=== PATIENT | female | born 1955 | race Caucasian/White ===

== ENCOUNTER → 2016-11-16 | Outpatient (CLI) | payer OTHER ==
[~2016-11-16] MED LIST: AMLO-110 PO; AMT10; CLOP1TAB15 PO; FLUT27.53 INTNAS; LEVO100T7 PO; LEVO88TA22 PO; LISI-461 PO; LISI40TA PO; LVQ750 PO; MISCCAP80 PO; OMEP40CA PO; OPTIRAY 320 IV PRN; OXYC-57 PO; OXYC1TAB3 PO; PANT40TA PO; PRVHFAIN INH; SIMV10TA2 PO; SIMV40TA2 PO
--- NOTE | 2016-11-16 13:06 | DIAGNOSTIC IMAGING REPORT ---
CHEST COMBO ANGIOGRAPHY CLINICAL HISTORY: Atherosclerosis. Subclavian artery stenosis. COMPARISON STUDY: Chest radiograph May 06, 2016. TECHNIQUE: Unenhanced and arterial phase imaging of the chest was performed. Injection of 93 cc Optiray 320 IV was uneventful. Sagittal and coronal reconstructions were viewed as well as maximal intensity projections on an independent 3-D workstation. FINDINGS: The heart is mildly enlarged. There is moderate coronary artery calcification and moderate atherosclerotic plaque of the thoracic aorta, greatest within the distal descending thoracic aorta. There is no evidence for thoracic aortic dissection. The caliber of the thoracic aorta is normal. There is occlusion of the proximal left subclavian artery that begins 9 mm distal to the vessel origin. There is reconstitution of the left subclavian artery at the takeoff of the left vertebral artery. There is moderate to severe stenosis at the origin of the left vertebral artery. The brachiocephalic trunk and left common carotid artery are patent. The proximal right subclavian artery is tortuous but no significance and no cysts are identified. Evaluation is difficult due to streak artifact from adjacent contrast within the veins. Central airways are patent. Mild emphysema is noted. There is no pneumothorax or pleural effusion. Note is made of a 7 mm subpleural nodule within the right lower lobe shown on image [id number] of [id number]. There is mild esophageal dilatation. Mild biliary ductal dilatation is likely related to cholecystectomy. There are a few suspected hepatic cysts. IMPRESSION: 1. Occlusion of the proximal left subclavian artery. Occlusion begins 9 mm distal to the vessel origin. Reconstitution of the left subclavian artery immediately distal to the takeoff of the left vertebral artery. This could be correlated with clinical evidence for subclavian steal syndrome. Moderate to severe stenosis at the origin of the left vertebral artery. 2. Tortuous proximal right subclavian artery which is suboptimally assessed on this exam but is patent without high-grade stenosis. 3. Mild cardiomegaly. 4. 7 mm subpleural right lower lobe nodule. A follow-up chest CT in 6 months to ensure stability is recommended. Electronically signed by: Cheng Paula M.D. 11/16/2016 1:05 PM Dictated Date/Time: 11/16/2016 12:42 PM
== END | disposition home or self-care (01) ==
LOC: C.CTS 11:45
PROVIDERS: ATTEND Physician Assistant
DX: I70.219 Atherosclerosis of native arteries of extremities with intermittent claudication, unspecified extremity (principal); I51.7 Cardiomegaly

== ENCOUNTER 2016-12-30 05:48 | Inpatient (IN) | payer OTHER ==
[2016-12-15 14:02] VITALS: BMI 35.0
--- NOTE | 2016-12-15 14:44 | PAT Medication Instructions ---
Service Date Dec 15, 2016. Current Home Medication List Albuterol (Ventolin Hfa), 2 PUFFS INH DIRECTED Amitriptyline HCl (Amitriptyline HCl), 25 MG HS Amlodipine (Norvasc), 5 MG PO QAM Clopidogrel (Plavix), 75 MG PO QAM Fluticasone Furoate (Flonase Sensimist), 2 SPRAYS INTNAS PRN Levothyroxine Sodium (Levothyroxine Sodium), 1 TAB PO QAM Lisinopril (Zestril), 40 MG PO QAM Oxycodone Ir (Roxicodone Ir), 5 MG PO BID PRN for Pain Pantoprazole (Protonix), 40 MG PO QAM Probiotic Product (Probiotic), 1 CAP PO QAM Simvastatin (Zocor), 40 MG PO QPM Medication Instructions For Your Scheduled Surgery - Check with surgeon/family physician for instructions: Clopidogrel (Plavix), 75 MG PO QAM - Hold the following medications the morning of surgery: Probiotic Product (Probiotic), 1 CAP PO QAM Lisinopril (Zestril), 40 MG PO QAM - Take the following medications the morning of surgery with a sip of water: Pantoprazole (Protonix), 40 MG PO QAM Oxycodone Ir (Roxicodone Ir), 5 MG PO BID PRN for Pain (okay to take up to 4 hours prior to surgery if needed) Levothyroxine Sodium (Levothyroxine Sodium), 1 TAB PO QAM Fluticasone Furoate (Flonase Sensimist), 2 SPRAYS INTNAS PRN (if needed) Amlodipine (Norvasc), 5 MG PO QAM Albuterol (Ventolin Hfa), 2 PUFFS INH DIRECTED (if needed) - Take the following medications as scheduled the night before surgery: Simvastatin (Zocor), 40 MG PO QPM Oxycodone Ir (Roxicodone Ir), 5 MG PO BID PRN for Pain (if needed) Fluticasone Furoate (Flonase Sensimist), 2 SPRAYS INTNAS PRN (if needed) Amitriptyline HCl (Amitriptyline HCl), 25 MG HS Albuterol (Ventolin Hfa), 2 PUFFS INH DIRECTED (if needed) If you have any questions please call us at [phone] or [phone] or [phone]
[2016-12-15 16:36] LABS: BASO % 0.2 %; BASO ABS # 0.01 K/uL (0-0.2); COMPLETE YES; EOS % 0.8 %; HEMATOCRIT 37.2 % (37-47); IG% 0.2 %; LYMPH % 14.6 %; LYMPH ABS # 0.94 K/uL (1.2-3.4); MEAN CELL VOLUME 93.7 fL (80-100); MEAN CORPUSCULAR HEMOGLOBIN 31.2 pg (25-34); MEAN CORPUSCULAR HGB CONC 33.3 g/dl (32-36); MEAN PLATELET VOLUME 10.5 fL (7.4-10.4); MONO % 6.5 %; NEUT % 77.7 %; PLATELET COUNT 241 K/uL (130-400); RED BLOOD COUNT 3.97 M/uL (4.2-5.4); WHITE BLOOD COUNT 6.43 K/uL (4.8-10.8)
[2016-12-15 16:59] LABS: PARTIAL THROMBOPLASTIN RATIO 1.1; PROTHROMBIN TIME (PATIENT) 10.6 SECONDS (9.0-12.0)
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
[2016-12-30] VITALS (7 sets, daily range): BP systolic 93–127; BP diastolic 65–87; PULSE 83–95; TEMP 36.3–36.7; O2SAT 91–99; Ht 165.1 cm; Wt 95.6 kg
[~2016-12-30] VITALS: Ht 165.1 cm; Wt 95.6 kg
[~2016-12-30 05:48] MED LIST changes: -AMLO-110 PO; -AMT10; -CLOP1TAB15 PO; -FLUT27.53 INTNAS; -LEVO100T7 PO; -LEVO88TA22 PO; -LISI40TA PO; -LVQ750 PO; -MISCCAP80 PO; -OMEP40CA PO; -OPTIRAY 320 IV PRN; -OXYC-57 PO; -OXYC1TAB3 PO; -PANT40TA PO; -PRVHFAIN INH; -SIMV10TA2 PO; -SIMV40TA2 PO
[2016-12-30] MEDS ORDERED: LACTATED RINGER'S 1000ML 1,000 ML IV SCH (06:00)
[2016-12-30] MEDS ORDERED: CEFAZOLIN 2000 MG/60 ML D5W IV SCH (06:00)
[2016-12-30] MEDS ORDERED: LIDOCAINE HCL 2% 2 ML VIAL (20MG/ML) ONE (06:48)
[2016-12-30] MEDS ORDERED: ROCURONIUM BROMIDE 10 MG/ML 5 ML VIAL IV ONE (06:48)
[2016-12-30] MEDS ORDERED: ONDANSETRON INJ 2 MG/ML 2 ML VIAL ONE (06:48)
[2016-12-30] MEDS ORDERED: SUCCINYLCHOLINE CHLORIDE 20 MG/ML 10 ML VIAL IV ONE (06:48)
[2016-12-30] MEDS ORDERED: NEOSTIGMINE METHYLSULFATE 5 MG/5 ML SYR ONE (06:48)
[2016-12-30] MEDS ORDERED: EpHEDrine SULFATE INJ 50 MG/ML AMP ONE (06:48)
[2016-12-30] MEDS ORDERED: GLYCOPYRROLATE INJ 0.2 MG/ML VIAL ONE (06:48)
[2016-12-30] MEDS ORDERED: PHENYLEPHRINE HCL INJ 10 MG/ML VIAL ONE (06:48)
[2016-12-30] MEDS ORDERED: DEXAMETHASONE SOD INJ 4 MG/ML VIAL ONE (06:48)
[2016-12-30] MEDS ORDERED: PROPOFOL IV EMULSION 10 MG/ML 20 ML VIAL IV ONE ×2 (06:48→10:21)
[2016-12-30] MEDS ORDERED: FENTANYL CITRATE INJ 50 MCG/1 ML 2 ML VIAL ONE ×2 (06:49→09:13)
[2016-12-30] MEDS ORDERED: MIDAZOLAM HCL 1 MG/ML 2ML VIAL ONE (06:49)
[2016-12-30] MEDS: SODIUM CHLORIDE 0.9% 1000ML 1,000 ML IV SCH ×2 (07:00→12:21)
[2016-12-30] MEDS ORDERED: CEFAZOLIN SOD 1 GM VIAL ONE (07:08)
[2016-12-30] MEDS ORDERED: LIDOCAINE HCL 1% 20 ML VIAL ONE (07:08)
[2016-12-30] MEDS ORDERED: BUPIVACAINE/EPINEPHRINE 0.5% MPF 1:200,000 30 ML VIAL ONE (07:08)
[2016-12-30] MEDS ORDERED: THROMBIN FOR SOLN 20000 UNIT KIT ONE (07:08)
[2016-12-30] MEDS ORDERED: GELATIN SPONGE 12-7MM ONE (07:08)
[2016-12-30] MEDS ORDERED: HEPARIN SOD (PORCINE) 1000 UNIT/ML 10 ML VIAL ONE ×2 (07:09→09:32)
[2016-12-30] MEDS ORDERED: HYDROmorphone INJ 2 MG/ML SYR/VIAL IV PRN (07:15)
[2016-12-30] MEDS ORDERED: ONDANSETRON INJ 2 MG/ML 2 ML VIAL IV PRN ×2 (07:15→10:30)
[2016-12-30] MEDS ORDERED: LABETALOL HCL IV 5 MG/ML 20ML IV PRN (07:15)
[2016-12-30] MEDS ORDERED: ATROPINE SULFATE 0.1 MG/ML 5ML SYR IV PRN (07:15)
--- NOTE | 2016-12-30 07:36 | History & Physical Bridge Note ---
H&P Re-Evaluation Bridge Note: I have examined the patient, reviewed the History & Physical and in the interval since the performance of the History & Physical I have noted the following changes of clinical significance: No changes noted
[2016-12-30] MEDS ORDERED: GELATIN SPONGE SZ 100 ONE (07:39)
[2016-12-30] MEDS ORDERED: PROTAMINE SULFATE 10 MG/ML 5 ML VIAL IV ONE (10:09)
[2016-12-30] MEDS ORDERED: D5W AND 1/2NSS 1,000 ML IV ONE (10:26)
--- NOTE | 2016-12-30 10:26 | [facility] Post Operative Brief Note ---
Immediate Operative Summary Operative Date Dec 30, 2016. Pre-Operative Diagnosis Left subclavian artery occlusion Post-Operative Diagnosis Left subclavian artery occlusion Procedure(s) Performed Left Carotid to Subclavian Bypass Surgeon Dr. Bon Mcdonnell [employer] Superintendent Surgeon(s) Cathleen Caldwell PA-C Estimated Blood Loss 150ml Findings good flow to left hand Specimens No specimen as per surgeon Anesthesia Gen Complication(s) None Disposition Recovery Room / PACU
[2016-12-30] MEDS ORDERED: MoRPHine SULFATE 4 MG/ML 1 ML CARP\\VIAL IV PRN (10:30)
[2016-12-30] MEDS ORDERED: ALBUTEROL HFA 8 GM INHALER INH PRN (10:30)
[2016-12-30] MEDS ORDERED: ACETAMINOPHEN 325 MG TAB PO PRN (10:30)
[2016-12-30] MEDS ORDERED: HYDROmorphone INJ 1 MG/ML SYR ONE (11:10)
--- NOTE | 2016-12-30 11:10 | OPERATIVE REPORT ---
DATE OF OPERATION: 12/30/2016 PREOPERATIVE DIAGNOSIS: Left subclavian artery occlusion. POSTOPERATIVE DIAGNOSIS: Same. PROCEDURE: Left carotid subclavian prosthetic bypass. SURGEON: Dr. Mcdonnell. SISAL PICKER: Cathleen Murray PA-C. ANESTHETIC: General endotracheal. PROCEDURE INDICATIONS: The patient is a 61-year-old female with left subclavian artery occlusion with significant symptoms of her left arm. It has gotten progressively worse. Endovascular attempt was performed which was not successful. Carotid subclavian was then recommended. She understood the risks, options and benefits and agreed to go ahead with this procedure. OPERATION AND FINDINGS: The patient was taken to the operating room and placed in supine position. After general anesthesia was accomplished, the left side of the neck was prepped and draped in a sterile manner. A transverse incision was made supraclavicularly. This was carried down through the platysmal layer. The clavicular head of the sternocleidomastoid was divided. This was carried down to where the scalenus anticus was seen and this was also divided. Dissection of the subclavian vein was fairly inferior and sat beneath the clavicle. It was finally located and isolated for a short distance. The patient was heparinized. After adequate heparinization was accomplished, subclavian was clamped proximally and distally. Longitudinal arteriotomy was then made. The 6 mm S [place]an graft was then brought to the operative field and was trimmed and beveled in appropriate fashion. An arteriotomy was performed on the subclavian artery and appeared to be normal lining. An end-to-side anastomosis was then performed using a 6-0 Prolene suture in the usual vascular fashion. Prior to completing the closure, backbleeding and forward bleeding was allowed to occur and the final few sutures were placed and securely tied. Clamps were then placed on the graft just beyond the anastomosis. The carotid artery was then clamped proximally and distally. Longitudinal arteriotomy was then performed on the carotid. The S [place]an graft was trimmed to the appropriate length and bevelled. An end-to-side anastomosis was accomplished. This was done with a CV6 S [place]an suture in the usual vascular fashion. Prior to completing the closure, backbleeding and forward bleeding was allowed to occur and the final few sutures were placed and securely tied. Clamps were removed. Excellent flow was seen down the arm. The final clamp was removed from carotid artery distally from the anastomosis. Good Doppler signals were heard on the subclavian and carotid. At that point in time, there was a small amount of chyle leakage noted. This was identified and tied, clamped and clipped. No further leakage was seen. Adequate hemostasis was noted. The wound was then closed in the usual fashion using running 3-0 Vicryl suture for the platysmal layer, and a running 4-0 subcuticular Vicryl sutures for the skin edges. Dermabond was used for a dressing. The patient left the OR in good condition and tolerated the procedure well. I attest to the content of the Intraoperative Record and any orders documented therein. Any exceptions are noted tanya Murray Pac assisted due to lack of resident availability and was necessary for prepping, draping, retraction, wound closure defects, subQ and skin closure and was necessary for the case. HAYLEE
[2016-12-30 11:28] LABS: BASO % 0.2 %; BASO ABS # 0.01 K/uL (0-0.2); EOS % 0.8 %; HEMATOCRIT 35.3 % (37-47); IG% 0.3 %; LYMPH ABS # 1.13 K/uL (1.2-3.4); MEAN CELL VOLUME 93.1 fL (80-100); MEAN CORPUSCULAR HEMOGLOBIN 31.4 pg (25-34); MEAN PLATELET VOLUME 9.6 fL (7.4-10.4); MONO % 5.7 %; PLATELET COUNT 174 K/uL (130-400); RED BLOOD COUNT 3.79 M/uL (4.2-5.4); WHITE BLOOD COUNT 6.66 K/uL (4.8-10.8)
--- NOTE | 2016-12-30 11:42 | Anesthesiology Progress Note ---
Anesthesia Post Op Note Date & Time Dec 30, 2016 at 11:42 Vital Signs Pain Intensity: 4 Vital Signs Past 12 Hours Date Time Temp Pulse Resp B/P (MAP) Pulse Ox O2 Delivery O2 Flow Rate FiO2 12/30/16 11:35 36.1 89 18 105/71 95 Nasal Cannula 2 12/30/16 11:25 92 19 105/65 95 Nasal Cannula 2 12/30/16 11:15 94 20 96/68 (83) 95 Nasal Cannula 2 12/30/16 11:05 97 21 110/67 98 Oxymask 10 12/30/16 10:55 99 19 114/68 100 Oxymask 10 12/30/16 10:46 36.7 107 16 121/73 100 Oxymask 10 12/30/16 06:15 36.7 83 20 127/87 94 Room Air Notes Mental Status: alert / awake / arousable, participated in evaluation Pt Amnestic to Procedure: Yes Nausea / Vomiting: adequately controlled Pain: adequately controlled Airway Patency, RR, SpO2: stable & adequate BP & HR: stable & adequate Hydration State: stable & adequate Anesthetic Complications: no major complications apparent
[2016-12-30 12:20] LABS: COMPLETE YES; MEAN CORPUSCULAR HGB CONC 33.7 g/dl (32-36)
[2016-12-30] MEDS: CEFAZOLIN IV 2,000 MG in DEXTROSE 5% 50ML 50 ML IV SCH ×2 (13:01→22:18)
--- NOTE | 2016-12-30 13:46 | Progress Note ---
Progress Note Date of Service Dec 30, 2016. Progress Note I assisted Dr Mcdonnell with María Barnes's Left Carotid to Subclavian Bypass on 12/30/16, d/t lack of resident availability.
[2016-12-30 14:28] LABS: CREATININE 0.89 mg/dl (0.60-1.20)
[2016-12-30] MEDS ORDERED: INFLUENZA ADMINISTRATION CHARGE ONE (14:30)
[2016-12-30] MEDS ORDERED: INFLUENZA VIRUS QUAD VACCINE 0.5 ML SYR IM. ONE (14:30)
[2016-12-30] MEDS: SIMVASTATIN 40 MG TAB PO SCH (20:53)
[2016-12-30] MEDS: AMITRIPTYLINE HCL 25 MG TAB PO SCH (20:53)
[2016-12-30] MEDS: ENOXAPARIN 30 MG/0.3 ML SYR SQ SCH ×2 (20:54→21:05)
[2016-12-30] MEDS: OXYCODONE HCL IR 5 MG TAB (IMMEDIATE RELEASE) PO PRN (21:05)
[2016-12-31] VITALS (12 sets, daily range): BP systolic 78–132; BP diastolic 56–86; PULSE 97–113; TEMP 36.7–37.1; O2SAT 89–94
[2016-12-31] MEDS: LEVOTHYROXINE 100 MCG TAB PO SCH (05:36)
[2016-12-31 06:52] LABS: BUN/CREATININE RATIO 11.7 (10-20); CALCIUM 8.5 mg/dl (8.5-10.1); CREATININE 0.69 mg/dl (0.60-1.20); POTASSIUM 4.2 mmol/L (3.5-5.1)
--- NOTE | 2016-12-31 07:55 | Progress Note ---
Progress Note Date of Service: Dec 31, 2016. Subjective Complaining of neck pain Objective Vital Signs Vital Signs Past 12 Hours Date Time Temp Pulse Resp B/P (MAP) Pulse Ox O2 Delivery O2 Flow Rate FiO2 12/31/16 04:00 Room Air 12/31/16 03:45 37.0 97 18 124/79 (94) 90 Room Air 12/31/16 00:32 37.1 98 19 132/81 (98) 91 Room Air 12/30/16 23:59 Room Air 12/30/16 20:03 36.7 93 24 120/84 (96) 92 Room Air 12/30/16 20:00 95 Room Air 3.0 Exam Awake and alert VSS Afebrile Inciaion dry and clean with moderate swelling Left hand warm with good dopplers No neuro deficits of left arm. Laboratory and Microbiology Results Past 24 Hours Test 12/30/16 11:14 12/30/16 13:33 12/31/16 05:40 Range/Units White Blood Count 6.66 4.8-10.8 K/uL Red Blood Count 3.79 4.2-5.4 M/uL Hemoglobin 11.9 12.0-16.0 g/dL Hematocrit 35.3 37-47 % Mean Corpuscular Volume 93.1 80-100 fL Mean Corpuscular Hemoglobin 31.4 25-34 pg Mean Corpuscular Hemoglobin Concent 33.7 32-36 g/dl Platelet Count 174 130-400 K/uL Mean Platelet Volume 9.6 7.4-10.4 fL Neutrophils (%) (Auto) 76.0 % Lymphocytes (%) (Auto) 17.0 % Monocytes (%) (Auto) 5.7 % Eosinophils (%) (Auto) 0.8 % Basophils (%) (Auto) 0.2 % Neutrophils # (Auto) 5.07 1.4-6.5 K/uL Lymphocytes # (Auto) 1.13 1.2-3.4 K/uL Monocytes # (Auto) 0.38 0.11-0.59 K/uL Eosinophils # (Auto) 0.05 0-0.5 K/uL Basophils # (Auto) 0.01 0-0.2 K/uL RDW Standard Deviation 46.8 36.4-46.3 fL RDW Coefficient of Variation 13.7 11.5-14.5 % Immature Granulocyte % (Auto) 0.3 % Immature Granulocyte # (Auto) 0.02 0.00-0.02 K/uL Creatinine 0.89 0.69 0.60-1.20 mg/dl Est Creatinine Clear Calc Drug Dose 77.8 100.4 ml/min Estimated GFR () 82.2 110.4 Estimated GFR (Non- 70.9 95.3 Sodium Level 137 136-145 mmol/L Potassium Level 4.2 3.5-5.1 mmol/L Chloride Level 105 98-107 mmol/L Carbon Dioxide Level 26 21-32 mmol/L Anion Gap 6.0 3-11 mmol/L Blood Urea Nitrogen 8 7-18 mg/dl BUN/Creatinine Ratio 11.7 10-20 Random Glucose 120 70-99 mg/dl Calcium Level 8.5 8.5-10.1 mg/dl Imp: Post left carotid subclavian bypass Plan: Will transfer to floor Probable d/c tomorrow. Will stay today for pain control
[2016-12-31] MEDS: FLUTICASONE PROPIONATE NA SPR 16 GM BTL SCH (08:02)
[2016-12-31] MEDS: LACTOBACILLUS ACIDOPHILUS (FLORANEX) TAB PO SCH (08:03)
[2016-12-31] MEDS: AMLODIPINE BESYLATE 5 MG TAB PO SCH (08:05)
[2016-12-31] MEDS: CLOPIDOGREL BISULFATE 75 MG TAB PO SCH (08:05)
[2016-12-31] MEDS: PANTOprazole SOD 40 MG TAB PO SCH (08:06)
[2016-12-31] MEDS: LISINOPRIL 40 MG TAB PO SCH (08:07)
[2016-12-31] MEDS: ENOXAPARIN 30 MG/0.3 ML SYR SQ SCH ×2 (08:08→21:23)
[2016-12-31] MEDS: OXYCODONE HCL IR 5 MG TAB (IMMEDIATE RELEASE) PO PRN (08:09)
[2016-12-31] MEDS ORDERED: NURSING VERBAL MED ORDER ONE (10:30)
--- NOTE | 2016-12-31 10:33 | Anesthesiology Progress Note ---
Anesthesia Post Op Note Date & Time Dec 31, 2016 at 10:32 Vital Signs Pain Intensity: 7.0 Vital Signs Past 12 Hours Date Time Temp Pulse Resp B/P (MAP) Pulse Ox O2 Delivery O2 Flow Rate FiO2 12/31/16 10:23 36.7 109 22 123/86 (98) 92 Room Air 12/31/16 08:41 Room Air 12/31/16 08:16 36.9 111 28 104/82 (89) 90 12/31/16 04:00 Room Air 12/31/16 03:45 37.0 97 18 124/79 (94) 90 Room Air 12/31/16 00:32 37.1 98 19 132/81 (98) 91 Room Air 12/30/16 23:59 Room Air Notes Mental Status: alert / awake / arousable Pt Amnestic to Procedure: Yes Nausea / Vomiting: adequately controlled Pain: adequately controlled Airway Patency, RR, SpO2: stable & adequate BP & HR: stable & adequate Hydration State: stable & adequate
[2016-12-31] MEDS: OXYCODONE/ACETAMINOPHEN 5-325 TAB PO PRN ×2 (12:28→17:40)
[2016-12-31] MEDS: SIMVASTATIN 40 MG TAB PO SCH (21:23)
[2016-12-31] MEDS: AMITRIPTYLINE HCL 25 MG TAB PO SCH (21:23)
[2017-01-01] VITALS (12 sets, daily range): BP systolic 38–124; BP diastolic 49–83; PULSE 110–120; TEMP 36.7–37.1; O2SAT 91–94
[2017-01-01] MEDS: OXYCODONE/ACETAMINOPHEN 5-325 TAB PO PRN ×3 (00:08→23:25)
[2017-01-01] MEDS: LEVOTHYROXINE 100 MCG TAB PO SCH (05:32)
[2017-01-01] MEDS ORDERED: SODIUM CHLORIDE 0.9% 500ML 500 ML IV ONE ×2 (08:30→10:30)
[2017-01-01] MEDS ORDERED: NURSING VERBAL MED ORDER ONE ×2 (08:30→10:15)
[2017-01-01 08:43] LABS: HEMATOCRIT 40.8 % (37-47)
--- NOTE | 2017-01-01 08:56 | Progress Note ---
Progress Note Date of Service: Jan 01, 2017. Subjective 61 yo f POD #2 after L carotid-subclavian art BPG, seen in f/u today. Pt admits some edema and discomfort in L neck surgical area, but states is improving compared to yesterday. Not requiring much pain medication per RN. Taking PO well, ambulating. Hypotensive and tachycardic overnight per records, however, pt denies any complaints. Objective Vital Signs Vital Signs Past 12 Hours Date Time Temp Pulse Resp B/P (MAP) Pulse Ox O2 Delivery O2 Flow Rate FiO2 01/01/17 08:15 85/60 (68) 01/01/17 08:15 88/55 (66) 01/01/17 07:56 36.7 112 20 69/49 (56) 91 Room Air 01/01/17 01:00 94 Room Air 01/01/17 00:39 108/71 (83) 12/31/16 23:58 94 Nasal Cannula 2.0 12/31/16 23:50 Room Air 12/31/16 23:49 89/60 (70) 12/31/16 23:42 36.8 100 16 78/56 (63) 89 Room Air Exam CONST: A&O x3, NAD, chronically ill appearing female NECK: surgical incision C/D/I, + local edema and tenderness, hematoma noted. NEURO: No focal deficits. CHEST: RRR lungs decreased but ctab ABD: soft, nontender, + bs x 4 quad EXT: SHAFFER. +1radial RUE, nonpalpable radial LUE. +2 brachial RUE, +1 brachial LUE. brisk cap refill BUE Laboratory and Microbiology Results Past 24 Hours Test 01/01/17 08:29 Range/Units Hemoglobin 13.7 12.0-16.0 g/dL Hematocrit 40.8 37-47 % ASSESSMENT and PLAN: s/p L carotid-subclavian art bpg L subclavian art occlusion with claudication Post op hypotension-asymptomatic Pt states feeling ok. will check bilateral BP to eval for gradient. hgb/ hct ordered and EKG. further orders pending results. continue to monitor.
[2017-01-01] MEDS: LISINOPRIL 40 MG TAB PO SCH (09:00)
[2017-01-01] MEDS: AMLODIPINE BESYLATE 5 MG TAB PO SCH (09:00)
[2017-01-01] MEDS: FLUTICASONE PROPIONATE NA SPR 16 GM BTL SCH (09:21)
[2017-01-01] MEDS: LACTOBACILLUS ACIDOPHILUS (FLORANEX) TAB PO SCH (09:22)
[2017-01-01] MEDS: PANTOprazole SOD 40 MG TAB PO SCH (09:23)
[2017-01-01] MEDS: CLOPIDOGREL BISULFATE 75 MG TAB PO SCH (09:23)
[2017-01-01] MEDS: ENOXAPARIN 30 MG/0.3 ML SYR SQ SCH ×3 (09:24→21:47)
--- NOTE | 2017-01-01 12:21 | DIAGNOSTIC IMAGING REPORT ---
ULTRASOUND OF THE CAROTID ARTERIES CLINICAL HISTORY: Proximal left subclavian artery occlusion. Status post carotid subclavian bypass graft. COMPARISON STUDY: CT angiogram of the chest dated 11/16/2016. TECHNIQUE: Real-time, grayscale, and color Doppler sonography of the left common carotid artery is performed to assess a subclavian artery bypass graft. FINDINGS: There are at least 3 heterogeneously hypoechoic collections identified in the left lower neck at the site of interest. The largest measures up to 5.4 cm. This likely represent small hematomas. The left common carotid artery is patent with normal direction of flow and arterial waveforms. Velocities within the left common carotid artery measure up to 119 cm/s. The distal left subclavian/axillary artery is patent with normal arterial waveforms and velocities measuring up to 53 cm/s. A structure that may likely represents the common carotid artery to subclavian artery graft is present in the left lower neck. This demonstrates flow with velocities measuring up to 85 cm/s. This is difficult to fully visualize. IMPRESSION: 1. A structure that likely represents the common carotid artery to subclavian artery graft is present in the lower neck and demonstrates flow. This is difficult to fully assess. 2. The left common carotid and the distal left subclavian artery are patent. 3. There are several hypoechoic complex fluid collection the left lower neck, likely representing small hematomas. Clinical follow-up to resolution is recommended. Electronically signed by: Gutierrez Gonzalez M.D. 01/01/2017 12:20 PM Dictated Date/Time: 01/01/2017 12:14 PM
[2017-01-01] MEDS: SIMVASTATIN 40 MG TAB PO SCH (21:43)
[2017-01-01] MEDS: AMITRIPTYLINE HCL 25 MG TAB PO SCH (21:43)
[2017-01-02] MEDS: LEVOTHYROXINE 100 MCG TAB PO SCH (06:11)
[2017-01-02 06:56] VITALS: BP 88/60; PULSE 100; TEMP 36.6; O2SAT 93
[2017-01-02] MEDS: LISINOPRIL 40 MG TAB PO SCH (08:12)
[2017-01-02] MEDS: AMLODIPINE BESYLATE 5 MG TAB PO SCH (08:12)
[2017-01-02] MEDS: FLUTICASONE PROPIONATE NA SPR 16 GM BTL SCH (09:00)
[2017-01-02] MEDS: CLOPIDOGREL BISULFATE 75 MG TAB PO SCH (09:15)
[2017-01-02] MEDS: LACTOBACILLUS ACIDOPHILUS (FLORANEX) TAB PO SCH (09:15)
[2017-01-02] MEDS: ENOXAPARIN 30 MG/0.3 ML SYR SQ SCH (09:15)
[2017-01-02] MEDS: PANTOprazole SOD 40 MG TAB PO SCH (09:15)
[2017-01-02 09:19] VITALS: BP 88/60; PULSE 100; TEMP 36.6; O2SAT 93
--- NOTE | 2017-01-02 09:26 | Progress Note ---
Progress Note Date of Service: Jan 02, 2017. Subjective No complaints. Able to move neck. No lightheadedness or dizziness. Left hand feeling better since surgery. Objective Vital Signs Vital Signs Past 12 Hours Date Time Temp Pulse Resp B/P (MAP) Pulse Ox O2 Delivery O2 Flow Rate FiO2 01/02/17 09:19 36.6 100 20 93 Room Air 01/02/17 06:56 36.6 100 20 88/60 (69) 93 Room Air 01/01/17 23:30 Room Air 01/01/17 23:16 37.0 110 18 107/69 (82) 93 Room Air Exam Afebrile VSS but BP still on low side without any symptoms Incision dry and clean Moderate edema, unchanged Hand warm, good doppler No neuro deficits. Bypass patent on duplex Imp: Post carotid subclavian bypass Plan: Will d/c today. Will decrease anti hypertensives. She will monitor her BP at home and call with any changes or symptoms.
[2017-01-02] MEDS ORDERED: OXYC-57 PO (09:29)
--- NOTE | 2017-01-02 09:31 | Discharge Instructions ---
Discharge Instructions Date of Service Jan 02, 2017. Admission Reason for Admission: Left Subclavian Artery Occlusion Discharge Discharge Diagnosis / Problem: Left subclavian artery occlusion Discharge Goals Goal(s): Therapeutic intervention Activity Recommendations Activity Limitations: per Instructions/Follow-up section Shower/Bathe: no limitations . Instructions / Follow-Up Instructions / Follow-Up Call [phone] to schedule a follow up appointment if one not already scheduled. Hold blood pressure medications if BP less than 100 ACTIVITY RECOMMENDATIONS: See Above SPECIAL CARE INSTRUCTIONS: Call your doctor if: * Temperature above 101 degrees * Pain not relieved by pain medicine ordered * There is increased drainage or redness from any incision * You have any unanswered questions or concerns. Current Hospital Diet Patient's current hospital diet: AHA Diet (Heart Healthy), Low Fat Diet Discharge Diet Recommended Diet: AHA Diet (Heart Healthy), Low Fat Diet Procedures Procedures Performed: Left Carotid to Subclavian Bypass Pending Studies Studies pending at discharge: no Medical Emergencies . Who to Call and When: Medical Emergencies: If at any time you feel your situation is an emergency, please call 911 immediately. . Non-Emergent Contact Non-Emergency issues call your: Surgeon . "Provider Documentation" section prepared by Bon Mcdonnell. . VTE Core Measure Inpt VTE Proph given/why not?: Enoxaparin (Lovenox)SQ, SCD's [place] Drug Monitoring Program Search Results: no issues identified
[2017-01-04] MEDS ORDERED: OXYC1TAB3 PO (07:58)
[2017-01-04] MEDS ORDERED: AMT10 (07:58)
[2017-01-04] MEDS ORDERED: CLOP1TAB15 PO (08:43)
[2017-01-04] MEDS ORDERED: AMLO-110 PO (08:43)
[2017-01-04] MEDS ORDERED: MISCCAP80 PO (09:55)
[2017-01-04] MEDS ORDERED: PANT40TA PO (11:20)
[2017-01-04] MEDS ORDERED: PRVHFAIN INH (11:22)
[2017-01-04] MEDS ORDERED: FLUT27.53 INTNAS (11:26)
[2017-01-04] MEDS ORDERED: SIMV40TA2 PO (11:26)
[2017-01-06] MEDS ORDERED: LVQ750 PO (13:16)
== END 2017-01-02 11:30 | disposition home or self-care (01) | DRG 254 ==
LOC: C.ACU 05:48 → C.2E 06:30 → ENRESERV 11:49 → C.MSW 12-31 10:54 → UNDODISIN 01-01 14:01
PROVIDERS: ADMIT Surgery Vascular Surgery; ATTEND Surgery Vascular Surgery
PROC: 03140JK Bypass Left Subclavian Artery to Left Extracranial Artery with Synthetic Substitute, Open Approach (ICD-10-PCS; principal; 2016-12-30 07:45)
DX: I70.8 Atherosclerosis of other arteries (principal); I73.9 Peripheral vascular disease, unspecified; K21.9 Gastro-esophageal reflux disease without esophagitis; I10 Essential (primary) hypertension; E03.9 Hypothyroidism, unspecified; G47.33 Obstructive sleep apnea (adult) (pediatric); G35 Multiple sclerosis; I95.81 Postprocedural hypotension; Z79.02 Long term (current) use of antithrombotics/antiplatelets; Z79.899 Other long term (current) drug therapy

== ENCOUNTER 2017-01-04 12:46 | Observation (INO) | payer OTHER ==
[~2017-01-04] VITALS: Ht 165.1 cm; Wt 93.5 kg
[~2017-01-04 12:46] MED LIST changes: +AMLO-110 PO; +AMT10; +CLOP1TAB15 PO; +FLUT27.53 INTNAS; +MISCCAP80 PO; +OXYC-57 PO; +OXYC1TAB3 PO; +PANT40TA PO; +PRVHFAIN INH; +SIMV40TA2 PO
--- NOTE | 2017-01-04 13:24 | EMERGENCY ROOM VISIT NOTE ---
History First contact with patient: 13:05 Chief Complaint: SHORTNESS OF BREATH Stated Complaint: SOB, ELEVATED PULSE RATE Nursing Triage Summary: pt states short of breath on exertion and feels heart rate elevated. Per pt, she had an arterial bypass going from my neck to my arm. Done by Dr. Mcdonnell, here. Pt denies feeling short of breath prior to the procedure. History of Present Illness The patient is a 61 year old female who presents to the Emergency Room with complaints of shortness of breath and rapid heart rate for the past few days. Patient states that she had a left subclavian artery bypass surgery done on 12/[address] Mcdonnell and was discharged 2 days ago. She states she has been having some shortness of breath and elevated heart rate since discharge, but the shortness of breath has been getting progressively worse. She states her shortness of breath is worse with exertion and better at rest. She denies any associated chest pain, dizziness, nausea or vomiting with the shortness of breath, but does state that she gets sweaty when she is very short of breath. She has been sleeping in a recliner since her surgery, and states her shortness of breath is worse when she lays flat. She denies any fevers or chills, redness , drainage from her incision, and states that this has been doing well. She does state that she has been having a little bit of a dry cough. She denies any pain or swelling in her legs and no history of DVT. Review of Systems A complete 10 point review of systems was reviewed with the patient with pertinent positives and negatives as per history of present illness. All else were negative. Past Medical/Surgical History Medical Problems: (1) Left subclavian artery occlusion (2) Osteomyelitis of right foot Social History Smoking Status: Current Every Day Smoker Alcohol Use: occasionally Drug Use: none Marital Status: single Occupation Status: unemployed Current/Historical Medications Scheduled Albuterol (Ventolin Hfa), 2 PUFFS INH DIRECTED Amitriptyline HCl (Amitriptyline HCl), 25 MG HS Amlodipine (Norvasc), 5 MG PO QAM Clopidogrel (Plavix), 75 MG PO QAM Fluticasone Furoate (Flonase Sensimist), 2 SPRAYS INTNAS PRN Levothyroxine Sodium (Levothyroxine Sodium), 1 TAB PO QAM Lisinopril (Zestril), 40 MG PO DAILY Pantoprazole (Protonix), 40 MG PO QAM Probiotic Product (Probiotic), 1 CAP PO QAM Simvastatin (Zocor), 40 MG PO QPM Scheduled PRN Oxycodone Ir (Roxicodone Ir), 5 MG PO TID PRN for Pain Oxycodone/Acetaminophen 5MG/325MG (Percocet 5MG/325MG), 1 TABLET PO Q4H PRN for Pain Physical Exam Vital Signs Date Time Temp Pulse Resp B/P (MAP) Pulse Ox O2 Delivery O2 Flow Rate FiO2 01/04/17 18:25 103 22 142/82 94 Room Air 01/04/17 17:02 94 Room Air 01/04/17 17:01 84 Room Air 01/04/17 17:01 84 01/04/17 16:36 102 22 148/97 97 Room Air 01/04/17 13:19 101 01/04/17 13:17 97 Room Air 01/04/17 13:07 97 Room Air 01/04/17 13:04 97 Room Air 01/04/17 12:59 36.9 107 20 128/77 97 Room Air Physical Exam CONSTITUTIONAL: No acute distress. Well appearing and well nourished. Alert and oriented X 4 with normal affect. HEENT: Normocephalic, atraumatic. Pupils equal, round and reactive to light, EOMI. TMs normal. Pharynx normal. NECK: Supple, full active range of motion without discomfort. RESPIRATORY: Diminished with fine crackles in the left base. Lungs are otherwise clear to auscultation bilaterally with no wheezing, crackles, rhonchi or stridor. Equal expansion bilaterally. CARDIOVASCULAR: Tachycardic. Regular rhythm with no murmurs, rubs or gallops. Normal peripheral perfusion. No edema. GASTROINTESTINAL: Soft, nontender, nondistended. Bowel sounds present in all quadrants. MUSCULOSKELETAL: Full range of motion of all joints without discomfort. INTEGUMENTARY: No rash or other significant dermatologic conditions noted. NEUROLOGIC: Cranial nerves II-XII grossly intact. No focal neurologic deficits noted. Medical Decision & Procedures ER Provider Diagnostic Interpretation: CHEST CTA for PULMONARY ARTERIES CT DOSE: 661.71 mGy.cm HISTORY: Shortness of breath. TECHNIQUE: Multiaxial CT images of the chest were performed following the intravenous administration of contrast to evaluate the pulmonary arteries. Maximal intensity projection images were also obtained. A dose lowering technique was utilized adhering to the principles of ALARA. COMPARISON STUDY: Chest CTA 11/16/2016. FINDINGS: The visualized liver, spleen, and adrenal glands are unremarkable. Small hiatus hernia. Mild thickening of the esophagus, unchanged. Interval development of a small left pleural effusion with dense consolidation involving the base of the left lower lobe. Stable 7 mm nodule within the right lower lobe on image 94. Linear densities at the right lung base favor subsegmental atelectasis. Emphysema. No pneumothorax. The central airways are patent. No suspicious lytic or blastic osseous lesions. No mediastinal or hilar lymphadenopathy. There is again noted focal occlusion of the proximal left subclavian artery. There is reconstitution of the left subclavian artery at the level of the left vertebral artery. There appears to be a bypass graft extending from the mid left common carotid artery to the left subclavian artery. However, this appears to be occluded. There is soft tissue edema and surgical clips within the left neck as well as a small amount of gas consistent with the recent postoperative change. There is thickening of the left sternocleidomastoid muscle which could represent a small postoperative hematoma. Normal caliber thoracic aorta with no evidence for dissection. Nondiagnostic evaluation of the left lower lobe segmental pulmonary arteries due to motion artifact. However, the remaining pulmonary arteries show no filling defects to suggest embolus. IMPRESSION: 1. No definite evidence for pulmonary embolus with limitations as described above. 2. Interval development of a small left pleural effusion. Consolidation within the base of the left lower lobe may be due to compressive atelectasis from the effusion or a pneumonia. 3. Postoperative changes within the left neck with a left common carotid to left subclavian artery bypass graft. There is no contrast within the graft. Therefore, the graft is occluded. There is reconstitution of flow of the left subclavian artery due to the left vertebral artery consistent with a subclavian steal syndrome. 4. Soft tissue edema and surgical clips within the left neck suggestive of postoperative change. There are also be a small intramuscular hematoma within the left sternocleidomastoid muscle. 5. No change in the 7 mm subpleural nodule within the right lower lobe. 6. Mild diffuse thickening of the esophagus, unchanged. Laboratory Results 01/04/17 13:45 Red Blood Count 3.69, Mean Corpuscular Volume 93.0, Mean Corpuscular Hemoglobin 30.9, Mean Corpuscular Hemoglobin Concent 33.2, Mean Platelet Volume 9.8, Neutrophils (%) (Auto) 74.5, Lymphocytes (%) (Auto) 16.7, Monocytes (%) (Auto) 6.7, Eosinophils (%) (Auto) 1.7, Basophils (%) (Auto) 0.2, Neutrophils # (Auto) 4.33, Lymphocytes # (Auto) 0.97, Monocytes # (Auto) 0.39, Eosinophils # (Auto) 0.10, Basophils # (Auto) 0.01 01/04/17 13:45 Test 01/04/17 12:25 01/04/17 13:45 Urine Color YELLOW Urine Appearance CLEAR (CLEAR) Urine pH 6.5 (4.5-7.5) Urine Specific Weiner 1.012 (1.000-1.030) Urine Protein NEG (NEG) Urine Glucose (UA) NEG (NEG) Urine Ketones NEG (NEG) Urine Occult Blood NEG (NEG) Urine Nitrite NEG (NEG) Urine Bilirubin NEG (NEG) Urine Urobilinogen NEG (NEG) Urine Leukocyte Esterase NEG (NEG) White Blood Count 5.81 K/uL (4.8-10.8) Red Blood Count 3.69 M/uL (4.2-5.4) Hemoglobin 11.4 g/dL (12.0-16.0) Hematocrit 34.3 % (37-47) Mean Corpuscular Volume 93.0 fL (80-100) Mean Corpuscular Hemoglobin 30.9 pg (25-34) Mean Corpuscular Hemoglobin Concent 33.2 g/dl (32-36) Platelet Count 244 K/uL (130-400) Mean Platelet Volume 9.8 fL (7.4-10.4) Neutrophils (%) (Auto) 74.5 % Lymphocytes (%) (Auto) 16.7 % Monocytes (%) (Auto) 6.7 % Eosinophils (%) (Auto) 1.7 % Basophils (%) (Auto) 0.2 % Neutrophils # (Auto) 4.33 K/uL (1.4-6.5) Lymphocytes # (Auto) 0.97 K/uL (1.2-3.4) Monocytes # (Auto) 0.39 K/uL (0.11-0.59) Eosinophils # (Auto) 0.10 K/uL (0-0.5) Basophils # (Auto) 0.01 K/uL (0-0.2) RDW Standard Deviation 47.6 fL (36.4-46.3) RDW Coefficient of Variation 14.1 % (11.5-14.5) Immature Granulocyte % (Auto) 0.2 % Immature Granulocyte # (Auto) 0.01 K/uL (0.00-0.02) Prothrombin Time 10.2 SECONDS (9.0-12.0) Prothromb Time International Ratio 1.0 (0.9-1.1) Activated Partial Thromboplast Time 27.3 SECONDS (21.0-31.0) Partial Thromboplastin Ratio 1.1 Anion Gap 8.0 mmol/L (3-11) Est Creatinine Clear Calc Drug Dose 105.8 ml/min Estimated GFR () 112.1 Estimated GFR (Non- 96.7 BUN/Creatinine Ratio 12.0 (10-20) Calcium Level 9.1 mg/dl (8.5-10.1) Total Bilirubin 0.1 mg/dl (0.2-1) Aspartate Amino Transf (AST/SGOT) 22 U/L (15-37) Alanine Aminotransferase (ALT/SGPT) 34 U/L (12-78) Alkaline Phosphatase 110 U/L (45-117) Troponin I < 0.015 ng/ml (0-0.045) Total Protein 6.9 gm/dl (6.4-8.2) Albumin 2.7 gm/dl (3.4-5.0) Globulin 4.1 gm/dl (2.5-4.0) Albumin/Globulin Ratio 0.7 (0.9-2) Thyroid Stimulating Hormone (TSH) 3.520 uIu/ml (0.300-4.500) Medications Administered Medications (Trade) Dose Ordered Sig/Speedy Route Start Time Stop Time Status Last Admin Dose Admin Sodium Chloride 500 ml @ 999 mls/hr Q31M STAT IV 01/04/17 16:50 01/04/17 17:36 DC 01/04/17 17:42 999 MLS/HR Albuterol (Ventolin Hfa Inhaler) 2 puffs NOW STAT INH 01/04/17 17:06 01/04/17 17:08 DC 01/04/17 17:12 2 PUFFS Vancomycin HCl 2000 mg/Sodium Chloride 540 ml @ 200 mls/hr ONE STAT IV 01/04/17 17:08 01/04/17 19:49 01/04/17 18:23 200 MLS/HR Piperacillin Sod/ Tazobactam Sod (Zosyn Iv) 4.5 gm NOW STAT IV 01/04/17 17:08 01/04/17 17:15 DC 01/04/17 17:41 4.5 GM ECG Indication: SOB/dyspnea Rate (beats per minute): 99 Rhythm: normal sinus Findings: no acute ischemic change, no ectopy Change: no significant change (01/01/2017) Medical Decision CC: Patient presenting with complaint of shortness of breath and rapid heart rate Interpretation of Labs: No leukocytosis, mild anemia (at baseline), no significant electrolyte abnormalities, normal renal function, negative troponin. UA negative. Differential Diagnosis: Includes, but not limited to PE, pneumonia, acute GA, postop complication, dysrhythmia, CHF, COPD, pulmonary edema, pleural effusion, pneumothorax, among others. Medication Reconciliation: I attest that I have personally reviewed the patient' s current medication list. Vital signs review: I reviewed the patient's initial vital signs and interpret them as follows: T: Afebrile; BP: Normotensive; HR: Tachycardic; RR: Within normal limits; Pulse Ox: Within normal limits on room air. Summary: Patient was evaluated at bedside, history of physical exam performed. Patient is alert and in no acute distress, resting calmly in the stretcher. She is not visibly short of breath, not tachypneic or using accessory muscles. She states her shortness of breath is primarily with exertion. On lung exam, the left lower lobe is diminished with some fine crackles, lungs are otherwise clear. There is moderate swelling and tenderness of the incision site over the left neck, which patient states has been improving and the swelling has been going down since surgery. No bruit or thrill. EKG reviewed at bedside, sinus rhythm with no acute ischemic changes, and appears relatively unchanged from previous EKG. Orders were placed at bedside for labs, UA, chest x-ray, CT chest to evaluate for PE. Patient discussed with Dr. Phillips, who agrees with my assessment and plan. Labs reviewed as above, no acute abnormalities. Chest x-ray consistent with a developing left lower lobe pneumonia. CT imaging negative for PE, again consistent with left lower lobe pneumonia. Also noted that there is no flow within the graft, concerning for occlusion. I did speak, phone with Dr. Mcdonnell and notified him of the concern for occluded graft. He states there is nothing he will do for this at this time. Patient should keep her follow-up appointments as scheduled. Patient reassessed multiple times throughout ED stay, she reports she is feeling somewhat better, but still feels very short of breath with minimal exertion. Tachycardia persistent in spite of IV fluid bolus. She did have hypoxia of 84% and significant shortness of breath with very minimal ambulation, therefore will admit. Given her recent hospitalization, will treat for HAP with Vancomycin and Zosyn. I spoke with Dr. Masterson, Hospitalist, who agrees to admit the patient. Patient updated on all results and plan for admission, she is agreeable to this plan. Patient stable at time of admission. Impression Primary Impression: LLL pneumonia Additional Impressions: Short of breath on exertion Hypoxia Departure Information Dispostion Admitted as an inpatient Condition FAIR Referrals Jeniffer Mathew PA-C (PCP) Patient Instructions My [facility] Problem Qualifiers Primary Impression: LLL pneumonia Pneumonia type: due to unspecified organism Qualified Codes: J18.1 - Lobar pneumonia, unspecified organism
[2017-01-04] MEDS ORDERED: OPTIRAY 320 IV PRN (13:30)
[2017-01-04 13:54] LABS: URINE APPEARANCE CLEAR (CLEAR); URINE BILIRUBIN NEG (NEG); URINE COLOR YELLOW; URINE NITRITE NEG (NEG); URINE PH 6.5 (4.5-7.5); URINE SPECIFIC GRAVITY 1.012 (1.000-1.030); UROBILINOGEN NEG (NEG)
[2017-01-04] MEDS ORDERED: LISI40TA PO (13:56)
[2017-01-04 13:58] LABS: MANUAL MICROSCOPIC REQUIRED? NO; REVIEW REQ? NO
[2017-01-04] MEDS ORDERED: LEVO100T7 PO (14:00)
[2017-01-04 14:12] LABS: BASO % 0.2 %; BASO ABS # 0.01 K/uL (0-0.2); COMPLETE YES; EOS % 1.7 %; HEMATOCRIT 34.3 % (37-47); IG% 0.2 %; LYMPH % 16.7 %; LYMPH ABS # 0.97 K/uL (1.2-3.4); MEAN CORPUSCULAR HEMOGLOBIN 30.9 pg (25-34); MEAN CORPUSCULAR HGB CONC 33.2 g/dl (32-36); MEAN PLATELET VOLUME 9.8 fL (7.4-10.4); MONO % 6.7 %; NEUT % 74.5 %; PLATELET COUNT 244 K/uL (130-400); RED BLOOD COUNT 3.69 M/uL (4.2-5.4); WHITE BLOOD COUNT 5.81 K/uL (4.8-10.8)
[2017-01-04 14:23] LABS: ALT/SGPT 34 U/L (12-78); BLOOD UREA NITROGEN 8 mg/dl (7-18); CALCIUM 9.1 mg/dl (8.5-10.1); CARBON DIOXIDE 27 mmol/L (21-32); CHLORIDE 105 mmol/L (98-107); CREATININE 0.66 mg/dl (0.60-1.20); GLUCOSE 111 mg/dl (70-99); POTASSIUM 3.4 mmol/L (3.5-5.1); SODIUM 140 mmol/L (136-145)
[2017-01-04 14:24] LABS: PARTIAL THROMBOPLASTIN RATIO 1.1; PROTHROMBIN TIME (PATIENT) 10.2 SECONDS (9.0-12.0)
[2017-01-04 14:34] LABS: ALB/GLOB RATIO 0.7 (0.9-2); ALKALINE PHOSPHATASE 110 U/L (45-117); AST/SGOT 22 U/L (15-37)
--- NOTE | 2017-01-04 16:02 | DIAGNOSTIC IMAGING REPORT ---
CHEST 2 VIEWS ROUTINE HISTORY: EVALUATE RESPIRATORY DISTRESS.DYSPNEA COMPARISON: Chest 05/06/2016. FINDINGS: Mild cardiomegaly. Mild right-sided interstitial thickening consistent with developing asymmetric pulmonary edema. Small to moderate left pleural effusion. No pneumothorax. Surgical clips and soft tissue gas within the left neck consistent with recent postoperative change. IMPRESSION: 1. Mild right-sided developing asymmetric pulmonary edema. 2. Small to moderate left pleural effusion. Electronically signed by: Jorge Luis Presley M.D. 01/04/2017 4:00 PM Dictated Date/Time: 01/04/2017 3:58 PM
--- NOTE | 2017-01-04 16:15 | DIAGNOSTIC IMAGING REPORT ---
CHEST CTA for PULMONARY ARTERIES CT DOSE: 661.71 mGy.cm HISTORY: Shortness of breath. TECHNIQUE: Multiaxial CT images of the chest were performed following the intravenous administration of contrast to evaluate the pulmonary arteries. Maximal intensity projection images were also obtained. A dose lowering technique was utilized adhering to the principles of ALARA. COMPARISON STUDY: Chest CTA 11/16/2016. FINDINGS: The visualized liver, spleen, and adrenal glands are unremarkable. Small hiatus hernia. Mild thickening of the esophagus, unchanged. Interval development of a small left pleural effusion with dense consolidation involving the base of the left lower lobe. Stable 7 mm nodule within the right lower lobe on image 94. Linear densities at the right lung base favor subsegmental atelectasis. Emphysema. No pneumothorax. The central airways are patent. No suspicious lytic or blastic osseous lesions. No mediastinal or hilar lymphadenopathy. There is again noted focal occlusion of the proximal left subclavian artery. There is reconstitution of the left subclavian artery at the level of the left vertebral artery. There appears to be a bypass graft extending from the mid left common carotid artery to the left subclavian artery. However, this appears to be occluded. There is soft tissue edema and surgical clips within the left neck as well as a small amount of gas consistent with the recent postoperative change. There is thickening of the left sternocleidomastoid muscle which could represent a small postoperative hematoma. Normal caliber thoracic aorta with no evidence for dissection. Nondiagnostic evaluation of the left lower lobe segmental pulmonary arteries due to motion artifact. However, the remaining pulmonary arteries show no filling defects to suggest embolus. IMPRESSION: 1. No definite evidence for pulmonary embolus with limitations as described above. 2. Interval development of a small left pleural effusion. Consolidation within the base of the left lower lobe may be due to compressive atelectasis from the effusion or a pneumonia. 3. Postoperative changes within the left neck with a left common carotid to left subclavian artery bypass graft. There is no contrast within the graft. Therefore, the graft is occluded. There is reconstitution of flow of the left subclavian artery due to the left vertebral artery consistent with a subclavian steal syndrome. 4. Soft tissue edema and surgical clips within the left neck suggestive of postoperative change. There are also be a small intramuscular hematoma within the left sternocleidomastoid muscle. 5. No change in the 7 mm subpleural nodule within the right lower lobe. 6. Mild diffuse thickening of the esophagus, unchanged. Electronically signed by: Jorge Luis Presley M.D. 01/04/2017 4:14 PM Dictated Date/Time: 01/04/2017 4:03 PM
[2017-01-04] MEDS ORDERED: SODIUM CHLORIDE 0.9% 500ML 500 ML IV STA (16:50)
[2017-01-04] MEDS ORDERED: ALBUTEROL HFA 8 GM INHALER INH ONE (17:00)
[2017-01-04] MEDS ORDERED: ALBUTEROL HFA 8 GM INHALER INH STA (17:06)
[2017-01-04] MEDS ORDERED: PIPERACILLIN/TAZOBACTAM 4.5 GM/100ML D5W IV STA (17:08)
[2017-01-04] MEDS ORDERED: VANCOMYCIN INJ 2,000 MG in SODIUM CHLORIDE 0.9% 500ML 500 ML IV STA (17:08)
[2017-01-04] MEDS ORDERED: OXYCODONE/ACETAMINOPHEN 5-325 TAB PO PRN (19:00)
[2017-01-04] MEDS ORDERED: ACETAMINOPHEN 325 MG TAB PO PRN (19:00)
[2017-01-04] MEDS ORDERED: ALBUTEROL HFA 8 GM INHALER INH PRN (19:00)
[2017-01-04] MEDS ORDERED: ALUMINUM/MAGNESIUM/SIMETH (MAALOX MAX) 30 ML UDC PO PRN (19:00)
[2017-01-04] MEDS ORDERED: MAGNESIUM HYDROXIDE SUSP 30 ML UDC PO PRN (19:00)
[2017-01-04] MEDS ORDERED: POLYETHYLENE (MIRALAX) 17 GM PACK PO PRN (19:00)
[2017-01-04] MEDS ORDERED: ONDANSETRON INJ 2 MG/ML 2 ML VIAL IV PRN (19:00)
[2017-01-04] MEDS ORDERED: OXYCODONE HCL IR 5 MG TAB (IMMEDIATE RELEASE) PO PRN (19:00)
[2017-01-04] MEDS ORDERED: FLUTICASONE PROPIONATE NA SPR 16 GM BTL NAE PRN (19:00)
[2017-01-04] MEDS ORDERED: NITROGLYCERIN 0.4 MG SL PER TAB CHARGE SL PRN (19:00)
[2017-01-04] MEDS ORDERED: MoRPHine SULFATE 2 MG/ML CARP IV PRN (19:00)
--- NOTE | 2017-01-04 19:14 | History and Physical ---
History & Physical Date & Time of Service: Jan 04, 2017 at 18:58 Chief Complaint: Sob, Elevated Pulse Rate Primary Care Physician: Jeniffer Mathew PA-C History of Present Illness Source: patient, clinic records, hospital records Patient is a pleasant 61 y/o female, with PMHx of HTN, tobacco abuse, hypothyroidism, PAD, HLD, and GERD, who presented to the ED because of progressive SOB and palpitations. Patient was most recently admitted to [facility] 12/29- 01/[address] Mcdonnell for L carotid to subclavian artery bypass. Since discharge , patient has noted non-productive cough, dyspnea on exertion, and palpations. She states she has not followed up w/ Dr. Mcdonnell postop yet, but called the office today to schedule an appointment. She was then instructed to come to the ED. Patient denies any fever, chills, sweats, lightheadedness, dizziness, vision changes, CP, edema, wheezing, abdominal pain, nausea, vomiting, diarrhea , urinary symptoms, melena, numbness/tingling, weakness, muscle/joint pain, anxiety/depression, active bleeding, or new skin discoloration/changes. Past Medical/Surgical History Past Medical History: HTN tobacco abuse hypothyroidism PAD HLD GERD Surgical history: L carotid to subclavian artery bypass x2 cholecystectomy partial thyroid removal umbilical hernia repair Family History HTN hypothyroidism migraines RA Ulcerative colitis Social History Smoking Status: Current Every Day Smoker Smokeless Tobacco Use: No Alcohol Use: none Drug Use: none Marital Status: single Housing status: lives with significant other Occupational Status: unemployed Immunizations History of Influenza Vaccine: No History of Tetanus Vaccine?: Unknown History of Pneumococcal: No History of Hepatitis B Vaccine: No Multi-Drug Resistant Organisms History of MDRO: Yes Type of MDRO: MRSA Allergies Coded Allergies: Clarithromycin (Verified Allergy, Unknown, hot flashes face got red, ) Sulfamethoxazole w/Trimethoprim (Verified Adverse Reaction, Mild, FLUSHED , 01/04/17) Home Medications Scheduled Albuterol (Ventolin Hfa), 2 PUFFS INH DIRECTED Amitriptyline HCl (Amitriptyline HCl), 25 MG HS Amlodipine (Norvasc), 5 MG PO QAM Clopidogrel (Plavix), 75 MG PO QAM Fluticasone Furoate (Flonase Sensimist), 2 SPRAYS INTNAS PRN Levothyroxine Sodium (Levothyroxine Sodium), 1 TAB PO QAM Lisinopril (Zestril), 40 MG PO DAILY Pantoprazole (Protonix), 40 MG PO QAM Probiotic Product (Probiotic), 1 CAP PO QAM Simvastatin (Zocor), 40 MG PO QPM Scheduled PRN Oxycodone Ir (Roxicodone Ir), 5 MG PO TID PRN for Pain Oxycodone/Acetaminophen 5MG/325MG (Percocet 5MG/325MG), 1 TABLET PO Q4H PRN for Pain Physical Exam Vital Signs Date Time Temp Pulse Resp B/P (MAP) Pulse Ox O2 Delivery O2 Flow Rate FiO2 01/04/17 18:25 103 22 142/82 94 Room Air 01/04/17 17:02 94 Room Air 01/04/17 17:01 84 Room Air 01/04/17 17:01 84 01/04/17 16:36 102 22 148/97 97 Room Air 01/04/17 13:19 101 01/04/17 13:17 97 Room Air 01/04/17 13:07 97 Room Air 01/04/17 13:04 97 Room Air 01/04/17 12:59 36.9 107 20 128/77 97 Room Air General Appearance: no apparent distress, + obese Head: normocephalic, atraumatic Eyes: normal inspection, PERRL ENT: hearing grossly normal Neck: supple Respiratory/Chest: lungs clear, no respiratory distress, no accessory muscle use, + decreased breath sounds (bilateral lung bases ) Cardiovascular: regular rate, rhythm Abdomen/GI: normal bowel sounds, non tender, soft Back: normal inspection Extremities/Musculoskelatal: no calf tenderness, no pedal edema Neurologic/Psych: alert, normal mood/affect, oriented x 3 Skin: normal color, warm/dry, no rash, + pertinent finding (noted L lateral neck incision- C/D/I) Diagnostics Laboratory Results Results Past 24 Hours Test 01/04/17 12:25 01/04/17 13:45 Range/Units Urine Color YELLOW Urine Appearance CLEAR CLEAR Urine pH 6.5 4.5-7.5 Urine Specific [place] 1.012 1.000-1.030 Urine Protein NEG NEG Urine Glucose (UA) NEG NEG Urine Ketones NEG NEG Urine Occult Blood NEG NEG Urine Nitrite NEG NEG Urine Bilirubin NEG NEG Urine Urobilinogen NEG NEG Urine Leukocyte Esterase NEG NEG White Blood Count 5.81 4.8-10.8 K/uL Red Blood Count 3.69 4.2-5.4 M/uL Hemoglobin 11.4 12.0-16.0 g/dL Hematocrit 34.3 37-47 % Mean Corpuscular Volume 93.0 80-100 fL Mean Corpuscular Hemoglobin 30.9 25-34 pg Mean Corpuscular Hemoglobin Concent 33.2 32-36 g/dl Platelet Count 244 130-400 K/uL Mean Platelet Volume 9.8 7.4-10.4 fL Neutrophils (%) (Auto) 74.5 % Lymphocytes (%) (Auto) 16.7 % Monocytes (%) (Auto) 6.7 % Eosinophils (%) (Auto) 1.7 % Basophils (%) (Auto) 0.2 % Neutrophils # (Auto) 4.33 1.4-6.5 K/uL Lymphocytes # (Auto) 0.97 1.2-3.4 K/uL Monocytes # (Auto) 0.39 0.11-0.59 K/uL Eosinophils # (Auto) 0.10 0-0.5 K/uL Basophils # (Auto) 0.01 0-0.2 K/uL RDW Standard Deviation 47.6 36.4-46.3 fL RDW Coefficient of Variation 14.1 11.5-14.5 % Immature Granulocyte % (Auto) 0.2 % Immature Granulocyte # (Auto) 0.01 0.00-0.02 K/uL Prothrombin Time 10.2 9.0-12.0 SECONDS Prothromb Time International Ratio 1.0 0.9-1.1 Activated Partial Thromboplast Time 27.3 21.0-31.0 SECONDS Partial Thromboplastin Ratio 1.1 Sodium Level 140 136-145 mmol/L Potassium Level 3.4 3.5-5.1 mmol/L Chloride Level 105 98-107 mmol/L Carbon Dioxide Level 27 21-32 mmol/L Anion Gap 8.0 3-11 mmol/L Blood Urea Nitrogen 8 7-18 mg/dl Creatinine 0.66 0.60-1.20 mg/dl Est Creatinine Clear Calc Drug Dose 105.8 ml/min Estimated GFR () 112.1 Estimated GFR (Non- 96.7 BUN/Creatinine Ratio 12.0 10-20 Random Glucose 111 70-99 mg/dl Calcium Level 9.1 8.5-10.1 mg/dl Total Bilirubin 0.1 0.2-1 mg/dl Aspartate Amino Transf (AST/SGOT) 22 15-37 U/L Alanine Aminotransferase (ALT/SGPT) 34 12-78 U/L Alkaline Phosphatase 110 45-117 U/L Troponin I < 0.015 0-0.045 ng/ml Total Protein 6.9 6.4-8.2 gm/dl Albumin 2.7 3.4-5.0 gm/dl Globulin 4.1 2.5-4.0 gm/dl Albumin/Globulin Ratio 0.7 0.9-2 Thyroid Stimulating Hormone (TSH) 3.520 0.300-4.500 uIu/ml Diagnostic Radiology CHEST CTA for PULMONARY ARTERIES CT DOSE: 661.71 mGy.cm HISTORY: Shortness of breath. TECHNIQUE: Multiaxial CT images of the chest were performed following the intravenous administration of contrast to evaluate the pulmonary arteries. Maximal intensity projection images were also obtained. A dose lowering technique was utilized adhering to the principles of ALARA. COMPARISON STUDY: Chest CTA 11/16/2016. FINDINGS: The visualized liver, spleen, and adrenal glands are unremarkable. Small hiatus hernia. Mild thickening of the esophagus, unchanged. Interval development of a small left pleural effusion with dense consolidation involving the base of the left lower lobe. Stable 7 mm nodule within the right lower lobe on image 94. Linear densities at the right lung base favor subsegmental atelectasis. Emphysema. No pneumothorax. The central airways are patent. No suspicious lytic or blastic osseous lesions. No mediastinal or hilar lymphadenopathy. There is again noted focal occlusion of the proximal left subclavian artery. There is reconstitution of the left subclavian artery at the level of the left vertebral artery. There appears to be a bypass graft extending from the mid left common carotid artery to the left subclavian artery. However, this appears to be occluded. There is soft tissue edema and surgical clips within the left neck as well as a small amount of gas consistent with the recent postoperative change. There is thickening of the left sternocleidomastoid muscle which could represent a small postoperative hematoma. Normal caliber thoracic aorta with no evidence for dissection. Nondiagnostic evaluation of the left lower lobe segmental pulmonary arteries due to motion artifact. However, the remaining pulmonary arteries show no filling defects to suggest embolus. IMPRESSION: 1. No definite evidence for pulmonary embolus with limitations as described above. 2. Interval development of a small left pleural effusion. Consolidation within the base of the left lower lobe may be due to compressive atelectasis from the effusion or a pneumonia. 3. Postoperative changes within the left neck with a left common carotid to left subclavian artery bypass graft. There is no contrast within the graft. Therefore, the graft is occluded. There is reconstitution of flow of the left subclavian artery due to the left vertebral artery consistent with a subclavian steal syndrome. 4. Soft tissue edema and surgical clips within the left neck suggestive of postoperative change. There are also be a small intramuscular hematoma within the left sternocleidomastoid muscle. 5. No change in the 7 mm subpleural nodule within the right lower lobe. 6. Mild diffuse thickening of the esophagus, unchanged. Electronically signed by: Jorge Luis Presley M.D. 01/04/2017 4:14 PM Dictated Date/Time: 01/04/2017 4:03 PM The status of this report is Signed. Draft = Not yet reviewed or approved by Radiologist. Signed = Reviewed and approved by Radiologist. CHEST 2 VIEWS ROUTINE HISTORY: EVALUATE RESPIRATORY DISTRESS.DYSPNEA COMPARISON: Chest 05/06/2016. FINDINGS: Mild cardiomegaly. Mild right-sided interstitial thickening consistent with developing asymmetric pulmonary edema. Small to moderate left pleural effusion. No pneumothorax. Surgical clips and soft tissue gas within the left neck consistent with recent postoperative change. IMPRESSION: 1. Mild right-sided developing asymmetric pulmonary edema. 2. Small to moderate left pleural effusion. Electronically signed by: Jorge Luis Presley M.D. 01/04/2017 4:00 PM Dictated Date/Time: 01/04/2017 3:58 PM The status of this report is Signed. Draft = Not yet reviewed or approved by Radiologist. Signed = Reviewed and approved by Radiologist. EKG JIMMY DION ID:[id number] 04-JAN-2017 13:05:31 [facility] Normal sinus rhythm Nonspecific T wave abnormality low-voltage EKG Abnormal ECG When compared with ECG of 01-JAN-2017 08:36, Nonspecific T wave abnormality, improved in Lateral leads Confirmed by Jimenez Alegre ([id number]) on 01/04/2017 6:33:27 PM 25mm/s 10mm/mV 150Hz 8.0 SP2 12SL 241 AUNG: 13 Referred by: Confirmed By: Jimenez Alegre Vent. rate 99 BPM VA interval 136 ms QRS duration 80 ms QT/QTc 356/456 ms P-R-T axes 64 40 1955 (61 yr) Female 96in Room:A03 Loc:15 Third Hand:OJ Arellano ind: Impression Assessment and Plan Patient is a pleasant 61 y/o female, with PMHx of HTN, tobacco abuse, hypothyroidism, PAD, HLD, and GERD, who presented to the ED because of progressive SOB and palpitations. BETANCUR and palpitation w/ hypoxia on RA, ?left pleural effusion vs consolidation: - Admit to tele observation for cardiac monitoring - Cardiac enzymes negative x1 - O2 protocol, wean as tolerated - IV Zosyn + Vanco - Continue Probiotic - Check MRSA swab - TSH WNL - DuoNebs QID and PRN - Follow PRP and CBC Hypokalemia: Replace w/ 40 mEq KCL supplement and follow PRP s/p L carotid to subclavian artery bypass by Dr. Mcdonnell: Noted occlusion of graft on CTA- consulted vascular surgery Tobacco abuse: - Smoking cessation counselling - Denies need for nicotine patch PAD, HLD: Continue Plavix 75 mg daily and Zocor 40 mg HS HTN: Continue Norvasc 5 mg daily, Lisinopril; 40 mg daily Hypothyroidism: Continue Synthroid 100 mcg daily h/o migraines: Continue Amitriptyline 25 mg HS GI prophylaxis: Protonix daily DVT prophylaxis: Lovenox SQ daily Code Status: LEVEL I, FULL Dispo: From home, lives w/ boyfriend- no discharge needs anticipated Attending Addendum: I have physically seen and examined this patient, have directed the physician assistants medical activities, and agree with the H&P as noted above with the following exceptions as noted. The patient is awake, alert and oriented 3, well-developed and well-nourished , normocephalic and atraumatic, lying in bed and in no acute distress. HEENT--PERRL, EOMI, mucous membranes and oropharynx dry. Neck--supple, no JVD or bruits, thyroid normal, trachea midline, no adenopathy. Heart--normal S1 and S2, no extra beats, no murmurs, rubs or gallops. Lungs--decreased breath sounds throughout, crackles at left base, no respiratory distress, no accessory muscle use. Abdomen--normal bowel sounds and soft, nontender and nondistended, no hernias or masses, no organomegaly. Extremities--no cyanosis, clubbing or edema. There are good distal pulses b/l. Dermatologic--left lateral neck incision no abnormality. Neurologic--cranial nerves II through XII grossly intact, motor and sensory examination normal. Rheumatologic--normal range of motion, nontender, muscles and joints. Psychiatric--normal affect. Assessment and Plan: Left lower lobe pneumonia and pleural effusion/hypoxia-- Vancomycin IV, Zosyn IV. Duonebs every 4 hours while awake and every 2 hours when necessary. Probiotic Nasal cannula oxygen with titration parameters. Hypertension/hypokalemia/PAD-- Continue amlodipine 5 mg by mouth daily, lisinopril 40 mg by mouth daily, Plavix 75 mg by mouth daily and replace potassium both orally and IV. Status post left carotid to subclavian artery bypass with occlusion noted on the CTA Consult Dr. Mcdonnell Hyperlipidemia--continue simvastatin 40 mg at bedtime. Hypothyroidism-- Continue Synthroid 100 g by mouth daily. Level of Care Telemetry Advanced Directives Existing Advance Directive: No Existing Living Will: No Existing Power of Die Cast Patternmaker: No Resuscitation Status FULL RESUSCITATION VTE Prophylaxis VTE Risk Assessment Done? Y/N: Yes Risk Level: Moderate Given or contraindicated: Enoxaparin (Lovenox)SQ, T.E.D. Stockings, SCD's Social Service Consult None Apply
[2017-01-04] MEDS ORDERED: VANCOMYCIN CONSULT ACTIVE PRN (19:15)
[2017-01-04] MEDS ORDERED: PIPERACILL/TAZOBAC CONSULT ACTIVE PRN (19:15)
[2017-01-04 20:08] VITALS: Ht 165.1 cm; Wt 93.5 kg
--- NOTE | 2017-01-04 20:37 | Pharmacy Progress Note ---
Pharmacy Abx Dose Short Note Date of Service Jan 04, 2017. Assessment & Plan Assessment 61 year old female receiving VANC/Zosyn-iv for treatment of PULMONARY SOURCE infection. MRSA swab pending on admission. Plan Vancomycin * P'kinetics: Vd~0.7L/kg, Ke~0.31876jt-1, T1/2~7.5 hours. * Loading DOse: VANC 2 grams (21mg/kg) IV x 1 in ED * Maintenance DOse: VANC 1500mg (~15mg/kg) IV every 10 hours * Goal trough level: 15 to 20 mcg/mL * VANC Trough level ordered @ [facility] prior to: 01/06/17 0000 dose. Zosyn: 4.5 grams IV x 1 in ED, then 3.375g IV CI every 8 hours for est Crcl> 20Ml/MIN. Pharmacy will continue to follow and will adjust dose/frequency as necessary. Thank you.
[2017-01-04] MEDS ORDERED: POTASSIUM CHLORIDE 10 MEQ TABCR PO STA (20:52)
[2017-01-04 21:00] VITALS: BP 108/75; PULSE 100; TEMP 37.1; O2SAT 93
[2017-01-04] MEDS ORDERED: PNEUMOCOCCAL POLYSACCHARIDES 25 MCG/0.5 ML VIAL/SYR IM. ONE (21:00)
[2017-01-04] MEDS ORDERED: IV FLUIDS COMPLETED PRN (21:00)
[2017-01-04] MEDS ORDERED: PNEUMOCOCCAL ADMINISTRATION CHARGE ONE (21:00)
[2017-01-04 21:31] VITALS: PULSE 97; O2SAT 96
[2017-01-04] MEDS: LEVALBUTEROL 1.25MG/3ML NEB INH SCH (21:31)
[2017-01-04] MEDS: ENOXAPARIN 40 MG/0.4 ML SYR SC SCH (22:12)
[2017-01-04] MEDS: SIMVASTATIN 40 MG TAB PO SCH (22:12)
[2017-01-04] MEDS: AMITRIPTYLINE HCL 25 MG TAB PO SCH (22:12)
[2017-01-04 23:49] VITALS: BP 145/80; PULSE 101; TEMP 37.4; O2SAT 91
[2017-01-05] VITALS (8 sets, daily range): BP systolic 110–161; BP diastolic 74–94; PULSE 88–99; TEMP 36.7–37.2; O2SAT 91–96
[2017-01-05] MEDS: PIPERACILL/TAZOBAC IV 3.375 GM in DEXTROSE 5% 100ML 100 ML IV SCH ×3 (00:19→17:45)
[2017-01-05] MEDS: LEVALBUTEROL 1.25MG/3ML NEB INH SCH ×4 (02:35→20:24)
[2017-01-05] MEDS: VANCOMYCIN INJ 1,500 MG in SODIUM CHLORIDE 0.9% 500ML 500 ML IV SCH ×2 (04:08→13:53)
[2017-01-05 05:46] LABS: HEMATOCRIT 34.2 % (37-47); MEAN CELL VOLUME 92.2 fL (80-100); MEAN CORPUSCULAR HGB CONC 33.6 g/dl (32-36); MEAN PLATELET VOLUME 9.6 fL (7.4-10.4); PLATELET COUNT 233 K/uL (130-400); RED BLOOD COUNT 3.71 M/uL (4.2-5.4); WHITE BLOOD COUNT 4.61 K/uL (4.8-10.8)
[2017-01-05] MEDS: LEVOTHYROXINE 100 MCG TAB PO SCH (06:21)
[2017-01-05 06:31] LABS: BUN/CREATININE RATIO 9.9 (10-20); CALCIUM 8.8 mg/dl (8.5-10.1); CREATININE 0.58 mg/dl (0.60-1.20); POTASSIUM 4.1 mmol/L (3.5-5.1)
[2017-01-05] MEDS: LACTOBACILLUS ACIDOPHILUS (FLORANEX) TAB PO SCH (07:42)
[2017-01-05] MEDS: LISINOPRIL 40 MG TAB PO SCH (07:42)
[2017-01-05] MEDS: AMLODIPINE BESYLATE 5 MG TAB PO SCH (07:43)
[2017-01-05] MEDS: CLOPIDOGREL BISULFATE 75 MG TAB PO SCH (07:43)
[2017-01-05] MEDS: PANTOprazole SOD 40 MG TAB PO SCH (07:43)
--- NOTE | 2017-01-05 10:33 | Progress Note ---
Subjective Date of Service: Jan 05, 2017. Subjective Pt evaluation today including: conversation w/ patient, conversation w/ family , physical exam, chart review, lab review, review of studies, review of inpatient medication list Feeling okay, no complaining, mild cough with white sputum, no wheezing, no fever and chill, no dizziness or local weakness, Problem List Medical Problems: (1) Hypoxia Status: Acute (2) LLL pneumonia Status: Acute (3) Short of breath on exertion Status: Acute Review of Systems Constitutional: No fever, No chills, No sweats, No weight loss, No weakness, No fatigue, No problem reported Eyes: No worsening of vision, No eye pain, No redness, No discharge, No diplopia ENT: No hearing loss, No unusual epistaxis, No nasal symptoms, No sore throat, No tinnitus, No dental problems, No trouble swallowing Respiratory: + see HPI, + cough, + sputum, No wheezing, No shortness of breath , No dyspnea on exertion, No dyspnea at rest, No hemoptysis Cardiac: No chest pain, No orthopnea, No PND, No edema, No claudication, No palpitations Abdomen: No pain, No nausea, No vomiting, No diarrhea, No constipation Musculoskeletal: No joint pain, No muscle pain, No swelling, No calf pain Female : No dysuria, No urinary frequency, No hematuria, No incontinence, No abnormal vaginal bleeding, No vaginal discharge Neurologic: No memory loss, No paralysis, No weakness, No numbness/tingling, No vertigo, No balance problems Psychiatric: No depression symptoms, No anhedonism, No anxiety, No insomnia, No substance abuse Heme: No abnormal bleeding/bruising, No clotting problems, No swollen lymph nodes, No night sweats Endo: No fatigue, No excessive thirst, No excessive urination Skin: No rash, No itch, No new/changing skin lesions, No color change, No bleeding Objective Vital Signs Date Time Temp Pulse Resp B/P (MAP) Pulse Ox O2 Delivery O2 Flow Rate FiO2 01/05/17 07:35 37.0 95 22 161/94 (116) 91 Room Air 01/05/17 07:35 94 16 92 Room Air 01/05/17 04:00 Room Air 01/05/17 03:45 37.2 89 22 149/89 (109) 92 Room Air 01/05/17 00:00 Room Air 01/04/17 23:49 37.4 101 20 145/80 (101) 91 Room Air 01/04/17 21:31 97 14 96 Room Air 01/04/17 21:00 37.1 100 22 108/75 (86) 93 Room Air 01/04/17 20:53 163/86 01/04/17 20:45 96 21 92 01/04/17 20:30 104 21 93 01/04/17 20:15 105 26 92 01/04/17 20:08 Room Air 01/04/17 20:00 99 19 84 01/04/17 19:45 102 94 01/04/17 19:30 102 94 01/04/17 19:15 104 93 01/04/17 19:02 179/78 01/04/17 19:00 102 27 94 01/04/17 18:25 103 22 142/82 94 Room Air 01/04/17 17:02 94 Room Air 01/04/17 17:01 84 Room Air 01/04/17 17:01 84 01/04/17 16:36 102 22 148/97 97 Room Air 01/04/17 13:19 101 01/04/17 13:17 97 Room Air 01/04/17 13:07 97 Room Air 01/04/17 13:04 97 Room Air 01/04/17 12:59 36.9 107 20 128/77 97 Room Air Physical Exam General Appearance: WD/WN, no apparent distress, + obese Eyes: normal inspection, PERRL, EOMI, sclerae normal ENT: normal ENT inspection, hearing grossly normal, pharynx normal Neck: supple, no adenopathy, thyroid normal, no JVD, trachea midline, + pertinent finding (left neck S/P procedure, local incision and healing well, no tender or drainage) Respiratory/Chest: chest non-tender, normal breath sounds, no respiratory distress, no accessory muscle use, + decreased breath sounds Cardiovascular: regular rate, rhythm, no edema, no gallop, no JVD, no murmur Abdomen: normal bowel sounds, non tender, soft, no organomegaly, no pulsatile mass Extremities: normal range of motion, non-tender, normal inspection, no pedal edema, no calf tenderness, normal capillary refill, pelvis stable Neurologic/Psychiatric: sourcing associate II-XII nml as tested, no motor/sensory deficits, alert, normal mood/affect, oriented x 3 Skin: normal color, warm/dry, no rash Lymphatic: no adenopathy Laboratory Results Last 24 Hours Test 01/04/17 12:25 01/04/17 13:45 01/05/17 05:31 Urine Color YELLOW Urine Appearance CLEAR Urine pH 6.5 Urine Specific [place] 1.012 Urine Protein NEG Urine Glucose (UA) NEG Urine Ketones NEG Urine Occult Blood NEG Urine Nitrite NEG Urine Bilirubin NEG Urine Urobilinogen NEG Urine Leukocyte Esterase NEG White Blood Count 5.81 K/uL 4.61 K/uL Red Blood Count 3.69 M/uL 3.71 M/uL Hemoglobin 11.4 g/dL 11.5 g/dL Hematocrit 34.3 % 34.2 % Mean Corpuscular Volume 93.0 fL 92.2 fL Mean Corpuscular Hemoglobin 30.9 pg 31.0 pg Mean Corpuscular Hemoglobin Concent 33.2 g/dl 33.6 g/dl Platelet Count 244 K/uL 233 K/uL Mean Platelet Volume 9.8 fL 9.6 fL Neutrophils (%) (Auto) 74.5 % Lymphocytes (%) (Auto) 16.7 % Monocytes (%) (Auto) 6.7 % Eosinophils (%) (Auto) 1.7 % Basophils (%) (Auto) 0.2 % Neutrophils # (Auto) 4.33 K/uL Lymphocytes # (Auto) 0.97 K/uL Monocytes # (Auto) 0.39 K/uL Eosinophils # (Auto) 0.10 K/uL Basophils # (Auto) 0.01 K/uL RDW Standard Deviation 47.6 fL 48.2 fL RDW Coefficient of Variation 14.1 % 14.3 % Immature Granulocyte % (Auto) 0.2 % Immature Granulocyte # (Auto) 0.01 K/uL Prothrombin Time 10.2 SECONDS Prothromb Time International Ratio 1.0 Activated Partial Thromboplast Time 27.3 SECONDS Partial Thromboplastin Ratio 1.1 Sodium Level 140 mmol/L 139 mmol/L Potassium Level 3.4 mmol/L 4.1 mmol/L Chloride Level 105 mmol/L 107 mmol/L Carbon Dioxide Level 27 mmol/L 25 mmol/L Anion Gap 8.0 mmol/L 7.0 mmol/L Blood Urea Nitrogen 8 mg/dl 6 mg/dl Creatinine 0.66 mg/dl 0.58 mg/dl Est Creatinine Clear Calc Drug Dose 105.8 ml/min 118.7 ml/min Estimated GFR () 112.1 116.9 Estimated GFR (Non- 96.7 100.9 BUN/Creatinine Ratio 12.0 9.9 Random Glucose 111 mg/dl 91 mg/dl Calcium Level 9.1 mg/dl 8.8 mg/dl Total Bilirubin 0.1 mg/dl Aspartate Amino Transf (AST/SGOT) 22 U/L Alanine Aminotransferase (ALT/SGPT) 34 U/L Alkaline Phosphatase 110 U/L Troponin I < 0.015 ng/ml Total Protein 6.9 gm/dl Albumin 2.7 gm/dl Globulin 4.1 gm/dl Albumin/Globulin Ratio 0.7 Thyroid Stimulating Hormone (TSH) 3.520 uIu/ml Assessment and Plan 61 y/o female admitted because of pneumonia, associated with progressive SOB and palpitations. Possible pneumonia, in left, associated with BETANCUR and palpitation w/ hypoxia on RA Continue tele observation for cardiac monitoring, continue O2 protocol, wean as tolerated Continue V Zosyn + Vanco because possible hospital-acquired pneumonia with recent hospital stay Continue Probiotic Check MRSA swab Hypokalemia upon admission: Replaced s/p L carotid to subclavian artery bypass by Dr. Mcdonnell: Occluded left common carotid to left subclavian artery bypass graft. and subclavian steal syndrome. Follow-up vascular surgeon input 7 mm subpleural nodule within the right lower lobe, no changes, I advised patient to follow-up with PCP Tobacco abuse: Smoking cessation counselling, Denies need for nicotine patch PMHx of HTN, hypothyroidism, PAD, HLD, and GERD: Stable continue current medication GI prophylaxis: Protonix daily DVT prophylaxis: Lovenox SQ daily Code Status: LEVEL I, FULL Dispo: From home, lives w/ boyfriend- no discharge needs anticipated Continued [facility] stay due to: multiple IV medications needed Discharge planning: home
--- NOTE | 2017-01-05 13:29 | Medical Consult ---
Consultation Note Date of Service Jan 05, 2017. Consultation Note 71 yo p with multiple medical problems, s/p L carotid-subclavian BPG by Dr Mcdonnell 1 week ago, seen today after readmission. Pt states nonproductive cough and BETANCUR prompted her arrival to ED yesterday. Admits fatigue, malaise. States pain in L neck incision significantly improving. CTA chest demonstrates occlusion of BPG. Pt denies any new sx in L arm, but states has not been using it much since her procedure last week. CONST: A&O x3, NAD, mildly ill appearing female NECK: incision + mild tenderness, edema decreasing, no firm hematoma EXT: LUE +1 brachial, nonpalpable radial. Finger brisk cap refill, SHAFFER. ASSESSMENT and PLAN: s/p LUE carotid-subclavian BPG, occluded L subclavian art occlusion Pt's BPG occluded, unable to intervene. Arm/hand remains viable. Discussed with pt will see in office in 2 weeks to reevaluate and pt to call office if needed prior. Please call if needed.
[2017-01-05] MEDS: SIMVASTATIN 40 MG TAB PO SCH (20:16)
[2017-01-05] MEDS: AMITRIPTYLINE HCL 25 MG TAB PO SCH (20:16)
[2017-01-05] MEDS: ENOXAPARIN 40 MG/0.4 ML SYR SC SCH (20:17)
[2017-01-05] MEDS ORDERED: VANCOMYCIN TROUGH ONE (23:30)
[2017-01-06] VITALS (7 sets, daily range): BP systolic 101–105; BP diastolic 72–73; PULSE 85–94; TEMP 36.6–37.3; O2SAT 92–95
[2017-01-06] MEDS: PIPERACILL/TAZOBAC IV 3.375 GM in DEXTROSE 5% 100ML 100 ML IV SCH (00:10)
[2017-01-06] MEDS: VANCOMYCIN INJ 1,500 MG in SODIUM CHLORIDE 0.9% 500ML 500 ML IV SCH (00:11)
[2017-01-06] MEDS: LEVALBUTEROL 1.25MG/3ML NEB INH SCH ×3 (02:01→14:15)
[2017-01-06] MEDS: LEVOTHYROXINE 100 MCG TAB PO SCH (06:13)
[2017-01-06 07:29] LABS: HEMATOCRIT 35.2 % (37-47); MEAN CELL VOLUME 92.6 fL (80-100); MEAN CORPUSCULAR HEMOGLOBIN 30.8 pg (25-34); MEAN CORPUSCULAR HGB CONC 33.2 g/dl (32-36); MEAN PLATELET VOLUME 9.5 fL (7.4-10.4); PLATELET COUNT 238 K/uL (130-400); WHITE BLOOD COUNT 5.03 K/uL (4.8-10.8)
[2017-01-06] MEDS ORDERED: AMOXICILLIN/CLAVULANATE TAB 875 MG TAB PO SCH (07:30)
[2017-01-06] MEDS: LISINOPRIL 40 MG TAB PO SCH (08:03)
[2017-01-06] MEDS: AMLODIPINE BESYLATE 5 MG TAB PO SCH (08:04)
[2017-01-06] MEDS: PANTOprazole SOD 40 MG TAB PO SCH (08:04)
[2017-01-06] MEDS: LACTOBACILLUS ACIDOPHILUS (FLORANEX) TAB PO SCH (08:04)
[2017-01-06 08:08] LABS: CREATININE 0.61 mg/dl (0.60-1.20)
[2017-01-06 08:09] LABS: CALCIUM 9.1 mg/dl (8.5-10.1); POTASSIUM 3.6 mmol/L (3.5-5.1)
[2017-01-06] MEDS: CLOPIDOGREL BISULFATE 75 MG TAB PO SCH (08:45)
[2017-01-06] MEDS ORDERED: LVQ750 PO (13:16)
--- NOTE | 2017-01-06 13:19 | Discharge Instructions ---
Discharge Instructions Date of Service Jan 06, 2017. Admission Reason for Admission: Hypoxia Discharge Discharge Diagnosis / Problem: Possible pneumonia Discharge Goals Goal(s): Decrease discomfort, Improve function, Increase independence, Improve disease control, Improve nutritional status, Learn about illness, Diagnostic testing, Therapeutic intervention, Prevent Disease Progression, Specific goals Activity Recommendations Activity Limitations: resume your previous activity . Instructions / Follow-Up Instructions / Follow-Up you have Possible pneumonia, in left, you need to continue inhaler, adn continue oral antibiotics you have s/p L carotid to subclavian artery bypass by Dr. Mcdonnell: the graft is occluded , and you have subclavian steal syndrome. Follow-up vascular surgeon as instructed You have 7 mm subpleural nodule within the right lower lobe, no changes, I advised you to follow-up with PCP Recommend to quit smoking Cautious when you change positions and fall precaution - you need to follow up with your primary care physician in 1 week, - take medication as instructed, never overdose or any misuse, or take with alcohol, because misuse of medicine may cause organ damage or , call your primary care physician if have questions of medicaitons. - call your primary care physician OR go to local emergency room if has any fever/chill, chest pain, shortness of breathing, nausea/vomiting/abdominal pain , facial droop/slurry speech/local weakness, or if has any questions. - fall precaution - diet as instructed - you need to follow up with your subspecialist as instructed - you should understand that it is important to follow up the above instruction , and "not following the above instruction" may cause delayed or missed care of your medical conditions which may cause permanent organ damage and even . Current Hospital Diet Patient's current hospital diet: Regular Diet Discharge Diet Recommended Diet: Regular Diet Pending Studies Studies pending at discharge: no Medical Emergencies . Who to Call and When: Medical Emergencies: If at any time you feel your situation is an emergency, please call 911 immediately. . Non-Emergent Contact Non-Emergency issues call your: Primary Care Provider, Surgeon Call Non-Emergent contact if: you have a fever . . "Provider Documentation" section prepared by Sujit Fuller. . VTE Core Measure Inpt VTE Proph given/why not?: Enoxaparin (Lovenox)SQ, T.EZoila. Stockings, SCD's
[2017-01-06] MEDS ORDERED: LEVOFLOXACIN 750 MG TAB PO SCH (13:30)
--- NOTE | 2017-01-06 15:52 | Discharge Summary ---
Discharge Summary Date of Service Jan 06, 2017. Discharge Summary Admission Date: Jan 04, 2017 at 18:58 Discharge Date: Jan 06, 2017 Discharge Disposition: Home Principal Diagnosis: Possible pneumonia, in left, Problems/Secondary Diagnoses: s/p L carotid to subclavian artery bypass by Dr. Mcdonnell: the graft is occluded , and you have subclavian steal syndrome. 7 mm subpleural nodule within the right lower lobe, Tobacco abuse disorder Immunizations: Have You Had Influenza Vaccine: No History of Tetanus Vaccine?: Unknown History of Pneumococcal: No History of Hepatitis B Vaccine: No Procedures: No Consultations: Vascular surgeon Medication Reconciliation New Medications: Levofloxacin (Levofloxacin) 750 Mg Tab 750 MG PO DAILY@11 for 5 Days, TAB Continued Medications: Albuterol (Ventolin Hfa) 60 Puffs/5400 Mcg Aers 2 PUFFS INH DIRECTED Amitriptyline HCl (Amitriptyline HCl) 10 Mg Tab 25 MG HS Amlodipine (Norvasc) 5 Mg Tab 5 MG PO QAM, TAB Clopidogrel (Plavix) 75 Mg Tab 75 MG PO QAM, TAB Fluticasone Furoate (Flonase Sensimist) 27.5 Mcg/Ney Kenisha 2 SPRAYS INTNAS PRN Levothyroxine Sodium (Levothyroxine Sodium) 100 Mcg Tab 1 TAB PO QAM for 90 Days, #90 TAB 3 Refills Lisinopril (Zestril) 40 Mg Tab 40 MG PO DAILY, TAB Oxycodone Ir (Roxicodone Ir) 5 Mg Tab 5 MG PO TID PRN for Pain, TAB Oxycodone/Acetaminophen 5MG/325MG (Percocet 5MG/325MG) Tab 1 TABLET PO Q4H PRN for Pain, #30 TAB Pantoprazole (Protonix) 40 Mg Tab 40 MG PO QAM, #30 TAB Probiotic Product (Probiotic) 1 Cap Cap 1 CAP PO QAM Simvastatin (Zocor) 40 Mg Tab 40 MG PO QPM, TAB Discharge Exam Still has some cough, but generally better, denied difficulty breathing, deny fever and chill Review of Systems: Constitutional: No fever, No chills, No sweats, No weight loss, No weakness , No fatigue, No problem reported Eyes: No worsening of vision, No eye pain, No redness, No discharge, No diplopia, No problem reported ENT: No hearing loss, No unusual epistaxis, No nasal symptoms, No sore throat, No tinnitus, No dental problems, No trouble swallowing, No problem reported Respiratory: + cough, + sputum, No wheezing, No shortness of breath, No dyspnea on exertion, No dyspnea at rest, No hemoptysis, No problem reported Cardiovascular: No chest pain, No orthopnea, No PND, No edema, No claudication, No palpitations, No problem reported Abdomen: No pain, No nausea, No vomiting, No diarrhea, No constipation, No GI bleeding, No problem reported Musculoskeletal: No joint pain, No muscle pain, No swelling, No calf pain, No problem reported Genitourinary - Female: No dysuria, No urinary frequency, No urinary urgency , No urinary incontinence, No urinary retention, No hematuria, No dysmenorrhea, No menorrhagia, No metrorrhagia, No rash, No vaginal bleeding, No vaginal discharge, No vaginal itching, No vulvodynia, No , No problem reported Neurologic: No memory loss, No paralysis, No weakness, No numbness/tingling , No vertigo, No balance problems, No problem reported Psychiatric: No depression symptoms, No anhedonism, No anxiety, No insomnia , No substance abuse, No problem reported Endocrine: No fatigue, No excessive thirst, No excessive urination, No problem reported Hematologic / Lymphatic: No abnormal bleeding/bruising, No clotting problems , No swollen lymph nodes, No night sweats, No problem reported Integumentary: No rash, No itch, No new/changing skin lesions, No color change, No bleeding, No problem reported Physical Exam: General Appearance: WD/WN, no apparent distress Eyes: normal inspection, PERRL ENT: normal ENT inspection, hearing grossly normal, pharynx normal Respiratory/Chest: chest non-tender, normal breath sounds, no respiratory distress, no accessory muscle use, + decreased breath sounds Cardiovascular: regular rate, rhythm, no edema, no gallop, no JVD, no murmur , normal peripheral pulses Abdomen / GI: normal bowel sounds, non tender, soft, no organomegaly, no pulsatile mass Extremities: normal inspection, no calf tenderness, normal capillary refill , no pedal edema, normal range of motion Neurologic/Psychiatric: entry level drafter II-XII nml as tested, no motor/sensory deficits , alert, normal mood/affect, normal reflexes, oriented x 3 Skin: normal color, no rash Hospital Course 61 y/o female admitted because of pneumonia, associated with progressive SOB and palpitations. Possible pneumonia, in left, associated with BETANCUR and palpitation w/ hypoxia on RA Has been on tele observation for cardiac monitoring, has taper off oxygen Was on i V Zosyn + Vanco , patient to Levaquin because blood culture negative, and patient's general condition looks good Hypokalemia upon admission: Replaced s/p L carotid to subclavian artery bypass by Dr. Mcdonnell: Occluded left common carotid to left subclavian artery bypass graft. and subclavian steal syndrome. Vascular surgeon recommend outpatient follow-up 7 mm subpleural nodule within the right lower lobe, no changes, I advised patient to follow-up with PCP Tobacco abuse: Smoking cessation counselling, Denies need for nicotine patch PMHx of HTN, hypothyroidism, PAD, HLD, and GERD: Stable continue current medication GI prophylaxis: Protonix daily DVT prophylaxis: Lovenox SQ daily Code Status: LEVEL I, FULL Instructions / Follow-Up you have Possible pneumonia, in left, you need to continue inhaler, adn continue oral antibiotics you have s/p L carotid to subclavian artery bypass by Dr. Mcdonnell: the graft is occluded , and you have subclavian steal syndrome. Follow-up vascular surgeon as instructed You have 7 mm subpleural nodule within the right lower lobe, no changes, I advised you to follow-up with PCP Recommend to quit smoking Cautious when you change positions and fall precaution - you need to follow up with your primary care physician in 1 week, - take medication as instructed, never overdose or any misuse, or take with alcohol, because misuse of medicine may cause organ damage or , call your primary care physician if have questions of medicaitons. - call your primary care physician OR go to local emergency room if has any fever/chill, chest pain, shortness of breathing, nausea/vomiting/abdominal pain , facial droop/slurry speech/local weakness, or if has any questions. - fall precaution - diet as instructed - you need to follow up with your subspecialist as instructed - you should understand that it is important to follow up the above instruction , and "not following the above instruction" may cause delayed or missed care of your medical conditions which may cause permanent organ damage and even . Total Time Spent: Less than 30 minutes This includes examination of the patient, discharge planning, medication reconciliation, and communication with other providers. Discharge Instructions Please refer to the electronic Patient Visit Report (Discharge Instructions) for additional information. Additional Copies To Bon Mcdonnell M.D.; Jeniffer Mathew PA-C
== END 2017-01-06 15:49 | disposition home or self-care (01) ==
LOC: C.EDB 12:47 → C.2T 18:58 → ENRESERV 19:55
PROVIDERS: ADMIT Hospitalist; ATTEND Hospitalist
DX: J18.9 Pneumonia, unspecified organism (principal); T82.898A Other specified complication of vascular prosthetic devices, implants and grafts, initial encounter; G45.8 Other transient cerebral ischemic attacks and related syndromes; R91.1 Solitary pulmonary nodule; I10 Essential (primary) hypertension; E78.5 Hyperlipidemia, unspecified; E89.0 Postprocedural hypothyroidism; K21.9 Gastro-esophageal reflux disease without esophagitis; I73.9 Peripheral vascular disease, unspecified; F17.200 Nicotine dependence, unspecified, uncomplicated; Z79.899 Other long term (current) drug therapy; X58.XXXA Exposure to other specified factors, initial encounter

== ENCOUNTER → 2017-01-19 | Outpatient (CLI) | payer OTHER ==
[~2017-01-19] MED LIST changes: +GADAVIST IV PRN; +LEVO100T7 PO; -LISI-461 PO; +LISI40TA PO
--- NOTE | 2017-01-19 13:18 | DIAGNOSTIC IMAGING REPORT ---
R LOWER EXTREMITY JOINT COM CLINICAL HISTORY: 61 years-old Female with R ACHILLES NON HEALING WOUND. COMPARISON: Right calcaneus radiographs 05/08/2016. TECHNIQUE: Multiplanar, multi sequence MRI of the right ankle was performed without contrast. FINDINGS: LATERAL LIGAMENT COMPLEX: There is intermediate T2 signal noted involving a mildly thickened anterior talofibular ligament suggesting chronic sprain. Calcaneal fibular and posterior talofibular ligaments are intact. SYNDESMOTIC LIGAMENTS: The anterior-inferior tibiofibular ligament, interosseous membrane and posterior-inferior tibiofibular ligaments are intact. DELTOID LIGAMENT COMPLEX: The superficial and deep components of the deltoid ligament are intact. ANTERIOR TENDONS: The tibialis anterior, extensor hallucis longus and extensor digitorum longus tendons are normal in position, morphology and signal. LATERAL TENDONS: The peroneus longus and brevis tendons are intact. There is mild tendinosis of the peroneus longus tendon. MEDIAL TENDONS: The posterior tibialis, flexor digitorum longus and flexor hallucis longus tendons are intact. PLANTAR FASCIA: Small calcaneal enthesophyte is seen at the plantar fascial insertion site. There is mild thickening of the medial cord plantar fascia with intermediate signal compatible with chronic plantar fasciitis. There is no evidence of acute plantar fasciitis or tear. No evidence of plantar fascial nodules. ACHILLES TENDON: The Achilles tendon is markedly thickened demonstrating intermediate T2 signal compatible with severe chronic tendinosis. Dystrophic calcifications are present within the mid and distal tendon fibers measuring up to 1.0 x 0.9 x 3.3 cm in AP, transverse and craniocaudal dimensions. Linear area of increased T2/or signal is noted involving the posterior fibers with fluid-filled cleft measuring 0.5 x 0.9 x 2.3 cm in AP, transverse and craniocaudal dimensions. No significant associated edema to suggest acute injury. Trace fluid is noted within the pre-Achilles fat. These findings suggest chronic tear. SINUS TARSI: There is normal fat signal within the sinus tarsi. The interosseous and cervical ligaments are normal. The navicular-calcaneal (spring) ligament is without acute abnormality. TARSAL TUNNEL: There are no obstructing lesions within the tarsal tunnel. BONE MARROW: There is mild edema-like marrow signal noted involving the posterior calcaneus adjacent to the Achilles insertion site as seen on image 9 of series 4, likely reactive. No erosive changes are seen to suggest osteomyelitis. SOFT TISSUES: Small subtalar joint effusion. Skin marker adjacent to the distal Achilles tendon is noted with skin thickening and focal skin ulceration, measuring approximately 0.6 x 1.6 x 2.9 cm in AP, transverse and craniocaudal dimensions. There is mild superficial soft tissue enhancement within this distribution. No peripherally enhancing collection is seen to suggest abscess. IMPRESSION: 1. Skin and soft tissue ulceration distal to the Achilles tendon as above with mild associated enhancement. No enhancing soft tissue collection, soft tissue mass or evidence of acute osteomyelitis. 2. Severe Achilles tendinosis with dystrophic calcifications and chronic high-grade partial tearing of the distal Achilles insertional fibers as above. Mild associated paratenonitis. Mild bone marrow edema of the posterior calcaneus adjacent to the Achilles insertion site is likely reactive. 3. Evidence of chronic plantar fasciitis. 4. Small subtalar joint effusion. The above report was generated using voice recognition software. It may contain grammatical, syntax or spelling errors. Electronically signed by: Jayson Aguilar M.D. 01/19/2017 1:16 PM Dictated Date/Time: 01/19/2017 1:03 PM
== END | disposition home or self-care (01) ==
LOC: C.MRI 10:30
PROVIDERS: ATTEND Emergency Medicine
DX: S86.091D Other specified injury of right Achilles tendon, subsequent encounter (principal); L97.819 Non-pressure chronic ulcer of other part of right lower leg with unspecified severity; M76.61 Achilles tendinitis, right leg; M72.2 Plantar fascial fibromatosis; M25.474 Effusion, right foot; X58.XXXD Exposure to other specified factors, subsequent encounter

== ENCOUNTER → 2017-02-23 | Outpatient (CLI) | payer OTHER ==
[~2017-02-23] MED LIST changes: +CHN/1 PO; -GADAVIST IV PRN
--- NOTE | 2017-02-24 11:59 | PULMONARY FUNCTION TEST ---
Spirometry is consistent with a moderate restrictive pattern. Repeat study done following bronchodilator showed no significant change in function. There was very mild improvement in forced vital capacity and FEV1
== END | disposition home or self-care (01) ==
LOC: C.RC 11:59
PROVIDERS: ATTEND Physician Assistant
DX: R06.09 Other forms of dyspnea (principal); R05 Cough; R53.83 Other fatigue; Z72.0 Tobacco use

== ENCOUNTER → 2017-06-16 | Outpatient (CLI) | payer OTHER ==
[~2017-06-16] MED LIST changes: -OXYC-57 PO
--- NOTE | 2017-06-16 11:28 | DIAGNOSTIC IMAGING REPORT ---
CHEST 2 VIEWS ROUTINE CLINICAL HISTORY: R06.02 Shortness of [id number] COMPARISON STUDY: 01/04/2017 FINDINGS: The cardiac and mediastinal contours remain stable. Surgical clips are visualized the base of the left neck. There is blunting of the left lateral costophrenic angle suggestive of a small effusion. Left basilar airspace opacities are likely atelectatic. Slight indistinctness of the lateral margin the right hemidiaphragm remains unchanged and is likely chronic. There is no failure. There is no lobar consolidation.[ IMPRESSION: Small left pleural effusion. Left basilar opacities, likely atelectatic. Overall there is been improvement in the appearance of the left lung base when compared with the preceding study Electronically signed by: Primitivo Watts M.D. 06/16/2017 11:26 AM Dictated Date/Time: 06/16/2017 11:25 AM
== END | disposition home or self-care (01) ==
LOC: C.RAD1850 11:11
PROVIDERS: ATTEND Physician Assistant
DX: R06.02 Shortness of breath (principal)

== ENCOUNTER 2022-11-29 16:08 | Inpatient (IN) ==
[2022-11-29] MEDS ORDERED: ALBUT/IPRATROP 3MG/0.5MG NEB 3 ML VIAL NEB STA (17:09)
[2022-11-29] MEDS ORDERED: SODIUM CHLORIDE 0.9% 1,000 ML IV ONE ×2 (17:09→18:26)
[2022-11-29] MEDS ORDERED: CEFEPIME 2,000 MG/20 ML VIAL IV STA (17:09)
--- NOTE | 2022-11-29 17:11 | Emergency Department Note ---
Impression & Plan Sepsis, SOB (shortness of breath), Leukocytosis, Tachycardia, Fever, Acute hyponatremia, CONRAD (acute kidney injury), Acute UTI ED Provider Note NAME: DION MARQUEZ AGE: 67 SEX: F : 1955 ARRIVES VIA: Walk-In INFORMANT: [Patient] ED PROVIDER(S): [Gutierrez Oscar MD] CHIEF COMPLAINT: Shortness of breath, fever HISTORY OF PRESENT ILLNESS: The patient is a 67-year-old female presents to the ER with 4 days of symptoms. She had a cough that has at times been productive. She feels short of breath. She has had a fever, a headache, some dizziness to stand. No vomiting or diar mirtha, no urinary complaints. No sick contacts. The patient does have a history of COPD. She is using her rescue inhaler. PMHx/PSHx: See Below SOCIAL HISTORY: See Below. PHYSICAL EXAM: GENERAL: Patient is in no acute distress. HEENT: No acute trauma, normocephalic atraumatic, mucous membranes moist, no nasal congestion. NECK: No stridor, no adenopathy, no meningismus, trachea is midline. LUNGS: Occasional wheezes heard, breath sounds are diminished bilaterally. She does have crackles at both lung bases, more so on the left. Moist cough noted. HEART: Mildly tachycardic, regular rhythm, no murmurs. ABDOMEN: Soft, nontender, bowel sounds positive, no peritonitis. EXTREMITIES: No cyanosis or edema, full range of motion of all the joints without pain or difficulty, no signs for acute trauma. NEUROLOGIC: Oriented x 3, no acute motor or sensory deficits, no focal weakness. SKIN: No rash, no jaundice, no diaphoresis. DIFFERENTIAL DIAGNOSIS: Bacteremia or sepsis, bronchitis or pneumonia, exacerbation of COPD, COVID-19, viral illness, among others. EMERGENCY DEPARTMENT COURSE/PROCEDURES: Prior/Outside records reviewed: Previous pulmonology note. ECG per my interpretation: Indication was shortness of breath. The ECG shows a sinus tachycardia with a rate of 113. There is some nonspecific ST change. There is no ST elevation, no PVCs, the QTc is 455. Continuous Cardiac Monitoring per my interpretation: An order was placed for continuous cardiac monitoring. The monitor shows a rate of 116 with sinus tachycardia. Critical Care Note: I have personally spent 48 minutes of critical care time in the direct management of this patient. This includes bedside care, interpretation of diagnostic studies, and testing, discussion with consultants, patient, and family members, and other required patient management activities. This 48 minutes is in excess of all separately billable procedures. MEDICAL DECISION MAKING: There is a mild leukocytosis, this would be consistent with infection. There is a normal hemoglobin and platelet count. No concerning coagulopathy. VBG did not show significant CO2 retention. No acidosis. Sodium was low at 129. Creatinine was mildly high at 1.64 consistent with some acute kidney injury. Lactic acid level was not elevated making severe sepsis less likely. No concerning liver enzyme elevation. Procalcitonin level was quite elevated consistent with a bacterial infection. ECG showed sinus tachycardia, no ischemia. Cardiac enzyme testing x1 was not consistent with acute cardiac injury. Urinalysis showed potential infection. COVID, influenza and RSV test were negative. Chest film per my review did not show mediastinal widening, pneumonia or pneumothorax. The patient received IV saline, 2 L. This was enough fluid to satisfy the 30 cc/kg ideal body weight sepsis criteria. She received IV cefepime as empiric antibiotic coverage. She was given a DuoNeb. The patient is in need of a hospital stay. She will meet criteria for sepsis. She is tachycardic with a leukocytosis, her blood pressure was low initially but this has responded to IV hydration. At minimal, the patient has a bronchitis. She may have an early pneumonia not seen on plain chest x-ray. She has no urinary complaints but the urinalysis does suggest a UTI. Antibiotics are indicated. Hospitalization was warranted. I did speak with the patient and case management, the on-call hospitalist was consulted. DISPOSITION: Patient's presentation and findings warrant a hospital stay. 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, damage to diagrahm 2017 Multiple sclerosis Osteomyelitis of right foot Sleep apnea SOB (shortness of breath) on exertion Surgical History History of x2 History of orbit decompression 1980s History of thyroidectomy History of umbilical hernia repair Hx of arthroscopy of left knee Social History Smoking Status: Current every day smoker Tobacco Type: Cigarettes Cigarettes Per Day: 10; 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); Do You Dip or Chew Tobacco: No; Hx Alcohol Use: No Hx Substance Use: No Preferred Language: Japanese Communication Ability: Effective Nursery Worker Required: No Beliefs That Will Affect Care: None Current Living Situation: Significant Other Current Living Situation Comment: LIVES WITH BOYFRIENCresencio MILLER Feels Safe at Home: Yes Safety Concerns: Feels Safe At This Time Assistive Devices: Cane and Glasses Allergies Allergies Allergy/AdvReac Type Severity Reaction Status Date / Time clarithromycin Allergy Unknown hot Verified 11/18/22 13:16 flashes face got red Bactrim AdvReac Mild FLUSHED Verified 01/04/17 13:54 sulfamethoxazole AdvReac Mild FLUSHED Verified 11/18/22 13:16 trimethoprim AdvReac Mild FLUSHED Verified 11/18/22 13:16 Home Meds Home Medications Medication Instructions Recorded Confirmed clopidogrel 75 mg tablet 75 mg PO QAM 02/16/18 11/29/22 pantoprazole 40 mg tablet,delayed 40 mg PO QAM 02/16/18 11/29/22 release simvastatin 40 mg tablet 40 mg PO HS 02/16/18 11/29/22 montelukast 10 mg tablet 10 mg PO QPM 01/30/19 11/29/22 (Singulair) hydrochlorothiazide 25 mg tablet 25 mg PO QAM 11/20/19 11/29/22 valsartan 40 mg tablet 160 mg PO QAM 11/20/19 11/29/22 amitriptyline 25 mg tablet 100 mg PO PM 05/27/22 11/29/22 fluticasone propionate 50 2 spray intranasal DAILY 10/05/22 11/29/22 mcg/actuation nasal spray,suspension furosemide 40 mg tablet 40 mg PO QAM 10/05/22 11/29/22 levothyroxine 137 mcg tablet 137 mcg PO QAM 10/05/22 11/29/22 Previous Rx's Medication Instructions Recorded umeclidinium 62.5 mcg-vilanterol 1 inh inhalation DAILY #60 ea 04/29/22 25 mcg/actuation powdr for inhalation (Anoro Ellipta) CPAP Supplies #1 ea 05/29/22 albuterol sulfate 90 mcg/actuation 2 inh inhalation Q4H PRN dyspnea 05/29/22 aerosol inhaler (Ventolin HFA) or wheeze #18 grams Portable Oxygen #1 ea 06/09/22 bupropion HCl (smoking deter) 150 150 mg PO BID #60 tabs 07/22/22 mg tablet,12 hr sustained-release(smoking deterrent) Results & Data (ED) Vital Signs Vital Signs - 24 hr 11/29/22 16:26 11/29/22 17:37 11/29/22 17:37 Temperature 36.6 C Temperature Source Temporal Artery Scan Pulse Rate 116 H Pulse Rate [Right Finger] 112 H Pulse Rhythm [Right Finger] Regular Pulse Strength [Right Finger] Normal Respiratory Rate 20 20 Respiratory Effort / Characteristics Non-Labored Respiratory Depth Normal Respiratory Pattern Regular Blood Pressure 97/62 L Blood Pressure [Right Arm] 84/62 L Blood Pressure Mean 73 Blood Pressure Mean [Right Arm] 69 Blood Pressure Position [Right Arm] Sitting Pulse Oximetry 90 93 Oxygen Delivery Method Room Air Room Air Nasal Cannula Oxygen Flow Rate 2 Sepsis Recent Fever Within 48 Hours Yes Sepsis New/Unexplained Change in Mental Status No Sepsis Action Taken by Nursing No Action Required 11/29/22 18:05 11/29/22 19:18 Temperature Temperature Source Pulse Rate 109 H Pulse Rate [Right Finger] 100 H Pulse Rhythm [Right Finger] Regular Pulse Strength [Right Finger] Normal Respiratory Rate 20 Respiratory Effort / Characteristics Non-Labored Spontaneous Respiratory Depth Normal Respiratory Pattern Blood Pressure Blood Pressure [Right Arm] 135/76 Blood Pressure Mean Blood Pressure Mean [Right Arm] 95 Blood Pressure Position [Right Arm] Lying Pulse Oximetry 100 Oxygen Delivery Method Nasal Cannula Oxygen Flow Rate 2 Sepsis Recent Fever Within 48 Hours Sepsis New/Unexplained Change in Mental Status Sepsis Action Taken by [facility] Medications Current Medication List: was personally reviewed by me Laboratory Data Attestation: I reviewed the patient's lab results. 11/29/22 17:20 11/29/22 17:20 Lab Results 11/29/22 11/29/22 11/29/22 Range/Units 17:20 17:20 17:20 WBC 13.87 H (4.8-10.8) K/ul RBC 4.34 (4.20-5.40) M/uL Hgb 12.6 (12.0-16.0) g/dl Hct 37.8 (37.0-47.0) % MCV 87.1 (80.0-100.0) fL MCH 29.0 (25.0-34.0) pg MCHC 33.3 (32.0-36.0) g/dL RDW Std Deviation 50.6 H (36.4-46.3) fL RDW Coeff of Elizabeth 15.9 H (11.5-14.5) % Plt Count 206 (130-400) K/uL MPV 10.5 (9.4-12.4) fL Immature Gran % (Auto) 0.6 % Neut % (Auto) 86.9 % Lymph % (Auto) 4.4 % [place] % (Auto) 7.7 % Eos % (Auto) 0.1 % Baso % (Auto) 0.3 % Neut # (Auto) 12.06 H (1.40-6.50) K/uL Lymph # (Auto) 0.61 L (1.20-3.40) K/uL [place] # (Auto) 1.07 H (0.11-0.59) K/uL Eos # (Auto) 0.01 (0.00-0.50) K/uL Baso # (Auto) 0.04 (0.00-0.20) K/uL Immature Gran # (Auto) 0.08 (0.01-0.20) K/uL Platelet Estimate Normal (Normal) Polychromasia 1+ Echinocytes 1+ PT 11.4 (9.0-12.0) Seconds INR 1.0 (0.9-1.1) APTT 33.3 H (21.0-31.0) Seconds PTT Ratio 1.2 VBG pH (7.36-7.41) VBG pCO2 (38-50) mmHg VBG pO2 mmHg VBG HCO3 mmol/L VBG O2 Saturation % VBG Base Excess mEq/L Sodium (136-145) mmol/L Potassium (3.5-5.1) mmol/L Chloride (98-107) mmol/L Carbon Dioxide (21-32) mmol/L Anion Gap (3-11) BUN (6-23) mg/dl Creatinine (0.6-1.2) mg/dl Est Cr Clr Drug Dosing Est GFR ( Amer) ml/min Est GFR (Non-Af Amer) ml/min BUN/Creatinine Ratio (10-20) Glucose (70-99(Fasting)) mg/dl Lactate 1.3 (0.4-2.0) mmol/L Calcium (8.6-10.3) mg/dl Magnesium (1.7-2.4) mg/dl Total Bilirubin (0.2-1.0) mg/dl AST (13-39) U/L ALT (7-52) U/L Alkaline Phosphatase (34-104) U/L Troponin I High Sens (0-14) pg/ml Total Protein (6.0-8.3) gm/dl Albumin (3.4-5.0) gm/dl Globulin (2.5-4.0) gm/dl Albumin/Globulin Ratio (0.9-2) Procalcitonin (0-0.5) ng/ml SARS-CoV-2 (PCR) (Negative) Influenza Type A (PCR) (Neg) Influenza Type B (PCR) (Neg) RSV (RT-PCR) (Neg) 11/29/22 11/29/22 11/29/22 Range/Units 17:20 17:20 17:30 WBC (4.8-10.8) K/ul RBC (4.20-5.40) M/uL Hgb (12.0-16.0) g/dl Hct (37.0-47.0) % MCV (80.0-100.0) fL MCH (25.0-34.0) pg MCHC (32.0-36.0) g/dL RDW Std Deviation (36.4-46.3) fL RDW Coeff of Elizabeth (11.5-14.5) % Plt Count (130-400) K/uL MPV (9.4-12.4) fL Immature Gran % (Auto) % Neut % (Auto) % Lymph % (Auto) % [place] % (Auto) % Eos % (Auto) % Baso % (Auto) % Neut # (Auto) (1.40-6.50) K/uL Lymph # (Auto) (1.20-3.40) K/uL [place] # (Auto) (0.11-0.59) K/uL Eos # (Auto) (0.00-0.50) K/uL Baso # (Auto) (0.00-0.20) K/uL Immature Gran # (Auto) (0.01-0.20) K/uL Platelet Estimate (Normal) Polychromasia Echinocytes PT (9.0-12.0) Seconds INR (0.9-1.1) APTT (21.0-31.0) Seconds PTT Ratio VBG pH (7.36-7.41) VBG pCO2 (38-50) mmHg VBG pO2 mmHg VBG HCO3 mmol/L VBG O2 Saturation % VBG Base Excess mEq/L Sodium 129 L (136-145) mmol/L Potassium 3.7 (3.5-5.1) mmol/L Chloride 97 L (98-107) mmol/L Carbon Dioxide 22 (21-32) mmol/L Anion Gap 10 (3-11) BUN 22 (6-23) mg/dl Creatinine 1.64 H (0.6-1.2) mg/dl Est Cr Clr Drug Dosing Not Reportable Est GFR ( Amer) 37.6 ml/min Est GFR (Non-Af Amer) 32.5 ml/min BUN/Creatinine Ratio 13.4 (10-20) Glucose 118 H (70-99(Fasting)) mg/dl Lactate (0.4-2.0) mmol/L Calcium 8.6 (8.6-10.3) mg/dl Magnesium 1.7 (1.7-2.4) mg/dl Total Bilirubin 0.6 (0.2-1.0) mg/dl AST 15 (13-39) U/L ALT 13 (7-52) U/L Alkaline Phosphatase 97 (34-104) U/L Troponin I High Sens 11.2 (0-14) pg/ml Total Protein 6.6 (6.0-8.3) gm/dl Albumin 3.6 (3.4-5.0) gm/dl Globulin 3.0 (2.5-4.0) gm/dl Albumin/Globulin Ratio 1.2 (0.9-2) Procalcitonin 42.72 H (0-0.5) ng/ml SARS-CoV-2 (PCR) NEGATIVE (Negative) Influenza Type A (PCR) Negative (Neg) Influenza Type B (PCR) Negative (Neg) RSV (RT-PCR) Negative (Neg) 11/29/22 Range/Units 17:48 WBC (4.8-10.8) K/ul RBC (4.20-5.40) M/uL Hgb (12.0-16.0) g/dl Hct (37.0-47.0) % MCV (80.0-100.0) fL MCH (25.0-34.0) pg MCHC (32.0-36.0) g/dL RDW Std Deviation (36.4-46.3) fL RDW Coeff of Elizabeth (11.5-14.5) % Plt Count (130-400) K/uL MPV (9.4-12.4) fL Immature Gran % (Auto) % Neut % (Auto) % Lymph % (Auto) % [place] % (Auto) % Eos % (Auto) % Baso % (Auto) % Neut # (Auto) (1.40-6.50) K/uL Lymph # (Auto) (1.20-3.40) K/uL [place] # (Auto) (0.11-0.59) K/uL Eos # (Auto) (0.00-0.50) K/uL Baso # (Auto) (0.00-0.20) K/uL Immature Gran # (Auto) (0.01-0.20) K/uL Platelet Estimate (Normal) Polychromasia Echinocytes PT (9.0-12.0) Seconds INR (0.9-1.1) APTT (21.0-31.0) Seconds PTT Ratio VBG pH 7.43 H (7.36-7.41) VBG pCO2 37 L (38-50) mmHg VBG pO2 45 mmHg VBG HCO3 25 mmol/L VBG O2 Saturation 72.8 % VBG Base Excess 0.5 mEq/L Sodium (136-145) mmol/L Potassium (3.5-5.1) mmol/L Chloride (98-107) mmol/L Carbon Dioxide (21-32) mmol/L Anion Gap (3-11) BUN (6-23) mg/dl Creatinine (0.6-1.2) mg/dl Est Cr Clr Drug Dosing Est GFR ( Amer) ml/min Est GFR (Non-Af Amer) ml/min BUN/Creatinine Ratio (10-20) Glucose (70-99(Fasting)) mg/dl Lactate (0.4-2.0) mmol/L Calcium (8.6-10.3) mg/dl Magnesium (1.7-2.4) mg/dl Total Bilirubin (0.2-1.0) mg/dl AST (13-39) U/L ALT (7-52) U/L Alkaline Phosphatase (34-104) U/L Troponin I High Sens (0-14) pg/ml Total Protein (6.0-8.3) gm/dl Albumin (3.4-5.0) gm/dl Globulin (2.5-4.0) gm/dl Albumin/Globulin Ratio (0.9-2) Procalcitonin (0-0.5) ng/ml SARS-CoV-2 (PCR) (Negative) Influenza Type A (PCR) (Neg) Influenza Type B (PCR) (Neg) RSV (RT-PCR) (Neg) Administered Medications Amitriptyline HCl (Amitriptyline Hcl 100 Mg Tab) 100 mg PO PM DAYNA Stop: 12/29/22 21:51 Last Admin: 11/29/22 22:42 Dose: 100 mg Documented By: DLP Bupropion HCl (Bupropion Sr 150 Mg Tabcr) 150 mg PO BID DAYNA Stop: 12/29/22 21:51 Last Admin: 11/29/22 22:43 Dose: 150 mg Documented By: DLP Enoxaparin Sodium (Enoxaparin Inj 40 Mg/0.4 Ml Syr) 40 mg SQ Q12 DAYNA Stop: 12/29/22 21:51 Last Admin: 11/29/22 22:43 Dose: 40 mg Documented By: DLP Montelukast Sodium (Montelukast Sodium 10 Mg Tablet) 10 mg PO QPM DAYNA Stop: 12/29/22 21:51 Last Admin: 11/29/22 22:42 Dose: 10 mg Documented By: DLP Simvastatin (Simvastatin 40 Mg Tab) 40 mg PO HS DAYNA Stop: 12/29/22 21:51 Last Admin: 11/29/22 22:42 Dose: 40 mg Documented By: DLP Discontinued Medications Albuterol (Albut/Ipratrop 3mg/0.5mg Neb 3 Ml Vial) 3 ml NEB NOW STA; Protocol Stop: 11/29/22 17:10 Last Admin: 11/29/22 17:46 Dose: 3 ml Documented By: DEVEN Sodium Chloride (Nss 1000ml) 1,000 mls @ 999 mls/hr IV .Q1H1M ONE Stop: 11/29/22 18:09 Last Infusion: 11/29/22 20:20 Dose: 0 mls/hr Documented By: Admin: 11/29/22 17:48 Dose: 999 mls/hr Documented By: DEVEN Cefepime HCl (Maxipime) 2,000 mg in 20 mls @ 5 mls/min IV NOW STA; Protocol Stop: 11/29/22 17:12 Last Admin: 11/29/22 17:46 Dose: 5 mls/min Documented By: DEVEN Sodium Chloride (Nss 1000ml) 1,000 mls @ 999 mls/hr IV .Q1H1M ONE Stop: 11/29/22 19:26 Last Infusion: 11/29/22 20:41 Dose: 0 mls/hr Documented By: Admin: 11/29/22 18:43 Dose: 999 mls/hr Documented By: DEVEN Imaging Data Radiologist's Impression: Chest X-Ray 11/29/22 16:29 XR chest 1V portable HISTORY: Sepsis COMPARISON: Chest 10/05/2022. FINDINGS: The cardiac silhouette remains borderline enlarged. Emphysema and chronic interstitial thickening persists. There are stable blunting of the right lateral costophrenic sulcus a stable linear scarlike density at the left lung base. No pneumothorax. No pleural effusions. No new focal lung consolidations to suggest a pneumonia. No evidence for pulmonary edema. There are surgical clips at the left neck. IMPRESSION: No significant change compared to the prior study. No acute process. Stable chronic changes as described above. ACT 112: Negative or not required by law. Electronically signed by: Jorge Luis Presley M.D. 11/29/2022 5:29 PM Discharge Plan Visit Data Chief Complaint: Shortness of Breath/Dyspnea Stated Complaint: FEVER, DIFFICULTY BREATHING ED Provider: Gutierrez Oscar Discharge Problem: Sepsis, SOB (shortness of breath), Leukocytosis, Tachycardia, Fever, Acute hyponatremia, CONRAD (acute kidney injury), Acute UTI Patient Disposition: Admitted As Inpatient Condition: Fair Discharge Instructions Interventions: ED Discharge Assessment Last Done: 11/29/22 21:00
--- NOTE | 2022-11-29 17:30 | XRay Report ---
XR chest 1V portable HISTORY: Sepsis COMPARISON: Chest 10/05/2022. FINDINGS: The cardiac silhouette remains borderline enlarged. Emphysema and chronic interstitial thic kening persists. There are stable blunting of the right lateral costophrenic sulcus a stable linear s carlike density at the left lung base. No pneumothorax. No pleural effusions. No new focal lung conso lidations to suggest a pneumonia. No evidence for pulmonary edema. There are surgical clips at the le ft neck. IMPRESSION: No significant change compared to the prior study. No acute process. Stable chronic changes as descri bed above. ACT 112: Negative or not required by law. Electronically signed by: Jorge Luis Presley M.D. 11/29/2022 5:29 PM
[2022-11-29 18:00] LABS: Base Excess VBG 0.5 mEq/L; HCO3 VBG 25 mmol/L; Oxygen Saturation VBG 72.8 %; PCO2 VBG 37 mmHg (38-50); PO2 VBG 45 mmHg; pH VBG 7.43 (7.36-7.41)
[2022-11-29 18:02] LABS: Albumin Level 3.6 gm/dl (3.4-5.0); Anion Gap 10 (3-11); Bilirubin,Total 0.6 mg/dl (0.2-1.0); Calcium 8.6 mg/dl (8.6-10.3); Carbon Dioxide 22 mmol/L (21-32); Chloride 97 mmol/L (98-107); Magnesium 1.7 mg/dl (1.7-2.4); Potassium 3.7 mmol/L (3.5-5.1); Sodium 129 mmol/L (136-145)
[2022-11-29 18:08] LABS: Alanine Aminotransferase 13 U/L (7-52); Albumin Globulin Ratio 1.2 (0.9-2); Alkaline Phosphatase 97 U/L (34-104); Aspartate Aminotransferase 15 U/L (13-39); BUN Creatinine Ratio 13.4 (10-20); Blood Urea Nitrogen 22 mg/dl (6-23); Est GFR (African American) 37.6 ml/min; Est GFR (Non-African American) 32.5 ml/min; Glucose 118 mg/dl (70-99(Fasting)); Total Protein 6.6 gm/dl (6.0-8.3)
[2022-11-29 18:12] LABS: Troponin I High Sensitivity 11.2 pg/ml (0-14)
[2022-11-29 18:18] LABS: Basophils # (auto) 0.04 K/uL (0.00-0.20); Basophils % (auto) 0.3 %; Echinocytes 1+; Eosinophils # (auto) 0.01 K/uL (0.00-0.50); Eosinophils % (auto) 0.1 %; Hematocrit (blood only) 37.8 % (37.0-47.0); Hemoglobin 12.6 g/dl (12.0-16.0); Immature Granulocytes # (auto) 0.08 K/uL (0.01-0.20); Immature Granulocytes % (auto) 0.6 %; Lymphocytes # (auto) 0.61 K/uL (1.20-3.40); Lymphocytes % (auto) 4.4 %; Mean Corpuscular Hgb Conc 33.3 g/dL (32.0-36.0); Mean Corpuscular Volume 87.1 fL (80.0-100.0); Mean Platelet Volume 10.5 fL (9.4-12.4); Monocytes # (auto) 1.07 K/uL (0.11-0.59); Monocytes % (auto) 7.7 %; Neutrophils # (auto) 12.06 K/uL (1.40-6.50); Neutrophils % (auto) 86.9 %; Partial Thromboplastin Ratio 1.2; Partial Thromboplastin Time 33.3 Seconds (21.0-31.0); Platelet Count 206 K/uL (130-400); Platelet Estimate Normal (Normal); Polychromasia 1+; Prothrombin Time 11.4 Seconds (9.0-12.0); RDW Coefficient of Variation 15.9 % (11.5-14.5); RDW Standard Deviation 50.6 fL (36.4-46.3); Red Blood Count 4.34 M/uL (4.20-5.40); White Blood Count 13.87 K/ul (4.8-10.8)
[2022-11-29 18:28] LABS: Influenza A virus by PCR Negative (Neg); Influenza B virus by PCR Negative (Neg); RSV by PCR Negative (Neg); SARS CoV2 RNA(COVID-19) Ceph NEGATIVE (Negative)
--- NOTE | 2022-11-29 20:01 | History & Physical Report ---
Date of Service November 29, 2022 History of Present Illness Chief Complaint: The patient presents to the emergency department with complaint of 4 days of shortness of breath, intermittently productive cough, dyspnea on exertion, fever, headache and occasional dizziness when she stands up Primary Care Provider: Jeniffer Mathew PA-C The patient is a 67-year-old female with a past medical history including COPD, restrictive lung disease, nicotine dependence, ALTHEA, multiple pulmonary nodules, left subclavian artery occlusion, right foot osteomyelitis, anxiety with depression, GERD and hypertension. She presents to the emergency department symptoms as noted above. Significant laboratories: WBC 13.87, hemoglobin 12.6, hematocrit 37.8, creatinine 1.64, sodium 129, glucose 118, Pro-Efrain 42.72 Patient is COVID-19, flu, RSV negative Patient received from the ED the followin L normal saline, DuoNeb and cefepime 2 g IV COPD exacerbation with bronchitis- Ceftriaxone 2 g IV daily Azithromycin 500 mg IV daily Anoro Ellipta 1 puff daily Montelukast 10 mg daily Guaifenesin extended release 12 mg p.o. twice daily Duonebs every 4 hours while awake and every 2 hours when necessary. Acute kidney injury on CKD- Creatinine 1.64 on admission, with base 1.22 Hold HCTZ and valsartan Received a total of 2 L normal saline from the ED NSS at 80 mils per hour x1 additional liter GERD- Continue pantoprazole 40 mg daily Allergies Allergy/AdvReac Type Severity Reaction Status Date / Time clarithromycin Allergy Unknown hot Verified 11/18/22 13:16 flashes face got red Bactrim AdvReac Mild FLUSHED Verified 01/04/17 13:54 sulfamethoxazole AdvReac Mild FLUSHED Verified 11/18/22 13:16 trimethoprim AdvReac Mild FLUSHED Verified 11/18/22 13:16 Home Medications Medication Instructions Recorded Confirmed Type clopidogrel 75 mg tablet 75 mg PO QAM 02/16/18 11/29/22 History pantoprazole 40 mg tablet,delayed 40 mg PO QAM 02/16/18 11/29/22 History release simvastatin 40 mg tablet 40 mg PO HS 02/16/18 11/29/22 History montelukast 10 mg tablet 10 mg PO QPM 01/30/19 11/29/22 History (Singulair) hydrochlorothiazide 25 mg tablet 25 mg PO QAM 11/20/19 11/29/22 History valsartan 40 mg tablet 160 mg PO QAM 11/20/19 11/29/22 History umeclidinium 62.5 mcg-vilanterol 1 inh inhalation DAILY #60 ea 04/29/22 11/29/22 Rx 25 mcg/actuation powdr for inhalation (Anoro Ellipta) amitriptyline 25 mg tablet 100 mg PO PM 05/27/22 11/29/22 History CPAP Supplies #1 ea 05/29/22 11/18/22 Rx albuterol sulfate 90 mcg/actuation 2 inh inhalation Q4H PRN dyspnea 05/29/22 11/29/22 Rx aerosol inhaler (Ventolin HFA) or wheeze #18 grams Portable Oxygen #1 ea 06/09/22 11/18/22 Rx bupropion HCl (smoking deter) 150 150 mg PO BID #60 tabs 07/22/22 11/29/22 Rx mg tablet,12 hr sustained-release(smoking deterrent) fluticasone propionate 50 2 spray intranasal DAILY 10/05/22 11/29/22 History mcg/actuation nasal spray,suspension furosemide 40 mg tablet 40 mg PO QAM 10/05/22 11/29/22 History levothyroxine 137 mcg tablet 137 mcg PO QAM 10/05/22 11/29/22 History 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, damage to diagrahm 2017 Multiple sclerosis Osteomyelitis of right foot Sleep apnea SOB (shortness of breath) on exertion Surgical History History of x2 History of orbit decompression 1980s History of thyroidectomy History of umbilical hernia repair Hx of arthroscopy of left knee Social History Smoking Status: Current every day smoker Tobacco Type: Cigarettes Cigarettes Per Day: 10; 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); Do You Dip or Chew Tobacco: No; Hx Alcohol Use: No Hx Substance Use: No Preferred Language: Lao Communication Ability: Effective Electromechanical Engineer Required: No Beliefs That Will Affect Care: None Current Living Situation: Significant Other Current Living Situation Comment: LIVES WITH BOYFRIENCresencio MILLER Feels Safe at Home: Yes Safety Concerns: Feels Safe At This Time Assistive Devices: Cane and Glasses Results & Data Results & Data Vital Signs (Past 12 Hours) Vital Signs Temp Pulse Pulse Resp BP BP Pulse Ox 11/29/22 19:18 100 H 20 135/76 100 11/29/22 18:05 109 H 11/29/22 17:37 112 H 20 84/62 L 93 11/29/22 17:37 11/29/22 16:26 36.6 C 116 H 20 97/62 L 90 O2 Del Method O2 Flow Rate 11/29/22 19:18 Nasal Cannula 2 11/29/22 18:05 11/29/22 17:37 Nasal Cannula 2 11/29/22 17:37 Room Air 11/29/22 16:26 Room Air Code Status & VTE Plan VTE Prophylaxis Plan VTE Prophylaxis will be ordered: Yes PG Care Time/CCT Total # of Minutes Spent Total Time Spent with Patient: Total time spent is greater than 50% in coordination of care (as documented) at patient's floor/unit and/or counseling patient: Coding Level of Care Code 21000 INT INP/OBS CARE 3/75MIN Diagnoses
[2022-11-29 21:40] LABS: Appearance Urine Cloudy (Clear); Bacteria Urine Automated Negative (Negative); Bilirubin Urine Negative (Negative); Blood Urine 1+ (Negative); Color Urine Yellow; Epithelial Cell Urine Auto 20-30 /lpf (0-5); Glucose Urine UA Negative (Negative); Ketones Urine Negative (Negative); Leukocyte Esterase Urine 3+ (Negative); Nitrite Urine Positive (Negative); Protein Urine 2+ (Negative); RBC Urine Automated 0-4 /hpf (0-4); Specific Gravity Urine 1.009 (1.000-1.030); Urobilinogen Urine Negative (Negative); WBC Urine Automated >30 /hpf (0-5); pH Urine 6.5 (4.5-7.5)
[2022-11-29] MEDS ORDERED: ONDANSETRON INJ 2 MG/ML 2 ML VIAL IV PRN (21:52)
[2022-11-29] MEDS ORDERED: ACETAMINOPHEN 325 MG TAB PO PRN (21:52)
[2022-11-29] MEDS ORDERED: SODIUM CHLORIDE 0.9% 1,000 ML IV SCH (21:52)
[2022-11-29] MEDS: AMITRIPTYLINE HCL 100 MG TAB PO SCH (22:42)
[2022-11-29] MEDS: SIMVASTATIN 40 MG TAB PO SCH (22:42)
[2022-11-29] MEDS: MONTELUKAST SODIUM 10 MG TABLET PO SCH (22:42)
[2022-11-29] MEDS: buPROPion SR 150 MG TABCR PO SCH (22:43)
[2022-11-29] MEDS: ENOXAPARIN INJ 40 MG/0.4 ML SYR SQ SCH (22:43)
[2022-11-29] MEDS: AZITHROMYCIN 500 MG in DEXTROSE 5% 250 ML IV SCH (23:06)
[2022-11-30] MEDS: LEVOTHYROXINE SODIUM 137 MCG TABLET PO SCH (06:28)
[2022-11-30 06:43] LABS: Basophils # (auto) 0.03 K/uL (0.00-0.20); Basophils % (auto) 0.3 %; Hematocrit (blood only) 34.7 % (37.0-47.0); Hemoglobin 11.1 g/dl (12.0-16.0); Immature Granulocytes # (auto) 0.08 K/uL (0.01-0.20); Immature Granulocytes % (auto) 0.7 %; Lymphocytes # (auto) 0.67 K/uL (1.20-3.40); Lymphocytes % (auto) 6.1 %; Mean Corpuscular Hemoglobin 28.6 pg (25.0-34.0); Mean Corpuscular Volume 89.4 fL (80.0-100.0); Mean Platelet Volume 10.8 fL (9.4-12.4); Monocytes # (auto) 0.89 K/uL (0.11-0.59); Monocytes % (auto) 8.1 %; Neutrophils # (auto) 9.32 K/uL (1.40-6.50); Neutrophils % (auto) 84.8 %; Platelet Count 171 K/uL (130-400); RDW Coefficient of Variation 16.2 % (11.5-14.5); RDW Standard Deviation 53.1 fL (36.4-46.3); Red Blood Count 3.88 M/uL (4.20-5.40); White Blood Count 10.99 K/ul (4.8-10.8)
[2022-11-30 06:51] LABS: A calco-baum cmplx NotReported Not Detected (NotDetected); Bact fragilis Not Reported Not Detected (NotDetected); C auris Not Reported Not Detected (NotDetected); Calbicans Not Reported Not Detected (NotDetected); Candida glabrata Not Reported Not Detected (NotDetected); Candida krusei Not Reported Not Detected (NotDetected); Cneoformans/gatti Not Reported Not Detected (NotDetected); Cparapsilosis Not Reported Not Detected (NotDetected); Ctropicalis Not Reported Not Detected (NotDetected); E cloacae compx Not Reported Not Detected (NotDetected); Efaecalis Not Reported Not Detected (NotDetected); Efaecium Not Reported Not Detected (NotDetected); Enterobacterales DETECTED (NotDetected); Enterobacterales Not Reported DETECTED (NotDetected); Escherichia coli Not Reported DETECTED (NotDetected); H influenzae Not Reported Not Detected (NotDetected); IMP Resistant Gene Not Detected (NotDetected); K aerogenes Not Reported Not Detected (NotDetected); KPC Resistant Gene Not Detected (NotDetected); Koxytoca Not Reported Not Detected (NotDetected); Kpneumoniae grp Not Reported Not Detected (NotDetected); Lmonocyt Not Reported Not Detected (NotDetected); N meningitidis Not Reported Not Detected (NotDetected); NDM Resistant Gene Not Detected (NotDetected); OXA 48 Like Resistant Gene Not Detected (NotDetected); P aeruginosa Not Reported Not Detected (NotDetected); Proteus spp Not Reported Not Detected (NotDetected); Salmonella spp Not Reported Not Detected (NotDetected); Smarcescens Not Reported Not Detected (NotDetected); Staph lugdunensis Not Reported Not Detected (NotDetected); Staph spp. Not Reported Not Detected (NotDetected); Staphaureus Not Reported Not Detected (NotDetected); Staphepi Not Reported Not Detected (NotDetected); Stenmaltophilia Not Reported Not Detected (NotDetected); Strep agal(GrpB) Not Reported Not Detected (NotDetected); Strep pneum Not Reported Not Detected (NotDetected); Strep pyog (GrpA) Not Reported Not Detected (NotDetected); Strep spp Not Reported Not Detected (NotDetected); VIM Resistant Gene Not Detected (NotDetected); mcr-1 Colistin Resistant Gene Not Detected (NotDetected)
[2022-11-30 06:52] LABS: Albumin Level 3.2 gm/dl (3.4-5.0); BUN Creatinine Ratio 11.5 (10-20); Creatinine Clr Calc Pharmacy 40.1 ml/min; Est GFR (Non-African American) 30.2 ml/min; Magnesium 1.7 mg/dl (1.7-2.4); Phosphorus 2.3 mg/dl (2.5-4.9); Potassium 3.5 mmol/L (3.5-5.1)
[2022-11-30 06:57] LABS: CTX-M Resistant Gene DETECTED (NotDetected)
[2022-11-30] MEDS ORDERED: cefTRIAXone SODIUM 2,000 MG in DEXTROSE 5% 50 ML IV SCH (07:00)
[2022-11-30] MEDS: ALBUT/IPRATROP 3MG/0.5MG NEB 3 ML VIAL NEB SCH ×4 (07:14→19:22)
--- NOTE | 2022-11-30 08:03 | Hospitalist Progress Note ---
Date of Service November 30, 2022 Assessment & Plan Admission and Anticipated Discharge Date Admission Date: November 29, 2022 Results & Data Results & Data Vital Signs (Past 12 Hours) Vital Signs Temp Pulse Pulse Resp BP Pulse Ox O2 Del Method 11/30/22 07:52 107 H 11/30/22 07:16 103 H 18 90 Nasal Cannula 11/30/22 03:25 98.6 F 106 H 20 97/61 L 96 Nasal Cannula 11/29/22 22:00 Nasal Cannula 11/29/22 23:00 122 H 11/29/22 21:52 120 H 11/29/22 22:02 102.9 F H 125 H 26 H 127/62 92 Nasal Cannula 11/29/22 21:00 117 H 18 99/75 L 94 Nasal Cannula O2 Flow Rate 11/30/22 07:52 11/30/22 07:16 3 11/30/22 03:25 4 11/29/22 22:00 4 11/29/22 23:00 11/29/22 21:52 11/29/22 22:02 4 11/29/22 21:00 2 PG Care Time/CCT Total # of Minutes Spent Total Time Spent with Patient: Total time spent is greater than 50% in coordination of care (as documented) at patient's floor/unit and/or counseling patient: Coding Diagnoses
[2022-11-30] MEDS: UMECLIDINIUM/VILANTEROL 62.5/25MCG 7 PUFFS/INHALER INH SCH (08:05)
[2022-11-30] MEDS: FUROSEMIDE 40 MG TAB PO SCH (08:06)
[2022-11-30] MEDS: PANTOprazole 40 MG TAB PO SCH (08:06)
[2022-11-30] MEDS: buPROPion SR 150 MG TABCR PO SCH ×2 (08:06→20:39)
[2022-11-30] MEDS: CLOPIDOGREL BISULFATE 75 MG TAB PO SCH (08:06)
[2022-11-30] MEDS: ENOXAPARIN INJ 40 MG/0.4 ML SYR SQ SCH ×2 (08:06→20:40)
[2022-11-30] MEDS: AZITHROMYCIN 500 MG in DEXTROSE 5% 250 ML IV SCH (08:07)
[2022-11-30] MEDS ORDERED: BENZONATATE 100 MG CAPSULE PO PRN (08:11)
--- NOTE | 2022-11-30 08:13 | Hospitalist Progress Note ---
Date of Service November 30, 2022 Assessment & Plan (1) Sepsis: Plan: Patient presented with sepsis initially concern for pulmonary source however blood cultures are positive for an ESBL E. coli thus having gram-negative bacteremia confirmed on admission There is no defined pulmonary infiltrate seen on imaging studies, urinalysis has leukocyte esterase nitrates and blood, cultures pending suspect patient has an ESBL E. coli UTI present on admission with resultant blood cultures Patient was volume resuscitated she is currently on ceftriaxone and azithromycin. 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: Plan: Patient has a history of COPD she remains on umeclidinium and vilanterol, Singulair, bupropion is a smoking deterrent and albuterol as needed If patient's pulmonary status remains difficult may consider oral steroid at that time Plan Lovenox for DVT prevention Admission and Anticipated Discharge Date Admission Date: November 29, 2022 Subjective Patient is fairly short of breath upon my evaluation however she states this is her baseline. She states that she feels she has both a pulmonary issue and a urinary issue. She has urinary frequency throughout the day. Physical Exam Physical Exam: Patient is tachypneic at rest there is poor air movement but no focal wheezes or air loss She is morbidly obese with a BMI of 40 abdominal exam is difficult at this time Extremities are with trace to 1+ edema and begetting changes of chronic venous stasis Results & Data Results & Data Vital Signs (Past 12 Hours) Vital Signs Temp Pulse Pulse Resp BP Pulse Ox O2 Del Method 11/30/22 07:52 107 H 11/30/22 07:16 103 H 18 90 Nasal Cannula 11/30/22 03:25 98.6 F 106 H 20 97/61 L 96 Nasal Cannula 11/29/22 22:00 Nasal Cannula 11/29/22 23:00 122 H 11/29/22 21:52 120 H 11/29/22 22:02 102.9 F H 125 H 26 H 127/62 92 Nasal Cannula 11/29/22 21:00 117 H 18 99/75 L 94 Nasal Cannula O2 Flow Rate 11/30/22 07:52 11/30/22 07:16 3 11/30/22 03:25 4 11/29/22 22:00 4 11/29/22 23:00 11/29/22 21:52 11/29/22 22:02 4 11/29/22 21:00 2 Laboratory Results Reviewed CBC reviewed chemistry PG Care Time/CCT Total # of Minutes Spent Total Time Spent with Patient: Total time spent is greater than 50% in coordination of care (as documented) at patient's floor/unit and/or counseling patient: Coding Level of Care Code 23666 SUB INP/OBS CARE 2/35MIN Diagnoses Sepsis A41.9 Sepsis acute organ dysfunction status: without acute organ dysfunction Sepsis type: sepsis due to unspecified organism CONRAD (acute kidney injury) N17.9 Mixed restrictive and obstructive lung disease J43.9 (1) Sepsis Sepsis acute organ dysfunction status: without acute organ dysfunction Sepsis type: sepsis due to unspecified organism Qualified Code(s): A41.9 - Sepsis, unspecified organism
[2022-11-30] MEDS ORDERED: BENZONATATE 100 MG CAPSULE PO SCH (09:00)
[2022-11-30] MEDS ORDERED: VALSARTAN 80 MG TAB PO SCH (09:00)
[2022-11-30] MEDS ORDERED: guaiFENesin 600 MG TABCR PO SCH (09:00)
[2022-11-30] MEDS: ERTAPENEM SODIUM 1,000 MG in SYRINGE 0 ML IV SCH (16:41)
[2022-11-30] MEDS: AMITRIPTYLINE HCL 100 MG TAB PO SCH (20:38)
[2022-11-30] MEDS: MONTELUKAST SODIUM 10 MG TABLET PO SCH (20:39)
[2022-11-30] MEDS: SIMVASTATIN 40 MG TAB PO SCH (20:39)
--- NOTE | 2022-11-30 23:25 | Electrocardiogram Report ---
Test Reason : Blood Pressure : / mmHG Vent. Rate : 113 BPM Atrial Rate : 113 BPM P-R Int : 128 ms QRS Dur : 076 ms QT Int : 332 ms P-R-T Axes : 059 093 060 degrees QTc Int : 455 ms Sinus tachycardia Rightward axis Nonspecific ST abnormality Abnormal ECG When compared with ECG of 05-OCT-2022 12:42, No significant change was found Confirmed by Chai Coon ([id number]) on 11/30/2022 11:25:14 PM Referred By: REFERRED SELF Confirmed By:Chai Coon
[2022-12-01 06:14] LABS: Albumin Level 3.1 gm/dl (3.4-5.0); BUN Creatinine Ratio 13.3 (10-20); Basophils # (auto) 0.02 K/uL (0.00-0.20); Basophils % (auto) 0.3 %; Calcium 8.3 mg/dl (8.6-10.3); Creatinine Clr Calc Pharmacy 40.7 ml/min; Eosinophils # (auto) 0.02 K/uL (0.00-0.50); Eosinophils % (auto) 0.3 %; Est GFR (African American) 35.3 ml/min; Est GFR (Non-African American) 30.5 ml/min; Hematocrit (blood only) 31.1 % (37.0-47.0); Hemoglobin 10.2 g/dl (12.0-16.0); Immature Granulocytes # (auto) 0.04 K/uL (0.01-0.20); Immature Granulocytes % (auto) 0.6 %; Lymphocytes % (auto) 9.9 %; Magnesium 1.9 mg/dl (1.7-2.4); Mean Corpuscular Hemoglobin 28.9 pg (25.0-34.0); Mean Corpuscular Hgb Conc 32.8 g/dL (32.0-36.0); Mean Corpuscular Volume 88.1 fL (80.0-100.0); Mean Platelet Volume 10.9 fL (9.4-12.4); Monocytes # (auto) 0.82 K/uL (0.11-0.59); Monocytes % (auto) 11.6 %; Neutrophils # (auto) 5.48 K/uL (1.40-6.50); Neutrophils % (auto) 77.3 %; Platelet Count 155 K/uL (130-400); Potassium 3.4 mmol/L (3.5-5.1); RDW Standard Deviation 51.9 fL (36.4-46.3); Red Blood Count 3.53 M/uL (4.20-5.40); White Blood Count 7.08 K/ul (4.8-10.8)
[2022-12-01] MEDS: LEVOTHYROXINE SODIUM 137 MCG TABLET PO SCH (07:52)
[2022-12-01] MEDS: ALBUT/IPRATROP 3MG/0.5MG NEB 3 ML VIAL NEB SCH ×4 (07:56→19:38)
[2022-12-01] MEDS: UMECLIDINIUM/VILANTEROL 62.5/25MCG 7 PUFFS/INHALER INH SCH (08:19)
[2022-12-01] MEDS: ENOXAPARIN INJ 40 MG/0.4 ML SYR SQ SCH ×2 (08:19→20:11)
[2022-12-01] MEDS: buPROPion SR 150 MG TABCR PO SCH ×2 (08:20→20:09)
[2022-12-01] MEDS: PANTOprazole 40 MG TAB PO SCH (08:20)
[2022-12-01] MEDS: VALSARTAN 80 MG TAB PO SCH (08:20)
[2022-12-01] MEDS: CLOPIDOGREL BISULFATE 75 MG TAB PO SCH (08:20)
[2022-12-01] MEDS: FUROSEMIDE 40 MG TAB PO SCH (08:20)
[2022-12-01] MEDS: POTASSIUM CHLORIDE CRTAB 20 MEQ TABCR PO SCH ×2 (08:23→20:13)
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
[2022-12-01] MEDS: ERTAPENEM SODIUM 1,000 MG in SYRINGE 0 ML IV SCH (15:49)
--- NOTE | 2022-12-01 16:26 | CT Scan Report ---
CT abd pelvis oral con only CLINICAL HISTORY: e coli bacteremia without source TECHNIQUE: Helical axial images of the abdomen and pelvis were obtained. Automated dose lowering tech niques and/or adjustment according to patient size were utilized for this exam. This exam was perfor med without intravenous contrast. CT DOSE: 1334.54 mGy.cm COMPARISON: Comparison is made to CT abdomen pelvis 11/27/2016 FINDINGS: Lower chest: Bibasilar atelectasis versus scarring is seen. Liver: Hepatic steatosis is noted. Gallbladder and biliary tree: Patient is status post cholecystectomy. No intra- or extrahepatic bilia ry ductal dilation. Pancreas: Unremarkable, no focal lesions. Spleen: Splenule is incidentally noted. Adrenals: Unremarkable. Kidneys and ureters: Fat stranding is seen most prominent about the right kidney. No obstructive ston es are seen. No hydronephrosis. Bladder: Unremarkable. Reproductive organs: Unremarkable. Bowel: Diverticulosis is seen without diverticulitis. The appendix is normal. A small hiatal hernia i s seen. Lymph nodes Retroperitoneal: Subcentimeter lymph nodes are noted. Pelvic: Unremarkable. Mesenteric: Unremarkable. Peritoneum: Normal. Vessels: Atherosclerotic calcifications are seen. Abdominal wall: A fat-containing umbilical hernia is seen. Bones: Degenerative changes in the visualized spine. IMPRESSION: 1. Fat stranding is seen about the right kidney, new from prior exam. This is nonspecific however co rrelation with urinalysis is recommended to exclude infectious process. 2. Hepatic steatosis. 3. Diverticulosis without diverticulitis. ACT 112: Negative or not required by law. Electronically signed by: Mario Tse M.D. 12/01/2022 4:25 PM
[2022-12-01] MEDS: AMITRIPTYLINE HCL 100 MG TAB PO SCH (20:10)
[2022-12-01] MEDS: MONTELUKAST SODIUM 10 MG TABLET PO SCH (20:10)
[2022-12-01] MEDS: SIMVASTATIN 40 MG TAB PO SCH (20:10)
[2022-12-02] MEDS: LEVOTHYROXINE SODIUM 137 MCG TABLET PO SCH (05:37)
[2022-12-02 06:46] LABS: Basophils # (auto) 0.02 K/uL (0.00-0.20); Basophils % (auto) 0.4 %; Eosinophils # (auto) 0.12 K/uL (0.00-0.50); Eosinophils % (auto) 2.2 %; Hematocrit (blood only) 31.6 % (37.0-47.0); Hemoglobin 10.2 g/dl (12.0-16.0); Immature Granulocytes # (auto) 0.03 K/uL (0.01-0.20); Immature Granulocytes % (auto) 0.5 %; Lymphocytes # (auto) 0.57 K/uL (1.20-3.40); Lymphocytes % (auto) 10.2 %; Mean Corpuscular Hemoglobin 28.8 pg (25.0-34.0); Mean Corpuscular Hgb Conc 32.3 g/dL (32.0-36.0); Mean Corpuscular Volume 89.3 fL (80.0-100.0); Mean Platelet Volume 10.7 fL (9.4-12.4); Monocytes # (auto) 0.59 K/uL (0.11-0.59); Monocytes % (auto) 10.6 %; Neutrophils # (auto) 4.24 K/uL (1.40-6.50); Neutrophils % (auto) 76.1 %; Platelet Count 173 K/uL (130-400); RDW Coefficient of Variation 16.3 % (11.5-14.5); RDW Standard Deviation 54.1 fL (36.4-46.3); Red Blood Count 3.54 M/uL (4.20-5.40); White Blood Count 5.57 K/ul (4.8-10.8)
[2022-12-02] MEDS: ALBUT/IPRATROP 3MG/0.5MG NEB 3 ML VIAL NEB SCH ×3 (07:11→14:22)
[2022-12-02 07:20] LABS: Albumin Level 3.1 gm/dl (3.4-5.0); BUN Creatinine Ratio 15.4 (10-20); Calcium 8.6 mg/dl (8.6-10.3); Creatinine Clr Calc Pharmacy 47.7 ml/min; Est GFR (African American) 42.3 ml/min; Est GFR (Non-African American) 36.5 ml/min; Magnesium 2.1 mg/dl (1.7-2.4); Potassium 3.9 mmol/L (3.5-5.1)
[2022-12-02] MEDS: UMECLIDINIUM/VILANTEROL 62.5/25MCG 7 PUFFS/INHALER INH SCH (09:52)
[2022-12-02] MEDS: buPROPion SR 150 MG TABCR PO SCH (09:52)
[2022-12-02] MEDS: VALSARTAN 80 MG TAB PO SCH (09:52)
[2022-12-02] MEDS: CLOPIDOGREL BISULFATE 75 MG TAB PO SCH (09:53)
[2022-12-02] MEDS: ENOXAPARIN INJ 40 MG/0.4 ML SYR SQ SCH (09:54)
[2022-12-02] MEDS: FUROSEMIDE 40 MG TAB PO SCH (09:54)
[2022-12-02] MEDS: PANTOprazole 40 MG TAB PO SCH (09:55)
[2022-12-02] MEDS: POTASSIUM CHLORIDE CRTAB 20 MEQ TABCR PO SCH (10:05)
[2022-12-02] MEDS: ERTAPENEM SODIUM 1,000 MG in SYRINGE 0 ML IV SCH (15:51)
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
--- NOTE | 2022-12-02 16:14 | Discharge Summary ---
Date of Service December 02, 2022 Admission HPI Per Admitting Provider The patient is a 67-year-old female with a past medical history including COPD, restrictive lung disease, nicotine dependence, ALTHEA, multiple pulmonary nodules, left subclavian artery occlusion, right foot osteomyelitis, anxiety with depression, GERD and hypertension. She presents to the emergency department symptoms as noted above. Significant laboratories: WBC 13.87, hemoglobin 12.6, hematocrit 37.8, creatini ne 1.64, sodium 129, glucose 118, Pro-Efrain 42.72 Patient is COVID-19, flu, RSV negative Patient received from the ED the followin L normal saline, DuoNeb and cefepime 2 g IV COPD exacerbation with bronchitis- Ceftriaxone 2 g IV daily Azithromycin 500 mg IV daily Anoro Ellipta 1 puff daily Montelukast 10 mg daily Guaifenesin extended release 12 mg p.o. twice daily Duonebs every 4 hours while awake and every 2 hours when necessary. Acute kidney injury on CKD- Creatinine 1.64 on admission, with base 1.22 Hold HCTZ and valsartan Received a total of 2 L normal saline from the ED NSS at 80 mils per hour x1 additional liter GERD- Continue pantoprazole 40 mg daily Principal Diagnosis Gram-negative bacteremia from pyelonephritis present on admission E. coli ESBL Discharge Exam Patient is slightly short of breath she is at her baseline she is on less oxygen than usual. Her cardiac exam is regular her abdomen NABS and soft Discharge Data Allergies Allergy/AdvReac Type Severity Reaction Status Date / Time clarithromycin Allergy Unknown hot Verified 11/18/22 13:16 flashes face got red Bactrim AdvReac Mild FLUSHED Verified 01/04/17 13:54 sulfamethoxazole AdvReac Mild FLUSHED Verified 11/18/22 13:16 trimethoprim AdvReac Mild FLUSHED Verified 11/18/22 13:16 Consultations 11/29/22 19:07 ED Decision to Admit Stat Ordered Studies 12/01/22 09:16 CT Abd and Pelvis [CT abd pelvis oral con only] Routine Hospital Course (1) Sepsis: Patient presented with sepsis initially concern for pulmonary source however blood cultures are positive for an ESBL E. coli thus having gram-negative bacteremia confirmed on admission CT scan suggest pyelonephritis with perinephric stranding seen on the right ESBL E. coli UTI present on admission with resultant blood cultures, because of the blood culture positivity and low colony growth's in the urine we will do CT abdomen pelvis to evaluate for intra-abdominal origin of her gram-negative bacteremia. If extending is common on the right side therefore we believe this is pyelonephritis will complete 2 weeks course Patient was volume resuscitated she is currently on ceftriaxone and azithromycin. Given her sensitivity of her ESBL will go home on Augmentin therapy as she is allergic to sulfa (2) CONRAD (acute kidney injury): Patient has a history of acute kidney injury on chronic kidney disease stage III typically taking an ARB valsartan plus a diuretic Patient was volume resuscitated she remains on medications CONRAD has resolved (3) Mixed restrictive and obstructive lung disease: Patient has a history of COPD she remains on umeclidinium and vilanterol, Singulair, bupropion is a smoking deterrent and albuterol as needed If patient's pulmonary status remains difficult may consider oral steroid at that time Total Time Total Time Spent Total Time Spent (In Minutes): It required greater than 30 minutes to prepare this patient for discharge Discharge Plan Discharge Items Patient Disposition: Home - Self-Care Reason For Visit: SEPSIS, COPD, BRONCHITIS Discharge Diagnosis: Sepsis secondary to pyelonephritis ESBL E. coli identified Condition on Discharge: Fair Activity: Per Instructions section Activity Comment: Rest and recover Non-emergency contact: Primary Care Provider Call non-emergency contact if: your symptoms worsen Follow-up/Referrals: Jeniffer Mathew PA-C [Primary Care Provider] - Diet: Regular Addtl Attending Provider Instructions: please drink plenty of liquids, see your primary care doctor for follow up Pending Studies at Discharge: No Stand-Alone Forms: [facility], Smoking Cessation Medications and DC Order Prescriptions: New amoxicillin-pot clavulanate 875-125 mg tablet 1 tab PO BID Qty: 22 0RF Continued bupropion HCl (smoking deter) 150 mg tablet extended release 12 hr 150 mg PO BID Qty: 60 5RF Anoro Ellipta 62.5-25 mcg/actuation blister with device 1 inh inhalation DAILY Qty: 60 11RF montelukast [Singulair] 10 mg tablet 10 mg PO QPM (DME) Portable Oxygen Misc See Rx Instructions .MEDSUPPLY Qty: 1 0RF Rx Instructions: Oxygen 2 liters continuous via nasal cannula on exertion with portable concentrator. MICHAEL 99 valsartan 40 mg tablet 160 mg PO QAM hydrochlorothiazide 25 mg tablet 25 mg PO QAM (DME) CPAP Supplies Misc See Rx Instructions .MEDSUPPLY Qty: 1 0RF Rx Instructions: Refitting of the mask. Try nasal pillows. G47.33 albuterol sulfate [Ventolin HFA] 90 mcg/actuation HFA aerosol inhaler 2 inh INH Q4H PRN (Reason: dyspnea or wheeze ) Qty: 18 4RF clopidogrel 75 mg Tablet 75 mg PO QAM simvastatin 40 mg Tablet 40 mg PO HS pantoprazole 40 mg Tablet,Delayed Release (Dr/Ec) 40 mg PO QAM amitriptyline 25 mg tablet 100 mg PO PM Rx Instructions: takes for headaches furosemide 40 mg tablet 40 mg PO QAM levothyroxine 137 mcg tablet 137 mcg PO QAM fluticasone propionate 50 mcg/actuation spray,suspension 2 spray INTRANASAL DAILY Discharge Orders: Discharge Order (Routine); Ordered 12/02/22 Ordered By: Harvey Jacobson Admission Data Admit Date/Time: 11/29/22 19:49 Attending Provider: Harvey Jacobson Admit Provider: Cricket Hartley Primary Care Provider: Jeniffer Mathew Other Providers: Cricket Hartley Coding Level of Care Code 97561 INP/OBS DISCH >30 MIN Diagnoses Sepsis A41.9 Sepsis acute organ dysfunction status: without acute organ dysfunction Sepsis type: sepsis due to unspecified organism CONRAD (acute kidney injury) N17.9 Mixed restrictive and obstructive lung disease J43.9
== END 2022-12-02 17:53 | disposition home or self-care (01) | DRG 872 ==
LOC: ED 16:08 → 4W 19:49 → SUATTDRO 19:49 → 4W 21:00

== ENCOUNTER 2024-05-25 18:35 | Observation (INO) ==
[2024-05-25 19:22] LABS: Base Excess VBG 2.2 mEq/L; HCO3 VBG 28 mmol/L; Oxygen Saturation VBG < 60.0 %; PCO2 VBG 49 mmHg (38-50); PO2 VBG 36 mmHg; pH VBG 7.37 (7.36-7.41)
[2024-05-25 19:38] LABS: Hematocrit (blood only) 21.8 % (37.0-47.0); Hemoglobin 5.9 g/dl (12.0-16.0); Mean Corpuscular Hgb Conc 27.1 g/dL (32.0-36.0); Mean Corpuscular Volume 73.9 fL (80.0-100.0); Mean Platelet Volume 10.3 fL (9.4-12.4); Nucleated RBC % (auto) 1.3 %; Platelet Count 340 K/uL (130-400); RDW Coefficient of Variation 19.9 % (11.5-14.5); RDW Standard Deviation 52.6 fL (36.4-46.3); Red Blood Count 2.95 M/uL (4.20-5.40); White Blood Count 7.98 K/ul (4.8-10.8)
[2024-05-25] MEDS ORDERED: SODIUM CHLORIDE 0.9% 50 ML IV PRN (19:40)
[2024-05-25] MEDS ORDERED: SODIUM CHLORIDE 0.9% 100 ML IV PRN (19:40)
[2024-05-25 19:41] LABS: INR 1.1 (0.9-1.1); Partial Thromboplastin Time 26 Seconds (21-31); Prothrombin Time 11.5 Seconds (9.0-12.0)
[2024-05-25 19:43] LABS: Albumin Globulin Ratio 0.9 (0.9-2); Albumin Level 3.5 gm/dl (3.4-5.0); BUN Creatinine Ratio 11.2 (10-20); Bilirubin,Total 0.4 mg/dl (0.2-1.0); Calcium 8.7 mg/dl (8.6-10.3); Creatinine Clr Calc Pharmacy 63.3 ml/min; Globulin 3.7 gm/dl (2.5-4.0); Potassium 3.8 mmol/L (3.5-5.1); Total Protein 7.2 gm/dl (6.0-8.3)
[2024-05-25 19:49] LABS: Anisocytosis Present; Basophils # (auto) 0.03 K/uL (0.00-0.20); Basophils % (auto) 0.4 %; Eosinophils # (auto) 0.03 K/uL (0.00-0.50); Eosinophils % (auto) 0.4 %; Hypochromasia Present; Immature Granulocytes # (auto) 0.08 K/uL (0.01-0.20); Lymphocytes # (auto) 0.72 K/uL (1.20-3.40); Microcytosis Present; Monocytes # (auto) 0.66 K/uL (0.11-0.59); Monocytes % (auto) 8.3 %; Neutrophils # (auto) 6.46 K/uL (1.40-6.50); Neutrophils % (auto) 80.9 %; Ovalocytes 1+; Tear Drop Cells 1+
[2024-05-25 19:53] LABS: Troponin I High Sensitivity 121.7 pg/ml (0-14)
[2024-05-25 19:55] LABS: Adenovirus PCR Not Detected (NotDetected); Bordetella parapertussis PCR Not Detected (NotDetected); Bordetella pertussis PCR Not Detected (NotDetected); Chlamydia pneumoniae PCR Not Detected (NotDetected); Coronavirus 229E PCR Not Detected (NotDetected); Coronavirus CoV-2 (COVID19)PCR Not Detected (NotDetected); Coronavirus HKU1 PCR Not Detected (NotDetected); Coronavirus NL63 PCR Not Detected (NotDetected); Coronavirus OC43PCR Not Detected (NotDetected); Human Metapneumovirus PCR Not Detected (NotDetected); Influenza A PCR Not Detected (NotDetected); Influenza B PCR Not Detected (NotDetected); Mycoplasma pneumoniae PCR Not Detected (NotDetected); Parainfluenza Virus 1 PCR Not Detected (NotDetected); Parainfluenza Virus 2 PCR Not Detected (NotDetected); Parainfluenza Virus 3 PCR Not Detected (NotDetected); Parainfluenza Virus 4 PCR Not Detected (NotDetected); Respiratory Syncytial VirusPCR Not Detected (NotDetected); Rhinovirus/Enterovirus PCR Not Detected (NotDetected)
--- NOTE | 2024-05-25 20:41 | XRay Report ---
EXAM: XR chest 1V portable CLINICAL HISTORY: Chest pain, nonspecific. TECHNIQUE: An X-ray image of the chest is obtained in AP projection. COMPARISON: 11/29/2022 x ray. FINDINGS: Pulmonary Parenchyma: hyperinflation of both lungs. accentuated bronchovascular marking and pulmonary reticulations with ill defined areas of parenchymal veiling in both lungs. no consolidation or masses. veiling of both costophrenic angles. borderline cardiothoracic ration. prominent hilar shadows. Bony Thorax: Bony thorax appears intact without fractures or deformities. Soft Tissues: Soft tissues overlying the chest wall are unremarkable. Multiple clips in the left side of the neck. IMPRESSION: Accentuated bronchovascular marking and pulmonary reticulations with ill-defined areas of parenchymal veiling in both lungs, predominantly in the right mid and lower zones, more conspicuous on current scan likely inflammatory/infective sequlae. Clinical correlation is advised. Electronically signed by Heaven Duron 05-25-2024 8:41 PM
--- NOTE | 2024-05-25 22:16 | History & Physical Report ---
Date of Service May 25, 2024 Assessment & Plan (1) Symptomatic anemia: (2) COPD with emphysema: (3) Obstructive sleep apnea of adult: (4) Hypertension: (5) Hyperlipidemia: (6) Left subclavian artery occlusion: (7) Pulmonary nodules: (8) T2DM (type 2 diabetes mellitus): (9) Hypothyroid: (10) GERD (gastroesophageal reflux disease): Plan 68 yo female PMHx HFrEF (last echo EF 70%), COPD on 2L NC at baseline (reported does not wear), ALTHEA (not wearing CPAP), multiple pulmonary nodules, HTN, HLD, T2DM (not currently on medications, last A1c 6.5), subclavian steal syndrome (on Plavix), hypothyroidism admitted for progressive weakness and shortness of breath found to have Hb 5.9. #Symptomatic Anemia Microcytic s/p 2 U PRBCs Denies any bleeding Will check CT chest and AP for signs of occult bleeding Needs repeat iron studies - will need to be completed in the future due to transfusion Most recent in June 2023 revealed: iron saturation of 11, ferritin 17.3, Iron 42, TIBC 385 Continue to trend Hb and transfuse as indicated to maintain Hb >7 #COPD Does not appear to be in acute exacerbation RVP negative for everything Continue home 2L NC goal O2 sat 88-92% Continue usual home medications #HFrEF Last echo 07/2023 EF 70% Continue home Lasix 40mg daily #Subclavian Steal Syndrome Plavix held in setting of acute anemia #HTN Continue valsartan #HLD Continue Crestor #T2DM Not currently on medication. Most recent A1c 6.5 #RLS Continue ropinarole #GERD Continue Protonix #ALTHEA reportedly unable to tolerate CPAP HS O2 #Mental health Continue amitriptyline and bupropion FENGI: Heart healthy/T2DM Code status: full DVT prophylaxis: SCDs, defer chemical in setting of acute anemia Isolation: none Disposition: med/tele History of Present Illness Primary Care Provider: Jeniffer Mathew PA-C 68 yo female PMHx HFrEF (last echo EF 70%), COPD on 2L NC at baseline (reported does not wear), ALTHEA (not wearing CPAP), multiple pulmonary nodules, HTN, HLD, T2DM (not currently on medications, last A1c 6.5), subclavian steal syndrome (on Plavix) admitted for progressive weakness and shortness of breath found to have Hb 5.9. She states that over the last few months and more acutely over the last two weeks she has been progressively short of breath. She is a current 1/2 - 1 PPD smoker and is not compliant with her CPAP therefore felt this was a respiratory issue. When she arrived at the emergency department she was found to have a Hb of 5.9. She denies any history of bleeding: hemoptysis, hematemesis, melana, hematochezia, vaginal/uterine bleeding. Her last Hb in the outpatient setting was 11.7 in June of 2023. Prior to that she had a hemoglobin of 12.6 in 01/18. She did have iron studies done as an outpatient (June 2023) that revealed iron saturation of 11, ferritin 17.3, Iron 42, TIBC 385. There was some concern from her outpatient tonguer about her use of multiple NSAID agents while on Plavix in regards to her iron saturation. At the time of admission pt reports continued SOB on NC but no other complaints. ED course: Given 2 U PRBCs Labs reveal: Hb 5.9, normal coags, troponin elevation, mild BNP elevation, negative respiratory biofire Allergies Allergy/AdvReac Type Severity Reaction Status Date / Time clarithromycin Allergy Intermediate hot Verified 12/22/23 10:50 flashes face got red sulfamethoxazole AdvReac Mild FLUSHED Verified 12/22/23 10:50 trimethoprim AdvReac Mild FLUSHED Verified 12/22/23 10:50 Home Medications Medication Instructions Recorded Confirmed Type clopidogrel 75 mg tablet 75 mg PO QAM 02/16/18 05/25/24 History pantoprazole 40 mg tablet,delayed 40 mg PO QAM 02/16/18 05/25/24 History release montelukast 10 mg tablet 10 mg PO QPM 01/30/19 05/25/24 History (Emiir) CPAP Supplies #1 ea 05/29/22 05/25/24 Rx Portable Oxygen #1 ea 06/09/22 05/25/24 Rx fluticasone propionate 50 2 spray intranasal DAILY 10/05/22 05/25/24 History mcg/actuation nasal spray,suspension furosemide 40 mg tablet 40 mg PO QAM 10/05/22 05/25/24 History rosuvastatin 40 mg tablet 40 mg PO 09/27/23 05/25/24 History albuterol sulfate 90 mcg/actuation 2 inh inhalation Q4H PRN dyspnea 10/04/23 05/25/24 Rx aerosol inhaler (Ventolin HFA) or wheeze #18 grams amitriptyline 100 mg tablet 100 mg PO HS 11/15/23 05/25/24 History bupropion HCl (smoking deter) 150 150 mg PO BID headaches 11/15/23 05/25/24 History mg tablet,12 hr sustained-release(smoking deterrent) fluticasone fur. 100 mcg-umeclid 1 inh inhalation QAM 11/15/23 05/25/24 History 62.5 mcg-vilant 25 mcg inhalat.powder (Trelegy Ellipta) levothyroxine 150 mcg tablet 150 mcg PO QAM 11/15/23 05/25/24 History semaglutide 0.25 mg or 0.5 mg (2 0.25 mg subcut WK 11/15/23 05/25/24 History mg/3 mL) subcutaneous pen injector (Ozempic) valsartan 160 mg tablet 160 mg PO QAM 11/15/23 05/25/24 History ropinirole 0.5 mg tablet 0.5 mg PO DAILY 05/25/24 05/25/24 History Past Med/Surg History Problem List (Updated 05/26/24 @ 14:32 by Liz Singleton MD) Community acquired pneumonia Diastolic CHF Elevated troponin Anemia (Acute) Hypoxia (Acute) Hypothyroid T2DM (type 2 diabetes mellitus) Symptomatic anemia Acute UTI (Acute) CONRAD (acute kidney injury) (Acute) Acute hyponatremia (Acute) Fever (Acute) Tachycardia (Acute) Leukocytosis (Acute) SOB (shortness of breath) (Acute) Sepsis (Acute) Lower extremity edema Restrictive lung disease Encounter for pre-operative examination COPD with emphysema Multiple pulmonary nodules Lung nodule seen on imaging study (Chronic) 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 no hospitalization Restless leg syndrome Hyperlipidemia Hx of osteomyelitis right foot heel initial injury in 1983 & again in ~ Pulmonary nodules monitoring and follows with Dr Carmona Left subclavian artery occlusion (2017) had surgery for this at [facility] with Dr. 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 vs copd flare up/bronchitis - hospitalized at [facility] 2017: s/p subclavian artery surgery and hospitalized at [facility] at the time. SOB (shortness of breath) on exertion Surgical History History of right cataract extraction History of esophagogastroduodenoscopy (EGD) History of colonoscopy S/P debridement 1983 + ~ -> right foot heel Hx of arthroscopy of left knee History of x2 History of umbilical hernia repair History of thyroidectomy History of orbit decompression - bilateral Family History Other No family history of adverse response to anesthesia Social History Smoking Status: Former smoker Tobacco Type: Cigarettes Cigarettes Per Day: 10 (advised on policy); Second Hand Exposure: No; Do You Dip or Chew Tobacco: No; Hx Alcohol Use: No Hx Substance Use: No Preferred Language: Turkish Communication Ability: Effective Rabbit Dresser Required: No Beliefs That Will Affect Care: None Current Living Situation: Significant Other Current Living Situation Comment: LIVES WITH BOYFRIENCresencio MILLER Other Information That Helps Us Care for You: No Feels Safe at Home: Yes Safety Concerns: Feels Safe At This Time Assistive Devices: Cane Review of Systems Review of Systems: reviewed, per HPI Physical Exam Physical Exam: Constitutional: ill-appearing, no acute distress HEENT: NCAT, no conjunctival injection CV: regular rhythm, no murmur appreciated, extremities well-perfused, mild LE edema Resp: Decreased aeration, CTABL, no wheezes/rales/rhonchi appreciated GI: nondistended MSK: no gross deformities appreciated Skin: warm, dry, no rash appreciated Neuro: alert, oriented, no focal neurologic deficit appreciated Results & Data Results & Data Vital Signs (Past 12 Hours) Vital Signs Temp Pulse Pulse Resp BP BP Pulse Ox 05/25/24 21:55 90 23 134/70 99 05/25/24 21:40 36.8 C 87 25 H 139/68 95 05/25/24 21:24 37.1 C 86 24 133/94 97 05/25/24 21:00 82 22 114/70 99 05/25/24 20:17 92 H 30 H 83 L 05/25/24 19:41 82 05/25/24 19:38 82 23 99 05/25/24 19:21 96 05/25/24 19:21 96 05/25/24 19:21 93 H 16 141/82 H 96 05/25/24 18:53 85 L 05/25/24 18:48 36.6 C 85 20 126/75 85 L O2 Del Method O2 Flow Rate 05/25/24 21:55 2 05/25/24 21:40 2 05/25/24 21:24 2 05/25/24 21:00 Room Air 05/25/24 20:17 05/25/24 19:41 05/25/24 19:38 05/25/24 19:21 Room Air 05/25/24 19:21 Room Air 2 05/25/24 19:21 Nasal Cannula 2 05/25/24 18:53 Room Air 0 05/25/24 18:48 Room Air Supervising Physician Co-Signing Physician Notes Attending addendum: I have physically seen this patient, have supervised the medical residents activities, and agree with the H&P unless as otherwise noted. Assessment and Plan: The patient is a 68-year-old female past medical history including HFrEF, COPD on 2 a nasal cannula at baseline, ALTHEA, multiple pulmonary nodules, hypertension, hyperlipidemia, diabetes mellitus type 2 on no medications, subclavian steal syndrome on Plavix, and hypothyroidism. She presents to the emergency department with progressive weakness and shortness of breath over the past few days to weeks, has had a hemoglobin of 5.9 on admission, with negative Hemoccults. Symptomatic anemia- Hypochromic microcytic Hemoglobin 5.9, with previous from 2022 was 10.2 Received 2 units PRBCs from the ED Admission Hemoccult studies negative, will continue to check Pantoprazole IV as noted Consult gastroenterology COPD- Nasal cannula oxygen, titration goal 88-92% Continue home medications HFrEF/hypertension Echocardiogram from 08/19 with EF 70% Continue home dose of Lasix, may need additional dosing between units Hold losartan Diabetes mellitus- Not on any current medications Glucose 90 on admission Will check in a.m. if elevated Most recent A1c was 6.5 Remaining orders and notations as noted Resident Activity Tracking Resident Involvement: Resident Care Provided Care Provided: Adult Hospital Medicine
[2024-05-25] MEDS: OPTIRAY 320 100ml IV ONE (22:17)
--- NOTE | 2024-05-26 00:03 | CT Scan Report ---
Exam(s): CT CHEST W/WO Contrast IV Amt: 94ml opti 320 EXAM: CT Chest Without and With Intravenous Contrast CLINICAL HISTORY: Reason for exam: lung nodue, SOB, symptomatic anemia. TECHNIQUE: Axial computed tomography images of the chest without and with intravenous contrast. CTDI is 84.13 mGy and DLP is 3216.46 mGy-cm. Automated exposure control was utilized for the study. A dose lowering technique was utilized adhering to the principles of ALARA. CONTRAST: Patient received 94ml opti 320 of IV contrast COMPARISON: 05/19/23. FINDINGS: Lungs: Centrilobular emphysema. Bronchial wall thickening with tree in bud and peribronchial opacities in the right upper and right lower lobes. Mild bibasilar, right middle lobe, and lingular scarring/atelectasis. Previously noted subpleural right lower lobe nodule is presently obscured by airspace disease. Pleural space: Trace right pleural fluid. No pneumothorax. Heart: Coronary artery atherosclerosis. No cardiomegaly or pericardial effusion. Mediastinum: Stable mild esophageal wall thickening. Bones/joints: Unremarkable. No acute fracture. No dislocation. Soft tissues: Unremarkable. Vasculature: No aortic aneurysm. Lymph nodes: Unremarkable. No adenopathy. IMPRESSION: 1. Bronchial wall thickening with tree in bud and peribronchial opacities in the right upper and right lower lobes, suggesting pneumonia. 2. Previously noted subpleural right lower lobe nodule is presently obscured by airspace disease. This study is inadequate for lung cancer screening given the presence of acute parenchymal lung abnormalities. If continued annual screening is being performed, recommend repeat low-dose chest CT after resolution of acute process. Electronically signed by: Parviz Flanagan M.D. 05/26/24 00:02 AM
--- NOTE | 2024-05-26 00:05 | CT Scan Report ---
Exam(s): CT ABDOMEN + PELVIS With Contrast IV Amt: 94 ML OPTIRAY 320 EXAM: CT Abdomen and Pelvis With Intravenous Contrast CLINICAL HISTORY: Reason for exam: Symtomatic anemia. TECHNIQUE: Axial computed tomography images of the abdomen and pelvis with intravenous contrast. CTDI is 84.13 mGy and DLP is 3216.46 mGy-cm. Automated exposure control was utilized for the study. A dose lowering technique was utilized adhering to the principles of ALARA. CONTRAST: Patient received 94 ML OPTIRAY 320 of IV contrast COMPARISON: 12/01/22 FINDINGS: Lung bases: Reported separately. ABDOMEN: Liver: Benign left hepatic lobe cyst. No mass. Gallbladder and bile ducts: Cholecystectomy. No ductal dilation. Pancreas: Unremarkable. No mass. No ductal dilation. Spleen: Unremarkable. No splenomegaly. Adrenals: Unremarkable. No mass. Kidneys and ureters: Subcentimeter cortical hypodensities in left kidney, too small to characterize; no follow-up indicated due to small size. No solid mass. No hydronephrosis. Stomach and bowel: Distal colonic diverticula. No bowel obstruction. No mucosal thickening. PELVIS: Appendix: Normal appendix. Bladder: Unremarkable. No mass. Reproductive: Unremarkable as visualized. ABDOMEN and PELVIS: Intraperitoneal space: Unremarkable. No free fluid or free air. Bones/joints: Disc and facet degeneration in the lower lumbar spine. No acute fracture. No dislocation. Soft tissues: Unremarkable. Vasculature: Atherosclerosis. No abdominal aortic aneurysm. Lymph nodes: Unremarkable. No enlarged lymph nodes. IMPRESSION: No acute findings in the abdomen or pelvis. Electronically signed by: Parviz Flanagan M.D. 05/26/24 00:04 AM
--- NOTE | 2024-05-26 01:22 | Emergency Department Note ---
History of Present Illness General Chief Complaint: Shortness of Breath/Dyspnea Stated Complaint: SOB, COUGHING Time Seen by Provider: 05/25/24 19:12 History of Present Illness Provider Complaint: shortness of breath Onset (ago): week(s) (3) Consistency/Duration: + progressively worsening Relieved By: + upright position Exacerbated By: + lying flat, + exertion and + coughing Known history of: COPD and congestive heart failure Associated symptoms: + cough, + sputum production, + orthopnea, + chest congestion and + other (No hematuria, no vaginal bleeding, no melena, no hematochezia); no chest pain, no fever or no abdominal pain Related Data Home oxygen amount: none Home Medications Medication Instructions Recorded Confirmed Type clopidogrel 75 mg tablet 75 mg PO QA 02/16/18 05/25/24 History pantoprazole 40 mg tablet,delayed 40 mg PO QA 02/16/18 05/25/24 History release montelukast 10 mg tablet 10 mg PO QPM 01/30/19 05/25/24 History (Francoisulair) CPAP Supplies #1 ea 05/29/22 05/25/24 Rx Portable Oxygen #1 ea 06/09/22 05/25/24 Rx fluticasone propionate 50 2 spray intranasal DAILY 10/05/22 05/25/24 History mcg/actuation nasal spray,suspension furosemide 40 mg tablet 40 mg PO QAM 10/05/22 05/25/24 History rosuvastatin 40 mg tablet 40 mg PO HS 09/27/23 05/25/24 History albuterol sulfate 90 mcg/actuation 2 inh inhalation Q4H PRN dyspnea 10/04/23 05/25/24 Rx aerosol inhaler (Ventolin HFA) or wheeze #18 grams amitriptyline 100 mg tablet 100 mg PO HS 11/15/23 05/25/24 History bupropion HCl (smoking deter) 150 150 mg PO BID headaches 11/15/23 05/25/24 History mg tablet,12 hr sustained-release(smoking deterrent) fluticasone fur. 100 mcg-umeclid 1 inh inhalation QAM 11/15/23 05/25/24 History 62.5 mcg-vilant 25 mcg inhalat.powder (Trelegy Ellipta) levothyroxine 150 mcg tablet 150 mcg PO QAM 11/15/23 05/25/24 History semaglutide 0.25 mg or 0.5 mg (2 0.25 mg subcut WK 11/15/23 05/25/24 History mg/3 mL) subcutaneous pen injector (Ozempic) valsartan 160 mg tablet 160 mg PO QAM 11/15/23 05/25/24 History ropinirole 0.5 mg tablet 0.5 mg PO DAILY 05/25/24 05/25/24 History Allergies Allergy/AdvReac Type Severity Reaction Status Date / Time clarithromycin Allergy Intermediate hot Verified 12/22/23 10:50 flashes face got red sulfamethoxazole AdvReac Mild FLUSHED Verified 12/22/23 10:50 trimethoprim AdvReac Mild FLUSHED Verified 12/22/23 10:50 Past Med/Surg History Problem List (Updated 05/26/24 @ 01:21 by Rony Alicia MD) Anemia (Acute) Hypoxia (Acute) Hypothyroid T2DM (type 2 diabetes mellitus) Symptomatic anemia Acute UTI (Acute) CONRAD (acute kidney injury) (Acute) Acute hyponatremia (Acute) Fever (Acute) Tachycardia (Acute) Leukocytosis (Acute) SOB (shortness of breath) (Acute) Sepsis (Acute) Lower extremity edema Restrictive lung disease Encounter for pre-operative examination COPD with emphysema Multiple pulmonary nodules Lung nodule seen on imaging study (Chronic) 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 no hospitalization Restless leg syndrome Hyperlipidemia Hx of osteomyelitis right foot heel initial injury in 1983 & again in ~ Pulmonary nodules monitoring and follows with Dr Carmona Left subclavian artery occlusion (2017) had surgery for this at [facility] with Dr. 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 vs copd flare up/bronchitis - hospitalized at [facility] 2017: s/p subclavian artery surgery and hospitalized at [facility] at the time. SOB (shortness of breath) on exertion Surgical History History of right cataract extraction History of esophagogastroduodenoscopy (EGD) History of colonoscopy S/P debridement 1984 + ~2014/2015 -> right foot heel Hx of arthroscopy of left knee History of x2 History of umbilical hernia repair History of thyroidectomy History of orbit decompression 1980s - bilateral Family History Other No family history of adverse response to anesthesia Social History Smoking Status: Current some day smoker Tobacco Type: Cigarettes Cigarettes Per Day: 10 (advised on policy); Second Hand Exposure: Yes ([employer]); Do You Dip or Chew Tobacco: No; Hx Alcohol Use: No Hx Substance Use: No Preferred Language: Maltese Communication Ability: Effective Silk Folder Required: No Beliefs That Will Affect Care: None Current Living Situation: Significant Other Current Living Situation Comment: LIVES WITH BOYFRIEND ANGELA Feels Safe at Home: Yes Assistive Devices: Cane and Glasses Physical Exam 2 Vital Signs: Vital Signs - 24 hr 05/25/24 18:48 05/25/24 18:53 05/25/24 18:53 Temperature 36.6 C Temperature Source Temporal Artery Sc an Pulse Rate 85 Pulse Rate [Apical ] Pulse Rate from Sp O2 Sensor Respiratory Rate 20 Respiratory Effort / Characteristics Non-Labored Sponta neous Respiratory Depth Normal Normal Respiratory Patter n Regular Regular Blood Pressure 126/75 Blood Pressure [Ri ght Arm] Blood Pressure Eloina n 92 Blood Pressure Eloina n [Right Arm] Blood Pressure Pos ition [Right Arm] Pulse Oximetry 85 L 85 L Oxygen Delivery Me thod Room Air Room Air Oxygen Flow Rate 0 Sepsis Recent Feve r Within 48 Hours No Sepsis New/Unexpla ined Change in Men kleber Status N/A Sepsis Action Take n by Nursing No Action Required Oxygen Flow Rate - Titration 3 Pulse Oximetry Pos t Tiitration 92 05/25/24 19:21 05/25/24 19:21 05/25/24 19:21 Temperature Temperature Source Pulse Rate Pulse Rate [Apical ] 93 H Pulse Rate from Sp O2 Sensor Respiratory Rate 16 Respiratory Effort / Characteristics Non-Labored Sponta neous Respiratory Depth Normal Respiratory Patter n Blood Pressure Blood Pressure [Ri ght Arm] 141/82 H Blood Pressure Eloina n Blood Pressure Eloina n [Right Arm] 101 Blood Pressure Pos ition [Right Arm] Pulse Oximetry 96 96 96 Oxygen Delivery Me thod Nasal Cannula Room Air Room Air Oxygen Flow Rate 2 2 Sepsis Recent Feve r Within 48 Hours Sepsis New/Unexpla ined Change in Men kleber Status Sepsis Action Take n by Nursing Oxygen Flow Rate - Titration Pulse Oximetry Pos t Tiitration 05/25/24 19:38 05/25/24 19:41 05/25/24 20:17 Temperature Temperature Source Pulse Rate 82 82 92 H Pulse Rate [Apical ] Pulse Rate from Sp O2 Sensor 83 93 H Respiratory Rate 23 30 H Respiratory Effort / Characteristics Respiratory Depth Respiratory Patter n Blood Pressure Blood Pressure [Ri ght Arm] Blood Pressure Eloina n Blood Pressure Eloina n [Right Arm] Blood Pressure Pos ition [Right Arm] Pulse Oximetry 99 83 L Oxygen Delivery Me thod Oxygen Flow Rate Sepsis Recent Feve r Within 48 Hours Sepsis New/Unexpla ined Change in Men kleber Status Sepsis Action Take n by Nursing Oxygen Flow Rate - Titration Pulse Oximetry Pos t Tiitration 05/25/24 21:00 05/25/24 21:24 05/25/24 21:40 Temperature 37.1 C 36.8 C Temperature Source Oral Oral Pulse Rate 86 87 Pulse Rate [Apical ] 82 Pulse Rate from Sp O2 Sensor Respiratory Rate 22 24 25 H Respiratory Effort / Characteristics Respiratory Depth Respiratory Patter n Blood Pressure 133/94 139/68 Blood Pressure [Ri ght Arm] 114/70 Blood Pressure Eloina n 107 91 Blood Pressure Eloina n [Right Arm] 84 Blood Pressure Pos ition [Right Arm] Pulse Oximetry 99 97 95 Oxygen Delivery Me thod Room Air Oxygen Flow Rate 2 2 Sepsis Recent Feve r Within 48 Hours Sepsis New/Unexpla ined Change in Men kleber Status Sepsis Action Take n by Nursing Oxygen Flow Rate - Titration Pulse Oximetry Pos t Tiitration 05/25/24 21:55 05/25/24 22:25 05/25/24 23:00 Temperature 36.8 C Temperature Source Oral Pulse Rate 90 91 H Pulse Rate [Apical ] 90 Pulse Rate from Sp O2 Sensor Respiratory Rate 23 24 17 Respiratory Effort / Characteristics Non-Labored Sponta neous Respiratory Depth Normal Respiratory Patter n Regular Blood Pressure 134/70 123/65 Blood Pressure [Ri ght Arm] 132/78 Blood Pressure Eloina n 91 84 Blood Pressure Eloina n [Right Arm] 96 Blood Pressure Pos ition [Right Arm] Lying Pulse Oximetry 99 96 95 Oxygen Delivery Me thod Room Air Oxygen Flow Rate 2 2 Sepsis Recent Feve r Within 48 Hours Sepsis New/Unexpla ined Change in Men kleber Status Sepsis Action Take n by Nursing Oxygen Flow Rate - Titration Pulse Oximetry Pos t Tiitration 05/26/24 00:08 Temperature Temperature Source Pulse Rate 83 Pulse Rate [Apical ] Pulse Rate from Sp O2 Sensor Respiratory Rate Respiratory Effort / Characteristics Respiratory Depth Respiratory Patter n Blood Pressure Blood Pressure [Ri ght Arm] Blood Pressure Eloina n Blood Pressure Eloina n [Right Arm] Blood Pressure Pos ition [Right Arm] Pulse Oximetry Oxygen Delivery Me thod Oxygen Flow Rate Sepsis Recent Feve r Within 48 Hours Sepsis New/Unexpla ined Change in Men kleber Status Sepsis Action Take n by Nursing Oxygen Flow Rate - Titration Pulse Oximetry Pos t Tiitration Physical Exam: Physical Exam GENERAL: oriented to person, place, and time. appears well-developed and well- nourished. HENT: Exam performed. - Head: Normocephalic and atraumatic. EYES: Conjunctivae and EOM are normal. Right eye exhibits no discharge. Left eye exhibits no discharge. No scleral icterus. NECK: Normal range of motion. Neck supple. No JVD present. CV: Normal rate, regular rhythm, normal heart sounds and intact distal pulses. There is no peripheral edema. Palpable radial pulses bue. PULM/CHEST: Scant expiratory wheezes bilaterally. ABD: The abdomen is soft and obese. There is no tenderness. Rectal: Performed with female nursing stars coordinator Valentina at bedside. Hemoccult negative. NEURO: Motor and sensation grossly intact. SKIN: Pale. PSYCH: normal mood and affect. Behavior is normal. Judgment and thought content normal. Course Course 1911: The patient was evaluated in room C8. A complete history and physical exam was performed Cardiac monitoring: An order was placed for continuous cardiac monitoring. The monitor shows a rate of 90 with sinus rhythm interpreted by me Patient found to be hypoxic on room air. Supplemental oxygen was applied via nasal cannula which improved the patient's oxygen saturation. 2010: Vital signs stable on supplemental oxygen via nasal cannula. Labs show hemoglobin of 5.9. High-sensitivity troponin 121.7. Patient not reporting chest pain. Thought to be demand ischemia. BNP 132. Imaging does not show severe fluid overload. Patient will be admitted to the hospitalist team. Should be transfused 1 unit packed red blood cells. Administered Medications Discontinued Medications Ioversol (Optiray 320 100ml) 94 ml IV ONCE ONE Stop: 05/25/24 22:18 Last Admin: 05/25/24 22:17 Dose: 94 ml Documented By: NENITA Medical Decision Making Laboratory Data Attestation: I reviewed the patient's lab results. 05/25/24 19:02 05/25/24 19:02 Lab Results 05/25/24 05/25/24 05/25/24 Range/Units 18:59 19:02 20:05 WBC 7.98 (4.8-10.8) K/ul RBC 2.95 L (4.20-5.40) M/uL Hgb 5.9 L* (12.0-16.0) g/dl Hct 21.8 L (37.0-47.0) % MCV 73.9 L (80.0-100.0) fL MCH 20.0 L (25.0-34.0) pg MCHC 27.1 L (32.0-36.0) g/dL RDW Std Deviation 52.6 H (36.4-46.3) fL RDW Coeff of Elizabeth 19.9 H (11.5-14.5) % Plt Count 340 (130-400) K/uL MPV 10.3 (9.4-12.4) fL Immature Gran % (Auto) 1.0 % Neut % (Auto) 80.9 % Lymph % (Auto) 9.0 % [place] % (Auto) 8.3 % Eos % (Auto) 0.4 % Baso % (Auto) 0.4 % Neut # (Auto) 6.46 (1.40-6.50) K/uL Lymph # (Auto) 0.72 L (1.20-3.40) K/uL [place] # (Auto) 0.66 H (0.11-0.59) K/uL Eos # (Auto) 0.03 (0.00-0.50) K/uL Baso # (Auto) 0.03 (0.00-0.20) K/uL Immature Gran # (Auto) 0.08 (0.01-0.20) K/uL Absolute Nucleated RBC 0.10 (0.00-0.12) K/uL Nucleated RBC % (auto) 1.3 % Hypochromasia Present Anisocytosis Present Microcytosis Present Tear Drop Cells 1+ Ovalocytes 1+ PT 11.5 (9.0-12.0) Seconds INR 1.1 (0.9-1.1) APTT 26 (21-31) Seconds PTT Ratio 1.0 VBG pH 7.37 (7.36-7.41) VBG pCO2 49 (38-50) mmHg VBG pO2 36 mmHg VBG HCO3 28 mmol/L VBG O2 Saturation < 60.0 % VBG Base Excess 2.2 mEq/L Sodium 139 (136-145) mmol/L Potassium 3.8 (3.5-5.1) mmol/L Chloride 104 (98-107) mmol/L Carbon Dioxide 29 (21-32) mmol/L Anion Gap 6 (3-11) BUN 12 (6-23) mg/dl Creatinine 1.07 (0.6-1.2) mg/dl Est Cr Clr Drug Dosing 63.3 ml/min eGFR 57.29 BUN/Creatinine Ratio 11.2 (10-20) Glucose 90 (70-99(Fasting)) mg/dl Calcium 8.7 (8.6-10.3) mg/dl Total Bilirubin 0.4 (0.2-1.0) mg/dl AST 21 (13-39) U/L ALT 18 (7-52) U/L Alkaline Phosphatase 134 H (34-104) U/L Troponin I High Sens 121.7 H* (0-14) pg/ml B-Natriuretic Peptide 132 H (0-100) pg/ml Total Protein 7.2 (6.0-8.3) gm/dl Albumin 3.5 (3.4-5.0) gm/dl Globulin 3.7 (2.5-4.0) gm/dl Albumin/Globulin Ratio 0.9 (0.9-2) Adenovirus (PCR) Not Detected (NotDetected) B. pertussis DNA (PCR) Not Detected (NotDetected) B.parapertussis DNA PCR Not Detected (NotDetected) C. pneumoniae DNA (PCR) Not Detected (NotDetected) Coronavirus OC43 (PCR) Not Detected (NotDetected) Coronavirus HKU1 (PCR) Not Detected (NotDetected) Coronavirus 229E (PCR) Not Detected (NotDetected) SARS-CoV-2 (PCR) Not Detected (NotDetected) Coronavirus NL63 (PCR) Not Detected (NotDetected) Human Metapneumovir PCR Not Detected (NotDetected) Influenza Type A (PCR) Not Detected (NotDetected) Influenza Type B (PCR) Not Detected (NotDetected) M. pneumoniae (PCR) Not Detected (NotDetected) Parainfluenza 1 (PCR) Not Detected (NotDetected) Parainfluenza 2 (PCR) Not Detected (NotDetected) Parainfluenza 3 (PCR) Not Detected (NotDetected) Parainfluenza 4 (PCR) Not Detected (NotDetected) RSV (PCR) Not Detected (NotDetected) Entero/Rhino (PCR) Not Detected (NotDetected) Blood Type A Positive Blood Type Recheck Antibody Screen Crossmatch 05/25/24 05/25/24 05/25/24 Range/Units 20:05 20:05 21:11 WBC (4.8-10.8) K/ul RBC (4.20-5.40) M/uL Hgb (12.0-16.0) g/dl Hct (37.0-47.0) % MCV (80.0-100.0) fL MCH (25.0-34.0) pg MCHC (32.0-36.0) g/dL RDW Std Deviation (36.4-46.3) fL RDW Coeff of Elizabeth (11.5-14.5) % Plt Count (130-400) K/uL MPV (9.4-12.4) fL Immature Gran % (Auto) % Neut % (Auto) % Lymph % (Auto) % [place] % (Auto) % Eos % (Auto) % Baso % (Auto) % Neut # (Auto) (1.40-6.50) K/uL Lymph # (Auto) (1.20-3.40) K/uL [place] # (Auto) (0.11-0.59) K/uL Eos # (Auto) (0.00-0.50) K/uL Baso # (Auto) (0.00-0.20) K/uL Immature Gran # (Auto) (0.01-0.20) K/uL Absolute Nucleated RBC (0.00-0.12) K/uL Nucleated RBC % (auto) % Hypochromasia Anisocytosis Microcytosis Tear Drop Cells Ovalocytes PT (9.0-12.0) Seconds INR (0.9-1.1) APTT (21-31) Seconds PTT Ratio VBG pH (7.36-7.41) VBG pCO2 (38-50) mmHg VBG pO2 mmHg VBG HCO3 mmol/L VBG O2 Saturation % VBG Base Excess mEq/L Sodium (136-145) mmol/L Potassium (3.5-5.1) mmol/L Chloride (98-107) mmol/L Carbon Dioxide (21-32) mmol/L Anion Gap (3-11) BUN (6-23) mg/dl Creatinine (0.6-1.2) mg/dl Est Cr Clr Drug Dosing ml/min eGFR BUN/Creatinine Ratio (10-20) Glucose (70-99(Fasting)) mg/dl Calcium (8.6-10.3) mg/dl Total Bilirubin (0.2-1.0) mg/dl AST (13-39) U/L ALT (7-52) U/L Alkaline Phosphatase (34-104) U/L Troponin I High Sens 203.3 H* D (0-14) pg/ml B-Natriuretic Peptide (0-100) pg/ml Total Protein (6.0-8.3) gm/dl Albumin (3.4-5.0) gm/dl Globulin (2.5-4.0) gm/dl Albumin/Globulin Ratio (0.9-2) Adenovirus (PCR) (NotDetected) B. pertussis DNA (PCR) (NotDetected) B.parapertussis DNA PCR (NotDetected) C. pneumoniae DNA (PCR) (NotDetected) Coronavirus OC43 (PCR) (NotDetected) Coronavirus HKU1 (PCR) (NotDetected) Coronavirus 229E (PCR) (NotDetected) SARS-CoV-2 (PCR) (NotDetected) Coronavirus NL63 (PCR) (NotDetected) Human Metapneumovir PCR (NotDetected) Influenza Type A (PCR) (NotDetected) Influenza Type B (PCR) (NotDetected) M. pneumoniae (PCR) (NotDetected) Parainfluenza 1 (PCR) (NotDetected) Parainfluenza 2 (PCR) (NotDetected) Parainfluenza 3 (PCR) (NotDetected) Parainfluenza 4 (PCR) (NotDetected) RSV (PCR) (NotDetected) Entero/Rhino (PCR) (NotDetected) Blood Type Cancelled Blood Type Recheck A Positive Antibody Screen NEGATIVE Cancelled Crossmatch See Detail Imaging Data Radiologist's Impression: EXAM: XR chest 1V portable CLINICAL HISTORY: Chest pain, nonspecific. TECHNIQUE: An X-ray image of the chest is obtained in AP projection. COMPARISON: 11/29/2022 x ray. FINDINGS: Pulmonary Parenchyma: hyperinflation of both lungs. accentuated bronchovascular marking and pulmonary reticulations with ill defined areas of parenchymal veiling in both lungs. no consolidation or masses. veiling of both costophrenic angles. borderline cardiothoracic ration. prominent hilar shadows. Bony Thorax: Bony thorax appears intact without fractures or deformities. Soft Tissues: Soft tissues overlying the chest wall are unremarkable. Multiple clips in the left side of the neck. IMPRESSION: Accentuated bronchovascular marking and pulmonary reticulations with ill-defined areas of parenchymal veiling in both lungs, predominantly in the right mid and lower zones, more conspicuous on current scan likely inflammatory/infective sequlae. Clinical correlation is advised. Electronically signed by Heaven Duron 05-25-2024 8:41 PM Dictated: 05/25/241930 Transcribed: ECG Data Attestation: I personally reviewed and interpreted this ECG as follows: Interpretation: Sinus rhythm with a rate of 87. MD 130 QRS [address] elevation or ST depression. There is baseline wander and artifact. [facility] Narrative 191: The patient was evaluated in room C8. A complete history and physical exam was performed Cardiac monitoring: An order was placed for continuous cardiac monitoring. The monitor shows a rate of 90 with sinus rhythm interpreted by me Patient found to be hypoxic on room air. Supplemental oxygen was applied via nasal cannula which improved the patient's oxygen saturation. 2010: Vital signs stable on supplemental oxygen via nasal cannula. Labs show hemoglobin of 5.9. High-sensitivity troponin 121.7. Patient not reporting chest pain. Thought to be demand ischemia. BNP 132. Imaging does not show severe fluid overload. Patient will be admitted to the hospitalist team. Should be transfused 1 unit packed red blood cells. Impression & Plan Hypoxia, Anemia Critical Care Time Critical Care Time: Yes Total Critical Care Time: 66 I have personally spent greater than 66 minutes of critical care time in the direct management of this patient. This includes bedside care, interpretation of diagnostic studies, and testing, discussion with consultants, patient, and family members, and other required patient management activities. This 66 minutes is in excess of all separately billable procedures. Discharge Plan Visit Data Chief Complaint: Shortness of Breath/Dyspnea Stated Complaint: SOB, COUGHING ED Provider: Rony Alicia Discharge Problem: Hypoxia, Anemia Patient Disposition: Admitted As Inpatient Forms Stand Alone Forms: My [facility] Prescriptions Prescriptions: No Action montelukast [Singulair] 10 mg tablet 10 mg PO QPM rosuvastatin 40 mg tablet 40 mg PO HS albuterol sulfate [Ventolin HFA] 90 mcg/actuation HFA aerosol inhaler 2 inh INH Q4H PRN (Reason: dyspnea or wheeze ) Qty: 18 4RF (DME) Portable Oxygen Misc See Rx Instructions .MEDSUPPLY Qty: 1 0RF Rx Instructions: Oxygen 2 liters continuous via nasal cannula on exertion with portable concentrator. MICHAEL 99 (DME) CPAP Supplies Misc See Rx Instructions .MEDSUPPLY Qty: 1 0RF Rx Instructions: Refitting of the mask. Try nasal pillows. G47.33 clopidogrel 75 mg Tablet 75 mg PO QAM pantoprazole 40 mg Tablet,Delayed Release (Dr/Ec) 40 mg PO QAM furosemide 40 mg tablet 40 mg PO QAM fluticasone propionate 50 mcg/actuation spray,suspension 2 spray INTRANASAL DAILY levothyroxine 150 mcg Tablet 150 mcg PO QAM amitriptyline 100 mg Tablet 100 mg PO HS valsartan 160 mg Tablet 160 mg PO QAM Ozempic 0.25 mg or 0.5 mg (2 mg/3 mL) Pen Injector 0.25 mg SUBCUT WK Trelegy Ellipta 100-62.5-25 mcg blister with device 1 inh inhalation QAM bupropion HCl (smoking deter) 150 mg tablet extended release 12 hr 150 mg PO BID ropinirole 0.5 mg tablet 0.5 mg PO DAILY Referrals Referrals: Jeniffer Mathew PA-C [Primary Care Provider] - Discharge Problem: Anemia Qualifiers: Anemia type: unspecified type Qualified Code(s): D64.9 - Anemia, unspecified
[2024-05-26] MEDS ORDERED: ALUMINUM/MAGNESIUM SUSP 30 ML UDC PO PRN (01:55)
[2024-05-26] MEDS ORDERED: MAGNESIUM HYDROXIDE SUSP 30 ML UDC PO PRN (01:55)
[2024-05-26] MEDS ORDERED: POLYETHYLENE (MIRALAX) 17 GM PACK PO PRN (01:55)
[2024-05-26] MEDS ORDERED: ACETAMINOPHEN 500 MG TAB PO PRN (01:55)
[2024-05-26] MEDS ORDERED: ALBUTEROL HFA 8 GM INHALER INH PRN (01:55)
[2024-05-26] MEDS ORDERED: ONDANSETRON INJ 2 MG/ML 2 ML VIAL IV PRN (01:55)
--- OUTSIDE RECORDS SUMMARY | 2024-05-26 03:08 | External Medical Summary | Continuity of Care Document ---
Author Name Unknown Organization [facility] Address [address] [place] [id number] Care Team Providers Care Screener And Blender Name Role Phone Jenifefr Mathew Primary Care Physician [phone] [id number] Date(s): 02/11/24 - 02/11/24 [facility] [address], [facility] [address] [place] [address] [phone] Encounter Diagnosis COPD with exacerbation(Discharge Diagnosis) - 02/11/24 Discomfort of left ear(Discharge Diagnosis) - 02/11/24 (atherosclerosis)(Discharge Diagnosis) - 02/11/24 Chronic diastolic heart failure with preserved ejection fraction(Discharge Diagnosis) - 02/11/24 Controlled type 2 diabetes mellitus with stage 3 chronic kidney disease (Discharge Diagnosis) - 02/11/24 RLS (restless legs syndrome)(Discharge Diagnosis) - 02/11/24 Benign hypertension with chronic kidney disease(Discharge Diagnosis) - 02/11/24 Type 2 diabetes mellitus with diabetic chronic kidney disease(Final) - Chronic diastolic (congestive) heart failure(Final) - Discharge Disposition: Home or Self Care Attending Physician: INDIA Mathew Jessica A Allergies, Adverse Reactions, Alerts Substance Criticality Severity Reaction Reaction Severity Status Bactrim 1 Active Allergy Not found in Search 2 Active 1hives, flush 2seasonal Assessment and Plan Extracted from: Title:6 month f/u Author:INDIA Mathew Jessic a A Date:02/11/24 1.COPD with exacerbation COPD with acute exacerbation is uncontrolled. Goal isresolution of symptoms. She was given Augmentin 875 mg, 1 tab p.o. twice daily x 10 days with foodand prednisone 20 mg, 2 tabs p.o. daily x 5 days with food. To continue TrelegyEllipta 100 62.5-25 mcg, 1 inhalation p.o. daily. Encouraged to continue with care of pulmonology as well. Recommend close follow-up if symptoms are not improving, worsen or change inbut at that point recommend proceeding with chest x-ray. Last FCM clinic note from June 2023 and outside pulmonology note from September 2023 was reviewed today. 2.Discomfort of left ear Patient notes discomfort in the left ear, but there is no obvious effusion or sign of infection. Discussed this may be due to some eustachian tube dysfunction and would recommend she continue fluticasone nasal spray 50 mcg,2 sprays per nostril daily. 3. (atherosclerosis) Atherosclerosis is chronic. At the time of hercardiology appointment in spring 2023she was switched from simvastatin to rosuvastatin 40 mg once daily. UpdatedCMP and lipid profile ordered. 4.Chronic diastolic heart failure with preserved ejection fraction Chronic diastolic heart failure with preserved ejection fraction is chronic and stable. Goalis euvolemiaand prevention of hospitalization. Continue furosemide 40 mg, 1.5 tabs p.o. daily and valsartan 160 mg, 1 tab p.o. daily.Cardiology note from August 2023 was reviewed today. 5.Controlled type 2 diabetes mellitus with stage 3 chronic kidney disease Type 2 diabetes with stage III CKDis chronic and well-controlled. Goal A1c is <7%. Labs reviewed from June 2023 and A1c was stable at 6.4%. Since that time she has been taking Ozempic 0.5 mg injected weekly. Updated CMP, lipid profile, A1c, TSH and urine microalbumin ordered. Follow-up again in 6 months. 6.RLS (restless legs syndrome) RLS is chronic and has been uncontrolled. Goal is resolution of symptoms. Discontinue ropinirole 0.25 mgand increase to ropinirole 0.5 mg, 1 tab p.o. nightly. Follow-up again in 6 months. 7.Benign hypertension with chronic kidney disease Benign hypertension with chronic kidney disease is well-controlled. Goal SBP <130 and DBP <80 mmHg. Continue valsartan 160 mg, 1 tab p.o. daily. Updated labs ordered today. Follow-up againin 6 months. Time spent on pre-visit plannin minutes on chart review Face to face time spent w/ patient: 20 minutes Time spent documenting pertinent clinical information into the EMR: 12 minutes Total time: 36 minutes Immunizations Given and Recorded Vaccine Date Status Refusal Reason influenza virus vaccine, inactivated 02/11/24 Give n influenza virus vaccine, inactivated 01/08/23 Give n influenza virus vaccine, inactivated 03/04/21 Give n influenza virus vaccine, inactivated 01/23/19 Give n influenza virus vaccine, inactivated 01/17/18 Give n pneumococcal 20-valent conjugate vaccine 01/08/23 Given zoster vaccine, inactivated 08/14/20 Given zoster vaccine, inactivated 05/29/19 Given tetanus/diphtheria/pertuss, acel (Tdap) 05/29/19 G iven pneumococcal 23-valent vaccine 1 01/06/17 Recorded tetanus toxoids-diphtheria, Td (Adult) 2 02/22/02 Recorded 1Result Comment: 2018-07-18: Historical information-source unspecified 2Result Comment: 2018-07-18: Historical information-source unspecified Medications Albuterol (Eqv-ProAir HFA) 90 mcg/inh inhalation aerosol Start: 07/23/23 10:12:00 AM EDT, 2 puff, inhaled, q6h, Disp# 8.5 g, Refills: 5, Pharmacy: [id number] Start Date: 07/23/23 Stop Date: 01/19/24 Status: Ordered amitriptyline 100 mg oral tablet Start: 02/16/23 8:03:00 AM EST, 1 tab, PO, qhs, Disp# 30 tab, Refills: 11, Pharmacy: [id number] Start Date: 02/16/23 Status: Ordered Augmentin 875 mg-125 mg oral tablet Start: 02/11/24 8:55:00 AM EST, amoxicillin 1 tab, PO, q12h, Disp# 20, X 10 day, before or with meals and snacks, Stop: 02/21/24 8:55:00 AM EST, Pharmacy: [id number] Start Date: 02/11/24 Stop Date: 02/21/24 Status: Ordered BuPROPion (Eqv-Wellbutrin SR) 150 mg/12 hours oral tablet, extended release Start: 12/22/23 11:31:00 AM EDT, 1 tab, PO, bid, Disp# 60 tab, Refills: 5, Pharmacy: [id number] Start Date: 12/22/23 Status: Ordered clopidogrel 75 mg oral tablet Start: 02/03/24 9:40:00 AM EST, 1 tab, PO, Daily, Disp# 30 tab, Refills: 5, Pharmacy: [id number] Start Date: 02/03/24 Status: Ordered fluticasone 50 mcg/inh nasal spray Start: 11/25/23 1:53:00 PM EDT, 2 spray, intranasal, Daily, Disp# 16 g, Refills: 5, Pharmacy: [id number] Start Date: 11/25/23 Status: Ordered furosemide 40 mg oral tablet Start: 12/03/23 12:59:00 PM EDT, 1.5 tab, PO, Daily, Disp# 45 tab, Refills: 5, Pharmacy: [id number] Start Date: 12/03/23 Status: Ordered levothyroxine 150 mcg (0.15 mg) oral tablet Start: 11/25/23 1:53:00 PM EDT, 1 tab, PO, Daily, Disp# 30 tab, Refills: 5, Pharmacy: [id number] Start Date: 11/25/23 Status: Ordered Lidoderm 5% topical patch Start: 11/12/23 1:06:00 PM EDT, 3 patch, topical, Daily, Disp# 30 patch, Pharmacy: [id number] Start Date: 11/12/23 Stop Date: 11/22/23 Status: Ordered montelukast 10 mg oral tablet Start: 02/16/23 8:03:00 AM EST, 1 tab, PO, qPM, Disp# 30 tab, Refills: 11, Pharmacy: [id number] Start Date: 02/16/23 Status: Ordered Ozempic (0.25 mg or 0.5 mg dose) 2 mg/3 mL subQ pen Start: 01/10/24 1:08:00 PM EDT, 0.5 mg, subQ, q7days, Disp# 3 mL, Refills: 5, Pharmacy: [id number], Supply Start Date: 01/10/24 Status: Ordered pantoprazole 40 mg oral delayed release tablet Start: 12/22/23 11:31:00 AM EDT, 1 tab, PO, Daily, Disp# 30 tab, Refills: 5, Pharmacy: [facility] Start Date: 12/22/23 Status: Ordered predniSONE 20 mg oral tablet Start: 02/11/24 8:55:00 AM EST, 2 tab, PO, Daily, Disp# 10 tab, X 5 day, Stop: 02/16/24 8:55:00 AM EST, Pharmacy: [id number] Start Date: 02/11/24 Stop Date: 02/16/24 Status: Ordered rOPINIRole 0.5 mg oral tablet Start: 02/11/24 8:49:00 AM EST, 1 tab, PO, qhs, Disp# 30 tab, Refills: 11, Pharmacy: [id number] Start Date: 02/11/24 Stop Date: 02/05/25 Status: Ordered rosuvastatin 40 mg oral tablet Start: 09/16/23 1:39:00 PM EDT, 1 tab, PO, Daily, Disp# 90 tab, Refills: 3, Pharmacy: [id number] Start Date: 09/16/23 Status: Ordered Trelegy Ellipta 100 mcg-62.5 mcg-25 mcg/inh inhalation powder Start: 07/23/23 10:11:00 AM EDT, 1 puff, inhaled, Daily, Disp# 28 blister, Refills: 11, Note to Pharmacy: d/c anora ellipta, Pharmacy: [id number] Start Date: 07/23/23 Stop Date: 07/17/24 Status: Ordered valsartan 160 mg oral tablet Start: 01/14/24 8:10:00 AM EDT, 1 tab, PO, Daily, Disp# 90 tab, Refills: 3, Pharmacy: [facility] Start Date: 01/14/24 Status: Ordered Xanax 0.25 mg oral tablet Start: 07/30/23 6:42:00 PM EDT, 1 tab, PO, Daily, Disp# 24 tab, Refills: 0, PRN: as needed for anxiety, Pharmacy: [id number] Start Date: 07/30/23 Status: Ordered Mental Status 02/11/24 Barriers to Learning one year None evide nt Mandatory Health Literacy Documentation Yes Health Literacy Communication Barriers N ever Primary Language Djiboutian Problem List Condition Confirmation Course Effective Dates Status H ealth Status Informant (atherosclerosis) Confirmed Active Benign hypertension with chronic kidney disease Confirmed Active Chronic diastolic heart failure with preserved ejection fraction Confirmed Active Chronic headaches Confirmed Active CKD (chronic kidney disease) stage 3, GFR 30-59 ml/min Confirmed Active Chronic obstructive pulmonary disease (COPD) 1 Confirmed 02/23/17 Active Pain syndrome, chronic Confirmed Active Subclavian artery disease Confirmed Active Electrocution Confirmed Active GERD Confirmed 03/30/12 Active Hypothyroidism Confirmed 03/30/12 Active Mixed restrictive and obstructive lung disease Confirmed Active ALTHEA on CPAP Confirmed Active Bilateral thumb pain Confirmed Active Knee pain, bilateral Confirmed Active Peripheral vascular disease Confirmed Active Pes anserinus bursitis of both knees Confirmed Active Bilateral primary osteoarthritis of knee Confirmed Active RLS (restless legs syndrome) Confirmed Active Tobacco abuse Confirmed Active Controlled type 2 diabetes mellitus with stage 3 chronic kidney disease Confirmed Active Weight disorder Confirmed Active 1Spirometry consistent w/ moderate restrictive pattern. No significant change in function after bronchodilator Diagnosis Diagnosis Type Effective Dates Health Status Clinical Service Informant Discomfort of left ear Discharge Diagnosis 02/11/24 Non-Specified (atherosclerosis) Discharge Diagnosis 02/11/24 Non-Specified Controlled type 2 diabetes mellitus with stage 3 chronic kidney disease Discharge Diagnosis 02/11/24 Non-Specified Chronic diastolic heart failure with preserved ejection fraction Discharge Diagnosis 02/11/24 Non-Specified RLS (restless legs syndrome) Discharge Diagnosis 02/11/24 Non-Specified COPD with exacerbation Discharge Diagnosis 02/11/24 Non-Specified Benign hypertension with chronic kidney disease Discharge Diagnosis 02/11/24 Non-Specified Procedures Procedure Date Related Diagnosis Body Site Status CT of chest 1 05/18/22 Completed Fingers X-ray 2 09/09/21 Completed X-ray of left knee 3 09/09/21 Comp leted X-ray of right knee 4 09/09/21 Com pleted Mammogram 5 08/13/[address] of chest 6 05/16/21 Completed Colonoscopy 7 12/26/19 Completed Endoscopy 8 12/26/[address] of chest without contrast 9 08/07/19 Completed Mammogram 10 02/16/[address] of chest 11 01/30/19 Completed Spirometry 12 01/30/[address] of chest and abdomen with out contrast 13 09/28/17 Completed Echocardiogram 14 09/08/17 Complet ed US EXAM CHEST 15 09/08/17 Complete d Chest x-ray 16 06/16/17 Completed Pulmonary function test 17 02/23/17 Completed MRI of ankle 18 01/19/17 Completed Chest x-ray 19 01/04/[address] angiography of chest with contrast 20 01/04/17 Completed left carotid to subclavian a rtery bypass 12/30/16 Completed Left Upper limb angiogram w/ o intervention 11/27/16 Completed Chest x-ray 21 05/06/16 Completed MRI of ankle 22 05/04/16 Completed Right heel x-ray 23 01/27/16 Compl eted MRI with and without contrast 24 12/26/15 Completed 25 Completed Debridement 26 Completed eye surgery Completed gall bladder removal Comp leted partical thyroid removal Completed skin graph Completed Umbilical hernia Complete d [address] [place] [address] Impression: 1. No suspicious pulmonary nodules. No change in a few subpleural nodular densities from earlier exams. These are benign given stability. Lung RADS Category: 2. Benign appearance or behavior. Noduleswith a very likelihood of becoming a clinically active cancer due to size or lack of growth. Continue annual screening 2Milder degenerative change without evidence of acute abnormality. 31. No acute osseous pathology. 2. Osteoarthritis. 41. Severe medial and moderate patellfemoral compartment osteoarthritis of the right knee. 2. No acute fracture or joint effusion of the right knee. 5[facility] Impression: ACR BI-RADS CATEGORY 2: BENIGN 1. No evidence of malignancy [address] [place] [address] Impression: 1. Centrilobular emphysema appreciated bilaterally 2. Right lower pulmonary nodule unchanged since 2017 3. Minimal dependant atelectasis bilateral lower lobes 4. Main pulmonary artery 3 cm 5. No mediastinal lymphadenopathy [address] [place] [address] Impression: 1. Non-bleeding internal hemorrhoids 2. Diverticulosis in the sigmoid colon 3. No specimens collected 4. Repeat in 10 years 8[facility] Impression: 1. Z-line regular, 36 cm from the incisors 2. Normal esophagus 3. Normal stomach 4. Normal examined duodenum 5. No specimens collected [address] [place] [address] Impression: 1. Follow up for pulmonary nodule which demonstrates emphysema. A new 7 millimeter nodular density in the right upper lobe. Additional pulmonary pleural based nodular densities unchanged mac 2017. Noairspace consolidation or pleural effusion. Circumferential wall thickening suggested in the mid todistal esophagus. Follow up in 3 months is recommended to document resolution of right upper lobe pulmonary nodularity 10[facility] Impression: ACR BI-RADS CATEGORY 2: BENIGN 1. No evidence of malignancy 11[facility] Impression: 1. Multiple lung nodules, largest 7 mm. Repeat in 6 months 12[facility] Impression: 1. Moderate decrease in forced vital capacity and FEV1 with normal FEV1/FVC ratio. This is compatible with moderate restrictive pattern 13[facility] Impression: 1. No change in a 7 mm subpleural nodule since initial CT of 11/16/2016. A follow-up chest CT in 6 months to ensure stablity is recommended 2. Stable elevation of the left hemidiaphragm with associated airspace opacity consistent with atelectasis 3. Mildly dilated esophagus with mild wall thickeninig which is nonspecific but may reflect esophagitis 14[facility] Impression: 1. Normal ventricular size and systolic function. EF= 65-70%. No regional wall motion abnormalities. Mild concentric left ventricular hypertrophy. Type 1 diastolic dysfunction 2. No significant valvular abnormalities visualized 3. Technically difficult study, enhanced with IV Definity 4. No prior study availiable for comparison 15[facility] Impression: 1. No pleural effusions 16[facility] Impression: 1. Small left pleural effusion. Left basilar opacities, likely atelectatic. Overall there has been improvement in the appearnce of the left lung base when compared with the preceding study 17[facility] Impression: 1. Spirometry is consistent with a moderate restictive pattern. Repeat study done following bronchodilator showed no significant change in function. There was very mild improvement in forced vital capacity and FEV1. 18[facility] Impression: 1. Skin and soft tissue ulceration distal to the Achilles tendon with mild associated enhancement. No enhancing soft tissue collection, soft tissue mass, or evidence of acute osteomyelitis 2. Severe Achilles tendinosis with dystrophic calcifications and chronic high- grade partial tearingof the distal Achilles insertional fibers. Mild associated paratenonitis. Mild bone marrow edema ofthe posterior calcaneus adjacent to the Achilles insertion site in likely reactive 3. Evidence of chronic plantar fasciitis 4. Small subtalar joint effusion 19[facility] Impression: 1. Mild right-sided developing asymmetric pulmonary edema 2. Small to moderate left pleural effusion 20[facility] Impression: 1. No definite evidence for pulmonary embolus with limitations as descred 2. Interval development of a small left pleural effusion. Consolidation within the base of the leftlower lobe may be due to c ompressive atelectasis from the effusion or a pneumonia 3. Postop changes within the left neck with a left common carotid to left subclavian artery bypass graft. There is no contrast within the graft. Therefore, the graft is occluded. There is reconstituion of flow of the left subclavian artery due to the left vertebral artery consistent with a subvlavian steal syndrome 4. Doft tissue edema and surgical clips within the left neck suggestive of postoperative change. There is also a small intramuscular hematoma within the left sternocleidomastoid muscle 5. No change in the 7 mm subpleural nodule within the right lower lobe 6. Mild diffuse thickening of the esophagus, unchanged 21[facility] Impression: 1. No acute cardiopulmonary findings 22Right ankle 1. Superficial ulceration with focal soft tissue cellulitis and inflammatory granulomatous-type change posterior to the calcaneus. 2. Considerable deterioration as well as infectious change to the chilles tendon at/or slightly proximal to its insertion. There is infectious and or granulomatous-type change involving 75% of the cross-sectional tendinous volume. 3. Small focus of osteomyelitis posterior calcaneus. 4. No evidence for drainable abscess or collection. 23[facility] Impression: 1. No acute fractures 2. Soft tissue ulceration 3. No conventional radiographic evidence of acute osteomyelitis 24[facility] Impression: 1. Overall, no significant change in the scattered foci of T2 hyperintensity seen within the periventricular and subcortical white matter of the supratentorial brain. These are nonspecific and could represent a demyelinating process such as multiple sclerosis, migraines, microvascular ischemic changes, or Lyme's disease. 2. No areas of abnormal enhancement to suggest active demyelination. 25two c-sections 26Debridement of bone on right heel due to infection Results Laboratory List Name Date Comprehensive Metabolic Panel (COMP META B PANEL) 02/11/24 Hemoglobin A1C (HEMOGLOBIN, A1C) 4 Lipid Profile (LIPOPROTEINS) 02/11/24 Microalbumin, Urine, Random (MICROALBUMI N, RD UR) 02/11/24 Thyroid Stimulating Hormone (TSH) Most recent to oldest [Reference Range]: 1 eGFR CKD-EPI [>60 mL/min/1.73 m2] 36 mL/ min/1.73 m2 1 *LOW* (02/11/24 9:09 AM) Estimated Average Glucose 140 mg/dL 2 (02/11/24 9:09 AM) Non-HDL 82 mg/dL 3 (02/11/24 9:09 AM) Estimated CrCl 42.64 mL/min (02/11/24 9:57 AM) Micro Alb (u) [<2.00 mg/dL] <1.20 mg/dL (02/11/24 9:09 AM) Anion Gap [5-14 mmol/L] 9 mmol/L (02/11/24 9:09 AM) Alb [3.5-5.0 g/dL] 3.9 g/dL (02/11/24 9:09 AM) Alk Phos [38-126 unit/L] 129 unit/L *HI* (02/11/24 9:09 AM) ALT [<35 unit/L] 17 unit/L (02/11/24 9:09 AM) AST [15-46 unit/L] 18 unit/L (02/11/24 9:09 AM) BUN [7-20 mg/dL] 25 mg/dL *HI* (02/11/24 9:09 AM) Ca [8.4-10.2 mg/dL] 9.0 mg/dL (02/11/24 9:09 AM) Chol/HDL 3 (02/11/24 9:09 AM) Chol [125-200 mg/dL] 131 mg/dL (02/11/24 9:09 AM) Cl- [96-107 mmol/L] 104 mmol/L (02/11/24 9:09 AM) HCO3 [22-30 mmol/L] 26 mmol/L (02/11/24 9:09 AM) Cret [0.60-1.00 mg/dL] 1.59 mg/dL *HI* (02/11/24 9:09 AM) HbA1c [4.0-6.0 %] 6.5 % *HI* (02/11/24 9:09 AM) Glu [74-106 mg/dL] 118 mg/dL *HI* (02/11/24 9:09 AM) HDL [>35 mg/dL] 49 mg/dL (02/11/24 9:09 AM) K [3.5-5.1 mmol/L] 4.2 mmol/L (02/11/24 9:09 AM) LDL Chol, Calculated [50-130 mg/dL] 35 m g/dL *LOW* (02/11/24 9:09 AM) Micro Alb Ratio [<20 ug/mg cret] NOT MARY CULATED ug/mg cret (02/11/24 9:09 AM) Na [137-145 mmol/L] 139 mmol/L (02/11/24 9:09 AM) T Bili [0.2-1.3 mg/dL] 0.3 mg/dL (02/11/24 9:09 AM) Prot [6.3-8.2 g/dL] 7.3 g/dL (02/11/24 9:09 AM) TG [<200 mg/dL] 237 mg/dL *HI* (02/11/24 9:09 AM) TSH [0.47-4.68 uIU/mL] 2.62 uIU/mL 4 (02/11/24 9:09 AM) Creat (u) 45.48 mg/dL 5 (02/11/24 9:09 AM) 1Result Comment: Testing Performed By: Dept of Pathology [facility], [address] [place] [address], [place] [address] 2Result Comment: Testing [facility]formed [facility]: [facility], [address] [place] [address], [place] [address] 3Result Comment: Testing Performed By: Dept of Pathology [facility], [address] [place] [address], [place] [address] 4Result Comment: Testing Performed By: [facility], [address] [place] [address], [place] [address] 5Result Comment: Reference Range for Random Urine Not Established. Vital Signs Most recent to oldest [Reference Range]: 1 Patient Weight 110 kg (02/11/24 8:28 AM) Temperature [36.5-37.9 DegC] 36.6 DegC (02/11/24 8:28 AM) Heart Rate 101 bpm (02/11/24 8:28 AM) Respiratory Rate 20 br/min (02/11/24 8:28 AM) Blood Pressure 130/74mmHg (02/11/24 8:28 AM) Social History Social History Type Response Tobacco Current every day sm oker, Cigarettes, 10 per day. Started age 20 Years. Smoking Status Current every day he reynold smoker Sex Female Sex Representation Female (finding) [facility] Outpt Note * INDIA Mathew, Jeniffer Morris: PERFORM Event Display: [facility] Outpt Note Authored Date: Chief Complaint 6 mo follow -new left ear pain History of Present Illness Pat presents for a 6-month follow-up ofHTN, chronic diastolic heart failure,PVD,COPD, tobaccouse, type 2 diabetes and chronic headaches. Last clinic note was reviewed today. "I feel like I have fluid in it." Developed left ear pain and congested.Also, in the last month she has had a productive cough of purulent sputumthat is fairly consistent throughout the day. She has also had some increased wheezingand dyspnea on exertion. "It feels like it is in my right lung." She does have knownCOPD and continues to smoke 1 pack/day. Remains on TrelegyEllipta, 1 inhalation p.o. daily. No fever, chills, nausea, vomiting, diarrhea, chest pain, chest tightness, itchy eyes or watery eyes. COPD is chronic and continues to follow with [facility] pulmonology every 6 months. As mentioned above, she has had a productive cough of purulent sputum, increased wheezing and dyspnea on exertion for the last month. She did switchfrom Breo Ellipta to Trelegyin spring 2023 and feels like this has helped. "I can breathe better with it." She is still using her albuterol inhalerabout twice dailyas needed for dyspnea on exertion, which is improved from 4 times daily. She continues to get annual CT scans of the chest ordered bypulmonology and did have a CT scan earlier thisyear. Continues to smoke 1ppd. Restless leg syndrome is chronic and at the time of our last appointmentshe was started on ropinirole 0.25 mg, 1 tab p.o. daily as she was having. Eye movements in both her arms and her legs thatwere disrupting sleep. Feels like the ropinirole has helped, but still hasdifficulty initiatingand maintaining sleep once or twice a week. Noticed that last night was "a bad night." Type II DM is well controlled w/A1c of6.4% in June 2023. She was started on Ozempic and is currently on 00.5 mg injected weekly that was started in June 2023 as well. Has not had any sideeffects of the medication, but does note shedid have to hold the medication for the last few weeks as she had cataract surgery. In the past she had been on metformin, which was discontinued to worsening GFR of <45. Has lost 10 pounds in the last 6 months.Continues to smoke 1 pack/day and is not interested in quitting. No alcohol or recreational drug use. She did have a routine eye exam in August 2023.Does not check glucose at home. + chronicnumbness and tinglingof feet,toes and fingertips bilaterally that she has chronically attributed to history of MS. Gets occasional dizziness. + chronic dyspnea. No hypoglycemic episodes, polyuria, polydipsia, polyphagia, poor healing wounds, foot ulcerations, blurred vision, loss of vision, chest pain, SOB, palpitations, tachycardia, loss of balance or falls. Chronic diastolic heart failureand peripheral edema have remained stable with furosemide 40 mg, 1.5 tab p.o.daily. She is now [facility] [place] [facility] [place]. Chronic dyspnea has been worsewith increased cough and wheezing. Edema has otherwise been stable. She did have an updated echo in spring 2023 that showed grade 1 diastolic dysfunction and LVEF of 70%.Prior CTA of the chest did suggest pulmonary HTN and patient has known ALTHEA that is chronic andpt is non-compliant w/ tx. Hypertension with known stage3 CKD is stable. Does not check BP at home. Compliant w/ valsartan 160 mg, 1 tab p.o. daily. Does not check BP at home. Continues to smoke 1/2 pack/day and is notinterested in quitting. No EtOH or recreational drug use. No regular exercise.+ chronic BETANCUR. + LE edema in setting of HFrEF. No claudication, chest pain, SOB at rest, palpitations, tachycardia, dizziness, lightheadedness, weakness, near syncope, syncope, nausea, vomiting, diarrhea, constipation, headaches, blurred vision, loss of vision, confusion or epistaxis. Review of Systems ROS:All other systems negative, except HPI. Physical Exam Vitals & Measurements T:36.6C HR:101(Monitored) RR:20 BP:130/74 SpO2:95% WT:110.000kg(Dosing) WT:110kg PHQ2 Data(Data Documented on:02/11/2024 08:32) Emotional health assessment NEGATIVE General: Alert and oriented, No acute distress.Pleasant. Eye: Pupils are equal, round and reactive to light, Extraocular movements are intact, Normal conjunctiva. HENT: Normocephalic. TMs w/ cloudy air fluid levels. Neck: Supple, No lymphadenopathy, No thyromegaly. No audible carotid bruit bilaterally. Respiratory: Respirations are non-labored, Breath sounds are equal, Symmetrical chest wall expansion. + inspiratory and expiratory rales at RLL.Diminished air exchange throughout all lung mendoza. Cardiovascular: Normal rate, Regular rhythm, No murmur, No gallop, Normal peripheral perfusion. +1-2 pitting edema at BLE. + 0-1/4 left radial pulse and cap refill is less than 3 seconds in all fingers. +2/4 radial pulse at right. + diminished pedal pulses bilaterally as well at +1/4. Abdomen: Normoactive BS x 4. Soft. No tenderness, palpable masses or organomegaly. Lymphatics: No submandibular, anterior or posterior cervical adenopathy palpable. Musculoskeletal Ambulates with use of a single-point cane. Integumentary: Warm, [place], mild pallor Neurologic: Alert, Oriented, Cranial Nerves II-XII are grossly intact. Cognition and Speech: Oriented, Speech clear and coherent, Functional cognition intact. Psychiatric: Cooperative, Appropriate mood & affect, Normal judgment, Nonsuicidal. Assessment/Plan 1.COPD with exacerbation COPD with acute exacerbation is uncontrolled. Goal isresolution of symptoms. She was given Augmentin 875 mg, 1 tab p.o. twice daily x 10 days with foodand prednisone 20 mg, 2 tabs p.o. daily x 5 days with food. To continue TrelegyEllipta 26312.5-25 mcg, 1 inhalation p.o. daily. En couraged to continue with care of pulmonology as well. Recommend close follow- up if symptoms are not improving, worsen or change inbut at that point recommend proceeding with chest x-ray. Last [facility] clinic note from June 2023 and outside pulmonology note from September 2023 was reviewed today. 2.Discomfort of left ear Patient notes discomfort in the left ear, but there is no obvious effusion or sign of infection. Discussed this may be due to some eustachian tube dysfunction and would recommend she continue fluticasone nasal spray 50 mcg,2 sprays per nostril daily. 3. (atherosclerosis) Atherosclerosis is chronic. At the time of hercardiology appointment in spring 2023she was switched from simvastatin to rosuvastatin 40 mg once daily. UpdatedCMP and lipid profile ordered. 4.Chronic diastolic heart failure with preserved ejection fraction Chronic diastolic heart failure with preserved ejection fraction is chronic and stable. Goalis euvolemiaand prevention of hospitalization. Continue furosemide 40 mg, 1.5 tabs p.o. daily andvalsartan 160 mg, 1 tab p.o. daily.Cardiology note from August 2023 was reviewed today. 5.Controlled type 2 diabetes mellitus with stage 3 chronic kidney disease Type 2 diabetes with stage III CKDis chronic and well-controlled. Goal A1c is <7%. Labs reviewed from June 2023 and A1c was stable at 6.4%. Since that time she has been taking Ozempic 0.5 mg injected weekly. Updated CMP, lipid profile, A1c, TSH and urine microalbumin ordered. Follow-up again in 6 months. 6.RLS (restless legs syndrome) RLS is chronic and has been uncontrolled. Goal is resolution of symptoms. Discontinue ropinirole 0.25 mgand increase to ropinirole 0.5 mg, 1 tab p.o. nightly. Follow-up again in 6 months. 7.Benign hypertension with chronic kidney disease Benign hypertension with chronic kidney disease is well-controlled. Goal SBP <130 and DBP <80 mmHg. Continue valsartan 160 mg, 1 tab p.o. daily. Updated labs ordered today. Follow-up againin 6 months. Time spent on pre-visit plannin minutes on chart review Face to face time spent w/ patient: 20 minutes Time spent documenting pertinent clinical information into the EMR: 12 minutes Total time: 36 minutes Problem List/Past Medical History Ongoing (atherosclerosis) Benign hypertension with chronic kidney disease Bilateral primary osteoarthritis of knee Bilateral thumb pain Chronic diastolic heart failure with preserved ejection fraction Chronic headaches Chronic obstructive pulmonary disease (COPD) CKD (chronic kidney disease) stage 3, GFR 30-59 ml/min Controlled type 2 diabetes mellitus with stage 3 chronic kidney disease Electrocution GERD Hypothyroidism Knee pain, bilateral Mixed restrictive and obstructive lung disease ALTHEA on CPAP Pain syndrome, chronic Peripheral vascular disease Pes anserinus bursitis of both knees RLS (restless legs syndrome) Subclavian artery disease Tobacco abuse Weight disorder Resolved MULTIPLE SCLEROSIS Osteomyelitis Procedure/Surgical History CT of chest| Service Date: 05/18/2022X-ray of left knee| Service Date: 09/09/2021Fingers X-ray| Service Date: 09/09/2021X-ray of right knee| Service Date: 09/09/2021Mammogram| Service Date: 2CT of chest| Service Date: 05/16/2021Endoscopy| Service Date: 12/26/2019Colonoscopy| Service Date: 12/26/2019CT of chest without contrast| Service Date: 08/07/2019Mammogram| Service Date: 02/16/2019Spirometry| Service Date: 01/30/2019CT of chest| Service Date: 01/30/2019CT of chest and abdomen without contrast| Service Date: 09/28/2017Echocardiogram| Service Date: 09/08/2017US EXAM CHEST| Service Date: 09/08/2017Chest x-ray| Service Date: 06/16/2017Pulmonary function test| Service Date: 02/23/2017MRI of ankle| Service Date: 01/19/2017CTangiography of chest with contrast| Service Date: 01/04/2017Chest x-ray| Service Date: 01/04/2017left carotid to subclavian artery bypass| Service Date: 12/30/2016Left Upper limb angiogram w/o intervention| Service Date: 11/27/2016Chest x-ray| Service Date: 05/06/2016MRI of ankle| Service Date: 05/04/2016Right heel x-ray| Service Date: 01/27/2016MRI with and without contrast|Service Date: 12/26/2015DebridementUmbilical herniac-sectionpartical thyroid removaleye surgerygall bladder removalskin graph Medications albuterol(Albuterol (Eqv-ProAir HFA) 90 mcg/inh inhalation aerosol), 2 puff, inhaled, q6h, 5 refills ALPRAZolam(Xanax 0.25 mg oral tablet), 0.25 mg= 1 tab, PO, Daily, PRN amitriptyline(amitriptyline 100 mg oral tablet), 1 tab, PO, qhs amoxicillin-clavulanate(Augmentin 875 mg-125 mg oral tablet), 1 tab, PO, q12h buPROPion(BuPROPion (Eqv-Wellbutrin SR) 150 mg/12 hours oral tablet, extended release), 1 tab, PO, bid clopidogrel(clopidogrel 75 mg oral tablet), 1 tab, PO, Daily, 5 refills fluticasone nasal(fluticasone 50 mcg/inh nasal spray), 2 spray, intranasal, Daily fluticasone/umeclidinium/vilanterol(Trelegy Ellipta 100 mcg-62.5 mcg-25 mcg/inh inhalation powder),1 puff, inhaled, Daily, 11 refills furosemide(furosemide 40 mg oral tablet), 1.5 tab, PO, Daily levothyroxine(levothyroxine 150 mcg (0.15 mg) oral tablet), 1 tab, PO, Daily lidocaine topical(Lidoderm 5% topical patch), 3 patch, topical, Daily montelukast(montelukast 10 mg oral tablet), 1 tab, PO, qPM pantoprazole(pantoprazole 40 mg oral delayed release tablet), 1 tab, PO, Daily predniSONE(predniSONE 20 mg oral tablet), 40 mg= 2 tab, PO, Daily rOPINIRole(rOPINIRole 0.5 mg oral tablet), 0.5 mg= 1 tab, PO, qhs, 11 refills rosuvastatin(rosuvastatin 40 mg oral tablet), 40 mg= 1 tab, PO, Daily, 3 refills semaglutide(Ozempic (0.25 mg or 0.5 mg dose) 2 mg/3 mL subQ pen), 0.5 mg, subQ, q7days, 5 refills valsartan(valsartan 160 mg oral tablet), 1 tab, PO, Daily Allergies Allergy Not found in Search Bactrim Social History Smoking Status Current every day heavy smoker Alcohol - Denies Alcohol Use Employment/School Description:Disability Exercise - Does not exercise Home/Environment Lives with:Significant other Living situation:Home/Independent Smoker in household:Yes Nutrition/Health Type of diet:Regular Caffeine intake amount:Drinks 1 cup of tea/day and 16 oz of Pepsi Other Details:Has had a blood transfusion in the past. Has tattoos that were done professionally w/ sterile equipment. Has not been incarcerated. Negative HIV and hepatitis C screening in 2016. Sexual Sexually active:Yes Self described orientation:Straight or heterosexual Substance Abuse Use:Past Type:Marijuana Tobacco - High Risk Use:Current every day smoker Type:Cigarettes Tobacco use per day:10 Started at age:20Years Family History High Blood Pressure: Mother and Father. Hypothyroidism.: Mother and Sister. Migraine: Sister. Pancreatic cancer......: Mother. Prostate carcinoma: Father. Reflux: Mother and Sister. Rheumatoid Arthritis: Mother. Type II diabetes mellitus: Sister. Ulcerative colitis: Sister. Health Status Family Member(s) Immunizations Vaccine Date Status influenza virus vaccine, inactivated 02/11/2024 Given influenza virus vaccine, inactivated 01/08/2023 Given pneumococcal 20-valent conjugate vaccine 01/08/2023 Given influenza virus vaccine, inactivated 03/04/2021 Given zoster vaccine, inactivated 08/14/2020 Given zoster vaccine, inactivated 05/29/2019 Given tetanus/diphtheria/pertuss, acel (Tdap) 05/29/2019 Given influenza virus vaccine, inactivated 01/23/2019 Given influenza virus vaccine, inactivated 01/17/2018 Given pneumococcal 23-valent vaccine 01/06/2017 Recorded Comments : 2018-07-18: Historical information-source unspecified tetanus toxoids-diphtheria, Td (Adult) 02/22/2002 Recorded Comments : 2018-07-18: Historical information-source unspecified Recommendations Health Maintenance Pending(in the next year) OverDue Body Mass Index due02/13/23and every 366day Breast Cancer Screening due08/14/23and every 731day Due Adult COVID-19 Vaccination due02/11/24Unknown Frequency Adult Social Determinants of Health Screening due02/11/24Unknown Frequency Diabetic Eye Exam due02/11/24Unknown Frequency Falls Plan of Care due02/11/24Unknown Frequency Osteoporosis Screening due02/11/24One-time only Due In Future Diabetes Management A1c not due until07/23/24and every 366day Adult Influenza Vaccine not due until09/25/24and every 1year Satisfied(in the past 1 year) Satisfied Adult Influenza Vaccine on02/11/24.Satisfied by HUGO Santana Kim Diabetes Management A1c 07/23/23.Satisfied by Contributor_system, [employer] Electronic Signature on File Electronically Reviewed/Signed by: Jeniffer Mathew PA-C,[email or web address] Author Signature Dt/Tm:02/11/2024 09:14 AM [facility] [address] [id number] JAW Patient Care team information Care Team Personnel Name: INDIA Murray Lynn Position: Physician Wheel Tuner Exempt - Vasc Surg Member Role: Lifetime Relationship Address: [address] [place] [id number] Name: Bridger Hsieh Position: HIS Supervisor_P Member Role: HIS Lifetime Name: INDIA Mathew Jessica A Position: Physician Asst Exmpt - Family Med Member Role: Primary Care Provider Address: [address] [place] [id number] [place] Care Team Related Persons Name: MONICA CASTILLO Name: CRISTOPHER LOPEZ
--- OUTSIDE RECORDS SUMMARY | 2024-05-26 03:08 | External Medical Summary | Continuity of Care Document ---
Author Name Unknown Organization [facility] [address] [facility] Address [address] [place], [place] [id number] Care Team Providers Care Order Expediter Name Role Phone Frankshekhar Jeniffer Alexandra Primary Care Physician [phone] [facility] [id number] Date(s): 03/16/24 - 03/16/24 [facility] [address], [address] [place] [address] [phone] Encounter Diagnosis CKD (chronic kidney disease) stage 3, GFR 30-59 ml/min(Discharge Diagnosis) - 03/16/24 Benign hypertension with chronic kidney disease(Discharge Diagnosis) - 03/16/24 Chronic obstructive pulmonary disease (COPD)(Discharge Diagnosis) - 03/16/24 Tobacco abuse(Discharge Diagnosis) - 03/16/24 Discharge Disposition: Home or Self Care Attending Physician: DO Rodrigez Jason D Allergies, Adverse Reactions, Alerts Substance Criticality Severity Reaction Reaction Severity Status Bactrim 1 Active Allergy Not found in Search 2 Active 1hives, flush 2seasonal Assessment and Plan Extracted from: Title:Cardiology Office Visit Note Author:DO Rodrigez Jason D Date:03/16/24 1.Benign hypertension with chronic kidney disease 2.Chronic obstructive pulmonary disease (COPD) 3.CKD (chronic kidney disease) stage 3, GFR 30-59 ml/min 4.Tobacco abuse I reviewed all of her laboratory studies over the last 18 months. Unfortunately she is double dosing her NSAIDs using both Motrin and Aleve. Additionally she is on Plavix as an antiplatelet agent. Her iron sat was 11 over the summer. This is concerning with the above combination of medications. And she might benefit from an iron infusion to increase her oxygen carrying capacity. This ultimately might help her breathing as well. Her BNP was 59 which is reassuring that her shortness of breath is not related to heart failure. Her echocardiogram does not suggest heart failure either. Her LA pressures and pulmonary artery pressures were normal. I suggested reducing her Lasix to 40 mg from 60 mg as she looks excessively dry on her blood work and she is orthostatic. We discussed if her symptoms of orthostasis persist it may need to be reduced to 20 mg daily. I again reiterated to her my concern of Plavix and double NSAIDs along with her hemoglobin and iron saturation. At this point she has no interest in stopping smoking. Nor was she interested in CPAP or wearing her oxygen. She will see Ashley in a year. Immunizations Given and Recorded Vaccine Date Status [...] 2Result Comment: 2018-07-18: Historical information-source unspecified Medications Advil Start: 03/16/24 3:15:00 PM EST, 400 mg =, PO, bid Start Date: 03/16/24 Status: Ordered Albuterol (Eqv-ProAir HFA) 90 mcg/inh inhalation aerosol Start: 07/23/23 10:12:00 AM EDT, 2 puff, inhaled, q6h, Disp# 8.5 g, Refills: 5, Pharmacy: [id number] Start Date: 07/23/23 Stop Date: 01/19/24 Status: Ordered Aleve 220 mg oral tablet Start: 03/16/24 3:15:00 PM EST, 1 tab, PO, q12h, PRN Start Date: 03/16/24 Status: Ordered amitriptyline 100 mg oral tablet Start: 02/22/24 11:16:00 AM EST, 1 tab, PO, qhs, Disp# 30 tab, Refills: 11, Pharmacy: [id number] Start Date: 02/22/24 Status: Ordered BuPROPion (Eqv-Wellbutrin SR) 150 mg/12 hours oral tablet, extended release Start: 12/22/23 11:31:00 AM EDT, 1 tab, PO, bid, Disp# 60 tab, Refills: 5, Pharmacy: [id number] Start Date: 12/22/23 Status: Ordered clopidogrel 75 mg oral tablet Start: 02/03/24 9:40:00 AM EST, 1 tab, PO, Daily, Disp# 30 tab, Refills: 5, Pharmacy: [id number] Start Date: 02/03/24 Status: Ordered fluticasone 50 mcg/inh nasal spray Start: 11/25/23 1:53:00 PM EDT, 2 spray, intranasal, Daily, Disp# 16 g, Refills: 5, Pharmacy: [id number] Start Date: 11/25/23 Status: Ordered furosemide 40 mg oral tablet Start: 03/16/24 3:49:00 PM EST, 1 tab, PO, Daily, Disp# 90 tab, Refills: 5, Note to Pharmacy: channge in dose only, Pharmacy: [id number] Start Date: 03/16/24 Status: Ordered levothyroxine 150 mcg (0.15 mg) oral tablet Start: 11/25/23 1:53:00 PM EDT, 1 tab, PO, Daily, Disp# 30 tab, Refills: 5, Pharmacy: [id number] Start Date: 11/25/23 Status: Ordered Lidoderm 5% topical patch Start: 11/12/23 1:06:00 PM EDT, 3 patch, topical, Daily, Disp# 30 patch, Pharmacy: [id number] Start Date: 11/12/23 Stop Date: 11/22/23 Status: Ordered montelukast 10 mg oral tablet Start: 02/16/23 8:03:00 AM EST, 1 tab, PO, qPM, Disp# 30 tab, Refills: 11, Pharmacy: [id number] Start Date: 02/16/23 Status: Ordered Mucinex DM 600 mg-30 mg oral tablet, extended release Start: 03/16/24 3:16:00 PM EST, 1 tab, PO, q12h Start Date: 03/16/24 Status: Ordered Ozempic (0.25 mg or 0.5 mg dose) 2 mg/3 mL subQ pen Start: 01/10/24 1:08:00 PM EDT, 0.5 mg, subQ, q7days, Disp# 3 mL, Refills: 5, Pharmacy: [id number], Supply Start Date: 01/10/24 Status: Ordered pantoprazole 40 mg oral delayed release tablet Start: 12/22/23 11:31:00 AM EDT, 1 tab, PO, Daily, Disp# 30 tab, Refills: 5, Pharmacy: [facility] Start Date: 12/22/23 Status: Ordered Probiotic Formula Start: 03/16/24 3:16:00 PM EST Start Date: 03/16/24 Status: Ordered rOPINIRole 0.5 mg oral tablet Start: 02/11/24 8:49:00 AM EST, 1 tab, PO, qhs, Disp# 30 tab, Refills: 11, Pharmacy: [id number] Start Date: 02/11/24 Stop Date: 02/05/25 Status: Ordered rosuvastatin 40 mg oral tablet Start: 09/16/23 1:39:00 PM EDT, 1 tab, PO, Daily, Disp# 90 tab, Refills: 3, Pharmacy: [id number] Start Date: 09/16/23 Status: Ordered Trelegy Ellipta 100 mcg-62.5 mcg-25 mcg/inh inhalation powder Start: 07/23/23 10:11:00 AM EDT, 1 puff, inhaled, Daily, Disp# 28 blister, Refills: 11, Note to Pharmacy: d/c anora ellipta, Pharmacy: [id number] Start Date: 07/23/23 Stop Date: 07/17/24 Status: Ordered Tylenol 500 mg oral tablet Start: 03/16/24 3:16:00 PM EST Start Date: 03/16/24 Status: Ordered valsartan 160 mg oral tablet Start: 01/14/24 8:10:00 AM EDT, 1 tab, PO, Daily, Disp# 90 tab, Refills: 3, Pharmacy: [id number] Start Date: 01/14/24 Status: Ordered Xanax 0.25 mg oral tablet Start: 07/30/23 6:42:00 PM EDT, 1 tab, PO, Daily, Disp# 24 tab, Refills: 0, PRN: as needed for anxiety, Pharmacy: [id number] Start Date: 07/30/23 Status: Ordered Problem List Condition Confirmation Course Effective Dates [...] Effective Dates Health Status Clinical Service Informant Chronic obstructive pulmonary disease (COPD) Discharge Diagnosis 03/16/24 Tobacco abuse Discharge Diagnosis 03/16/24 CKD (chronic kidney disease) stage 3, GFR 30-59 ml/min Discharge Diagnosis 03/16/24 Benign hypertension with chronic kidney disease Discharge Diagnosis 03/16/24 Procedures Procedure Date Related Diagnosis Body Site [...] out contrast 13 09/28/17 Completed Echocardiogram 14 6/13/18 Complet ed US EXAM CHEST 15 09/08/17 [...] skin graph Completed Umbilical hernia Complete d [address] [place] [address] Impression: 1. No suspicious pulmonary nodules. No [...] or joint effusion of the right knee. [facility] Impression: ACR BI-RADS CATEGORY 2: BENIGN 1. No evidence of malignancy [address] [place] [address] Impression: 1. Centrilobular emphysema appreciated bilaterally 2. Right lower pulmonary nodule unchanged since 2017 3. Minimal dependant atelectasis bilateral lower lobes 4. Main pulmonary artery 3 cm 5. No mediastinal lymphadenopathy 7[facility] Impression: 1. Non-bleeding internal hemorrhoids 2. Diverticulosis in the sigmoid colon 3. No specimens collected 4. Repeat in 10 years 8[facility] Impression: 1. Z-line regular, 36 cm from the incisors 2. Normal esophagus 3. Normal stomach 4. Normal examined duodenum 5. No specimens collected 9[facility] Impression: 1. Follow up for pulmonary nodule which demonstrates emphysema. A new 7 millimeter nodular density in the right upper lobe. Additional pulmonary pleural based nodular densities unchanged mac 2017. Noairspace consolidation or pleural effusion. Circumferential wall thickening suggested in the mid todistal esophagus. Follow up in 3 months is recommended to document resolution of right upper lobe pulmonary nodularity 10[facility] Impression: ACR BI-RADS CATEGORY 2: BENIGN 1. No evidence of malignancy 11[facility] Impression: 1. Multiple lung nodules, largest 7 mm. Repeat in 6 months 12[facility] Impression: 1. Moderate decrease in forced vital capacity and FEV1 with normal FEV1/FVC ratio. This is compatible with moderate restrictive pattern 13[facility] Impression: 1. No change in a 7 mm subpleural nodule since initial CT of 11/16/2016. A follow-up chest CT in 6 months to ensure stablity is recommended 2. Stable elevation of the left hemidiaphragm with associated airspace opacity consistent with atelectasis 3. Mildly dilated esophagus with mild wall thickeninig which is nonspecific but may reflect esophagitis 14[facility] Impression: 1. Normal ventricular size and systolic function. EF= 65-70%. No regional wall motion abnormalities. Mild concentric left ventricular hypertrophy. Type 1 diastolic dysfunction 2. No significant valvular abnormalities visualized 3. Technically difficult study, enhanced with IV Definity 4. No prior study availiable for comparison 15[facility] Impression: 1. No pleural effusions 16[facility] Impression: 1. Small left pleural effusion. Left basilar opacities, likely atelectatic. Overall there has been improvement in the appearnce of the left lung base when compared with the preceding study 17[facility] Impression: 1. Spirometry is consistent with a moderate restictive pattern. Repeat study done following bronchodilator showed no significant change in function. There was very mild improvement in forced vital capacity and FEV1. 18[facility] Impression: 1. Skin and soft tissue ulceration [...] plantar fasciitis 4. Small subtalar joint effusion 19[facility] Impression: 1. Mild right-sided developing asymmetric pulmonary edema 2. Small to moderate left pleural effusion 20[facility] Impression: 1. No definite evidence for pulmonary [...] diffuse thickening of the esophagus, unchanged 21[facility] Impression: 1. No acute cardiopulmonary findings 22Right [...] evidence for drainable abscess or collection. 23[facility] Impression: 1. No acute fractures 2. Soft tissue ulceration 3. No conventional radiographic evidence of acute osteomyelitis 24[facility] Impression: 1. Overall, no significant change in [...] bone on right heel due to infection Vital Signs Most recent to oldest [Reference Range]: 1 Patient Weight 113 kg (03/16/24 3:25 PM) Heart Rate 96 bpm (03/16/24 3:25 PM) Blood Pressure 92/54mmHg (03/16/24 3:25 PM) BP Location # 1 Right Arm (03/16/24 3:25 PM) Social History Social History Type Response Tobacco Current every day sm maria luisa, Cigarettes, 10 per day. Started age 20 Years. Smoking Status Current every day he reynold smoker Sex Female Sex Representation Female (finding) Cardiology Outpatient Note * DO Rodrigez Jason D: PERFORM Event Display: Cardiology Outpt Note Authored Date: [id number] Primary Care Provider INDIA Mathew, Jeniffer Morris Chief Complaint 6 month f/u History of Present Illness .She has chronic shortness of breath. She notes she is short of breath just walking from 1 room to the next at home. She had to walk 60 feet from the front of the office to the back and was dyspneic. She denies any chest pain or chest pressure. She is having lightheadedness every time she gets upout of a chair. She is sleeping in a recliner all the time. She is unaware of any palpitations or fluttering. She has chronic swelling in her left leg due to previous [place]. She notes overallher swelling is significantly better. At least sleeping in a recliner she does not have significant orthopnea. She denies any palpitations or fluttering either while sleeping or during the day. She does not wear her oxygen nor does she wear her CPAP. She continues to smoke about a pack aday. Review of Systems PMHX: 1. Chronic dyspnea on exertion 2. Hypertension 3. Echocardiogram showing ejection fraction of 70% without wall motion abnormalities, normal LV diastolic function for age grade 1 diastolic dysfunction, no significant valvulopathy 4.No significant carotid disease on 2021 ultrasound, steal phenomenon demonstrated due to severe stenosis of the left subclavian 5. Moderate coronary calcifications on CT 6. O2 dependent COPD not using O2 7. ALTHEA not wearing CPAP Physical Exam Vitals & Measurements HR:96(Monitored) BP:92/54 SpO2:94% WT:113kg WT:113.000kg(Dosing) Assessment/Plan 1.Benign hypertension with chronic kidney disease 2.Chronic obstructive pulmonary disease (COPD) 3.CKD (chronic kidney disease) stage 3, GFR 30-59 ml/min 4.Tobacco abuse I reviewed all of her laboratory studies over the last 18 months. Unfortunately she is double dosing her NSAIDs using both Motrin and Aleve. Additionally she is on Plavix as an antiplatelet agent. Her iron sat was 11 over the summer. This is concerning with the above combination of medications. And she might benefit from an iron infusion to increase her oxygen carrying capacity. This ultimately might help her breathing as well. Her BNP was 59 which is reassuring that her shortness of breath is not related to heart failure. Her echocardiogram does not suggest heart failure either. Her LA pressures and pulmonary artery pressures were normal. I suggested reducing her Lasix to 40 mg from 60 mg as she looks excessively dry on her blood work and she is orthostatic. We discussed if her symptoms of orthostasis persist it may need to be reduced to 20 mg daily. I again reiterated to her my concern of Plavix and double NSAIDs along with her hemoglobin and ironsaturation. At this point she has no interest in stopping smoking. Nor was she interested in CPAP or wearing her oxygen. She will see Ashley in a year. Problem List/Past Medical History Ongoing (atherosclerosis) Benign [...] thyroid removaleye surgerygall bladder removalskin graph Medications acetaminophen(Tylenol 500 mg oral tablet) albuterol(Albuterol (Eqv-ProAir HFA) 90 mcg/inh inhalation aerosol), 2 puff, inhaled, q6h, 5 refills ALPRAZolam(Xanax 0.25 mg oral tablet), 0.25 mg= 1 tab, PO, Daily, PRN amitriptyline(amitriptyline 100 mg oral tablet), 1 tab, PO, qhs bifidobacterium-lactobacillus(Probiotic Formula) buPROPion(BuPROPion (Eqv-Wellbutrin SR) 150 mg/12 hours oral tablet, extended release), 1 tab, PO, bid clopidogrel(clopidogrel 75 mg oral tablet), 1 tab, PO, Daily, 5 refills dextromethorphan-guaifenesin(Mucinex DM 600 mg-30 mg oral tablet, extended release), 1 tab, PO, q12h fluticasone nasal(fluticasone 50 mcg/inh nasal spray), 2 spray, intranasal, Daily fluticasone/umeclidinium/vilanterol(Trelegy Ellipta 100 mcg-62.5 mcg-25 mcg/inh inhalation powder),1 puff, inhaled, Daily, 11 refills furosemide(furosemide 40 mg oral tablet), 40 mg= 1 tab, PO, Daily, 5 refills ibuprofen(Advil), 400 mg, PO, bid levothyroxine(levothyroxine 150 mcg (0.15 mg) oral tablet), 1 tab, PO, Daily lidocaine topical(Lidoderm 5% topical patch), 3 patch, topical, Daily montelukast(montelukast 10 mg oral tablet), 1 tab, PO, qPM naproxen(Aleve 220 mg oral tablet), 220 mg= 1 tab, PO, q12h pantoprazole(pantoprazole 40 mg oral delayed release tablet), 1 tab, PO, Daily rOPINIRole(rOPINIRole 0.5 mg oral [...] Ulcerative colitis: Sister. 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
[2024-05-26] MEDS: buPROPion XL 150 MG TABCR PO SCH (03:43)
[2024-05-26 04:51] LABS: Albumin Level 3.3 gm/dl (3.4-5.0); Bilirubin,Total 0.6 mg/dl (0.2-1.0); Calcium 8.5 mg/dl (8.6-10.3); Globulin 3.4 gm/dl (2.5-4.0); Potassium 4.1 mmol/L (3.5-5.1); Total Protein 6.7 gm/dl (6.0-8.3)
[2024-05-26 05:09] LABS: Basophils # (auto) 0.03 K/uL (0.00-0.20); Basophils % (auto) 0.4 %; Eosinophils # (auto) 0.09 K/uL (0.00-0.50); Eosinophils % (auto) 1.1 %; Hematocrit (blood only) 24.5 % (37.0-47.0); Hemoglobin 6.8 g/dl (12.0-16.0); Hypochromasia Present; Immature Granulocytes # (auto) 0.07 K/uL (0.01-0.20); Immature Granulocytes % (auto) 0.8 %; Lymphocytes # (auto) 0.83 K/uL (1.20-3.40); Lymphocytes % (auto) 9.8 %; Mean Corpuscular Hemoglobin 20.9 pg (25.0-34.0); Mean Corpuscular Hgb Conc 27.8 g/dL (32.0-36.0); Mean Corpuscular Volume 75.2 fL (80.0-100.0); Mean Platelet Volume 10.7 fL (9.4-12.4); Monocytes # (auto) 0.87 K/uL (0.11-0.59); Monocytes % (auto) 10.2 %; Neutrophils % (auto) 77.7 %; Nucleated RBC # (auto) 0.06 K/uL (0.00-0.12); Nucleated RBC % (auto) 0.7 %; Ovalocytes 1+; Platelet Count 319 K/uL (130-400); Polychromasia 1+; RDW Coefficient of Variation 19.2 % (11.5-14.5); RDW Standard Deviation 52.3 fL (36.4-46.3); Red Blood Count 3.26 M/uL (4.20-5.40); Tear Drop Cells 1+; White Blood Count 8.49 K/ul (4.8-10.8)
[2024-05-26] MEDS ORDERED: SODIUM CHLORIDE 0.9% 100 ML IV PRN (05:09)
[2024-05-26] MEDS ORDERED: SODIUM CHLORIDE 0.9% 50 ML IV PRN (05:09)
[2024-05-26] MEDS: LEVOTHYROXINE SODIUM 150 MCG TABLET PO SCH (06:27)
[2024-05-26] MEDS ORDERED: PNEUMOCOCCAL VACCINE (PCV20) 20-VAL CONJ-DIP CRM/PF 0.5 ML SYR IM ONE (06:47)
[2024-05-26 07:51] LABS: Troponin I High Sensitivity 365.4 pg/ml (0-14)
[2024-05-26] MEDS: FUROSEMIDE 40 MG TAB PO SCH (10:01)
[2024-05-26] MEDS: rOPINIRole HCL 0.25 MG TABLET PO SCH (10:02)
[2024-05-26] MEDS: PANTOprazole 40 MG TAB PO SCH (10:02)
[2024-05-26] MEDS: VALSARTAN 80 MG TAB PO SCH (10:02)
[2024-05-26] MEDS: FLUTICASONE PROPIONATE NA SPR 16 GM BTL SCH (10:03)
[2024-05-26] MEDS: FLUTICASONE FUROATE 100MCG 14 PUFFS/INHALER INH SCH (10:04)
[2024-05-26] MEDS: UMECLIDINIUM/VILANTEROL 62.5/25MCG 7 PUFFS/INHALER INH SCH (10:04)
[2024-05-26] MEDS: cefTRIAXone SODIUM 2,000 MG/50 ML BAG IV SCH (10:29)
[2024-05-26] MEDS: DOXYCYCLINE HYCLATE 100 MG in DEXTROSE 5% MINI-B 100 ML IV SCH (10:29)
--- NOTE | 2024-05-26 10:33 | Cardiology Consultation ---
Date of Consultation May 26, 2024 Assessment & Plan (1) Anemia: (2) Elevated troponin: (3) Diastolic CHF: Plan Pmhx: 1. Chronic dyspnea on exertion 2. Hypertension 3. Echocardiogram showing ejection fraction of 70% without wall motion abnormalities, normal LV diastolic function for age grade 1 diastolic dysfunction, no significant valvulopathy 4. No significant carotid disease on 2021 ultrasound, steal phenomenon demonstrated due to severe stenosis of the left subclavian 5. Moderate coronary calcifications on CT Ms. Barnes was receiving her second unit of blood when I saw her this morning. Her troponin was elevated but she is not having any angina and is likely primarily due to demand ischemia in the setting of severe anemia. Trend troponin to peak. I will order an echo. She has very subtle ST depressions anterolaterally on her EKG. Her Plavix has been held. In February she was cautioned to discontinue NSAIDs given her mildly reduced iron saturation and concern for GI bleeding. She was taking both Aleve and Motrin. She admits that she has continued to regularly take NSAIDs for pain. She had a mildly elevated bnp on admission but does not appear to be in overt heart failure at this time. Her fluids status will need to be monitored closely as she receives volume from the blood. She did not have pulmonary congestion on CT. Her CT shows possible pneumonia - treatment per hospitalists. History of Present Illness Attending Physician: Liz Singleton MD History of Present Illness Ms. Barnes presented to the ED for worsening shortness of breath and was found to have a critically low H&H. She denies seeing any ferdinand blood or black stools. She is feeling comfortable sitting in bed. She has not had any chest pain. No edema. No palpitations. SR with a few PVCs on the monitor. Allergies Allergy/AdvReac Type Severity Reaction Status Date / Time clarithromycin Allergy Intermediate hot Verified 12/22/23 10:50 flashes face got red sulfamethoxazole AdvReac Mild FLUSHED Verified 12/22/23 10:50 trimethoprim AdvReac Mild FLUSHED Verified 12/22/23 10:50 Home Medications Medication Instructions Recorded Confirmed Type clopidogrel 75 mg tablet 75 mg PO QAM 02/16/18 05/25/24 History pantoprazole 40 mg tablet,delayed 40 mg PO QAM 02/16/18 05/25/24 History release montelukast 10 mg tablet 10 mg PO QPM 01/30/19 05/25/24 History (Singulair) CPAP Supplies #1 ea 05/29/22 05/25/24 Rx Portable Oxygen #1 ea 06/09/22 05/25/24 Rx fluticasone propionate 50 2 spray intranasal DAILY 10/05/22 05/25/24 History mcg/actuation nasal spray,suspension furosemide 40 mg tablet 40 mg PO QAM 10/05/22 05/25/24 History rosuvastatin 40 mg tablet 40 mg PO HS 09/27/23 05/25/24 History albuterol sulfate 90 mcg/actuation 2 inh inhalation Q4H PRN dyspnea 10/04/23 05/25/24 Rx aerosol inhaler (Ventolin HFA) or wheeze #18 grams amitriptyline 100 mg tablet 100 mg PO HS 11/15/23 05/25/24 History bupropion HCl (smoking deter) 150 150 mg PO BID headaches 11/15/23 05/25/24 History mg tablet,12 hr sustained-release(smoking deterrent) fluticasone fur. 100 mcg-umeclid 1 inh inhalation QAM 11/15/23 05/25/24 History 62.5 mcg-vilant 25 mcg inhalat.powder (Trelegy Ellipta) levothyroxine 150 mcg tablet 150 mcg PO QAM 11/15/23 05/25/24 History semaglutide 0.25 mg or 0.5 mg (2 0.25 mg subcut WK 11/15/23 05/25/24 History mg/3 mL) subcutaneous pen injector (Ozempic) valsartan 160 mg tablet 160 mg PO QAM 11/15/23 05/25/24 History ropinirole 0.5 mg tablet 0.5 mg PO DAILY 05/25/24 05/25/24 History Patient History Medical History GERD (gastroesophageal reflux disease) On anticoagulant therapy pt unsure as to why she takes a blood thinner (denies heart attack, TIA, stroke or a.fib) History of COVID-19 2019: mild symptoms. no hospitalization Restless leg syndrome Hyperlipidemia Hx of osteomyelitis right foot heel initial injury in 1983 & again in ~ Pulmonary nodules monitoring and follows with Dr Carmona Left subclavian artery occlusion (2017) had surgery for this at [facility] with Dr. 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 vs copd flare up/bronchitis - hospitalized at [facility] 2017: s/p subclavian artery surgery and hospitalized at [facility] at the time. SOB (shortness of breath) on exertion Surgical History History of right cataract extraction History of esophagogastroduodenoscopy (EGD) History of colonoscopy S/P debridement 1983 + ~ -> right foot heel Hx of arthroscopy of left knee History of x2 History of umbilical hernia repair History of thyroidectomy History of orbit decompression - bilateral Family History Other No family history of adverse response to anesthesia Social History Smoking Status: Former smoker Tobacco Type: Cigarettes Cigarettes Per Day: 10 (advised on policy); Second Hand Exposure: No; Do You Dip or Chew Tobacco: No; Hx Alcohol Use: No Hx Substance Use: No Preferred Language: Israeli Communication Ability: Effective Animal Trainer Supervisor Required: No Beliefs That Will Affect Care: None Current Living Situation: Significant Other Current Living Situation Comment: LIVES WITH BOYFRIEND ANGELA Other Information That Helps Us Care for You: No Feels Safe at Home: Yes Safety Concerns: Feels Safe At This Time Assistive Devices: Cane, Glasses and Oxygen - Continuous Review of Systems Review of Systems: All systems reviewed & are unremarkable except as noted in HPI & below Physical Exam Constitutional: WD/WN, vitals as above Respiratory: normal respiratory effort, lungs clear to auscultation Cardiovascular: RRR, no murmur, no edema Skin: no rashes, warm and dry Neurologic: moves all extremities and awake Results & Data Vital Signs (Past 12 Hours) Vital Signs Temp Pulse Pulse Resp BP BP Pulse Ox 05/26/24 10:09 36.8 C 82 22 118/80 96 05/26/24 10:00 90 22 102/72 05/26/24 09:10 36.8 C 85 18 122/72 96 05/26/24 08:10 36.7 C 87 20 116/69 96 05/26/24 07:27 91 H 05/26/24 07:10 36.2 C L 84 18 127/74 97 05/26/24 06:40 90 15 114/67 97 05/26/24 06:35 05/26/24 06:35 85 22 114/67 96 05/26/24 06:25 36.9 C 90 18 136/71 97 05/26/24 06:12 36.7 C 85 17 114/77 95 05/26/24 06:03 36.7 C 81 15 114/77 94 05/26/24 01:55 81 19 94 05/26/24 01:55 05/26/24 01:00 81 17 107/68 94 05/26/24 00:08 83 05/25/24 23:00 90 17 132/78 95 Pulse Ox O2 Del Method O2 Del Method O2 Flow Rate 05/26/24 10:09 2 05/26/24 10:00 Nasal Cannula 2 05/26/24 09:10 2 05/26/24 08:10 2 05/26/24 07:27 05/26/24 07:10 05/26/24 06:40 05/26/24 06:35 Nasal Cannula 2 05/26/24 06:35 Nasal Cannula 2 05/26/24 06:25 05/26/24 06:12 3 05/26/24 06:03 2 05/26/24 01:55 Room Air 05/26/24 01:55 94 Room Air 05/26/24 01:00 Room Air 05/26/24 00:08 05/25/24 23:00 Room Air (1) Anemia Anemia type: unspecified type Qualified Code(s): D64.9 - Anemia, unspecified
[2024-05-26 10:45] LABS: Basophils # (auto) 0.03 K/uL (0.00-0.20); Basophils % (auto) 0.4 %; Eosinophils # (auto) 0.07 K/uL (0.00-0.50); Eosinophils % (auto) 0.8 %; Hematocrit (blood only) 28.1 % (37.0-47.0); Hemoglobin 8.1 g/dl (12.0-16.0); Immature Granulocytes # (auto) 0.09 K/uL (0.01-0.20); Immature Granulocytes % (auto) 1.1 %; Lymphocytes # (auto) 0.66 K/uL (1.20-3.40); Lymphocytes % (auto) 7.7 %; Mean Corpuscular Hemoglobin 22.3 pg (25.0-34.0); Mean Corpuscular Hgb Conc 28.8 g/dL (32.0-36.0); Mean Corpuscular Volume 77.4 fL (80.0-100.0); Mean Platelet Volume 10.6 fL (9.4-12.4); Monocytes # (auto) 0.83 K/uL (0.11-0.59); Monocytes % (auto) 9.7 %; Neutrophils # (auto) 6.84 K/uL (1.40-6.50); Neutrophils % (auto) 80.3 %; Nucleated RBC # (auto) 0.07 K/uL (0.00-0.12); Nucleated RBC % (auto) 0.8 %; Platelet Count 318 K/uL (130-400); RDW Coefficient of Variation 19.3 % (11.5-14.5); RDW Standard Deviation 53.6 fL (36.4-46.3); Red Blood Count 3.63 M/uL (4.20-5.40); White Blood Count 8.52 K/ul (4.8-10.8)
--- NOTE | 2024-05-26 12:39 | Gastrointestinal Consultation ---
Date of Consultation May 26, 2024 Assessment & Plan (1) Symptomatic anemia: Pleasant lady with chronic iron deficiency anemia. She does not have acute blood loss anemia. I do think the ibuprofen has something to do with this but NSAIDs can cause ulcerations anywhere in the GI tract. She does need evaluation with EGD and colonoscopy and this could be done as an outpatient since this is a chronic process. However with her health and the fact that she needs to hold her plavix will plan to do this early next week. She agrees with this plan. History of Present Illness Reason for Consultation: anemia Attending Physician: Liz Singleton MD History of Present Illness 68 year old female with COPD, ALTHEA and heart failure admitted with hemoglobin of 5.9. She has been feeling short of breath over the last two months with worsening recently. She denies hematochezia or melena. She denies abdominal pain, nausea and vomiting. She does have heartburn for which she takes pantoprazole. She does admit to 12-14 ibuprofen per day despite being on plavix. Despite all of that she denies bleeding. She had an EGD and a co lonoscopy five years ago by Dr. Lopez. Allergies Allergy/AdvReac Type Severity Reaction Status Date / Time clarithromycin Allergy Intermediate hot Verified 12/22/23 10:50 flashes face got red sulfamethoxazole AdvReac Mild FLUSHED Verified 12/22/23 10:50 trimethoprim AdvReac Mild FLUSHED Verified 12/22/23 10:50 Home Medications Medication Instructions Recorded Confirmed Type clopidogrel 75 mg tablet 75 mg PO QAM 02/16/18 05/25/24 History pantoprazole 40 mg tablet,delayed 40 mg PO QAM 02/16/18 05/25/24 History release montelukast 10 mg tablet 10 mg PO QPM 01/30/19 05/25/24 History (Gustavo) CPAP Supplies #1 ea 05/29/22 05/25/24 Rx Portable Oxygen #1 ea 06/09/22 05/25/24 Rx fluticasone propionate 50 2 spray intranasal DAILY 10/05/22 05/25/24 History mcg/actuation nasal spray,suspension furosemide 40 mg tablet 40 mg PO QAM 10/05/22 05/25/24 History rosuvastatin 40 mg tablet 40 mg PO HS 09/27/23 05/25/24 History albuterol sulfate 90 mcg/actuation 2 inh inhalation Q4H PRN dyspnea 10/04/23 05/25/24 Rx aerosol inhaler (Ventolin HFA) or wheeze #18 grams amitriptyline 100 mg tablet 100 mg PO HS 11/15/23 05/25/24 History bupropion HCl (smoking deter) 150 150 mg PO BID headaches 11/15/23 05/25/24 History mg tablet,12 hr sustained-release(smoking deterrent) fluticasone fur. 100 mcg-umeclid 1 inh inhalation QAM 11/15/23 05/25/24 History 62.5 mcg-vilant 25 mcg inhalat.powder (Trelegy Ellipta) levothyroxine 150 mcg tablet 150 mcg PO QAM 11/15/23 05/25/24 History semaglutide 0.25 mg or 0.5 mg (2 0.25 mg subcut WK 11/15/23 05/25/24 History mg/3 mL) subcutaneous pen injector (Ozempic) valsartan 160 mg tablet 160 mg PO QAM 11/15/23 05/25/24 History ropinirole 0.5 mg tablet 0.5 mg PO DAILY 05/25/24 05/25/24 History Patient History Medical History GERD (gastroesophageal reflux disease) On anticoagulant therapy pt unsure as to why she takes a blood thinner (denies heart attack, TIA, stroke or a.fib) History of COVID-19 2019: mild symptoms. no hospitalization Restless leg syndrome Hyperlipidemia Hx of osteomyelitis right foot heel initial injury in 1983 & again in ~ Pulmonary nodules monitoring and follows with Dr Carmona Left subclavian artery occlusion (2017) had surgery for this at [facility] with Dr. 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 vs copd flare up/bronchitis - hospitalized at [facility] 2017: s/p subclavian artery surgery and hospitalized at [facility] at the time. SOB (shortness of breath) on exertion Surgical History History of right cataract extraction History of esophagogastroduodenoscopy (EGD) History of colonoscopy S/P debridement 1984 + ~ -> right foot heel Hx of arthroscopy of left knee History of x2 History of umbilical hernia repair History of thyroidectomy History of orbit decompression 1980s - bilateral Family History Other No family history of adverse response to anesthesia Social History Smoking Status: Former smoker Tobacco Type: Cigarettes Cigarettes Per Day: 10 (advised on policy); Second Hand Exposure: No; Do You Dip or Chew Tobacco: No; Hx Alcohol Use: No Hx Substance Use: No Preferred Language: Indonesian Communication Ability: Effective Component Engineer Required: No Beliefs That Will Affect Care: None Current Living Situation: Significant Other Current Living Situation Comment: LIVES WITH BOYFRIEND ANGELA Other Information That Helps Us Care for You: No Feels Safe at Home: Yes Safety Concerns: Feels Safe At This Time Assistive Devices: Cane, Glasses and Oxygen - Continuous Review of Systems Review of Systems: All systems reviewed & are unremarkable except as noted in HPI & below Physical Exam Constitutional: WD/WN, vitals as above Neck: trachea midline, no thyromegaly Respiratory: normal respiratory effort, lungs clear to auscultation Cardiovascular: RRR, no murmur, no edema Gastrointestinal (Abdomen): normal bowel sounds, soft, nontender, no hepatosplenomegaly Results & Data Vital Signs (Past 12 Hours) Vital Signs Temp Pulse Pulse Resp BP BP Pulse Ox 05/26/24 11:35 36.7 C 79 18 113/70 95 05/26/24 10:09 36.8 C 82 22 118/80 96 05/26/24 10:00 90 22 102/72 05/26/24 09:10 36.8 C 85 18 122/72 96 05/26/24 08:10 36.7 C 87 20 116/69 96 05/26/24 07:27 91 H 05/26/24 07:10 36.2 C L 84 18 127/74 97 05/26/24 06:40 90 15 114/67 97 05/26/24 06:35 05/26/24 06:35 85 22 114/67 96 05/26/24 06:25 36.9 C 90 18 136/71 97 05/26/24 06:12 36.7 C 85 17 114/77 95 05/26/24 06:03 36.7 C 81 15 114/77 94 05/26/24 01:55 81 19 94 05/26/24 01:55 05/26/24 01:00 81 17 107/68 94 Pulse Ox O2 Del Method O2 Del Method O2 Flow Rate 05/26/24 11:35 Nasal Cannula 05/26/24 10:09 2 05/26/24 10:00 Nasal Cannula 2 05/26/24 09:10 2 05/26/24 08:10 2 05/26/24 07:27 05/26/24 07:10 05/26/24 06:40 05/26/24 06:35 Nasal Cannula 2 05/26/24 06:35 Nasal Cannula 2 05/26/24 06:25 05/26/24 06:12 3 05/26/24 06:03 2 05/26/24 01:55 Room Air 05/26/24 01:55 94 Room Air 05/26/24 01:00 Room Air Laboratory Results 05/26/24 05/26/24 05/26/24 Range/Units 10:21 07:37 03:47 WBC 8.52 8.49 (4.8-10.8) K/ul RBC 3.63 L 3.26 L (4.20-5.40) M/uL Hgb 8.1 L 6.8 L* (12.0-16.0) g/dl Hct 28.1 L 24.5 L (37.0-47.0) % MCV 77.4 L 75.2 L (80.0-100.0) fL MCH 22.3 L 20.9 L (25.0-34.0) pg MCHC 28.8 L 27.8 L (32.0-36.0) g/dL RDW Std Deviation 53.6 H 52.3 H (36.4-46.3) fL RDW Coeff of Elizabeth 19.3 H 19.2 H (11.5-14.5) % Plt Count 318 319 (130-400) K/uL MPV 10.6 10.7 (9.4-12.4) fL Immature Gran % (Auto) 1.1 0.8 % Neut % (Auto) 80.3 77.7 % Lymph % (Auto) 7.7 9.8 % Tyler % (Auto) 9.7 10.2 % Eos % (Auto) 0.8 1.1 % Baso % (Auto) 0.4 0.4 % Neut # (Auto) 6.84 H 6.60 H (1.40-6.50) K/uL Lymph # (Auto) 0.66 L 0.83 L (1.20-3.40) K/uL Tyler # (Auto) 0.83 H 0.87 H (0.11-0.59) K/uL Eos # (Auto) 0.07 0.09 (0.00-0.50) K/uL Baso # (Auto) 0.03 0.03 (0.00-0.20) K/uL Immature Gran # (Auto) 0.09 0.07 (0.01-0.20) K/uL Absolute Nucleated RBC 0.07 0.06 (0.00-0.12) K/uL Nucleated RBC % (auto) 0.8 0.7 % Polychromasia 1+ Hypochromasia Present Anisocytosis Microcytosis Tear Drop Cells 1+ Ovalocytes 1+ PT (9.0-12.0) Seconds INR (0.9-1.1) APTT (21-31) Seconds PTT Ratio VBG pH (7.36-7.41) VBG pCO2 (38-50) mmHg VBG pO2 mmHg VBG HCO3 mmol/L VBG O2 Saturation % VBG Base Excess mEq/L Sodium 138 (136-145) mmol/L Potassium 4.1 (3.5-5.1) mmol/L Chloride 105 (98-107) mmol/L Carbon Dioxide 31 (21-32) mmol/L Anion Gap 2 L (3-11) BUN 10 (6-23) mg/dl Creatinine 1.11 (0.6-1.2) mg/dl Est Cr Clr Drug Dosing 61.0 ml/min eGFR 54.82 BUN/Creatinine Ratio 9.0 L (10-20) Glucose 99 (70-99(Fasting)) mg/dl Calcium 8.5 L (8.6-10.3) mg/dl Total Bilirubin 0.6 (0.2-1.0) mg/dl AST 18 (13-39) U/L ALT 17 (7-52) U/L Alkaline Phosphatase 127 H (34-104) U/L Troponin I High Sens 372.4 H* Cancelled 365.4 H* D (0-14) pg/ml B-Natriuretic Peptide (0-100) pg/ml Total Protein 6.7 (6.0-8.3) gm/dl Albumin 3.3 L (3.4-5.0) gm/dl Globulin 3.4 (2.5-4.0) gm/dl Albumin/Globulin Ratio 1.0 (0.9-2) Adenovirus (PCR) (NotDetected) B. pertussis DNA (PCR) (NotDetected) B.parapertussis DNA PCR (NotDetected) C. pneumoniae DNA (PCR) (NotDetected) Coronavirus OC43 (PCR) (NotDetected) Coronavirus HKU1 (PCR) (NotDetected) Coronavirus 229E (PCR) (NotDetected) SARS-CoV-2 (PCR) (NotDetected) Coronavirus NL63 (PCR) (NotDetected) Human Metapneumovir PCR (NotDetected) Influenza Type A (PCR) (NotDetected) Influenza Type B (PCR) (NotDetected) M. pneumoniae (PCR) (NotDetected) Parainfluenza 1 (PCR) (NotDetected) Parainfluenza 2 (PCR) (NotDetected) Parainfluenza 3 (PCR) (NotDetected) Parainfluenza 4 (PCR) (NotDetected) RSV (PCR) (NotDetected) Entero/Rhino (PCR) (NotDetected) Blood Type Blood Type Recheck Antibody Screen Crossmatch 05/25/24 05/25/24 05/25/24 Range/Units 21:11 20:05 20:05 WBC (4.8-10.8) K/ul RBC (4.20-5.40) M/uL Hgb (12.0-16.0) g/dl Hct (37.0-47.0) % MCV (80.0-100.0) fL MCH (25.0-34.0) pg MCHC (32.0-36.0) g/dL RDW Std Deviation (36.4-46.3) fL RDW Coeff of Elizabeth (11.5-14.5) % Plt Count (130-400) K/uL MPV (9.4-12.4) fL Immature Gran % (Auto) % Neut % (Auto) % Lymph % (Auto) % Tyler % (Auto) % Eos % (Auto) % Baso % (Auto) % Neut # (Auto) (1.40-6.50) K/uL Lymph # (Auto) (1.20-3.40) K/uL Tyler # (Auto) (0.11-0.59) K/uL Eos # (Auto) (0.00-0.50) K/uL Baso # (Auto) (0.00-0.20) K/uL Immature Gran # (Auto) (0.01-0.20) K/uL Absolute Nucleated RBC (0.00-0.12) K/uL Nucleated RBC % (auto) % Polychromasia Hypochromasia Anisocytosis Microcytosis Tear Drop Cells Ovalocytes PT (9.0-12.0) Seconds INR (0.9-1.1) APTT (21-31) Seconds PTT Ratio VBG pH (7.36-7.41) VBG pCO2 (38-50) mmHg VBG pO2 mmHg VBG HCO3 mmol/L VBG O2 Saturation % VBG Base Excess mEq/L Sodium (136-145) mmol/L Potassium (3.5-5.1) mmol/L Chloride (98-107) mmol/L Carbon Dioxide (21-32) mmol/L Anion Gap (3-11) BUN (6-23) mg/dl Creatinine (0.6-1.2) mg/dl Est Cr Clr Drug Dosing ml/min eGFR BUN/Creatinine Ratio (10-20) Glucose (70-99(Fasting)) mg/dl Calcium (8.6-10.3) mg/dl Total Bilirubin (0.2-1.0) mg/dl AST (13-39) U/L ALT (7-52) U/L Alkaline Phosphatase (34-104) U/L Troponin I High Sens 203.3 H* D (0-14) pg/ml B-Natriuretic Peptide (0-100) pg/ml Total Protein (6.0-8.3) gm/dl Albumin (3.4-5.0) gm/dl Globulin (2.5-4.0) gm/dl Albumin/Globulin Ratio (0.9-2) Adenovirus (PCR) (NotDetected) B. pertussis DNA (PCR) (NotDetected) B.parapertussis DNA PCR (NotDetected) C. pneumoniae DNA (PCR) (NotDetected) Coronavirus OC43 (PCR) (NotDetected) Coronavirus HKU1 (PCR) (NotDetected) Coronavirus 229E (PCR) (NotDetected) SARS-CoV-2 (PCR) (NotDetected) Coronavirus NL63 (PCR) (NotDetected) Human Metapneumovir PCR (NotDetected) Influenza Type A (PCR) (NotDetected) Influenza Type B (PCR) (NotDetected) M. pneumoniae (PCR) (NotDetected) Parainfluenza 1 (PCR) (NotDetected) Parainfluenza 2 (PCR) (NotDetected) Parainfluenza 3 (PCR) (NotDetected) Parainfluenza 4 (PCR) (NotDetected) RSV (PCR) (NotDetected) Entero/Rhino (PCR) (NotDetected) Blood Type Cancelled Blood Type Recheck A Positive Antibody Screen Cancelled NEGATIVE Crossmatch See Detail 05/25/24 05/25/24 05/25/24 Range/Units 20:05 19:02 18:59 WBC 7.98 (4.8-10.8) K/ul RBC 2.95 L (4.20-5.40) M/uL Hgb 5.9 L* (12.0-16.0) g/dl Hct 21.8 L (37.0-47.0) % MCV 73.9 L (80.0-100.0) fL MCH 20.0 L (25.0-34.0) pg MCHC 27.1 L (32.0-36.0) g/dL RDW Std Deviation 52.6 H (36.4-46.3) fL RDW Coeff of Elizabeth 19.9 H (11.5-14.5) % Plt Count 340 (130-400) K/uL MPV 10.3 (9.4-12.4) fL Immature Gran % (Auto) 1.0 % Neut % (Auto) 80.9 % Lymph % (Auto) 9.0 % Tyler % (Auto) 8.3 % Eos % (Auto) 0.4 % Baso % (Auto) 0.4 % Neut # (Auto) 6.46 (1.40-6.50) K/uL Lymph # (Auto) 0.72 L (1.20-3.40) K/uL Tyler # (Auto) 0.66 H (0.11-0.59) K/uL Eos # (Auto) 0.03 (0.00-0.50) K/uL Baso # (Auto) 0.03 (0.00-0.20) K/uL Immature Gran # (Auto) 0.08 (0.01-0.20) K/uL Absolute Nucleated RBC 0.10 (0.00-0.12) K/uL Nucleated RBC % (auto) 1.3 % Polychromasia Hypochromasia Present Anisocytosis Present Microcytosis Present Tear Drop Cells 1+ Ovalocytes 1+ PT 11.5 (9.0-12.0) Seconds INR 1.1 (0.9-1.1) APTT 26 (21-31) Seconds PTT Ratio 1.0 VBG pH 7.37 (7.36-7.41) VBG pCO2 49 (38-50) mmHg VBG pO2 36 mmHg VBG HCO3 28 mmol/L VBG O2 Saturation < 60.0 % VBG Base Excess 2.2 mEq/L Sodium 139 (136-145) mmol/L Potassium 3.8 (3.5-5.1) mmol/L Chloride 104 (98-107) mmol/L Carbon Dioxide 29 (21-32) mmol/L Anion Gap 6 (3-11) BUN 12 (6-23) mg/dl Creatinine 1.07 (0.6-1.2) mg/dl Est Cr Clr Drug Dosing 63.3 ml/min eGFR 57.29 BUN/Creatinine Ratio 11.2 (10-20) Glucose 90 (70-99(Fasting)) mg/dl Calcium 8.7 (8.6-10.3) mg/dl Total Bilirubin 0.4 (0.2-1.0) mg/dl AST 21 (13-39) U/L ALT 18 (7-52) U/L Alkaline Phosphatase 134 H (34-104) U/L Troponin I High Sens 121.7 H* (0-14) pg/ml B-Natriuretic Peptide 132 H (0-100) pg/ml Total Protein 7.2 (6.0-8.3) gm/dl Albumin 3.5 (3.4-5.0) gm/dl Globulin 3.7 (2.5-4.0) gm/dl Albumin/Globulin Ratio 0.9 (0.9-2) Adenovirus (PCR) Not Detected (NotDetected) B. pertussis DNA (PCR) Not Detected (NotDetected) B.parapertussis DNA PCR Not Detected (NotDetected) C. pneumoniae DNA (PCR) Not Detected (NotDetected) Coronavirus OC43 (PCR) Not Detected (NotDetected) Coronavirus HKU1 (PCR) Not Detected (NotDetected) Coronavirus 229E (PCR) Not Detected (NotDetected) SARS-CoV-2 (PCR) Not Detected (NotDetected) Coronavirus NL63 (PCR) Not Detected (NotDetected) Human Metapneumovir PCR Not Detected (NotDetected) Influenza Type A (PCR) Not Detected (NotDetected) Influenza Type B (PCR) Not Detected (NotDetected) M. pneumoniae (PCR) Not Detected (NotDetected) Parainfluenza 1 (PCR) Not Detected (NotDetected) Parainfluenza 2 (PCR) Not Detected (NotDetected) Parainfluenza 3 (PCR) Not Detected (NotDetected) Parainfluenza 4 (PCR) Not Detected (NotDetected) RSV (PCR) Not Detected (NotDetected) Entero/Rhino (PCR) Not Detected (NotDetected) Blood Type A Positive Blood Type Recheck Antibody Screen Crossmatch Diagnostic Findings Chest X-Ray 05/25/24 18:55 EXAM: XR chest 1V portable CLINICAL HISTORY: Chest pain, nonspecific. TECHNIQUE: An X-ray image of the chest is obtained in AP projection. COMPARISON: 11/29/2022 x ray. FINDINGS: Pulmonary Parenchyma: hyperinflation of both lungs. accentuated bronchovascular marking and pulmonary reticulations with ill defined areas of parenchymal veiling in both lungs. no consolidation or masses. veiling of both costophrenic angles. borderline cardiothoracic ration. prominent hilar shadows. Bony Thorax: Bony thorax appears intact without fractures or deformities. Soft Tissues: Soft tissues overlying the chest wall are unremarkable. Multiple clips in the left side of the neck. IMPRESSION: Accentuated bronchovascular marking and pulmonary reticulations with ill-defined areas of parenchymal veiling in both lungs, predominantly in the right mid and lower zones, more conspicuous on current scan likely inflammatory/infective sequlae. Clinical correlation is advised. Electronically signed by Heaven Duron 05-25-2024 8:41 PM Abdomen/Pelvis CT 05/25/24 21:43 Exam(s): CT ABDOMEN + PELVIS With Contrast IV Amt: 94 ML OPTIRAY 320 EXAM: CT Abdomen and Pelvis With Intravenous Contrast CLINICAL HISTORY: Reason for exam: Symtomatic anemia. TECHNIQUE: Axial computed tomography images of the abdomen and pelvis with intravenous contrast. CTDI is 84.13 mGy and DLP is 3216.46 mGy-cm. Automated exposure control was utilized for the study. A dose lowering technique was utilized adhering to the principles of ALARA. CONTRAST: Patient received 94 ML OPTIRAY 320 of IV contrast COMPARISON: 12/01/22 FINDINGS: Lung bases: Reported separately. ABDOMEN: Liver: Benign left hepatic lobe cyst. No mass. Gallbladder and bile ducts: Cholecystectomy. No ductal dilation. Pancreas: Unremarkable. No mass. No ductal dilation. Spleen: Unremarkable. No splenomegaly. Adrenals: Unremarkable. No mass. Kidneys and ureters: Subcentimeter cortical hypodensities in left kidney, too small to characterize; no follow-up indicated due to small size. No solid mass. No hydronephrosis. Stomach and bowel: Distal colonic diverticula. No bowel obstruction. No mucosal thickening. PELVIS: Appendix: Normal appendix. Bladder: Unremarkable. No mass. Reproductive: Unremarkable as visualized. ABDOMEN and PELVIS: Intraperitoneal space: Unremarkable. No free fluid or free air. Bones/joints: Disc and facet degeneration in the lower lumbar spine. No acute fracture. No dislocation. Soft tissues: Unremarkable. Vasculature: Atherosclerosis. No abdominal aortic aneurysm. Lymph nodes: Unremarkable. No enlarged lymph nodes. IMPRESSION: No acute findings in the abdomen or pelvis. Electronically signed by: Parviz Flanagan M.D. 05/26/24 00:[address] 05/25/24 22:06 Exam(s): CT CHEST W/WO Contrast IV Amt: 94ml opti 320 EXAM: CT Chest Without and With Intravenous Contrast CLINICAL HISTORY: Reason for exam: lung nodue, SOB, symptomatic anemia. TECHNIQUE: Axial computed tomography images of the chest without and with intravenous contrast. CTDI is 84.13 mGy and DLP is 3216.46 mGy-cm. Automated exposure control was utilized for the study. A dose lowering technique was utilized adhering to the principles of ALARA. CONTRAST: Patient received 94ml opti 320 of IV contrast COMPARISON: 05/19/23. FINDINGS: Lungs: Centrilobular emphysema. Bronchial wall thickening with tree in bud and peribronchial opacities in the right upper and right lower lobes. Mild bibasilar, right middle lobe, and lingular scarring/atelectasis. Previously noted subpleural right lower lobe nodule is presently obscured by airspace disease. Pleural space: Trace right pleural fluid. No pneumothorax. Heart: Coronary artery atherosclerosis. No cardiomegaly or pericardial effusion. Mediastinum: Stable mild esophageal wall thickening. Bones/joints: Unremarkable. No acute fracture. No dislocation. Soft tissues: Unremarkable. Vasculature: No aortic aneurysm. Lymph nodes: Unremarkable. No adenopathy. IMPRESSION: 1. Bronchial wall thickening with tree in bud and peribronchial opacities in the right upper and right lower lobes, suggesting pneumonia. 2. Previously noted subpleural right lower lobe nodule is presently obscured by airspace disease. This study is inadequate for lung cancer screening given the presence of acute parenchymal lung abnormalities. If continued annual screening is being performed, recommend repeat low-dose chest CT after resolution of acute process. Electronically signed by: Parviz Flanagan M.D. 05/26/24 00:02 AM
--- NOTE | 2024-05-26 14:33 | Hospitalist Progress Note ---
Date of Service May 26, 2024 Assessment & Plan (1) Symptomatic anemia: (2) Community acquired pneumonia: (3) Elevated troponin: Plan This patient is a 68 yo female with a H/O HFrEF (last echo EF 70%), COPD on 2L NC at baseline (reported does not wear), current smoker, ALTHEA (not wearing CPAP), multiple pulmonary nodules, HTN, HLD, T2DM (not currently on medications, last A1c 6.5), subclavian steal syndrome (on Plavix), and hypothyroidism admitted for progressive weakness and shortness of breath with cough found to have Hgb 5.9. She was admitted and transfused 2 units PRBCs. She had a CT of the chest/abdomen/pelvis which did reveal pneumonia. #Symptomatic Anemia-Microcytic and no evidence of gross bleeding from anywhere on history. CT abdomen/pelvis negative. Last colonoscopy and EGD in 11/2019 were normal. Likely chronic occult GI blood loss. She is on Plavix chronically. She is now s/p 2 U PRBCs and hemoglobin improved to 8.1. Iron studies not checked here prior to transfusion but in June 2023 revealed: iron saturation of 11, ferritin 17.3, Iron 42, TIBC 385. Consulted GI-plan for EGD and colonoscopy next week as an outpatient after being off Plavix x 5 days -Follow CBC in the morning and transfuse if less than 7 -Avoid iron pills until after has EGD and colonoscopy next week -Continue to hold Plavix # Community-acquired pneumonia/chronic hypoxic respiratory failure on 2L NC/ALTHEA not on CPAP/COPD/current smoker-CT chest here with evidence of emphysema, bronchial wall thickening, tree-in-bud and peribronchial opacities consistent with pneumonia. She has been coughing up sputum for 2 weeks and quit smoking at home. Not wheezing. She has not been wearing her supplemental O2 at home and is 87% on room air here. Respiratory BioFire negative. Not wheezing and no acute COPD exacerbation -Start ceftriaxone and azithromycin -Continue supplemental O2 encouraged her to use this as prescribed -Albuterol as needed -Encouraged continued cessation of smoking-she declines nicotine patch at this t alexis -Check sputum culture # Elevated troponin/chronic HFrEF/HTN/HLD/subclavian steal syndrome-Last echo 07/2023 EF 70%. Troponin here elevated at 372-not yet peaked. No chest pain, no ischemic changes on ECG. Likely myocardial demand ischemia in the setting of severe anemia as well as hypoxia. -Appreciate cardiology consultation-check echocardiogram and continue to trend troponin until peaks -Continue home Lasix 40mg daily, valsartan, Crestor -Holding home Plavix for severe anemia and need for EGD/colonoscopy -Transfusional support given with PRBCs -Encouraged supplemental O2 to keep pulse ox greater than 88% #[id number] currently on medication. Most recent A1c 6.5 #RLS-no acute issues -Continue ropinirole #GERD-no heartburn, with likely occult GI bleeding -Continue Protonix # Depression/anxiety-no acute issues -Continue amitriptyline and bupropion DVT prophylaxis: SCDs, defer chemical in setting of acute anemia Disposition: Continued stay on med/tele, likely discharge to home in 1 to 2 days if stable from pneumonia standpoint and if hemoglobin remains stable. Follow-up closely with GI as an outpatient next week for EGD/colonoscopy Admission and Anticipated Discharge Date Admission Date: May 25, 2024 Subjective Patient feeling better after blood transfusion. Still coughing but not much sputum produced. She is not wearing her oxygen and reports she does not wear it at home because it is hard to push the tank around. She is supposed to be on 2 L all the time. Physical Exam Constitutional: WD/WN, vitals as above + obese Respiratory: normal respiratory effort Auscultation: lungs clear to auscultation bilaterally and + diminished lung sounds (Diminished throughout) Cardiovascular: RRR, no murmur, no edema Gastrointestinal (Abdomen): normal bowel sounds, soft, nontender, no hepatosplenomegaly Psychiatric: A+Ox3, euthymic affect Results & Data Results & Data Vital Signs (Past 12 Hours) Vital Signs Temp Pulse Pulse Resp BP BP Pulse Ox 05/26/24 14:23 36.7 C 16 110/70 05/26/24 11:35 36.7 C 79 18 113/70 95 05/26/24 10:09 36.8 C 82 22 118/80 96 05/26/24 10:00 90 22 102/72 05/26/24 09:10 36.8 C 85 18 122/72 96 05/26/24 08:10 36.7 C 87 20 116/69 96 05/26/24 07:27 91 H 05/26/24 07:10 36.2 C L 84 18 127/74 97 05/26/24 06:40 90 15 114/67 97 05/26/24 06:35 05/26/24 06:35 85 22 114/67 96 05/26/24 06:25 36.9 C 90 18 136/71 97 05/26/24 06:12 36.7 C 85 17 114/77 95 05/26/24 06:03 36.7 C 81 15 114/77 94 O2 Del Method O2 Flow Rate 05/26/24 14:23 Nasal Cannula 2 05/26/24 11:35 Nasal Cannula 05/26/24 10:09 2 05/26/24 10:00 Nasal Cannula 2 05/26/24 09:10 2 05/26/24 08:10 2 05/26/24 07:27 05/26/24 07:10 05/26/24 06:40 05/26/24 06:35 Nasal Cannula 2 05/26/24 06:35 Nasal Cannula 2 05/26/24 06:25 05/26/24 06:12 3 05/26/24 06:03 2 Laboratory Results CBC x 2, BMP, troponin reviewed PG Care Time/CCT Total # of Minutes Spent Total Time Spent with Patient: Total time spent is greater than 50% in coordination of care (as documented) at patient's floor/unit and/or counseling patient: Coding Level of Care Code 30022 SUB INP/OBS CARE 3/50MIN Diagnoses Symptomatic anemia D64.9 Community acquired pneumonia J18.9 Elevated troponin R79.89
--- NOTE | 2024-05-26 17:34 | XCELERA ---
[id number] \\[email or web address]\[id number]
[2024-05-26] MEDS: ROSUVASTATIN CALCIUM 20 MG TAB PO SCH (19:37)
[2024-05-26] MEDS: MONTELUKAST SODIUM 10 MG TABLET PO SCH (19:37)
[2024-05-26] MEDS: AMITRIPTYLINE HCL 100 MG TAB PO SCH (19:37)
--- NOTE | 2024-05-26 21:57 | Electrocardiogram Report ---
Test Reason : Blood Pressure : */* mmHG Vent. Rate : 87 BPM Atrial Rate : 87 BPM P-R Int : 130 ms QRS Dur : 74 ms QT Int : 370 ms P-R-T Axes : 71 86 92 degrees QTcB Int : 445 ms Normal sinus rhythm Low voltage QRS Nonspecific T wave abnormality When compared with ECG of 29-Nov-2022 17:06, Nonspecific T wave abnormality, worse in Inferior leads Nonspecific T wave abnormality now evident in Lateral leads Confirmed by Chai Coon ([id number]) on 05/26/2024 9:57:24 PM Referred By: REFERRED SELF Confirmed By: Chai Coon
--- NOTE | 2024-05-26 22:50 | Billing Data ---
Date of Service May 26, 2024 Coding Level of Care Code 05744 INT INP/OBS CARE
[2024-05-27 07:36] LABS: Basophils # (auto) 0.04 K/uL (0.00-0.20); Basophils % (auto) 0.5 %; Eosinophils # (auto) 0.13 K/uL (0.00-0.50); Eosinophils % (auto) 1.5 %; Hematocrit (blood only) 27.2 % (37.0-47.0); Hemoglobin 7.9 g/dl (12.0-16.0); Immature Granulocytes # (auto) 0.07 K/uL (0.01-0.20); Immature Granulocytes % (auto) 0.8 %; Lymphocytes % (auto) 9.3 %; Mean Corpuscular Hemoglobin 22.1 pg (25.0-34.0); Mean Corpuscular Volume 76.2 fL (80.0-100.0); Mean Platelet Volume 10.9 fL (9.4-12.4); Monocytes # (auto) 0.75 K/uL (0.11-0.59); Monocytes % (auto) 8.7 %; Neutrophils # (auto) 6.82 K/uL (1.40-6.50); Neutrophils % (auto) 79.2 %; Nucleated RBC # (auto) 0.07 K/uL (0.00-0.12); Nucleated RBC % (auto) 0.8 %; Platelet Count 314 K/uL (130-400); RDW Coefficient of Variation 19.8 % (11.5-14.5); RDW Standard Deviation 54.2 fL (36.4-46.3); Red Blood Count 3.57 M/uL (4.20-5.40); White Blood Count 8.61 K/ul (4.8-10.8)
[2024-05-27 07:52] LABS: BUN Creatinine Ratio 9.1 (10-20); Creatinine Clr Calc Pharmacy 40.4 ml/min; Potassium 3.6 mmol/L (3.5-5.1)
--- NOTE | 2024-05-27 07:58 | Hospitalist Progress Note ---
Date of Service May 27, 2024 Assessment & Plan (1) Symptomatic anemia: (2) Community acquired pneumonia: (3) Elevated troponin: Plan This patient is a 68 yo female with a H/O HFrEF (last echo EF 70%), COPD on 2L NC at baseline (reported does not wear), current smoker, ALTHEA (not wearing CPAP), multiple pulmonary nodules, HTN, HLD, T2DM (not currently on medications, last A1c 6.5), subclavian steal syndrome (on Plavix), and hypothyroidism admitted for progressive weakness and shortness of breath with cough found to have Hgb 5.9. She was admitted and transfused 2 units PRBCs. She had a CT of the chest/abdomen/pelvis which did reveal pneumonia. #Symptomatic Anemia-Microcytic and no evidence of gross bleeding from anywhere on history. CT abdomen/pelvis negative. Last colonoscopy and EGD in 11/2019 were normal. Likely chronic occult GI blood loss. She is on Plavix chronically. She is now s/p 2 U PRBCs and hemoglobin improved to 8.1. Iron studies not checked here prior to transfusion but in June 2023 revealed: iron saturation of 11, ferritin 17.3, Iron 42, TIBC 385. Consulted GI-plan for EGD and colonoscopy next week as an outpatient after being off Plavix x 5 days -Follow CBC in the morning and transfuse if less than 7 -Avoid iron pills until after has EGD and colonoscopy next week -Continue to hold Plavix # Community-acquired pneumonia/chronic hypoxic respiratory failure on 2L NC/ALTHEA not on CPAP/COPD/current smoker-CT chest here with evidence of emphysema, bronchial wall thickening, tree-in-bud and peribronchial opacities consistent with pneumonia. She has been coughing up sputum for 2 weeks and quit smoking at home. Not wheezing. She has not been wearing her supplemental O2 at home and is 87% on room air here. Respiratory BioFire negative. Not wheezing and no acute COPD exacerbation -Start ceftriaxone and azithromycin -Continue supplemental O2 encouraged her to use this as prescribed -Albuterol as needed -Encouraged continued cessation of smoking-she declines nicotine patch at this time -Check sputum culture # Elevated troponin/chronic HFrEF/HTN/HLD/subclavian steal syndrome-Last echo 07/2023 EF 70%. Troponin here elevated at 372-not yet peaked. No chest pain, no ischemic changes on ECG. Likely myocardial demand ischemia in the setting of severe anemia as well as hypoxia. -Appreciate cardiology consultation-check echocardiogram and continue to trend t roponin until peaks -Continue home Lasix 40mg daily, valsartan, Crestor -Holding home Plavix for severe anemia and need for EGD/colonoscopy -Transfusional support given with PRBCs -Encouraged supplemental O2 to keep pulse ox greater than 88% #E6HC-Det currently on medication. Most recent A1c 6.5 #RLS-no acute issues -Continue ropinirole #GERD-no heartburn, with likely occult GI bleeding -Continue Protonix # Depression/anxiety-no acute issues -Continue amitriptyline and bupropion DVT prophylaxis: SCDs, defer chemical in setting of acute anemia Disposition: Continued stay on med/tele, likely discharge to home in 1 to 2 days if stable from pneumonia standpoint and if hemoglobin remains stable. Follow-up closely with GI as an outpatient next week for EGD/colonoscopy Admission and Anticipated Discharge Date Admission Date: May 25, 2024 Results & Data Results & Data Vital Signs (Past 12 Hours) Vital Signs Temp Pulse Pulse Resp BP Pulse Ox O2 Del Method 05/27/24 07:39 98.4 F 88 18 90/57 L 94 Nasal Cannula 05/27/24 07:06 89 05/27/24 07:06 Nasal Cannula 05/27/24 02:17 97.9 F 84 18 92/56 L 93 Nasal Cannula 05/26/24 23:25 83 05/26/24 22:40 98.1 F 88 18 90/57 L 94 Nasal Cannula 05/26/24 21:51 Nasal Cannula O2 Flow Rate 05/27/24 07:39 2 05/27/24 07:06 05/27/24 07:06 2 05/27/24 02:17 2 05/26/24 23:25 05/26/24 22:40 2 05/26/24 21:51 2 PG Care Time/CCT Total # of Minutes Spent Total Time Spent with Patient: Total time spent is greater than 50% in coordination of care (as documented) at patient's floor/unit and/or counseling patient: Coding Diagnoses Symptomatic anemia D64.9 Community acquired pneumonia J18.9 Elevated troponin R79.89
[2024-05-27 08:05] LABS: Polychromasia 2+; Tear Drop Cells 1+
--- NOTE | 2024-05-27 09:22 | Gastroenterology Progress Note ---
Date of Service May 27, 2024 Assessment & Plan (1) Anemia: Plan: She is symptomatically better. According to hospitalist note going home in next day or so. If so she can have procedures done as outpatient. If she stays into next week we can discuss doing them while in house. Admission and Anticipated Discharge Date Admission Date: May 25, 2024 Subjective Looks and feels much better. No chest pain. Breathing better Physical Exam Physical Exam: She looks well Constitutional: WD/WN, vitals as above Results & Data Vital Signs (Past 12 Hours) Vital Signs Temp Pulse Pulse Resp BP Pulse Ox O2 Del Method 05/27/24 07:39 36.9 C 88 18 90/57 L 94 Nasal Cannula 05/27/24 07:06 89 05/27/24 07:06 Nasal Cannula 05/27/24 02:17 36.6 C 84 18 92/56 L 93 Nasal Cannula 05/26/24 23:25 83 05/26/24 22:40 36.7 C 88 18 90/57 L 94 Nasal Cannula 05/26/24 21:51 Nasal Cannula O2 Flow Rate 05/27/24 07:39 2 05/27/24 07:06 05/27/24 07:06 2 05/27/24 02:17 2 05/26/24 23:25 05/26/24 22:40 2 05/26/24 21:51 2 (1) Anemia Anemia type: unspecified type Qualified Code(s): D64.9 - Anemia, unspecified
--- NOTE | 2024-05-27 09:41 | Cardiology Progress Note ---
Date of Service May 27, 2024 Assessment & Plan (1) Elevated troponin: (2) CAD (coronary artery disease): Plan 1. Elevated troponin: Her elevated troponin is almost certainly driven by her low hemoglobin and demand ischemia associated with a low blood pressure, however it is likely in the presence of underlying coronary artery disease. I am a little concerned that it has continued to rise with improvement in her hemoglobin, this morning it was higher and so has not peaked. I do not believe it is indicative of an acute myocardial infarction and acute intervention is not a consideration at this time (in part because of the GI bleed). I would probably keep her here until the troponin decreases so that we know the extent of it. 2. Coronary disease: Her data would suggest that she has coronary disease with coronary calcification, we do not know the extent of her coronary disease but historically there has not been any indication for evaluation. Her echocardiogram does not show any wall motion abnormalities but her troponin remains elevated and is still climbing. Today's electrocardiogram suggests ischemia with T wave inversion. Her coronary disease may be more significant than we appreciate. I doubt we will want to perform any kind of invasive evaluation, certainly not urgently, but whether we should consider a stress test will depend on her hospital course. I would suggest keeping her here and tell the troponin decreases, and then consider whether we should do a stress test while hospitalized or as an outpatient. We can reassess tomorrow. Admission and Anticipated Discharge Date Admission Date: May 25, 2024 Subjective She is feeling well today, she has no symptoms of chest discomfort and currently no shortness of breath. She is supine in bed. Physical Exam Physical Exam: Constitutional: Alert, cooperative and in no distress. Laying supine in bed. HEENT: Unremarkable Neck: No jugular venous distention, carotid pulses are normal and equal bilaterally without bruits. Pulmonary: Clear to auscultation bilaterally. Cardiac: Regular rhythm with no murmur, gallop or rub. Abdomen: Soft, nontender with normal bowel sounds. Extremities: No edema. Neurologic: No focal findings. Gait was not tested. Skin: No rash, ecchymoses or petechiae. Results & Data Vital Signs (Past 12 Hours) Vital Signs Temp Pulse Pulse Resp BP Pulse Ox O2 Del Method 05/27/24 07:39 36.9 C 88 18 90/57 L 94 Nasal Cannula 05/27/24 07:06 89 05/27/24 07:06 Nasal Cannula 05/27/24 02:17 36.6 C 84 18 92/56 L 93 Nasal Cannula 05/26/24 23:25 83 05/26/24 22:40 36.7 C 88 18 90/57 L 94 Nasal Cannula 05/26/24 21:51 Nasal Cannula O2 Flow Rate 05/27/24 07:39 2 05/27/24 07:06 05/27/24 07:06 2 05/27/24 02:17 2 05/26/24 23:25 05/26/24 22:40 2 05/26/24 21:51 2 Laboratory Results Cardiac Enzymes 05/26/24 05/26/24 Range/Units 10:21 17:33 Troponin I High Sens 372.4 H* 372.0 H* (0-14) pg/ml CBC 05/26/24 05/27/24 Range/Units 10:21 06:55 WBC 8.52 8.61 (4.8-10.8) K/ul RBC 3.63 L 3.57 L (4.20-5.40) M/uL Hgb 8.1 L 7.9 L (12.0-16.0) g/dl Hct 28.1 L 27.2 L (37.0-47.0) % Plt Count 318 314 (130-400) K/uL Neut # (Auto) 6.84 H 6.82 H (1.40-6.50) K/uL Lymph # (Auto) 0.66 L 0.80 L (1.20-3.40) K/uL [place] # (Auto) 0.83 H 0.75 H (0.11-0.59) K/uL Eos # (Auto) 0.07 0.13 (0.00-0.50) K/uL Baso # (Auto) 0.03 0.04 (0.00-0.20) K/uL Comprehensive Metabolic Panel 05/27/24 Range/Units 06:55 Sodium 138 (136-145) mmol/L Potassium 3.6 (3.5-5.1) mmol/L Chloride 103 (98-107) mmol/L Carbon Dioxide 30 (21-32) mmol/L BUN 15 (6-23) mg/dl Creatinine 1.65 H D (0.6-1.2) mg/dl Glucose 117 H (70-99(Fasting)) mg/dl Calcium 8.0 L (8.6-10.3) mg/dl Intake and Output 05/26/24 05/27/24 05/27/24 22:59 06:59 14:59 Intake Total 350 / 740 240 / 740 50 / 50 Balance 350 / 740 240 / 740 50 / 50 Intake: IV 100 / 250 50 / 50 Doxycycline Hyclate 100 mg In 100 / 200 Dextrose 5% Mini-B 100 ml @ 50 mls/hr IV Q12H [facility] Rx#:[id number] cefTRIAXone SODIUM 2,000 mg In 50 / 50 50 ml @ 100 mls/hr IV Q24H [facility] Rx#:[id number] Oral 250 / 490 240 / 490 Other: Weight 105.3 kg Weight Measurement Method Standing Scale Repeat high-sensitivity troponin is 419 at 0957 today. Diagnostic Findings Telemetry: Sinus rhythm in the 80s. No significant arrhythmia. ECG: Today's electrocardiogram shows sinus rhythm at 83 bpm but she does have diffuse T wave abnormalities including T wave inversion V2 through V5. Suggestive of ischemia. PG Care Time/CCT Total # of Minutes Spent Total Time Spent with Patient: Total time spent is greater than 50% in coordination of care (as documented) at patient's floor/unit and/or counseling patient: Coding Level of Care Code 44231 SUB INP/OBS CARE 3/50MIN Diagnoses Elevated troponin R79.89 CAD (coronary artery disease) I25.10
[2024-05-27 12:33] VITALS: BP 95/60; TEMP 97.7
[2024-05-27 12:56] VITALS: PULSE 81; RESP 16; O2SAT 94
--- NOTE | 2024-05-27 15:39 | Discharge Summary ---
Discharge Summary Date of Service May 27, 2024 Principal Dx & Hospital Course #1 = Principal Diagnosis (1) Community acquired pneumonia: (2) Symptomatic anemia: (3) Elevated troponin: Plan This patient is a 68 yo female with a H/O HFrEF (last echo EF 70%), COPD on 2L NC at baseline (reported does not wear), current smoker, ALTHEA (not wearing CPAP), multiple pulmonary nodules, HTN, HLD, T2DM (not currently on medications, last A1c 6.5), subclavian steal syndrome (on Plavix), and hypothyroidism admitted for progressive weakness and shortness of breath with cough found to have Hgb 5.9. She was admitted and transfused 2 units PRBCs. She had a CT of the chest/abdomen/pelvis which did reveal pneumonia. # Community-acquired pneumonia/chronic hypoxic respiratory failure on 2L NC/ALTHEA not on CPAP/COPD/current smoker-CT chest here with evidence of emphysema, bronchial wall thickening, tree-in-bud and peribronchial opacities consistent with pneumonia. She has been coughing up sputum for 2 weeks and quit smoking at home. Patient previously was on oxygen at home but returned her oxygen. She has a baseline history of COPD -Start ceftriaxone and azithromycindischarged home on doxycycline to complete an additional 7-day course. -2 step oxygen walking test revealed the patient required supplemental oxygen 2 L nasal cannula at all times Continued home inhaled medications -Encouraged continued cessation of smoking-she declines nicotine patch at this time Patient encouraged not to discontinue oxygen until she is retested in the outpatient setting. #Symptomatic Anemia-Microcytic and no evidence of gross bleeding from anywhere on history. CT abdomen/pelvis negative. Last colonoscopy and EGD in 11/2019 were normal. Likely chronic occult GI blood loss. She is on Plavix chronically. She is now s/p 2 U PRBCs and hemoglobin improved to 8.1. Iron studies not checked here prior to transfusion but in June 2023 revealed: iron saturation of 11, ferritin 17.3, Iron 42, TIBC 385. Consulted GI-plan for EGD and colonoscopy after being off Plavix x 5 days Diagnosis of pneumonia makes anesthesia for endoscopic procedures slightly higher risk likely will need to convalesce from her pneumonia prior to endoscopy. -Continue to hold Plavix for 1 week after discharge or more prolonged if endoscopy is coordinated within 2-week timeframe # Elevated troponin/chronic HFrEF/HTN/HLD/subclavian steal syndrome-Last echo 07/2023 EF 70%. Troponin here elevated at 372-not yet peaked. No chest pain, no ischemic changes on ECG. Likely myocardial demand ischemia in the setting of severe anemia as well as hypoxia. -Appreciate cardiology consultation-echocardiogram with preserved ejection fraction, no regional wall motion abnormalities mild concentric LVH -Continue home Lasix 40mg daily, valsartan, Crestor -Holding home Plavix for severe anemia and need for EGD/colonoscopy -Transfusional support given with PRBCs -Encouraged supplemental O2 to keep pulse ox greater than 88% #[id number] currently on medication. Most recent A1c 6.5 #RLS-no acute issues -Continue ropinirole #GERD-no heartburn, with likely occult GI bleeding -Continue Protonix increased to twice daily at time of discharge # Depression/anxiety-no acute issues -Continue amitriptyline and bupropion Admission HPI Per Admitting Provider 68 yo female PMHx HFrEF (last echo EF 70%), COPD on 2L NC at baseline (reported does not wear), ALTHEA (not wearing CPAP), multiple pulmonary nodules, HTN, HLD, T2DM (not currently on medications, last A1c 6.5), subclavian steal syndrome (on Plavix) admitted for progressive weakness and shortness of breath found to have Hb 5.9. She states that over the last few months and more acutely over the last two weeks she has been progressively short of breath. She is a current 1/2 - 1PPD smoker and is not compliant with her CPAP therefore felt this was a respiratory issue. When she arrived at the emergency department she was found to have a Hb of 5.9. She denies any history of bleeding: hemoptysis, hematemesis, melana, hematochezia, vaginal/uterine bleeding. Her last Hb in the outpatient setting was 11.7 in June of 2023. Prior to that she had a hemoglobin of 12.6 in 01/18. She did have iron studies done as an outpatient (June 2023) that revealed iron saturation of 11, ferritin 17.3, Iron 42, TIBC 385. There was some concern from her outpatient manufacturing associate about her use of multiple NSAID agents while on Plavix in regards to her iron saturation. At the time of admission pt reports continued SOB on NC but no other complaints. ED course: Given 2 U PRBCs Labs reveal: Hb 5.9, normal coags, troponin elevation, mild BNP elevation, negative respiratory biofire Discharge Plan Discharge Items Patient Disposition: Home - Home Health Services Reason For Visit: SYMPTOMATIC ANEMIA Discharge Diagnosis: pneumonia severe anemia oxygen requiring copd Activity: Per Instructions section Activity Comment: rest and recover Non-emergency contact: Primary Care Provider, Specialist and Mechanical Manufacturing Technician Call non-emergency contact if: your symptoms worsen Follow-up/Referrals: Jeniffer Mathew PA-C [Primary Care Provider] - Jhoan Sweeney MD [Physician] - Diet: Carb Consistent or DM2 and Low Sodium (2gm) Ambulatory Orders: Complete Blood Count with Diff (Routine) Timeframe: 5 Days Location: Determined by Patient Ordered By: Harvey Alfredo Attending Provider Instructions: certainly rest and recover have a healthy diet and consider taking a vitiamin to help your blood counts you should be contacted by the outpt GI specialists to determine the source of your anemia, we would like to have your pneumonia improve before you have anesthesia for those tests Please wear your oxygen until you are retested and told you cannot take it off. complete your home antibiotics Addtl Cruise Staff Member Provider Instructions: hold your Plavix (clopidogrel) for one week please have a blood count recheck mid next week Pending Studies at Discharge: No Stand-Alone Forms: My [employer], Smoking Cessation Medications and DC Order Prescriptions: New doxycycline hyclate 100 mg tablet 100 mg PO BID 7 Days Qty: 14 0RF (DME) Oxygen Home Liters Per Minute See Rx Instructions .ROUTE Qty: 2 0RF Rx Instructions: As directed Continued montelukast [Singulair] 10 mg tablet 10 mg PO QPM rosuvastatin 40 mg tablet 40 mg PO HS albuterol sulfate [Ventolin HFA] 90 mcg/actuation HFA aerosol inhaler 2 inh INH Q4H PRN (Reason: dyspnea or wheeze ) Qty: 18 4RF (DME) Portable Oxygen Misc See Rx Instructions .MEDSUPPLY Qty: 1 0RF Rx Instructions: Oxygen 2 liters continuous via nasal cannula on exertion with portable concentrator. MICHAEL 99 (DME) CPAP Supplies Misc See Rx Instructions .MEDSUPPLY Qty: 1 0RF Rx Instructions: Refitting of the mask. Try nasal pillows. G47.33 furosemide 40 mg tablet 40 mg PO QAM fluticasone propionate 50 mcg/actuation spray,suspension 2 spray INTRANASAL DAILY levothyroxine 150 mcg Tablet 150 mcg PO QAM amitriptyline 100 mg Tablet 100 mg PO HS valsartan 160 mg Tablet 160 mg PO QAM Ozempic 0.25 mg or 0.5 mg (2 mg/3 mL) Pen Injector 0.25 mg SUBCUT WK Trelegy Ellipta 100-62.5-25 mcg blister with device 1 inh inhalation QAM bupropion HCl (smoking deter) 150 mg tablet extended release 12 hr 150 mg PO BID ropinirole 0.5 mg tablet 0.5 mg PO DAILY Changed pantoprazole 40 mg Tablet,Delayed Release (Dr/Ec) 40 mg PO BID Qty: 60 2RF Held clopidogrel 75 mg Tablet 75 mg PO QAM Hold Instructions: Resume on 06/03/24. Discharge Orders: Discharge Order (Routine); Ordered 05/27/24 Ordered By: Harvey Jacobson Admission Data Admit Date/Time: 05/25/24 22:14 Attending Provider: Harvey Jacobson Admit Provider: Clyde Demarco Primary Care Provider: Jeniffer Mathew Other Providers: Cricket Hartley; Johan Sweeney; Gely Haley Other Interventions: Discharge Summary Assessment (RN) Last Done: 05/27/24 12:55 Hospital Stay Data Consultations 05/25/24 20:08 ED Decision to Admit Stat 05/26/24 06:57 Consult Gastroenterology Routine 05/26/24 07:00 Consult Cardiology Routine Diagnostic Imagining Performed 05/25/24 21:43 CT abd pelvis IV con only Stat 05/25/24 22:06 CT chest diagnostic wo/w con Stat Pending Results Patient Have Any Pending Studies at Discharge: No Discharge Instructions Given to Patient (Per Discharging Provider) certainly rest and recover have a healthy diet and consider taking a vitiamin to help your blood counts you should be contacted by the outpt GI specialists to determine the source of your anemia, we would like to have your pneumonia improve before you have anesthesia for those tests Please wear your oxygen until you are retested and told you cannot take it off. complete your home antibiotics Total Time Total Time Spent Total Time Spent (In Minutes): It required greater than 30 minutes to prepare this patient for discharge. Coding Level of Care Code 31144 INP/OBS DISCH >30 MIN Diagnoses Community acquired pneumonia J18.9 Symptomatic anemia D64.9 Elevated troponin R79.89
--- NOTE | 2024-05-29 14:00 | Electrocardiogram Report ---
Test Reason : Blood Pressure : */* mmHG Vent. Rate : 83 BPM Atrial Rate : 83 BPM P-R Int : 144 ms QRS Dur : 82 ms QT Int : 380 ms P-R-T Axes : 51 39 56 degrees QTcB Int : 447 ms Normal sinus rhythm Low voltage QRS Nonspecific T wave abnormality Abnormal ECG When compared with ECG of 25-May-2024 19:00, Nonspecific T wave abnormality, worse in Anterior leads Confirmed by Cecilio Jose ([id number]) on 05/29/2024 1:59:33 PM Referred By: REFERRED SELF Confirmed By: Cecilio Jose
== END 2024-05-27 14:09 | disposition home health service (06) | DRG 811 ==
LOC: ED 18:35 → SUATTDRO 22:14 → INTOOBSV 22:14 → EDINP 22:14 → 2N 05-26 01:55

== ENCOUNTER 2024-09-08 21:38 | Observation (INO) ==
--- NOTE | 2024-09-08 22:25 | Emergency Department Note ---
History of Present Illness General Chief Complaint: Abnormal Labs/Diagnostic Testing Stated Complaint: LOW HEMOGLOBIN Time Seen by Provider: 09/08/24 21:49 History of Present Illness Provider Complaint: + abnormal lab Returns today for: + called because of abnormal lab/test Description of abnormal result: Low hemoglobin Associated symptoms: no fever, no chest pain, no shortness of breath, no rash or no abdominal pain Home Medications Medication Instructions Recorded Confirmed Type clopidogrel 75 mg tablet 75 mg PO QAM 02/16/18 06/21/24 History montelukast 10 mg tablet 10 mg PO QPM 01/30/19 06/08/24 History (Singulair) CPAP Supplies #1 ea 05/29/22 05/25/24 Rx Portable Oxygen #1 ea 06/09/22 05/25/24 Rx fluticasone propionate 50 2 spray intranasal DAILY 10/05/22 06/08/24 History mcg/actuation nasal spray,suspension furosemide 40 mg tablet 40 mg PO QAM 10/05/22 06/08/24 History rosuvastatin 40 mg tablet 40 mg PO HS 09/27/23 06/08/24 History amitriptyline 100 mg tablet 100 mg PO HS 11/15/23 06/08/24 History bupropion HCl (smoking deter) 150 150 mg PO BID headaches 11/15/23 06/08/24 History mg tablet,12 hr sustained-release(smoking deterrent) fluticasone fur. 100 mcg-umeclid 1 inh inhalation QA 11/15/23 06/08/24 History 62.5 mcg-vilant 25 mcg inhalat.powder (Trelegy Ellipta) levothyroxine 150 mcg tablet 150 mcg PO QA 11/15/23 06/08/24 History semaglutide 0.25 mg or 0.5 mg (2 0.5 mg subcut WK 11/15/23 06/08/24 History mg/3 mL) subcutaneous pen injector (Ozempic) valsartan 160 mg tablet 160 mg PO QAM 11/15/23 06/08/24 History ropinirole 0.5 mg tablet 0.5 mg PO HS 05/25/24 06/08/24 History Oxygen Home #2 L 05/27/24 Rx pantoprazole 40 mg tablet,delayed 40 mg PO BID #60 tabs 05/27/24 06/08/24 Rx release albuterol sulfate 90 mcg/actuation 2 inh inhalation Q4H PRN dyspnea 06/02/24 06/21/24 Rx aerosol inhaler (Ventolin HFA) or wheeze #18 grams Allergies Allergy/AdvReac Type Severity Reaction Status Date / Time clarithromycin Allergy Intermediate hot Verified 09/08/24 22:41 flashes face got red sulfamethoxazole AdvReac Mild FLUSHED Verified 09/08/24 22:41 trimethoprim AdvReac Mild FLUSHED Verified 09/08/24 22:41 Past Med/Surg History Problem List (Updated 09/08/24 @ 22:43 by Rony Alicia MD) Anemia (Acute) Community acquired pneumonia Elevated troponin Anemia (Acute) Symptomatic anemia Acute UTI (Acute) CONRAD (acute kidney injury) (Acute) Acute hyponatremia (Acute) Fever (Acute) Tachycardia (Acute) Leukocytosis (Acute) SOB (shortness of breath) (Acute) Sepsis (Acute) Lower extremity edema Restrictive lung disease Encounter for pre-operative examination Multiple pulmonary nodules Lung nodule seen on imaging study (Chronic) 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 Pre-diabetes Lower extremity edema Hypothyroidism CAD (coronary artery disease) Anemia History of recent hospitalization admitted 05/25/24 to [facility] for symptomatic anemia, was transfused with 2 units of PRBCs and also diagnosed pneumonia-treated abx. pt is currently doing well. GERD (gastroesophageal reflux disease) On anticoagulant therapy pt unsure as to why she takes a blood thinner (denies heart attack, TIA, stroke or a.fib) History of COVID-19 2019: mild symptoms. no hospitalization Restless leg syndrome Hyperlipidemia Hx of osteomyelitis right foot heel initial injury in 1983 & again in ~ Pulmonary nodules monitoring and follows with Dr Carmona Left subclavian artery occlusion (2016) had surgery for this at [facility] with Dr. 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 feeling better currently (06/08/24) ~11/2022?? vs copd flare up/bronchitis - hospitalized at [facility] 2017: s/p subclavian artery surgery and hospitalized at [facility] at the time. SOB (shortness of breath) on exertion Surgical History History of left cataract extraction History of right cataract extraction History of esophagogastroduodenoscopy (EGD) History of colonoscopy S/P debridement 1984 + ~ -> right foot heel Hx of arthroscopy of left knee History of x2 History of umbilical hernia repair History of thyroidectomy History of orbit decompression - bilateral Family History Other No family history of adverse response to anesthesia Social History Smoking Status: Former smoker Tobacco Type: Cigarettes Cigarettes Per Day: 10 - attempting to quit; Second Hand Exposure: No; Do You Dip or Chew Tobacco: No; Hx Alcohol Use: No Hx Substance Use: No Preferred Language: Turkish Communication Ability: Effective Cylinder Devalver Required: No Beliefs That Will Affect Care: None Current Living Situation: Significant Other Current Living Situation Comment: LIVES WITH BOYFRIEND ANGELA Feels Safe at Home: Yes Assistive Devices: Cane Physical Exam 2 Vital Signs: Vital Signs - 24 hr 09/08/24 21:41 09/08/24 22:15 Temperature 36.5 C Temperature Source Temporal Artery Sc an Pulse Rate 96 H 91 H Respiratory Rate 18 Respiratory Effort / Characteristics Non-Labored Sponta neous Respiratory Depth Normal Respiratory Patter n Regular Blood Pressure 104/58 L Blood Pressure Eloina n 73 Blood Pressure Pos ition Sitting Pulse Oximetry 92 Oxygen Delivery Me thod Nasal Cannula Oxygen Flow Rate 2 Sepsis Recent Feve r Within 48 Hours No Sepsis New/Unexpla ined Change in Men kleber Status N/A Sepsis Action Take n by Nursing No Action Required Physical Exam: Physical Exam GENERAL: oriented to person, place, and time. appears well-developed and well- nourished. HENT: Exam performed. - Head: Normocephalic and atraumatic. EYES: Conjunctivae and EOM are normal. Right eye exhibits no discharge. Left eye exhibits no discharge. No scleral icterus. NECK: Normal range of motion. Neck supple. No JVD present. CV: Normal rate, regular rhythm, normal heart sounds and intact distal pulses. There is no peripheral edema. Palpable radial pulses bue. PULM/CHEST: Effort normal and breath sounds normal. No respiratory distress. No stridor. no wheezes. no rales. ABD: The abdomen is soft and obese. There is no tenderness. Rectal: Performed with female nursing assurance sourcing manager Kate at bedside. No bright red blood per rectum. Hemoccult negative. NEURO: Motor and sensation grossly intact. SKIN: Skin is warm and dry. He is not diaphoretic. PSYCH: normal mood and affect. Behavior is normal. Judgment and thought content normal. Course Course 2148: The patient was evaluated in room B11. A complete history and physical exam was performed Cardiac monitoring: An order was placed for continuous cardiac monitoring. The monitor shows a rate of 90 with sinus rhythm interpreted by me 2241: Vital signs stable. Labs show hemoglobin 5.1. [facility] red blood cells. Medical Decision Making Laboratory Data Attestation: I reviewed the patient's lab results. 09/08/24 21:55 09/08/24 21:55 Lab Results 09/08/24 09/08/24 Range/Units 21:55 22:30 WBC 8.33 (4.8-10.8) K/ul RBC 2.65 L (4.20-5.40) M/uL Hgb 5.1 L* (12.0-16.0) g/dl Hct 19.0 L* (37.0-47.0) % MCV 71.7 L (80.0-100.0) fL MCH 19.2 L (25.0-34.0) pg MCHC 26.8 L (32.0-36.0) g/dL RDW Std Deviation 54.1 H (36.4-46.3) fL RDW Coeff of Elizabeth 21.3 H (11.5-14.5) % Plt Count 389 (130-400) K/uL MPV 10.3 (9.4-12.4) fL Immature Gran % (Auto) 0.6 % Neut % (Auto) 78.5 % Lymph % (Auto) 12.4 % [place] % (Auto) 7.7 % Eos % (Auto) 0.7 % Baso % (Auto) 0.1 % Neut # (Auto) 6.54 H (1.40-6.50) K/uL Lymph # (Auto) 1.03 L (1.20-3.40) K/uL [place] # (Auto) 0.64 H (0.11-0.59) K/uL Eos # (Auto) 0.06 (0.00-0.50) K/uL Baso # (Auto) 0.01 (0.00-0.20) K/uL Immature Gran # (Auto) 0.05 (0.01-0.20) K/uL Absolute Nucleated RBC 0.03 (0.00-0.12) K/uL Nucleated RBC % (auto) 0.4 % Polychromasia 3+ Anisocytosis Present Tear Drop Cells 1+ Sodium 138 (136-145) mmol/L Potassium 3.9 (3.5-5.1) mmol/L Chloride 104 (98-107) mmol/L Carbon Dioxide 24 (21-32) mmol/L Anion Gap 10 (3-11) BUN 21 (6-23) mg/dl Creatinine 1.57 H (0.6-1.2) mg/dl Est Cr Clr Drug Dosing 42.2 ml/min eGFR 36.16 BUN/Creatinine Ratio 13.4 (10-20) Glucose 107 H (70-99(Fasting)) mg/dl Calcium 8.9 (8.6-10.3) mg/dl Crossmatch See Detail ECG Data Attestation: I personally reviewed and interpreted this ECG as follows: Rate (beats per minute): 89 Rhythm: normal sinus Findings: no ST depression, no ST elevation or no prolonged QT Additional Comments: QRS 78 MDM Narrative 2141: The patient was evaluated in room B11. A complete history and physical exam was performed Cardiac monitoring: An order was placed for continuous cardiac monitoring. The monitor shows a rate of 90 with sinus rhythm interpreted by me 2241: Vital signs stable. Labs show hemoglobin 5.1. [facility] and [facility] red blood cells. Impression & Plan Anemia Critical Care Time Critical Care Time: Yes Total Critical Care Time: 50 I have personally spent greater than 50 minutes of critical care time in the direct management of this patient. This includes bedside care, interpretation of diagnostic studies, and testing, discussion with consultants, patient, and family members, and other required patient management activities. This 50 minutes is in excess of all separately billable procedures. Discharge Plan Visit Data Chief Complaint: Abnormal Labs/Diagnostic Testing Stated Complaint: LOW HEMOGLOBIN ED Provider: Rony Alicia Discharge Problem: Anemia Patient Disposition: Admitted As Inpatient Condition: Serious Forms Stand Alone Forms: [facility] [place] [employer] Prescriptions Prescriptions: No Action albuterol sulfate [Ventolin HFA] 90 mcg/actuation HFA aerosol inhaler 2 inh INH Q4H PRN (Reason: dyspnea or wheeze ) Qty: 18 4RF montelukast [Singulair] 10 mg tablet 10 mg PO QPM rosuvastatin 40 mg tablet 40 mg PO HS (DME) Portable Oxygen Misc See Rx Instructions .MEDSUPPLY Qty: 1 0RF Rx Instructions: Oxygen 2 liters continuous via nasal cannula on exertion with portable concentrator. MICHAEL 99 (DME) CPAP Supplies Misc See Rx Instructions .MEDSUPPLY Qty: 1 0RF Rx Instructions: Refitting of the mask. Try nasal pillows. G47.33 clopidogrel 75 mg Tablet 75 mg PO QAM Hold Instructions: Resume on 06/03/24. furosemide 40 mg tablet 40 mg PO QAM fluticasone propionate 50 mcg/actuation spray,suspension 2 spray INTRANASAL DAILY levothyroxine 150 mcg Tablet 150 mcg PO QAM amitriptyline 100 mg Tablet 100 mg PO HS valsartan 160 mg Tablet 160 mg PO QAM Ozempic 0.25 mg or 0.5 mg (2 mg/3 mL) Pen Injector 0.5 mg SUBCUT WK Trelegy Ellipta 100-62.5-25 mcg blister with device 1 inh inhalation QAM bupropion HCl (smoking deter) 150 mg tablet extended release 12 hr 150 mg PO BID ropinirole 0.5 mg tablet 0.5 mg PO HS pantoprazole 40 mg Tablet,Delayed Release (Dr/Ec) 40 mg PO BID Qty: 60 2RF (DME) Oxygen Home Liters Per Minute See Rx Instructions .ROUTE Qty: 2 0RF Rx Instructions: As directed Referrals Referrals: Jeniffer Mathew PA-C [Primary Care Provider] - Discharge Problem: Anemia Qualifiers: Anemia type: unspecified type Qualified Code(s): D64.9 - Anemia, unspecified
[2024-09-08] MEDS ORDERED: SODIUM CHLORIDE 0.9% 100 ML IV PRN ×2 (22:28→23:47)
[2024-09-08 22:30] LABS: Hemoglobin 5.1 g/dl (12.0-16.0); Mean Corpuscular Hemoglobin 19.2 pg (25.0-34.0); Mean Corpuscular Hgb Conc 26.8 g/dL (32.0-36.0); Mean Corpuscular Volume 71.7 fL (80.0-100.0); Mean Platelet Volume 10.3 fL (9.4-12.4); Nucleated RBC # (auto) 0.03 K/uL (0.00-0.12); Nucleated RBC % (auto) 0.4 %; Platelet Count 389 K/uL (130-400); RDW Coefficient of Variation 21.3 % (11.5-14.5); RDW Standard Deviation 54.1 fL (36.4-46.3); Red Blood Count 2.65 M/uL (4.20-5.40); White Blood Count 8.33 K/ul (4.8-10.8)
[2024-09-08 22:32] LABS: Anion Gap 10 (3-11); BUN Creatinine Ratio 13.4 (10-20); Blood Urea Nitrogen 21 mg/dl (6-23); Calcium 8.9 mg/dl (8.6-10.3); Carbon Dioxide 24 mmol/L (21-32); Chloride 104 mmol/L (98-107); Creatinine Clr Calc Pharmacy 42.2 ml/min; Glucose 107 mg/dl (70-99(Fasting)); Potassium 3.9 mmol/L (3.5-5.1); Sodium 138 mmol/L (136-145)
[2024-09-08 22:33] LABS: Anisocytosis Present; Basophils # (auto) 0.01 K/uL (0.00-0.20); Basophils % (auto) 0.1 %; Eosinophils # (auto) 0.06 K/uL (0.00-0.50); Eosinophils % (auto) 0.7 %; Immature Granulocytes # (auto) 0.05 K/uL (0.01-0.20); Immature Granulocytes % (auto) 0.6 %; Lymphocytes # (auto) 1.03 K/uL (1.20-3.40); Lymphocytes % (auto) 12.4 %; Monocytes # (auto) 0.64 K/uL (0.11-0.59); Monocytes % (auto) 7.7 %; Neutrophils # (auto) 6.54 K/uL (1.40-6.50); Neutrophils % (auto) 78.5 %; Polychromasia 3+; Tear Drop Cells 1+
[2024-09-08 22:43] LABS: Partial Thromboplastin Ratio 0.9; Partial Thromboplastin Time 25 Seconds (21-31); Prothrombin Time 11.3 Seconds (9.0-12.0)
[2024-09-08 23:06] LABS: Reticulocyte % 1.58 % (0.50-2.00)
[2024-09-08 23:25] LABS: Total Iron Binding Cap Calc 514 mcg/dl (250-450); Transferrin 367 mg/dl (200-360)
--- NOTE | 2024-09-08 23:26 | History & Physical Report ---
Date of Service September 08, 2024 Assessment & Plan (1) Symptomatic anemia: (2) Renal insufficiency: Plan 68-year-old female PMHx symptomatic anemia, COPD with emphysema, ALTHEA, HTN, HLD, L subclavian artery occlusion, pulmonary nodules, T2DM, hypothyroidism, and GERD presenting by outpatient referral for low hemoglobin levels. ED evaluation reveals no leukocytosis, H&H 5.1, platelets 389; PT/INR pending; CMP creatinine 1.57, glucose 107; EKG NSR, low voltage QRS, 89 bpm.; Provided with NSS in ED. #Symptomatic anemia Patient with history of symptomatic anemia, most recent hospital admission 05/25/2024 until 05/27/2024 for such in which she required 2 units PRBCs. Follows with GI, most recent EGD 06/21/2024 without acute findings and colonoscopy 06/21/2024 no acute findings; was following up on day of arrival (09/08/2024) for discussion of video capsule endoscopy to occur. Previously reported to have been taking 12-14 ibuprofen per day which she is no longer doing. No active bleeding. Hemoccult negative in ED. Patient's antibody screen was "positive" when testing blood at initial evaluation likely given her recent transfusion, yielding a 2+ reaction for her auto control and JUAN FRANCISCO positive. I was initially notified at 0000 via [employer] regarding this information. At around 0300, elute was performed and contact was made via phone call regarding the status of the patient receiving blood. Given the antibody positive results, completing the type and screen for the patient was delayed and blood was unable to be administered yet. Contact was once again made at approximately 0525 via phone call to update that a 2nd elute was comp leted and was positive on every tested cell. Following these findings, the sample is to be sent to [facility] to perform additional necessary techniques to crossmatch compatible units and have the blood be safely administered to the patient. As of 0545 on 09/09/2024, the patient has been unable to receive transfusions. She remains hemodynamically stable and repeat labs are pending. - CBC H&H 5.04/16; PT/INR pending; CMP creatinine 1.57, BUN WNL - CBC am; H/H 1 hour after transfused then q4hr x 2 after transfused - Iron panel pending; Ferritin pending - Vitamin B12 pending, folate pending - LDH pending, reticulocytes pending - CTAP from 05/25/2024 without acute findings, there were colonic diverticula at that time; chest CT at that same date suggested findings of pneumonia only - no repeat imaging at admission - Transfuse 2U then repeat H/H - Trend H/H 1 hour after units complete then q4h x 2 - Transfuse if Hgb < 7 - GI not consulted at admission - Heme consulted - appreciate input + recs #Renal insufficiency Likely secondary to renal hypoperfusion in setting of anemia - Cr slightly increased 1.57; BUN 21 - BMP am - Avoid nephrotoxic agents - Receiving PRBCs #COPD- 2L NC at baseline; No evidence of exacerbation; albuterol inhaler, Trelegy - continue #HFrEF- Echo 04/2024 EF 60-65%; Furosemide - continue #SSS- Plavix -- HOLD #HTN- Valsartan - continue #HLD- Rosuvastatin - continue #T2DM- Ozempic weekly, Mondays #GERD- Pantoprazole- continue #RLS- Ropinirole - continue #Hypothyroidism- Levothyroxine - continue #Psych- Amitriptyline, bupropion - continue Dispo: Obs, med/tele VTE Prophylaxis: SCDs This document was dictated utilizing [employer]. Please excuse any grammatical errors that may be secondary to use of this software. Admission and Anticipated Discharge Date Admission Date: 09/08/2024 History of Present Illness Chief Complaint: Referred, low H/H Primary Care Provider: Jeniffer Mathew PA-C 68-year-old female PMHx symptomatic anemia, COPD with emphysema, ALTHEA, HTN, HLD, L subclavian artery occlusion, pulmonary nodules, T2DM, hypothyroidism, and GERD presenting by outpatient referral for low hemoglobin levels. Patient is having more SOB than normal mainly only with exertion despite wearing 2L via NC at baseline. Also complaining of feeling "tired" for the past couple weeks, and some dizziness. Described as both feeling off balance and vertiginous. She is not having any chest pain or palpitations. States that she did not know that her blood counts were low and only knew because she saw her lab results. She is not having any palpitations. No SOB at rest. Patient has "cut way back" on taking ibuprofen or other NSAIDs. She has not started any other new medications of note. No recent dietary changes. Has not noted blood in stool or urine. No dark tarry stools. Again denies chest pain, palpitations, abdominal pain, N/V/D/C, numbness/tingling, fever/chills, URI symptoms, LUTS, syncope, or LOC. ED evaluation reveals no leukocytosis, H&H 5.04/16, platelets 389; PT/INR pending; CMP creatinine 1.57, glucose 107; EKG NSR, low voltage QRS, 89 bpm.; Provided with NSS in ED. Please see Dr. Brenner's attestation for adjustments/additions to treatment plan. Allergies Allergy/AdvReac Type Severity Reaction Status Date / Time clarithromycin Allergy Intermediate hot Verified 09/08/24 22:41 flashes face got red sulfamethoxazole AdvReac Mild FLUSHED Verified 09/08/24 22:41 trimethoprim AdvReac Mild FLUSHED Verified 09/08/24 22:41 Home Medications Medication Instructions Recorded Confirmed Type clopidogrel 75 mg tablet 75 mg PO QAM 02/16/18 09/08/24 History montelukast 10 mg tablet 10 mg PO QPM 01/30/19 09/08/24 History (Singulair) CPAP Supplies #1 ea 05/29/22 05/25/24 Rx Portable Oxygen #1 ea 06/09/22 05/25/24 Rx fluticasone propionate 50 2 spray intranasal DAILY 10/05/22 09/08/24 History mcg/actuation nasal spray,suspension furosemide 40 mg tablet 40 mg PO QAM 10/05/22 09/08/24 History rosuvastatin 40 mg tablet 40 mg PO HS 09/27/23 09/08/24 History amitriptyline 100 mg tablet 100 mg PO HS 11/15/23 09/08/24 History bupropion HCl (smoking deter) 150 150 mg PO BID headaches 11/15/23 09/08/24 History mg tablet,12 hr sustained-release(smoking deterrent) fluticasone fur. 100 mcg-umeclid 1 inh inhalation QAM 11/15/23 09/08/24 History 62.5 mcg-vilant 25 mcg inhalat.powder (Trelegy Ellipta) levothyroxine 150 mcg tablet 150 mcg PO QAM 11/15/23 09/08/24 History semaglutide 0.25 mg or 0.5 mg (2 0.5 mg subcut WK 11/15/23 09/08/24 History mg/3 mL) subcutaneous pen injector (Ozempic) valsartan 160 mg tablet 160 mg PO QAM 11/15/23 09/08/24 History ropinirole 0.5 mg tablet 0.5 mg PO HS 05/25/24 09/08/24 History Oxygen Home #2 L 05/27/24 Rx pantoprazole 40 mg tablet,delayed 40 mg PO BID #60 tabs 05/27/24 09/08/24 Rx release albuterol sulfate 90 mcg/actuation 2 inh inhalation Q4H PRN dyspnea 06/02/24 09/08/24 Rx aerosol inhaler (Ventolin HFA) or wheeze #18 grams amoxicillin 875 mg-potassium 1 tab PO BIDM #11 tabs 09/12/24 Rx clavulanate 125 mg tablet ascorbic acid (vitamin C) 500 mg 500 mg PO QAM #30 tabs 09/12/24 Rx tablet (Vitamin C) ferrous gluconate 324 mg (38 mg 324 mg PO QAM #30 tabs 09/12/24 Rx iron) tablet Past Med/Surg History Problem List (Updated 09/09/24 @ 14:23 by Maurice Tobar MD) CKD stage 3a, GFR 45-59 ml/min Renal insufficiency Anemia (Acute) Community acquired pneumonia Elevated troponin Anemia (Acute) Symptomatic anemia Acute UTI (Acute) CONRAD (acute kidney injury) (Acute) Acute hyponatremia (Acute) Fever (Acute) Tachycardia (Acute) Leukocytosis (Acute) SOB (shortness of breath) (Acute) Sepsis (Acute) Lower extremity edema Restrictive lung disease Encounter for pre-operative examination Multiple pulmonary nodules Lung nodule seen on imaging study (Chronic) 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 Pre-diabetes Lower extremity edema Hypothyroidism CAD (coronary artery disease) Anemia History of recent hospitalization admitted 05/25/24 to [facility] for symptomatic anemia, was transfused with 2 units of PRBCs and also diagnosed pneumonia-treated abx. pt is currently doing well. GERD (gastroesophageal reflux disease) On anticoagulant therapy pt unsure as to why she takes a blood thinner (denies heart attack, TIA, stroke or a.fib) History of COVID-19 2019: mild symptoms. no hospitalization Restless leg syndrome Hyperlipidemia Hx of osteomyelitis right foot heel initial injury in 1983 & again in ~ Pulmonary nodules monitoring and follows with Dr Carmona Left subclavian artery occlusion (2017) had surgery for this at [facility] with Dr. 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 feeling better currently (06/08/24) ~11/2022?? vs copd flare up/bronchitis - hospitalized at [facility] 2017: s/p subclavian artery surgery and hospitalized at [facility] at the time. SOB (shortness of breath) on exertion Surgical History History of left cataract extraction History of right cataract extraction History of esophagogastroduodenoscopy (EGD) History of colonoscopy S/P debridement 1983 + ~ -> right foot heel Hx of arthroscopy of left knee History of x2 History of umbilical hernia repair History of thyroidectomy History of orbit decompression - bilateral Family History Other No family history of adverse response to anesthesia Social History Smoking Status: Former smoker Tobacco Type: Cigarettes Cigarettes Per Day: 10 - attempting to quit; Second Hand Exposure: No; Do You Dip or Chew Tobacco: No; Hx Alcohol Use: No Hx Substance Use: No Preferred Language: Armenian Communication Ability: Effective Seat Nailer Required: No Beliefs That Will Affect Care: None Current Living Situation: Spouse Current Living Situation Comment: LIVES WITH BOYFRIEND ANGELA Feels Safe at Home: Yes Assistive Devices: Cane and Oxygen - Continuous Review of Systems Review of Systems: All systems reviewed & are unremarkable except as noted in Subjective Physical Exam Physical Exam: General: No acute distress Skin: Warm and dry Head: Normocephalic, atraumatic Eyes: PERRL, conjunctivae clear, sclera non-icteric ENT: External ear and ear canal without swelling; nose atraumatic; good dentition, tongue normal appearance, pharynx normal Neck: Supple, no LAD Cardio: RRR, no M/G/R, S1 and S2 normal Resp: Wearing O2 via NC; no respiratory distress, Lungs CTA in all lobes bilaterally, no wheezes, rales, or rhonchi Abdomen: Soft, symmetric, nontender; No masses or hepatosplenomegaly; Bowel sounds normoactive MSK: No deformities; pulses palpable and equal; trace pitting edema BLE. Neuro: Awake, alert; Sensation intact bilaterally; CN grossly intact Psych: Appropriate mood and affect; good judgement and insight. Results & Data Results & Data Vital Signs (Past 12 Hours) Vital Signs Temp Pulse Pulse Resp BP BP Pulse Ox 09/08/24 23:00 83 18 102/66 98 09/08/24 22:15 91 H 09/08/24 21:41 36.5 C 96 H 18 104/58 L 92 O2 Del Method O2 Flow Rate 09/08/24 23:00 Nasal Cannula 2 09/08/24 22:15 09/08/24 21:41 Nasal Cannula 2 Laboratory Results 09/08/24 09/08/24 22:30 21:55 WBC 8.33 RBC 2.65 L Hgb 5.1 L* Hct 19.0 L* MCV 71.7 L MCH 19.2 L MCHC 26.8 L RDW Std Deviation 54.1 H RDW Coeff of Elizabeth 21.3 H Plt Count 389 MPV 10.3 Immature Gran % (Auto) 0.6 Neut % (Auto) 78.5 Lymph % (Auto) 12.4 Fisher % (Auto) 7.7 Eos % (Auto) 0.7 Baso % (Auto) 0.1 Reticulocyte % (Auto) 1.58 Neut # (Auto) 6.54 H Lymph # (Auto) 1.03 L Fisher # (Auto) 0.64 H Eos # (Auto) 0.06 Baso # (Auto) 0.01 Reticulocyte # 0.040 Immature Gran # (Auto) 0.05 Absolute Nucleated RBC 0.03 Nucleated RBC % (auto) 0.4 Polychromasia 3+ Anisocytosis Present Tear Drop Cells 1+ PT 11.3 INR 1.0 APTT 25 PTT Ratio 0.9 Sodium 138 Potassium 3.9 Chloride 104 Carbon Dioxide 24 Anion Gap 10 BUN 21 Creatinine 1.57 H Est Cr Clr Drug Dosing 42.2 eGFR 36.16 BUN/Creatinine Ratio 13.4 Glucose 107 H Calcium 8.9 Iron TNP TIBC 514 H Transferrin 367 H Transferrin % Sat TNP Lactate Dehydrogenase TNP Crossmatch See Detail Medications Administered NSS ECG Additional Comments: NSR, low voltage QRS 89 bpm, MT 140, QRS 78, QT/QTc 382/464, PRT 62/72/59 Code Status & VTE Plan Code Status Full VTE Prophylaxis Plan VTE Prophylaxis will be ordered: Yes Supervising Physician Co-Signing Physician Notes I personally saw and examined the patient. I independently reviewed the labs, EKG, imaging, problem list, medication list, past medical history and family history. I verified all byers points and agree with Lana Mcneal PA-C with the following exceptions and/or additions: 68 year old female presents to the ER on advice of her outpatient physician due to low hemoglobin. Presumed iron deficiency anemia previously. Colonoscopy and EGD did not find bleeding source. Planning on small bowel endoscopy as outpatient. No sudden worsening of symptoms. She reports being asymptomatic. HS RRR, no murmurs, Chest CTAB, Abdo SNT PG Care Time/CCT Total # of Minutes Spent Total Time Spent with Patient: Total time spent is greater than 50% in coordination of care (as documented) at patient's floor/unit and/or counseling patient: Coding Level of Care Code 26821 INT INP/OBS CARE 3/75MIN Diagnoses Symptomatic anemia D64.9 Renal insufficiency N28.9
[2024-09-08 23:43] LABS: Ferritin 5.1 ng/ml (8-388)
[2024-09-08 23:45] LABS: Folate (Folic Acid),Ser orPlas > 22.30 ng/ml (>5.38)
[2024-09-08 23:46] LABS: Vitamin B12 578 pg/ml (180-914)
[2024-09-09 00:34] LABS: Iron 18 mcg/dl (35-150); Lactate Dehydrogenase 158 U/L (86-244)
[2024-09-09] MEDS ORDERED: ONDANSETRON INJ 2 MG/ML 2 ML VIAL IV PRN (02:21)
[2024-09-09] MEDS ORDERED: ALBUTEROL HFA 8 GM INHALER INH PRN (02:21)
[2024-09-09] MEDS ORDERED: POLYETHYLENE (MIRALAX) 17 GM PACK PO PRN (02:21)
[2024-09-09 05:42] LABS: BUN Creatinine Ratio 12.8 (10-20); Calcium 8.7 mg/dl (8.6-10.3); Potassium 3.9 mmol/L (3.5-5.1)
[2024-09-09] MEDS: LEVOTHYROXINE SODIUM 150 MCG TABLET PO SCH (06:03)
[2024-09-09 06:41] LABS: Hematocrit (blood only) 16.5 % (37.0-47.0); Hemoglobin 4.4 g/dl (12.0-16.0)
[2024-09-09] MEDS: FLUTICASONE PROPIONATE NA SPR 16 GM BTL SCH (08:12)
[2024-09-09] MEDS: PANTOprazole 40 MG TAB PO SCH (08:12)
[2024-09-09] MEDS: buPROPion SR 150 MG TABCR PO SCH (08:12)
[2024-09-09] MEDS: FLUTICASONE FUROATE 100MCG 14 PUFFS/INHALER INH SCH (08:13)
[2024-09-09] MEDS: UMECLIDINIUM/VILANTEROL 62.5/25MCG 7 PUFFS/INHALER INH SCH (08:13)
[2024-09-09] MEDS ORDERED: FUROSEMIDE 40 MG TAB PO SCH (09:00)
[2024-09-09] MEDS ORDERED: NON-FORMULARY MEDICATION (Fluticasone-Umeclidin-Vilanter [Trelegy Ellipta] 100-62.5-25 mcg INH SCH (09:00)
[2024-09-09] MEDS ORDERED: VALSARTAN 80 MG TAB PO SCH (09:00)
--- NOTE | 2024-09-09 10:20 | Hospitalist Progress Note ---
Date of Service September 09, 2024 Assessment & Plan (1) Anemia: (2) Diastolic CHF: (3) Hypothyroid: (4) T2DM (type 2 diabetes mellitus): (5) COPD with emphysema: (6) CKD stage 3a, GFR 45-59 ml/min: (7) Hypertension: Plan 68-year-old female with past medical history of anemia, COPD with emphysema on 2 L of oxygen via nasal cannula, ALTHEA, essential hypertension, left subclavian artery occlusion, pulmonary nodules, type 2 diabetes mellitus, hypothyroidism, CKD stage III who presents as an outpatient referral for low hemoglobin levels. Hemoglobin on admission was 5.1 #Severe anemia Patient has history of anemia with most recent hospital admission from 05/25/2024 until 05/27/2024 where she required 2 units of PRBC She had EGD and colonoscopy with GI on 06/21/2024 which were negative for any acute findings She is scheduled for video capsule endoscopy with [facility] as outpatient She denies any active bleeding She is hemodynamically stable EKG with no ischemic changes Patient has antibody screen positive and awaiting blood from [facility] Hematology consulted: Awaiting market research consultant recommendations I did speak to the accounting/finance tutor Dr. Conley, who recommended transfer to tertiary facility for blood transfusion since delay with getting blood [facility]: Spoke with Dr. Felix accounting/finance tutor at [facility] who recommended transferring to hospital service. I spoke with Dr. Chapincito Stoddard hospitalist at [facility] in [place] who spoke to their proposal specialist Dr. Dumont) were declined as they would be also requesting blood through [facility] and since patient is hemodynamically stable, they would prefer for blood to be given at [facility] since it is arriving from the feeding facility. In the meantime I found out for blood bank that the blood has not been available Transfused 2 units PRBC Monitor H&H Iron is 18 Ferritin is 5.1 LDH is 158 B12 is 578 Folate is greater than 22.3 IV iron #CKD stage III Avoid nephrotoxic agents including NSAIDs Monitor renal function and electrolytes #Chronic COPD Patient is at baseline oxygen requirements and uses 2 L of oxygen at baseline Continue inhalers #Essential hypertension #Hyperlipidemia #Chronic diastolic congestive heart failure with preserved ejection fraction Echo from April 2024 shows EF of 60 to 65% with grade 1 diastolic dysfunction Hold furosemide and valsartan for now as blood pressure is low normal Continue statin I/O monitoring Daily weights Monitor vital signs #Obesity #Type 2 diabetes mellitus BMI 37.6 Patient is on weekly Ozempic Lifestyle counseling regarding diet, weight loss and exercise provided Outpatient follow-up with PCP CODE STATUS: Full code DVT prophylaxis: Hold off on chemical prophylaxis due to severe anemia, bilateral SCDs Discharge planning based on hematology recommendations, clinical improvement posttransfusion likely home Care plan discussed with patient, nursing staff Admission and Anticipated Discharge Date Admission Date: September 08, 2024 Subjective Patient seen and examined H&P reviewed Labs reviewed Patient ambulating to the bathroom, denies any headache, dizziness, lightheadedness, chest pain, shortness of breath, nausea, vomiting, diarrhea, abdominal pain, hematemesis, hematochezia, bright red blood per rectum or hematuria. Patient states she does feel weak and tired She is open to transfer if needed if blood not available here Patient states she stopped smoking cigarettes in April 2024. She denies alcohol use. She ambulates with a cane and lives with her boyfriend Physical Exam Physical Exam: General: No acute distress Psych: Awake and alert HEENT: Anicteric sclera, moist oral mucosa CVS: Regular rate and rhythm Lungs: Bilateral air entry, no wheezing noted Abdomen: Soft, nontender, no rebound, no guarding Ext: Trace lower extremity edema edema, no calf tenderness Neuro: No focal motor deficits noted Results & Data Results & Data Vital Signs (Past 12 Hours) Vital Signs Temp Pulse Pulse Pulse Resp BP Pulse Ox 09/09/24 09:55 36.6 C 86 18 119/64 94 09/09/24 08:46 36.7 C 86 18 96/57 L 94 09/09/24 07:41 36.7 C 91 H 19 97/53 L 93 09/09/24 06:53 86 09/09/24 03:36 82 09/09/24 02:23 37.2 C 92 H 20 103/46 L 92 09/09/24 02:20 09/09/24 01:30 83 20 121/70 97 09/09/24 01:00 84 20 112/64 100 09/09/24 00:30 86 18 107/64 97 09/08/24 23:30 85 20 101/54 L 98 09/08/24 23:00 83 18 102/66 98 09/08/24 22:30 90 22 114/57 L 98 O2 Del Method O2 Flow Rate 09/09/24 09:55 Nasal Cannula 2 09/09/24 08:46 Nasal Cannula 2 09/09/24 07:41 Nasal Cannula 2 09/09/24 06:53 09/09/24 03:36 09/09/24 02:23 Nasal Cannula 2 09/09/24 02:20 Nasal Cannula 2 09/09/24 01:30 Room Air 09/09/24 01:00 Nasal Cannula 2 09/09/24 00:30 Room Air 09/08/24 23:30 Nasal Cannula 2 09/08/24 23:00 Nasal Cannula 2 09/08/24 22:30 Nasal Cannula 2 Laboratory Results Laboratory Results - last 24 hr 09/08/24 09/08/24 09/09/24 21:55 22:30 00:00 WBC 8.33 RBC 2.65 L Hgb 5.1 L* Hct 19.0 L* MCV 71.7 L MCH 19.2 L MCHC 26.8 L RDW Std Deviation 54.1 H RDW Coeff of Elizabeth 21.3 H Plt Count 389 MPV 10.3 Immature Gran % (Auto) 0.6 Neut % (Auto) 78.5 Lymph % (Auto) 12.4 Hodgeman % (Auto) 7.7 Eos % (Auto) 0.7 Baso % (Auto) 0.1 Reticulocyte % (Auto) 1.58 Neut # (Auto) 6.54 H Lymph # (Auto) 1.03 L Hodgeman # (Auto) 0.64 H Eos # (Auto) 0.06 Baso # (Auto) 0.01 Reticulocyte # 0.040 Immature Gran # (Auto) 0.05 Absolute Nucleated RBC 0.03 Nucleated RBC % (auto) 0.4 Polychromasia 3+ Anisocytosis Present Tear Drop Cells 1+ Peripher Smr Path Cons Pending PT 11.3 INR 1.0 APTT 25 PTT Ratio 0.9 Sodium 138 Potassium 3.9 Chloride 104 Carbon Dioxide 24 Anion Gap 10 BUN 21 Creatinine 1.57 H Est Cr Clr Drug Dosing 42.2 eGFR 36.16 BUN/Creatinine Ratio 13.4 Glucose 107 H Calcium 8.9 Iron TNP 18 L TIBC 514 H Transferrin 367 H Transferrin % Sat TNP Ferritin 5.1 L Lactate Dehydrogenase TNP 158 Vitamin B12 578 Folate > 22.30 Blood Type A Positive Blood Type Recheck Antibody Screen POSITIVE A Antibody Identification Pending Antibody ID Referred Antibody ID Comment Pending Antigen Identification E Antigen - NEGATIVE Crossmatch See Detail 09/09/24 09/09/24 09/09/24 02:30 05:05 06:11 WBC RBC Hgb 4.4 L* Hct 16.5 L* MCV MCH MCHC RDW Std Deviation RDW Coeff of Elizabeth Plt Count MPV Immature Gran % (Auto) Neut % (Auto) Lymph % (Auto) Hodgeman % (Auto) Eos % (Auto) Baso % (Auto) Reticulocyte % (Auto) Neut # (Auto) Lymph # (Auto) Hodgeman # (Auto) Eos # (Auto) Baso # (Auto) Reticulocyte # Immature Gran # (Auto) Absolute Nucleated RBC Nucleated RBC % (auto) Polychromasia Anisocytosis Tear Drop Cells Peripher Smr Path Cons PT INR APTT PTT Ratio Sodium 139 Potassium 3.9 Chloride 106 Carbon Dioxide 28 Anion Gap 5 BUN 19 Creatinine 1.48 H Est Cr Clr Drug Dosing 44.0 eGFR 38.82 BUN/Creatinine Ratio 12.8 Glucose 128 H Calcium 8.7 Iron TIBC Transferrin Transferrin % Sat Ferritin Lactate Dehydrogenase Vitamin B12 Folate Blood Type Blood Type Recheck A Positive Antibody Screen Antibody Identification Antibody ID Referred Pending Antibody ID Comment Antigen Identification Crossmatch PG Care Time/CCT Total # of Minutes Spent Total Time Spent with Patient: Total time spent is greater than 50% in coordination of care (as documented) at patient's floor/unit and/or counseling patient: Coding Level of Care Code 81560 SUB INP/OBS CARE 3/50MIN Diagnoses Anemia D64.9 Anemia type: unspecified type Diastolic CHF I50.30 Hypothyroid E03.9 T2DM (type 2 diabetes mellitus) E11.9 COPD with emphysema J43.9 CKD stage 3a, GFR 45-59 ml/min N18.31 Hypertension I10 (1) Anemia Anemia type: unspecified type Qualified Code(s): D64.9 - Anemia, unspecified
--- NOTE | 2024-09-09 11:40 | Electrocardiogram Report ---
Test Reason : Blood Pressure : */* mmHG Vent. Rate : 89 BPM Atrial Rate : 89 BPM P-R Int : 140 ms QRS Dur : 78 ms QT Int : 382 ms P-R-T Axes : 68 72 59 degrees QTcB Int : 464 ms Normal sinus rhythm Low voltage QRS Borderline ECG When compared with ECG of 27-May-2024 11:17, Nonspecific T wave abnormality no longer evident in Lateral leads Confirmed by Geremias Darden ([id number]) on 09/09/2024 11:40:38 AM Referred By: REFERRED SELF Confirmed By: Geremias Darden
--- NOTE | 2024-09-09 13:06 | Oncology Consultation ---
Date of Consultation September 09, 2024 Assessment & Plan (1) Anemia: Plan -Transfuse with PRBC for severe anemia -IV venofer 300mg daily x 3 days for iron deficiency. Would probably benefit from outpatient hematology follow up to see if monthly IV iron would be beneficial -GI follow up as she will need capsule endoscopy. May need workup for malabsorption/[employer] causes if no evidence of bleeding on capsule endoscopy History of Present Illness Reason for Consultation: Anemia Attending Physician: Maurice Tobar MD History of Present Illness 68 year old admitted with severe anemia with H/H of 4.4/16.5, MCV also low at 71.7 with ferritin of 5.1 compatible with iron deficiency anemia. Upper endoscopy/colonoscopy completed in was unremarkable. CT AP in unremarkable Patient not seen in person. Reviewed chart for history Allergies Allergy/AdvReac Type Severity Reaction Status Date / Time clarithromycin Allergy Intermediate hot Verified 09/08/24 22:41 flashes face got red sulfamethoxazole AdvReac Mild FLUSHED Verified 09/08/24 22:41 trimethoprim AdvReac Mild FLUSHED Verified 09/08/24 22:41 Home Medications Medication Instructions Recorded Confirmed Type clopidogrel 75 mg tablet 75 mg PO QAM 02/16/18 09/08/24 History montelukast 10 mg tablet 10 mg PO QPM 01/30/19 09/08/24 History (Gustavo) CPAP Supplies #1 ea 05/29/22 05/25/24 Rx Portable Oxygen #1 ea 06/09/22 05/25/24 Rx fluticasone propionate 50 2 spray intranasal DAILY 10/05/22 09/08/24 History mcg/actuation nasal spray,suspension furosemide 40 mg tablet 40 mg PO QAM 10/05/22 09/08/24 History rosuvastatin 40 mg tablet 40 mg PO HS 09/27/23 09/08/24 History amitriptyline 100 mg tablet 100 mg PO HS 11/15/23 09/08/24 History bupropion HCl (smoking deter) 150 150 mg PO BID headaches 11/15/23 09/08/24 History mg tablet,12 hr sustained-release(smoking deterrent) fluticasone fur. 100 mcg-umeclid 1 inh inhalation QAM 11/15/23 09/08/24 History 62.5 mcg-vilant 25 mcg inhalat.powder (Trelegy Ellipta) levothyroxine 150 mcg tablet 150 mcg PO QAM 11/15/23 09/08/24 History semaglutide 0.25 mg or 0.5 mg (2 0.5 mg subcut WK 11/15/23 09/08/24 History mg/3 mL) subcutaneous pen injector (Ozempic) valsartan 160 mg tablet 160 mg PO QAM 11/15/23 09/08/24 History ropinirole 0.5 mg tablet 0.5 mg PO HS 05/25/24 09/08/24 History Oxygen Home #2 L 05/27/24 Rx pantoprazole 40 mg tablet,delayed 40 mg PO BID #60 tabs 05/27/24 09/08/24 Rx release albuterol sulfate 90 mcg/actuation 2 inh inhalation Q4H PRN dyspnea 06/02/24 09/08/24 Rx aerosol inhaler (Ventolin HFA) or wheeze #18 grams Patient History Medical History CAD (coronary artery disease) Diastolic CHF Hypothyroid T2DM (type 2 diabetes mellitus) COPD with emphysema Obstructive sleep apnea of adult On home oxygen therapy 2lpm via n/c PRN during the day. Pre-diabetes Lower extremity edema Hypothyroidism CAD (coronary artery disease) Anemia History of recent hospitalization admitted 05/25/24 to [facility] for symptomatic anemia, was transfused with 2 units of PRBCs and also diagnosed pneumonia-treated abx. pt is currently doing well. GERD (gastroesophageal reflux disease) On anticoagulant therapy pt unsure as to why she takes a blood thinner (denies heart attack, TIA, stroke or a.fib) History of COVID-2019: mild symptoms. no hospitalization Restless leg syndrome Hyperlipidemia Hx of osteomyelitis right foot heel initial injury in 1983 & again in ~ Pulmonary nodules monitoring and follows with Dr Carmona Left subclavian artery occlusion (2017) had surgery for this at [facility] with Dr. 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 feeling better currently (06/08/24) ~11/2022?? vs copd flare up/bronchitis - hospitalized at [facility] 2017: s/p subclavian artery surgery and hospitalized at [facility] at the time. SOB (shortness of breath) on exertion Surgical History History of left cataract extraction History of right cataract extraction History of esophagogastroduodenoscopy (EGD) History of colonoscopy S/P debridement 1984 + ~ -> right foot heel Hx of arthroscopy of left knee History of x2 History of umbilical hernia repair History of thyroidectomy History of orbit decompression 1980s - bilateral Family History Other No family history of adverse response to anesthesia Social History Smoking Status: Former smoker Tobacco Type: Cigarettes Cigarettes Per Day: 10 - attempting to quit; Smoking End Date: april 2024; Second Hand Exposure: No; Do You Dip or Chew Tobacco: No; Hx Alcohol Use: No Hx Substance Use: No Preferred Language: Rwandan Communication Ability: Effective Child Care Worker Required: No Beliefs That Will Affect Care: None Current Living Situation: Spouse Current Living Situation Comment: LIVES WITH BOYFRIEND ANGELA Feels Safe at Home: Yes Safety Concerns: Feels Safe At This Time Assistive Devices: Glasses and Oxygen - Continuous Results & Data Vital Signs (Past 12 Hours) Vital Signs Temp Pulse Pulse Pulse Resp BP Pulse Ox 09/09/24 11:38 36.5 C 74 20 95/58 L 92 09/09/24 09:55 36.6 C 86 18 119/64 94 09/09/24 08:46 36.7 C 86 18 96/57 L 94 09/09/24 08:00 09/09/24 07:41 36.7 C 91 H 19 97/53 L 93 09/09/24 06:53 86 09/09/24 03:36 82 09/09/24 02:23 37.2 C 92 H 20 103/46 L 92 09/09/24 02:20 09/09/24 01:30 83 20 121/70 97 O2 Del Method O2 Flow Rate 09/09/24 11:38 Nasal Cannula 2 09/09/24 09:55 Nasal Cannula 2 09/09/24 08:46 Nasal Cannula 2 09/09/24 08:00 Nasal Cannula 2 09/09/24 07:41 Nasal Cannula 2 09/09/24 06:53 09/09/24 03:36 09/09/24 02:23 Nasal Cannula 2 09/09/24 02:20 Nasal Cannula 2 09/09/24 01:30 Room Air (1) Anemia Anemia type: unspecified type Qualified Code(s): D64.9 - Anemia, unspecified
[2024-09-09] MEDS: IRON SUCROSE 200 MG in SODIUM CHLORIDE 0.9% 100 ML IV ONE (15:28)
[2024-09-09] MEDS: FUROSEMIDE INJ 20 MG/2 ML VIAL IV ONE (16:14)
[2024-09-09] MEDS: AMITRIPTYLINE HCL 100 MG TAB PO SCH (20:01)
[2024-09-09] MEDS: rOPINIRole HCL 0.25 MG TABLET PO SCH (20:02)
[2024-09-09] MEDS: MONTELUKAST SODIUM 10 MG TABLET PO SCH (20:02)
[2024-09-09] MEDS: ROSUVASTATIN CALCIUM 20 MG TAB PO SCH (20:03)
[2024-09-09 21:40] LABS: Hematocrit (blood only) 21.9 % (37.0-47.0); Hemoglobin 6.2 g/dl (12.0-16.0)
[2024-09-09] MEDS ORDERED: SODIUM CHLORIDE 0.9% 100 ML IV PRN (21:42)
[2024-09-10 02:49] LABS: BUN Creatinine Ratio 15.3 (10-20); Calcium 8.7 mg/dl (8.6-10.3); Creatinine Clr Calc Pharmacy 50.2 ml/min; Magnesium 2.3 mg/dl (1.7-2.4)
[2024-09-10 03:36] LABS: Anisocytosis Present; Basophils # (auto) 0.02 K/uL (0.00-0.20); Basophils % (auto) 0.3 %; Eosinophils # (auto) 0.08 K/uL (0.00-0.50); Eosinophils % (auto) 1.1 %; Hematocrit (blood only) 23.8 % (37.0-47.0); Hemoglobin 6.9 g/dl (12.0-16.0); Immature Granulocytes # (auto) 0.11 K/uL (0.01-0.20); Immature Granulocytes % (auto) 1.5 %; Lymphocytes # (auto) 0.75 K/uL (1.20-3.40); Lymphocytes % (auto) 10.1 %; Mean Platelet Volume 9.5 fL (9.4-12.4); Monocytes # (auto) 0.52 K/uL (0.11-0.59); Neutrophils # (auto) 5.94 K/uL (1.40-6.50); Nucleated RBC # (auto) 0.02 K/uL (0.00-0.12); Nucleated RBC % (auto) 0.3 %; Platelet Count 263 K/uL (130-400); Polychromasia 1+; RDW Coefficient of Variation 21.1 % (11.5-14.5); RDW Standard Deviation 58.6 fL (36.4-46.3); Red Blood Count 3.13 M/uL (4.20-5.40); Tear Drop Cells 1+; White Blood Count 7.42 K/ul (4.8-10.8)
[2024-09-10] MEDS ORDERED: SODIUM CHLORIDE 0.9% 100 ML IV PRN (04:47)
[2024-09-10 05:59] LABS: Basophils # (auto) 0.03 K/uL (0.00-0.20); Basophils % (auto) 0.4 %; Eosinophils # (auto) 0.13 K/uL (0.00-0.50); Eosinophils % (auto) 1.6 %; Hematocrit (blood only) 25.9 % (37.0-47.0); Hemoglobin 7.6 g/dl (12.0-16.0); Immature Granulocytes # (auto) 0.11 K/uL (0.01-0.20); Immature Granulocytes % (auto) 1.4 %; Lymphocytes # (auto) 0.71 K/uL (1.20-3.40); Lymphocytes % (auto) 8.8 %; Mean Corpuscular Hemoglobin 22.6 pg (25.0-34.0); Mean Corpuscular Hgb Conc 29.3 g/dL (32.0-36.0); Mean Corpuscular Volume 77.1 fL (80.0-100.0); Mean Platelet Volume 10.2 fL (9.4-12.4); Monocytes # (auto) 0.59 K/uL (0.11-0.59); Monocytes % (auto) 7.3 %; Neutrophils % (auto) 80.5 %; Nucleated RBC # (auto) 0.04 K/uL (0.00-0.12); Nucleated RBC % (auto) 0.5 %; Platelet Count 266 K/uL (130-400); RDW Coefficient of Variation 20.7 % (11.5-14.5); RDW Standard Deviation 58.4 fL (36.4-46.3); Red Blood Count 3.36 M/uL (4.20-5.40); White Blood Count 8.07 K/ul (4.8-10.8)
[2024-09-10 06:12] LABS: BUN Creatinine Ratio 15.6 (10-20); Calcium 8.8 mg/dl (8.6-10.3); Creatinine Clr Calc Pharmacy 54.2 ml/min; Potassium 3.9 mmol/L (3.5-5.1)
[2024-09-10 07:01] LABS: Anisocytosis Present; Hypochromasia Present; Polychromasia 1+
[2024-09-10] MEDS ORDERED: IRON SUCROSE 200 MG in SODIUM CHLORIDE 0.9% 100 ML IV SCH (09:00)
[2024-09-10] MEDS: IRON SUCROSE 300 MG in SODIUM CHLORIDE 0.9% 250 ML IV SCH (09:28)
[2024-09-10] MEDS: guaiFENesin 600 MG TABCR PO SCH (09:30)
--- NOTE | 2024-09-10 09:44 | Hospitalist Progress Note ---
Date of Service September 10, 2024 Assessment & Plan (1) Anemia: (2) Diastolic CHF: (3) Hypothyroid: (4) T2DM (type 2 diabetes mellitus): (5) COPD with emphysema: (6) CKD stage 3a, GFR 45-59 ml/min: (7) Hypertension: Plan 68-year-old female with past medical history of anemia, COPD with emphysema on 2 L of oxygen via nasal cannula, ALTHEA, essential hypertension, left subclavian artery occlusion, pulmonary nodules, type 2 diabetes mellitus, hypothyroidism, CKD stage III who presents as an outpatient referral for low hemoglobin levels. Hemoglobin on admission was 5.1 #Severe anemia Patient has history of anemia with most recent hospital admission from 05/25/2024 until 05/27/2024 where she required 2 units of PRBC She had EGD and colonoscopy with GI on 06/21/2024 which were negative for any acute findings She is scheduled for video capsule endoscopy with [facility] as outpatient Iron is 18 Ferritin is 5.1 LDH is 158 B12 is 578 Folate is greater than 22.3 Patient has antibodies in her blood and required special blood and status post 3 units PRBC with improvement in H&H Hematology saw the patient and recommended transfuse for PRBC for severe anemia, IV Venofer 300 mg daily x 3 days for iron deficiency and outpatient follow-up with hematology to see if she would benefit from monthly IV iron. Check repeat H&H at 3 PM today Continue IV iron (day 2/3) #CKD stage III Avoid nephrotoxic agents including NSAIDs Monitor renal function and electrolytes #Chronic COPD Patient is at baseline oxygen requirements and uses 2 L of oxygen at baseline Continue inhalers #Essential hypertension #Hyperlipidemia #Chronic diastolic congestive heart failure with preserved ejection fraction Echo from April 2024 shows EF of 60 to 65% with grade 1 diastolic dysfunction Hold valsartan for now as blood pressure is low normal Resume diuretics: Patient received IV Lasix between transfusions and give Bumex 1 mg x 1 dose today Continue statin I/O monitoring Daily weights Monitor vital signs #Obesity #Type 2 diabetes mellitus BMI 37.6 Patient is on weekly Ozempic Lifestyle counseling regarding diet, weight loss and exercise provided Outpatient follow-up with PCP CODE STATUS: Full code DVT prophylaxis: Hold off on chemical prophylaxis due to severe anemia, bilateral SCDs Discharge planning based on PT/OT recommendations, clinical improvement and sta ble H&H. Likely in the next 24 to 48 hours Care plan discussed with patient, nursing staff Admission and Anticipated Discharge Date Admission Date: September 08, 2024 Subjective Patient seen and examined Denies any chest pain or shortness of breath She is on 2 L of oxygen which is her baseline Denies any nausea, vomiting or abdominal pain Denies any bleeding She received 3 units of PRBC in the past 24 hours with improvement in H&H Physical Exam Physical Exam: General: No acute distress Psych: Awake and alert HEENT: Anicteric sclera, moist oral mucosa CVS: Regular rate and rhythm Lungs: Bilateral air entry, no wheezing noted Abdomen: Soft, nontender, no rebound, no guarding Ext: Trace lower extremity edema edema, no calf tenderness Neuro: No focal motor deficits noted Results & Data Results & Data Vital Signs (Past 12 Hours) Vital Signs Temp Pulse Pulse Resp BP BP Pulse Ox 09/10/24 07:56 36.7 C 85 19 90/53 L 97 09/10/24 07:21 83 09/10/24 02:59 36.9 C 87 16 99/59 L 93 09/10/24 02:21 09/10/24 00:46 36.8 C 82 14 122/71 95 09/10/24 00:11 36.8 C 83 14 106/69 95 09/09/24 23:11 36.9 C 88 14 118/74 94 09/09/24 22:41 36.6 C 88 14 114/70 95 09/09/24 22:26 36.5 C 85 14 115/67 93 09/09/24 22:06 37.1 C 85 14 121/73 95 09/09/24 21:45 82 Pulse Ox O2 Del Method O2 Del Method O2 Flow Rate O2 Flow Rate 09/10/24 07:56 Nasal Cannula 2 09/10/24 07:21 09/10/24 02:59 Nasal Cannula 2 09/10/24 02:21 94 Nasal Cannula 2 09/10/24 00:46 2 09/10/24 00:11 2 09/09/24 23:11 2 09/09/24 22:41 2 09/09/24 22:26 2 09/09/24 22:06 2 09/09/24 21:45 Laboratory Results Laboratory Results - last 24 hr 09/08/24 09/08/24 09/09/24 22:30 22:30 21:09 WBC RBC Hgb 6.2 L* Hct 21.9 L MCV MCH MCHC RDW Std Deviation RDW Coeff of Elizabeth Plt Count MPV Immature Gran % (Auto) Neut % (Auto) Lymph % (Auto) Harding % (Auto) Eos % (Auto) Baso % (Auto) Neut # (Auto) Lymph # (Auto) Harding # (Auto) Eos # (Auto) Baso # (Auto) Immature Gran # (Auto) Absolute Nucleated RBC Nucleated RBC % (auto) Polychromasia Hypochromasia Anisocytosis Tear Drop Cells Sodium Potassium Chloride Carbon Dioxide Anion Gap BUN Creatinine Est Cr Clr Drug Dosing eGFR BUN/Creatinine Ratio Glucose Calcium Magnesium Blood Type A Positive Antibody Screen POSITIVE A Antibody Identification Anti-CW Anti-E Antibody ID Comment Not Reportable Elution AUTOPANAGLUTININ Antigen Identification E Antigen - NEGATIVE Direct Antiglob Test Positive A JUAN FRANCISCO (IgG-AHG) 1+ A JUAN FRANCISCO, Polyspecific 1+ A JUAN FRANCISCO C3b, C3d 5 Min Neg Crossmatch See Detail 09/10/24 09/10/24 01:59 05:12 WBC 7.42 8.07 RBC 3.13 L 3.36 L Hgb 6.9 L* 7.6 L Hct 23.8 L 25.9 L MCV 76.0 L D 77.1 L MCH 22.0 L 22.6 L MCHC 29.0 L 29.3 L RDW Std Deviation 58.6 H 58.4 H RDW Coeff of Elizabeth 21.1 H 20.7 H Plt Count 263 266 MPV 9.5 10.2 Immature Gran % (Auto) 1.5 1.4 Neut % (Auto) 80.0 80.5 Lymph % (Auto) 10.1 8.8 Harding % (Auto) 7.0 7.3 Eos % (Auto) 1.1 1.6 Baso % (Auto) 0.3 0.4 Neut # (Auto) 5.94 6.50 Lymph # (Auto) 0.75 L 0.71 L Harding # (Auto) 0.52 0.59 Eos # (Auto) 0.08 0.13 Baso # (Auto) 0.02 0.03 Immature Gran # (Auto) 0.11 0.11 Absolute Nucleated RBC 0.02 0.04 Nucleated RBC % (auto) 0.3 0.5 Polychromasia 1+ 1+ Hypochromasia Present Anisocytosis Present Present Tear Drop Cells 1+ Sodium 138 138 Potassium 4.0 3.9 Chloride 104 105 Carbon Dioxide 29 29 Anion Gap 5 4 BUN 20 19 Creatinine 1.31 H 1.22 H Est Cr Clr Drug Dosing 50.2 54.2 eGFR 44.94 48.94 BUN/Creatinine Ratio 15.3 15.6 Glucose 98 100 H Calcium 8.7 8.8 Magnesium 2.3 Blood Type Antibody Screen Antibody Identification Antibody ID Comment Elution Antigen Identification Direct Antiglob Test JUAN FRANCISCO (IgG-AHG) JUAN FRANCISCO, Polyspecific JUAN FRANCISCO C3b, C3d 5 Min Crossmatch PG Care Time/CCT Total # of Minutes Spent Total Time Spent with Patient: Total time spent is greater than 50% in coordination of care (as documented) at patient's floor/unit and/or counseling patient: Coding Level of Care Code 00026 SUB INP/OBS CARE 3/50MIN Diagnoses Anemia D64.9 Anemia type: unspecified type Diastolic CHF I50.30 Hypothyroid E03.9 T2DM (type 2 diabetes mellitus) E11.9 COPD with emphysema J43.9 CKD stage 3a, GFR 45-59 ml/min N18.31 Hypertension I10 (1) Anemia Anemia type: unspecified type Qualified Code(s): D64.9 - Anemia, unspecified
[2024-09-10] MEDS: BUMETANIDE 1 MG TAB PO ONE (10:21)
[2024-09-10 14:16] LABS: Hematocrit (blood only) 24.9 % (37.0-47.0); Hemoglobin 7.2 g/dl (12.0-16.0)
[2024-09-10 22:48] LABS: Hemoglobin 7.2 g/dl (12.0-16.0)
[2024-09-11 06:43] LABS: Hematocrit (blood only) 24.9 % (37.0-47.0); Hemoglobin 7.2 g/dl (12.0-16.0); Mean Corpuscular Hemoglobin 22.4 pg (25.0-34.0); Mean Corpuscular Hgb Conc 28.9 g/dL (32.0-36.0); Mean Corpuscular Volume 77.6 fL (80.0-100.0); Nucleated RBC # (auto) 0.04 K/uL (0.00-0.12); Nucleated RBC % (auto) 0.5 %; Platelet Count 244 K/uL (130-400); RDW Coefficient of Variation 21.7 % (11.5-14.5); RDW Standard Deviation 60.3 fL (36.4-46.3); Red Blood Count 3.21 M/uL (4.20-5.40); White Blood Count 8.46 K/ul (4.8-10.8)
[2024-09-11 07:06] LABS: BUN Creatinine Ratio 11.4 (10-20); Magnesium 2.1 mg/dl (1.7-2.4); Potassium 3.8 mmol/L (3.5-5.1)
--- NOTE | 2024-09-11 10:18 | Hospitalist Progress Note ---
Date of Service September 11, 2024 Assessment & Plan (1) Anemia: (2) Diastolic CHF: (3) Hypothyroid: (4) T2DM (type 2 diabetes mellitus): (5) COPD with emphysema: (6) CKD stage 3a, GFR 45-59 ml/min: (7) Hypertension: Plan 68-year-old female with past medical history of anemia, COPD with emphysema on 2 L of oxygen via nasal cannula, ALTHEA, essential hypertension, left subclavian artery occlusion, pulmonary nodules, type 2 diabetes mellitus, hypothyroidism, CKD stage III who presents as an outpatient referral for low hemoglobin levels. Hemoglobin on admission was 5.1 #Severe anemia Patient has history of anemia with most recent hospital admission from 05/25/2024 until 05/27/2024 where she required 2 units of PRBC She had EGD and colonoscopy with GI on 06/21/2024 which were negative for any acute findings She is scheduled for video capsule endoscopy with [facility] as outpatient Iron is 18 Ferritin is 5.1 LDH is 158 B12 is 578 Folate is greater than 22.3 Patient has antibodies in her blood and required special blood and status post 3 units PRBC with improvement in H&H Hematology saw the patient and recommended transfuse for PRBC for severe anemia, IV Venofer 300 mg daily x 3 days for iron deficiency and outpatient follow-up with hematology to see if she would benefit from monthly IV iron. H&H has been stable at 7.2 Continue IV iron (day 2/3) #CKD stage III Avoid nephrotoxic agents including NSAIDs Monitor renal function and electrolytes #Chronic COPD Patient is at baseline oxygen requirements and uses 2 L of oxygen at baseline Check two-view chest x-ray given new cough with sputum production Check sputum culture Start Augmentin 875 mg p.o. twice daily Continue inhalers #Essential hypertension #Hyperlipidemia # Acute on chronic diastolic congestive heart failure with preserved ejection fraction Echo from April 2024 shows EF of 60 to 65% with grade 1 diastolic dysfunction Hold valsartan for now as blood pressure is low normal Continue Bumex 1 mg p.o. daily Continue statin I/O monitoring Daily weights Monitor vital signs #Obesity #Type 2 diabetes mellitus BMI 37.6 Patient is on weekly Ozempic Lifestyle counseling regarding diet, weight loss and exercise provided Outpatient follow-up with PCP CODE STATUS: Full code DVT prophylaxis: Hold off on chemical prophylaxis due to severe anemia, bilateral SCDs Discharge planning Home tomorrow based on clinical improvement, stability of H&H, completion of IV iron, chest x-ray report Care plan discussed with patient, nursing staff Admission and Anticipated Discharge Date Admission Date: September 10, 2024 Subjective Patient seen and examined Patient states she did not sleep very well last night Patient complaining of cough, states started prior to admission, now with green- yellow sputum production, denies any chest pain or shortness of breath with it She is concerned about pneumonia She denies any headache, dizziness, lightheadedness, fever, chills, nausea, vomiting or abdominal pain Physical Exam Physical Exam: General: No acute distress Psych: Awake and alert HEENT: Anicteric sclera, moist oral mucosa CVS: Regular rate and rhythm Lungs: Bilateral air entry, no wheezing noted Abdomen: Soft, nontender, no rebound, no guarding Ext: Trace lower extremity edema edema, no calf tenderness Neuro: No focal motor deficits noted Results & Data Results & Data Vital Signs (Past 12 Hours) Vital Signs Temp Pulse Pulse Resp BP Pulse Ox O2 Del Method 09/11/24 08:20 36.8 C 85 18 121/70 96 Nasal Cannula 09/11/24 06:38 87 09/11/24 04:00 36.9 C 88 20 99/65 L 92 Nasal Cannula 09/10/24 23:34 37.1 C 85 20 107/62 92 Nasal Cannula O2 Flow Rate 09/11/24 08:20 2 09/11/24 06:38 09/11/24 04:00 2 09/10/24 23:34 2 Laboratory Results Laboratory Results - last 24 hr 09/08/24 09/08/24 09/08/24 21:55 22:30 22:30 WBC RBC Hgb Hct MCV MCH MCHC RDW Std Deviation RDW Coeff of Elizabeth Plt Count MPV Absolute Nucleated RBC Nucleated RBC % (auto) Peripher Smr Path Cons Sodium Potassium Chloride Carbon Dioxide Anion Gap BUN Creatinine Est Cr Clr Drug Dosing eGFR BUN/Creatinine Ratio Glucose Calcium Magnesium Blood Type A Positive Antibody Screen POSITIVE A Antibody Identification Anti-CW Anti-E Elution AUTOPANAGLUTININ Antigen Identification E Antigen - NEGATIVE Direct Antiglob Test Positive A JUAN FRANCISCO (IgG-AHG) 1+ A JUAN FRANCISCO, Polyspecific 1+ A JUAN FRANCISCO C3b, C3d 5 Min Neg Crossmatch See Detail 09/10/24 09/10/24 09/11/24 14:01 22:22 05:22 WBC 8.46 RBC 3.21 L Hgb 7.2 L 7.2 L 7.2 L Hct 24.9 L 25.0 L 24.9 L MCV 77.6 L MCH 22.4 L MCHC 28.9 L RDW Std Deviation 60.3 H RDW Coeff of Elizabeth 21.7 H Plt Count 244 MPV 10.0 Absolute Nucleated RBC 0.04 Nucleated RBC % (auto) 0.5 [address] Sm[address] Path Cons Sodium 139 Potassium 3.8 Chloride 104 Carbon Dioxide 32 Anion Gap 3 BUN 12 Creatinine 1.05 Est Cr Clr Drug Dosing 63.0 eGFR 58.60 BUN/Creatinine Ratio 11.4 Glucose 94 Calcium 9.0 Magnesium 2.1 Blood Type Antibody Screen Antibody Identification Elution Antigen Identification Direct Antiglob Test JUAN FRANCISCO (IgG-AHG) JUAN FRANCISCO, Polyspecific JUAN FRANCISCO C3b, C3d 5 Min Crossmatch PG Care Time/CCT Total # of Minutes Spent Total Time Spent with Patient: Total time spent is greater than 50% in coordination of care (as documented) at patient's floor/unit and/or counseling patient: Coding Level of Care Code 44557 SUB INP/OBS CARE 2/35MIN Diagnoses Anemia D64.9 Anemia type: unspecified type Diastolic CHF I50.30 Hypothyroid E03.9 T2DM (type 2 diabetes mellitus) E11.9 COPD with emphysema J43.9 CKD stage 3a, GFR 45-59 ml/min N18.31 Hypertension I10 (1) Anemia Anemia type: unspecified type Qualified Code(s): D64.9 - Anemia, unspecified
[2024-09-11] MEDS: AMOXICILLIN/CLAVULANATE 875 MG TAB PO ONE (10:48)
--- NOTE | 2024-09-11 11:31 | XRay Report ---
XR chest 2V PA/lateral CLINICAL HISTORY: cough ?pneumonia ?chf COMPARISON STUDY: 05/25/2024 FINDINGS: Stable mild cardiomegaly with mild pulmonary vascular congestion. Stable mild pulmonary int erstitial prominence. No consolidation or pleural effusion. No pneumothorax. IMPRESSION: CHF. ACT 112: Negative or not required by law. Electronically signed by: Luis Coleman M.D. 09/11/2024 11:30 AM
[2024-09-11] MEDS: BUMETANIDE 1 MG TAB PO ONE (14:11)
[2024-09-11] MEDS: AMOXICILLIN/CLAVULANATE 875 MG TAB PO SCH (16:53)
[2024-09-11] MEDS: MELATONIN 3 MG TAB PO PRN (20:20)
[2024-09-12 07:44] VITALS: RESP 19
[2024-09-12] MEDS: BUMETANIDE 1 MG TAB PO SCH (08:21)
[2024-09-12 08:28] LABS: Hematocrit (blood only) 26.8 % (37.0-47.0); Hemoglobin 7.6 g/dl (12.0-16.0); Mean Corpuscular Hemoglobin 22.5 pg (25.0-34.0); Mean Corpuscular Hgb Conc 28.4 g/dL (32.0-36.0); Mean Corpuscular Volume 79.3 fL (80.0-100.0); Mean Platelet Volume 9.9 fL (9.4-12.4); Nucleated RBC # (auto) 0.03 K/uL (0.00-0.12); Nucleated RBC % (auto) 0.4 %; Platelet Count 220 K/uL (130-400); RDW Coefficient of Variation 23.2 % (11.5-14.5); RDW Standard Deviation 63.3 fL (36.4-46.3); Red Blood Count 3.38 M/uL (4.20-5.40); White Blood Count 8.52 K/ul (4.8-10.8)
[2024-09-12 08:47] LABS: BUN Creatinine Ratio 13.1 (10-20); Creatinine Clr Calc Pharmacy 61.6 ml/min; Magnesium 2.1 mg/dl (1.7-2.4); Potassium 3.8 mmol/L (3.5-5.1)
[2024-09-12] MEDS: ASCORBIC ACID 500 MG TAB PO SCH (09:17)
[2024-09-12] MEDS: FERROUS GLUCONATE 324 MG TAB PO SCH (09:17)
[2024-09-12] MEDS: POTASSIUM CHLORIDE 10 MEQ TABCR PO STA (09:17)
[2024-09-12 11:07] VITALS: BP 115/74; PULSE 90; TEMP 98.2; O2SAT 93
--- NOTE | 2024-09-12 13:17 | Discharge Summary ---
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 Hemoglobin on admission was 5.1 #Severe anemia Patient has history of anemia with most recent hospital admission from 05/25/2024 until 05/27/2024 where she required 2 units of PRBC She had EGD and colonoscopy with GI on 06/21/2024 which were negative for any acute findings She is scheduled for video capsule endoscopy with [facility] as outpatient: Patient advised to follow-up with her outpatient GI WALKER to schedule outpatient video capsule endoscopy Iron is 18 Ferritin is 5.1 LDH is 158 B12 is 578 Folate is greater than 22.3 Patient has antibodies in her blood and required special blood and status post 3 units PRBC with improvement in H&H Hematology saw the patient and recommended transfuse for PRBC for severe anemia, IV Venofer 300 mg daily x 3 days for iron deficiency and outpatient follow-up with hematology to see if she would benefit from monthly IV iron. Patient was treated with 4 days of IV iron H&H has been stable and on discharge 7.6 Plavix has been held for now, she will need a repeat H&H as outpatient through PCP in will defer up to PCP to resume Plavix based on repeat H&H #CKD stage III Avoid nephrotoxic agents including NSAIDs Monitor renal function and electrolytes Outpatient follow-up with PCP #Chronic COPD Patient is at baseline oxygen requirements and uses 2 L of oxygen at baseline 2 view chest x-ray shows mild CHF, no evidence of pneumonia Sputum culture was sent on 09/12/2024: Results pending Patient was started on Augmentin and to finish a 7-day course, patient advised to follow-up with her PCP to get results of sputum culture Outpatient follow-up with PCP #Essential hypertension #Hyperlipidemia # Acute on chronic diastolic congestive heart failure with preserved ejection fraction Echo from April 2024 shows EF of 60 to 65% with grade 1 diastolic dysfunction Hold valsartan for now as blood pressure is low normal Patient to follow-up with PCP for repeat BP monitoring and valsartan to be resumed based on follow-up with PCP Continue Lasix 40 mg daily Continue statin #Obesity #Type 2 diabetes mellitus BMI 37.6 Patient is on weekly Ozempic Lifestyle counseling regarding diet, weight loss and exercise provided Outpatient follow-up with PCP Patient seen and examined today. She is stable for discharge home with follow- up plan as listed in discharge instructions. Have gone over the discharge care plan, discharge instructions, medications and follow-up with the patient in great detail and answered all her questions. This discharge took greater than 30 minutes to coordinate Notes For Next Care Provider Please follow-up results of sputum culture from 09/12/2024 Patient needs repeat labs to monitor hemoglobin and renal function in 1 week's time Please ensure patient has follow-up with outpatient GI for capsule endoscopy Please monitor patient's blood pressure: Valsartan has been held for now, will defer up to PCP to resume valsartan based on blood pressure and renal function Please monitor hemoglobin: Plavix has been held for now and will defer up to PCP to resume Plavix based on repeat H&H Admission HPI Per Admitting Provider 68-year-old female PMHx symptomatic anemia, COPD with emphysema, ALTHEA, HTN, HLD, L subclavian artery occlusion, pulmonary nodules, T2DM, hypothyroidism, and GERD presenting by outpatient referral for low hemoglobin levels. Patient is having more SOB than normal mainly only with exertion despite wearing 2L via NC at baseline. Also complaining of feeling "tired" for the past couple weeks, and some dizziness. Described as both feeling off balance and vertiginous. She is not having any chest pain or palpitations. States that she did not know that her blood counts were low and only knew because she saw her lab results. She is not having any palpitations. No SOB at rest. Patient has "cut way back" on taking ibuprofen or other NSAIDs. She has not started any other new medications of note. No recent dietary changes. Has not noted blood in stool or urine. No dark tarry stools. Again denies chest pain, palpitations, abdominal pain, N/V/D/C, numbness/tingling, fever/chills, URI symptoms, LUTS, syncope, or LOC. ED evaluation reveals no leukocytosis, H&H 5.04/16, platelets 389; PT/INR pending; CMP creatinine 1.57, glucose 107; EKG NSR, low voltage QRS, 89 bpm.; Provided with NSS in ED. Discharge Exam General: No acute distress Psych: Awake and alert, oriented x 3 HEENT: Anicteric sclera, moist oral mucosa CVS: Regular rate and rhythm Lungs: Bilateral air entry, no wheezing noted Abdomen: Soft, nontender, no rebound, no guarding Ext: Chronic left lower extremity edema. Right upper extremity edema noted from IV infiltration: Slightly warm to touch, nontender Neuro: No focal motor deficits noted Discharge Plan Discharge Items Patient Disposition: Home - Self-Care Reason For Visit: SYMPTOMATIC ANEMIA Discharge Diagnosis: #Severe symptomatic anemia/iron deficiency anemia #CKD stage III #Chronic COPD #Essential hypertension #Hyperlipidemia #Acute on chronic diastolic congestive heart failure with preserved ejection fraction of 60% #Obesity #Type 2 diabetes mellitus Condition on Discharge: Serious Activity: Resume your previous activity Non-emergency contact: Primary Care Provider Call non-emergency contact if: you have any medication questions, your symptoms worsen and you have a fever Follow-up/Referrals: Jeniffer Mathew PA-C [Primary Care Provider] - Kasey Conley MD [Physician] - Tahir Londono Jr, MD [Physician] - Diet: Carb Consistent or DM2 and Heart Healthy Addtl Attending Provider Instructions: DISCHARGE INSTRUCTION TO PATIENT/FAMILY: Follow-up with your primary care provider within 1 week regarding: Posthospital discharge, medication review, medication refills and follow-up on all your medical problems, sputum culture report Please take all your discharge medications, discharge information and discharge instructions to all your doctors appointments. Avoid all NSAIDs including ibuprofen, Motrin, Advil, Aleve, naproxen, meloxicam, Toradol, diclofenac Labs through PCP in 1 week: CBC, CMP, magnesium, vitamin D Yellow sputum culture that was sent on 09/12/2024: Please follow-up with your PCP for results of sputum culture. You have been prescribed antibiotic Augmentin for acute bronchitis. Please follow-up with your PCP regarding this. Please follow-up with your outpatient assistant women's basketball coach for capsule endoscopy as soon as possible Please follow-up with assisted living home director as outpatient as soon as possible for severe iron deficiency anemia as you may need further IV iron infusions. Your right arm IV infiltrated. Please see your PCP or seek immediate medical help if site swelling is getting worse, you develop a fever or pain is getting worse. Please use warm compresses to help bring the swelling down. You have been started on oral iron supplementation with vitamin C. One of the side effects is constipation. Please use [id number] laxatives if you experience constipation. Please follow-up with your PCP regarding this. Pending Studies at Discharge: Yes Studies:: Sputum culture sent on 09/12/2024: Please follow-up with your PCP regarding results Stand-Alone Forms: My [facility] [employer], Smoking Cessation Medications and DC Order Prescriptions: New amoxicillin-pot clavulanate 875-125 mg Tablet 1 tab PO BIDM Qty: 11 0RF ferrous gluconate 324 mg (38 mg iron) Tablet 324 mg PO QAM Qty: 30 0RF Rx Instructions: May be available [id number] ascorbic acid (vitamin C) [Vitamin C] 500 mg Tablet 500 mg PO QAM Qty: 30 0RF Rx Instructions: Take with iron daily. May be available [id number] Continued albuterol sulfate [Ventolin HFA] 90 mcg/actuation HFA aerosol inhaler 2 inh INH Q4H PRN (Reason: dyspnea or wheeze ) Qty: 18 4RF montelukast [Singulair] 10 mg tablet 10 mg PO QPM rosuvastatin 40 mg tablet 40 mg PO HS (DME) Portable Oxygen Misc See Rx Instructions .MEDSUPPLY Qty: 1 0RF Rx Instructions: Oxygen 2 liters continuous via nasal cannula on exertion with portable concentrator. MICHAEL 99 (DME) CPAP Supplies Misc See Rx Instructions .MEDSUPPLY Qty: 1 0RF Rx Instructions: Refitting of the mask. Try nasal pillows. G47.33 furosemide 40 mg tablet 40 mg PO QAM fluticasone propionate 50 mcg/actuation spray,suspension 2 spray INTRANASAL DAILY levothyroxine 150 mcg Tablet 150 mcg PO QAM amitriptyline 100 mg Tablet 100 mg PO HS Ozempic 0.25 mg or 0.5 mg (2 mg/3 mL) Pen Injector 0.5 mg SUBCUT WK Rx Instructions: MONDAYS Trelegy Ellipta 100-62.5-25 mcg blister with device 1 inh inhalation QAM bupropion HCl (smoking deter) 150 mg tablet extended release 12 hr 150 mg PO BID ropinirole 0.5 mg tablet 0.5 mg PO HS pantoprazole 40 mg Tablet,Delayed Release (Dr/Ec) 40 mg PO BID Qty: 60 2RF (DME) Oxygen Home Liters Per Minute See Rx Instructions .ROUTE Qty: 2 0RF Rx Instructions: As directed Held clopidogrel 75 mg Tablet 75 mg PO QAM Hold Instructions: Resume on 09/19/24. Please follow-up with your PCP for repeat hemoglobin check (CBC) and advice regarding resuming clopidogrel valsartan 160 mg Tablet 160 mg PO QAM Hold Instructions: Resume on 09/19/24. Please follow-up with your PCP for repeat blood pressure monitoring and advice regarding resuming valsartan Discharge Orders: Discharge Order- CHF (Routine); Ordered 09/12/24 Ordered By: Maurice Tobar Admission Data Admit Date/Time: 09/10/24 13:46 Attending Provider: Maurice Tobar Admit Provider: Lion Brenner Primary Care Provider: Jeniffer Mathew Other Providers: Lion Brenner; Adebayo Alfredo; Chen Villarreal; Kasey Conley Hospital Stay Data Consultations 09/08/24 22:29 ED Decision to Admit Stat 09/09/24 02:21 Consult Hematology Routine 09/09/24 12:52 Consult Hematology Stat Procedures Performed 09/12/24 08:00 Gram Stain - Final Sputum, Expectorated Sputum Culture - Pending 09/12/24 09/11/24 09/11/24 07:49 16:29 15:50 WBC 8.52 RBC 3.38 L Hgb 7.6 L Hct 26.8 L MCV 79.3 L MCH 22.5 L MCHC 28.4 L RDW Std Deviation 63.3 H RDW Coeff of Elizabeth 23.2 H Plt Count 220 MPV 9.9 Absolute Nucleated RBC 0.03 Nucleated RBC % (auto) 0.4 Sodium 139 Potassium 3.8 Chloride 104 Carbon Dioxide 31 Anion Gap 4 BUN 14 Creatinine 1.07 Est Cr Clr Drug Dosing 61.6 eGFR 57.29 BUN/Creatinine Ratio 13.1 Glucose 106 H Calcium 9.0 Magnesium 2.1 Blood Type A Positive Cancelled Antibody Screen POSITIVE A Cancelled Antibody ID Comment Not Reportable Crossmatch See Detail 09/08/24 22:30 WBC RBC Hgb Hct MCV MCH MCHC RDW Std Deviation RDW Coeff of Elizabeth Plt Count MPV Absolute Nucleated RBC Nucleated RBC % (auto) Sodium Potassium Chloride Carbon Dioxide Anion Gap BUN Creatinine Est Cr Clr Drug Dosing eGFR BUN/Creatinine Ratio Glucose Calcium Magnesium Blood Type Antibody Screen Antibody ID Comment Crossmatch See Detail Diagnostic Imagining Performed Chest X-Ray 09/11/24 10:18 XR chest 2V PA/lateral CLINICAL HISTORY: cough ?pneumonia ?chf COMPARISON STUDY: 05/25/2024 FINDINGS: Stable mild cardiomegaly with mild pulmonary vascular congestion. Stable mild pulmonary interstitial prominence. No consolidation or pleural effusion. No pneumothorax. IMPRESSION: CHF. ACT 112: Negative or not required by law. Electronically signed by: Luis Coleman M.D. 09/11/2024 11:30 AM Pending Results Patient Have Any Pending Studies at Discharge: No Discharge Instructions Given to Patient (Per Discharging Provider) DISCHARGE INSTRUCTION TO PATIENT/FAMILY: Follow-up with your primary care provider within 1 week regarding: Posthospital discharge, medication review, medication refills and follow-up on all your medical problems, sputum culture report Please take all your discharge medications, discharge information and discharge instructions to all your doctors appointments. Avoid all NSAIDs including ibuprofen, Motrin, Advil, Aleve, naproxen, meloxicam, Toradol, diclofenac Labs through PCP in 1 week: CBC, CMP, magnesium, vitamin D Yellow sputum culture that was sent on 09/12/2024: Please follow-up with your PCP for results of sputum culture. You have been prescribed antibiotic Augmentin for acute bronchitis. Please follow-up with your PCP regarding this. Please follow-up with your outpatient assistant women's basketball coach for capsule endoscopy as soon as possible Please follow-up with assisted living home director as outpatient as soon as possible for severe iron deficiency anemia as you may need further IV iron infusions. Your right arm IV infiltrated. Please see your PCP or seek immediate medical help if site swelling is getting worse, you develop a fever or pain is getting worse. Please use warm compresses to help bring the swelling down. You have been started on oral iron supplementation with vitamin C. One of the side effects is constipation. Please use [id number] laxatives if you experience constipation. Please follow-up with your PCP regarding this. Total Time Total Time Spent Total Time Spent (In Minutes): 40 minutes Coding Level of Care Code 65350 INP/OBS DISCH >30 MIN Diagnoses Anemia D64.9 Anemia type: unspecified type Diastolic CHF I50.30 Hypothyroid E03.9 T2DM (type 2 diabetes mellitus) E11.9 COPD with emphysema J43.9 CKD stage 3a, GFR 45-59 ml/min N18.31 Hypertension I10
== END 2024-09-12 14:48 | disposition home health service (06) | DRG 811 ==
LOC: 2N 21:38 → ED 21:38 → INTOOBSV 23:20 → SUATTDRO 23:20 → 2N 09-09 01:59